=== PATIENT | male | born 1945 | race Caucasian/White ===

== ENCOUNTER → 2017-03-01 | Outpatient (CLI) | payer BC, OTHER ==
[~2017-03-01] MED LIST: ACET-749 PO; AMLO-114 PO; AMPH30TA2 PO; ATOR-26 PO; AZEL0.055 OP; BACL1TAB PO; CELE1CAP30 PO; CYCL10TA6 PO; DIAZ-165 PO; DICL50TA3 PO; DICY10CA55 PO; DULO60CA44 PO; FLAX10007 PO; FLM4 PO; FLNIN/ NAE; FRCT/ PO; GABA-112 PO; IMT100 PO; LINA1CAP2 PO; METO25TA56 PO; POLY150C4 PO; POLY335025 PO; PREG1CAP28 PO; RXC5 PO; SERT50TA PO; VNFI INJ; ZOLP10TA PO
--- NOTE | 2017-03-01 14:44 | DIAGNOSTIC IMAGING REPORT ---
CHEST 2 VIEWS ROUTINE HISTORY: Preop. COMPARISON: Chest 07/01/2016. FINDINGS: The lungs are clear. Cardiac silhouette is normal in size. No pleural effusions. No pneumothorax. IMPRESSION: No acute process. Electronically signed by: Carl Colby M.D. 03/01/2017 2:43 PM Dictated Date/Time: 03/01/2017 2:42 PM
[2017-03-01 15:51] LABS: URINE APPEARANCE CLEAR (CLEAR); URINE BILIRUBIN NEG (NEG); URINE COLOR YELLOW; URINE NITRITE NEG (NEG); URINE PH 7.5 (4.5-7.5); URINE SPECIFIC GRAVITY 1.011 (1.000-1.030); UROBILINOGEN NEG (NEG)
[2017-03-01 15:56] LABS: MANUAL MICROSCOPIC REQUIRED? NO; REVIEW REQ? NO
== END | disposition home or self-care (01) ==
LOC: C.LAB 13:49
PROVIDERS: ATTEND Orthopaedic Surgery Orthopaedic Surgery of the Spine
DX: M48.06 Spinal stenosis, lumbar region (principal); R94.31 Abnormal electrocardiogram [ECG] [EKG]

== ENCOUNTER 2017-03-04 11:17 | Inpatient (IN) | payer BC, OTHER ==
[2017-02-25 14:46] VITALS: BMI 21.0
[~2017-03-04] VITALS: Ht 177.8 cm; Wt 67.3 kg
[2017-03-04] VITALS (7 sets, daily range): BP systolic 114–149; BP diastolic 68–89; PULSE 71–82; TEMP 36.3–36.8; O2SAT 96–100; Ht 177.8 cm; Wt 67.3 kg
[~2017-03-04 11:17] MED LIST changes: +ATROPINE SULFATE 0.1 MG/ML 5ML SYR IV PRN; +CEFAZOLIN 1000MG/55 ML D5W IV SCH; +EpHEDrine SULFATE INJ 50 MG/ML AMP IV PRN; -GABA-112 PO; +HYDROmorphone INJ 1 MG/ML SYR IV PRN; +LACTATED RINGER'S 1000ML 1,000 ML IV SCH; +ONDANSETRON INJ 2 MG/ML 2 ML VIAL IV PRN; -RXC5 PO
--- NOTE | 2017-03-04 11:30 | History & Physical Bridge Note ---
H&P Re-Evaluation Bridge Note: I have examined the patient, reviewed the History & Physical and in the interval since the performance of the History & Physical I have noted the following changes of clinical significance: No changes noted
--- NOTE | 2017-03-04 11:31 | History and Physical ---
History & Physical Date March 04, 2017. Chief Complaint back and leg pain History of Present Illness The patient is a 71 year old male with complaints of Past Medical/Surgical History Medical Problems: (1) Chronic radicular low back pain (2) Depression (3) Dyslipidemia (4) GERD (gastroesophageal reflux disease) (5) Hypertension (6) IBS (irritable bowel syndrome) (7) Migraine (8) Persistent vomiting Surgical Problems: (1) History of partial gastrectomy (2) History of tonsillectomy Additional History Hepatic Disease: No Endocrine Disorder: No Kidney Disease: No Hypertension: No Heart Disease: No Bleeding Tendencies: No Infectious Diseases: No Allergies Coded Allergies: Buspirone (Verified Adverse Reaction, Unknown, "CRAWLING OUT OF MY SKIN" JITTERY, 02/25/17) Lactose (Verified Adverse Reaction, Unknown, INTOLERANT, 02/25/17) Lorazepam (Verified Adverse Reaction, Unknown, JITTERY;"CRAWLING OUT OF MY SKIN", 02/25/17) Home Medications Scheduled Amlodipine (Norvasc), 10 MG PO QAM Amphetamine-Dextroamphetamine 30MG (Adderall 30MG), 30 MG PO BID Atorvastatin (Lipitor), 80 MG PO HS Celecoxib (Celecoxib), 200 MG PO QAM Diclofenac (Voltaren), 50 MG PO TID Dicyclomine Hcl (Bentyl), 1 CAP PO QID Duloxetine Hcl (Cymbalta), 1 CAP PO DAILY Flaxseed (Linseed) (Flax Seed Oil), 1,000 MG PO QAM Iron Sucrose (Venofer), 200 MG INJ MONTHLY Linaclotide (Linzess), 290 MCG PO QAM Metoprolol Tartrate (Lopressor) (Lopressor), 75 MG PO BID Polysaccharide Iron Complex (Ferrex 150), 1 CAP PO QAM Pregabalin (Lyrica), 75 MG PO BID Sertraline (Zoloft), 1 TAB PO DAILY Tamsulosin HCl (Tamsulosin HCl), 0.4 MG PO HS Scheduled PRN Acetamin/Butalbital/Caffeine (Fioricet), 1 TAB PO Q4H PRN for Migraine Acetaminophen/Codeine (Tylenol W/Codeine #3), 1 TAB PO Q4H PRN for Lower Back Pain Azelastine Hcl (Ophth) (Azelastine Hcl), 1 DROPS OP BID PRN for SEASONAL ALLERGIES Baclofen (Lioresal), 1 TAB PO TID PRN for Muscle Spasms Cyclobenzaprine Hcl (Flexeril), 10 MG PO TID PRN for Muscle Spasm Diazepam (Valium), 5 MG PO QAM PRN for ANXIETY Fluticasone Propionate (Fluticasone Propionate), 2 SPRAYS CARMELITA DAILY PRN for Nasal Congestion Polyethylene Glycol 3350 (Miralax), 17 GM PO DAILY PRN for Constipation Sumatriptan Succinate (Imitrex), 100 MG PO UD PRN for Migraine Zolpidem Tartrate (Ambien), 10 MG PO HS PRN for Sleep Physical Examination Skin: warm/dry, no rash Eyes: normal inspection, EOMI, sclerae normal ENT: normal ENT inspection, pharynx normal Head: normocephalic, atraumatic Neck: supple, no adenopathy, trachea midline Respiratory/Chest: lungs clear, normal breath sounds, no respiratory distress Cardiovascular: regular rate, rhythm, no edema, no murmur Abdomen / GI: normal bowel sounds, non tender Back: normal inspection Extremities: normal inspection, normal range of motion Neurologic/Psych: no motor/sensory deficits, alert, normal reflexes, oriented x 3 Diagnosis lumbar stenosis Plan of Treatment decompression fusion L4-S1
[2017-03-04] MEDS ORDERED: BUPIVACAINE/EPINEPHRINE 0.5% MPF 1:200,000 30 ML VIAL ONE (11:54)
[2017-03-04] MEDS ORDERED: SODIUM CHLORIDE 0.9% PF 50 ML VIAL ONE (11:54)
[2017-03-04] MEDS ORDERED: BACITRACIN 50000 UNIT VIAL ONE (11:55)
[2017-03-04] MEDS ORDERED: FENTANYL CITRATE INJ 50 MCG/1 ML 2 ML VIAL ONE ×3 (11:57→12:50)
[2017-03-04] MEDS ORDERED: MIDAZOLAM HCL 1 MG/ML 2ML VIAL ONE (11:57)
[2017-03-04] MEDS ORDERED: HYDROmorphone INJ 2 MG/ML SYR/VIAL ONE ×3 (12:46→14:43)
[2017-03-04] MEDS ORDERED: LIDOCAINE HCL 2% 2 ML VIAL (20MG/ML) ONE (14:19)
[2017-03-04] MEDS ORDERED: PROPOFOL IV EMULSION 10 MG/ML 20 ML VIAL IV ONE (14:19)
[2017-03-04] MEDS ORDERED: ONDANSETRON INJ 2 MG/ML 2 ML VIAL ONE ×3 (14:19→14:48)
[2017-03-04] MEDS ORDERED: DEXAMETHASONE SOD INJ 4 MG/ML VIAL ONE (14:19)
[2017-03-04] MEDS ORDERED: RANITIDINE HCL 25 MG/ML INJ ONE (14:19)
[2017-03-04] MEDS ORDERED: ROCURONIUM BROMIDE 10 MG/ML 5 ML VIAL ONE (14:19)
[2017-03-04] MEDS ORDERED: GLYCOPYRROLATE INJ 0.2 MG/ML VIAL ONE ×2 (14:20→14:44)
[2017-03-04] MEDS ORDERED: EpHEDrine SULFATE 50MG/5ML SYR ONE (14:20)
[2017-03-04] MEDS ORDERED: PHENYLEPHRINE 100MCG/ML 5ML SYR ONE (14:20)
[2017-03-04] MEDS ORDERED: DURASEAL DURAL SEALANT 5ML TOP ONE (14:24)
[2017-03-04] MEDS ORDERED: FLOSEAL HEMOSTATIC MATRIX 10ML TOP ONE (14:27)
[2017-03-04] MEDS ORDERED: LACTATED RINGER'S 1000ML 1,000 ML IV SCH (14:43)
--- NOTE | 2017-03-04 14:43 | [facility] Post Operative Brief Note ---
Immediate Operative Summary Operative Date March 04, 2017. Pre-Operative Diagnosis Lumbar Stenosis Post-Operative Diagnosis Lumbar Stenosis Procedure(s) Performed L4-L5, L5-S1 Lumbar Decompression/Laminectomy, Discectomy, Placement of Interbody Spacer, Pedicle Screw Fixation, Application of Bone Graft Allograft, Application of Bone Morphogenetic Protein, Posteriolateral Gutter Fusion and Repair of Dura tear Surgeon Dr. Ferrer [employer] Surgeon(s) MIL Rosenbaum Estimated Blood Loss 450ml Findings stenosis Specimens none per surgeon
[2017-03-04] MEDS ORDERED: NEOSTIGMINE METHYLSULFATE 1 MG/ML 10ML VIAL ONE (14:44)
[2017-03-04] MEDS ORDERED: BACLOFEN 10 MG TAB PO PRN (14:45)
[2017-03-04] MEDS ORDERED: ACETAMINOPHEN IV 100 ML IV PRN (14:45)
[2017-03-04] MEDS ORDERED: ZOLPIDEM TARTRATE 10 MG TAB PO PRN (14:45)
[2017-03-04] MEDS ORDERED: FLUTICASONE PROPIONATE NA SPR 16 GM BTL NAE PRN (14:45)
[2017-03-04] MEDS ORDERED: SOD PHOSPHATE/SOD BIPHOSPHATE ENEMA 132 ML BTL PR PRN (14:45)
[2017-03-04] MEDS ORDERED: FAMOTIDINE 20 MG TAB PO PRN (14:45)
[2017-03-04] MEDS ORDERED: ALUMINUM/MAGNESIUM SUSP 30 ML UDC PO PRN (14:45)
[2017-03-04] MEDS ORDERED: hydrOXYzine HCL 25 MG TAB PO PRN (14:45)
[2017-03-04] MEDS ORDERED: DO NOT ADMINISTER PNEUMOCOCCAL VACCINE PRN ×2 (14:45)
[2017-03-04] MEDS ORDERED: BISACODYL 10 MG SUPP PR PRN (14:45)
[2017-03-04] MEDS ORDERED: NALOXONE HCL 0.4 MG/1 ML VIAL/CARP IV PRN ×2 (14:45)
[2017-03-04] MEDS ORDERED: ACETAMINOPHEN 500 MG TAB PO PRN (14:45)
[2017-03-04] MEDS ORDERED: SUMATRIPTAN SUCC TAB 100 MG TAB PO PRN (14:45)
[2017-03-04] MEDS ORDERED: PROMETHAZINE HCL INJ 12.5 MG in SODIUM CHLORIDE 0.9% 50ML 50 ML IV PRN (14:45)
[2017-03-04] MEDS ORDERED: DO NOT ADMINISTER FLU VACCINE PRN ×3 (14:45)
[2017-03-04] MEDS ORDERED: MAGNESIUM HYDROXIDE SUSP 30 ML UDC PO PRN (14:45)
[2017-03-04] MEDS ORDERED: PHENYLEPHRINE HCL INJ 10 MG/ML VIAL ONE (14:48)
--- NOTE | 2017-03-04 14:48 | DIAGNOSTIC IMAGING REPORT ---
LUMBAR SPINE, INTRAOPERATIVE FLUOROSCOPY HISTORY: L4-S1 decompression and fusion. FLUOROSCOPY TIME: 19 seconds. FINDINGS: Intraoperative fluoroscopy was provided for the lumbar spine. 2 fluoroscopic spot images were obtained. Posterior decompression fusion from L4 through S1 with pedicle screws and rods. The hardware appears intact. IMPRESSION: Fluoroscopy provided for a L4-S1 posterior decompression and fusion. Electronically signed by: Carl Colby M.D. 03/04/2017 2:47 PM Dictated Date/Time: 03/04/2017 2:47 PM
[2017-03-04] MEDS ORDERED: HYDROmorphone HCL 0.5MG/ML 50 ML CASSETTE ONE (14:59)
[2017-03-04] MEDS: HYDROmorphone HCL 0.5MG/ML 50 ML CASSETTE IV PRN ×3 (15:00→18:53)
[2017-03-04] MEDS: FENTANYL CITRATE INJ 50 MCG/1 ML 2 ML VIAL IV PRN ×4 (15:30→15:45)
--- NOTE | 2017-03-04 15:48 | Anesthesiology Progress Note ---
Anesthesia Post Op Note Date & Time March 04, 2017 at 15:48 Vital Signs Pain Intensity: 6.0 Vital Signs Past 12 Hours Date Time Temp Pulse Resp B/P Pulse Ox O2 Delivery O2 Flow Rate FiO2 03/04/17 15:30 74 16 116/69 100 Nasal Cannula 4 03/04/17 15:20 75 16 113/56 100 Nasal Cannula 4 03/04/17 15:10 76 16 114/62 100 Nasal Cannula 4 03/04/17 15:00 82 16 102/64 100 Mask 10 03/04/17 14:51 36 82 16 96/62 100 Mask 10 03/04/17 11:48 36.8 71 20 149/89 100 Room Air Notes Mental Status: alert / awake / arousable, participated in evaluation Pt Amnestic to Procedure: Yes Nausea / Vomiting: adequately controlled Pain: adequately controlled Airway Patency, RR, SpO2: stable & adequate BP & HR: stable & adequate Hydration State: stable & adequate Anesthetic Complications: no major complications apparent
[2017-03-04] MEDS: SODIUM CHLORIDE 0.9% 1000ML 1,000 ML IV SCH ×2 (17:17→19:28)
[2017-03-04] MEDS: DICYCLOMINE HCL 10 MG CAP PO SCH ×2 (17:38→21:00)
[2017-03-04] MEDS: CEFAZOLIN IV 1,000 MG in DEXTROSE 5% 50ML 50 ML IV SCH (19:28)
[2017-03-04] MEDS: ONDANSETRON INJ 2 MG/ML 2 ML VIAL IV PRN (19:36)
--- NOTE | 2017-03-04 20:48 | OPERATIVE REPORT ---
DATE OF OPERATION: 03/04/2017 PREOPERATIVE DIAGNOSIS: Spinal stenosis. POSTOPERATIVE DIAGNOSIS: Same. PROCEDURE PERFORMED: 1. Lumbar decompression, medial facetectomy, and foraminotomy L3-4, L4-5 and L5-S1. 2. Posterior spinal fusion, L4-5 and L5-S1. 3. Placement of posterior segmental instrumentation using Orthros rods and screws, L4-5 and L5-S1. 4. Interbody fusion, L4-L5 and L5-S1. 5. Placement of PEEK cage 8 x 22 at L4-L5 and 9 x 22 at L5-S1. 6. Placement of locally harvested morcellized autograft. 7. Placement of Infuse collagen sponge combined with Mastergraft in posterior gutters and Lili bone grafting in interbody space. SURGEON: Dr. Ángel Ferrer. DOUGHNUT ICER: Shari Jones PA-C. Due to the complex nature of the procedure, the entire surgery was performed with the nurse's assistant of Shari Jones PA-C. The speech assistant, under direct supervision, was involved in the actual performance of all aspects of the surgical procedure including hemostasis, tissue retraction and incision, instrument management, patient positioning, and wound closure. ANESTHESIA: General. DISPOSITION: The patient awakened and taken to PACU in stable condition. HISTORY OF PATIENT'S PROBLEMS: This is a 71-year-old male who presents with above-mentioned diagnosis. After failing an extensive course of nonoperative care, elected to undergo the above-mentioned procedure. Risks, benefits, pros, cons, and alternatives were outlined in detail preoperatively. DESCRIPTION OF PROCEDURE: The patient was met preoperatively, case discussed and all questions were addressed. At that point, the patient was taken back to operative suite, and after undergoing successful general intubation by department of anesthesia, he was placed in prone position on Milton table atop Lucho frame. All bony prominences were well padded, and the eyes were inspected to ensure there was no external pressure placed upon them. At this point, the lumbar spine was prepped and draped in normal sterile fashion. Sharp dissection with the assistance of Bovie cautery performed down to and exposing the lamina and transverse processes of L4, L5 and sacral ala bilaterally. From a caudal to cephalad fashion, complete laminectomy of L5 and L4, partial laminectomy of L3 was performed addressing severe lateral recess foraminal disease. We did note an incidental 1 to 2 mm durotomy. This was repaired directly with 4-0 Nurolon. After complete decompression, pedicle screws were then placed in L4, L5 and S1 levels bilaterally with assistance of fluoroscopy and appropriately sized jesika provisionally placed Through a transforaminal approach on the right, a complete discectomy of L5-S1 was performed. Endplates curetted to subcortical bleeding bone and an 8 x 22 mm PEEK cage filled with Lili bone grafting tapped into position. I then proceeded to 4-5, and again, through a transforaminal approach on the right, a complete discectomy was performed, endplates curetted to subcortical bleeding bone and an 8 x 22 mm PEEK cage filled with Lili bone grafting tapped into position. Rods were then locked into final position. The transverse processes of L4, L5 and S1 levels burred to subcortical bone. Infuse collagen sponge combined with Mastergraft locally harvested morselized autograft was placed in the posterior gutters. A 7 flat ROBER drain inserted. Incision was closed with 1-0 Vicryl in the fascia, 2-0 Vicryl subcutaneously, 4-0 Monocryl for final skin closure. Steri-Strips and sterile dressing placed. The patient was awakened and taken to PACU in stable condition. I attest to the content of the Intraoperative Record and any orders documented therein. Any exceptio ns are noted below.
[2017-03-04] MEDS: DOCUSATE SODIUM/SENNA 50/8.6MG TAB PO SCH ×2 (21:00→21:21)
[2017-03-04] MEDS: METOPROLOL TARTRATE 25 MG TAB PO SCH (21:21)
[2017-03-04] MEDS: TAMSULOSIN HCL 0.4 MG CAP PO SCH (21:21)
[2017-03-04] MEDS: ATORVASTATIN 40 MG TAB PO SCH (21:21)
[2017-03-04] MEDS: DEXAMETHASONE INJ 6 MG in SYRINGE 0 ML IV SCH (21:22)
[2017-03-04] MEDS: PREGABALIN 75 MG CAP PO SCH (21:22)
[2017-03-04] MEDS: METOCLOPRAMIDE HCL INJ 5 MG/ML 2 ML VIAL IV PRN (22:34)
[2017-03-05 03:15] VITALS: BP 136/80; PULSE 89; TEMP 36.6; O2SAT 99
[2017-03-05] MEDS: CEFAZOLIN IV 1,000 MG in DEXTROSE 5% 50ML 50 ML IV SCH (04:04)
[2017-03-05] MEDS: METOCLOPRAMIDE HCL INJ 5 MG/ML 2 ML VIAL IV PRN (05:03)
[2017-03-05 05:51] LABS: BASO % 0.1 %; BASO ABS # 0.01 K/uL (0-0.2); COMPLETE YES; HEMATOCRIT 29.6 % (42-52); IG% 0.2 %; LYMPH % 7.1 %; LYMPH ABS # 0.61 K/uL (1.2-3.4); MEAN CELL VOLUME 80.2 fL (80-100); MEAN CORPUSCULAR HEMOGLOBIN 29.8 pg (25-34); MEAN CORPUSCULAR HGB CONC 37.2 g/dl (32-36); MEAN PLATELET VOLUME 7.8 fL (7.4-10.4); MONO % 4.6 %; PLATELET COUNT 189 K/uL (130-400); RED BLOOD COUNT 3.69 M/uL (4.7-6.1); WHITE BLOOD COUNT 8.61 K/uL (4.8-10.8)
[2017-03-05] MEDS ORDERED: DC PCA SCH (06:00)
[2017-03-05] MEDS ORDERED: HYDROmorphone INJ 1 MG/ML SYR IV PRN (06:01)
[2017-03-05] MEDS: DEXAMETHASONE INJ 6 MG in SYRINGE 0 ML IV SCH ×2 (06:09→13:35)
[2017-03-05 06:27] LABS: BUN/CREATININE RATIO 18.3 (10-20); CREATININE 0.58 mg/dl (0.60-1.40); POTASSIUM 4.1 mmol/L (3.5-5.1)
[2017-03-05] MEDS ORDERED: RXC5 PO (07:35)
--- NOTE | 2017-03-05 07:36 | Discharge Instructions ---
Discharge Instructions Date of Service March 05, 2017. Admission Reason for Admission: Lumbar Spinal Stenosis Discharge Discharge Diagnosis / Problem: stenosis Discharge Goals Goal(s): Improve function Activity Recommendations Activity Limitations: per Instructions/Follow-up section . Instructions / Follow-Up Instructions / Follow-Up ACTIVITY RECOMMENDATIONS: Limitations: Heel weight bearing only if able to tolerate. SPECIAL CARE INSTRUCTIONS: * Some drainage onto the dressing is normal and is no cause for alarm. * Some swelling is natural especially after walking. * When resting, keep your foot elevated above the level of your heart. * Call [facility] if you notice: -Increased drainage -Fever over 101 degrees F -Severe constant pain BANDAGE: * Leave bandage/cast in place unless otherwise directed. * Keep bandage/cast dry at all times. PIN CARE: * Leave pins alone. * If pins come loose or fall out, notify physician. FOLLOW UP VISIT WITH DR. GARCIA If appointment is not already scheduled: Please call [facility] after you get home today to schedule a follow-up appointment for [address] Garcia at . Current Hospital Diet Patient's current hospital diet: Regular Diet Discharge Diet Recommended Diet: Regular Diet Procedures Procedures Performed: L4-L5, L5-S1 Lumbar Decompression/Laminectomy, Discectomy, Placement of Interbody Spacer, Pedicle Screw Fixation, Application of Bone Graft Allograft, Application of Bone Morphogenetic Protein, Posteriolateral Gutter Fusion and Repair of Dura tear Pending Studies Studies pending at discharge: no Medical Emergencies . Who to Call and When: Medical Emergencies: If at any time you feel your situation is an emergency, please call 911 immediately. . Non-Emergent Contact Non-Emergency issues call your: Primary Care Provider . "Provider Documentation" section prepared by Ángel Ferrer. . VTE Core Measure Inpt VTE Proph given/why not?: Rl Purvis, SCD's
[2017-03-05 07:39] VITALS: BP 138/79; PULSE 91; TEMP 36.5; O2SAT 98
--- NOTE | 2017-03-05 08:08 | Anesthesiology Progress Note ---
Anesthesia Post Op Note Date & Time March 05, 2017 at 08:08 Vital Signs Pain Intensity: 0.0 Vital Signs Past 12 Hours Date Time Temp Pulse Resp B/P Pulse Ox O2 Delivery O2 Flow Rate FiO2 03/05/17 07:39 36.5 91 17 138/79 98 Room Air 03/05/17 03:15 36.6 89 16 136/80 99 Room Air 03/05/17 00:00 Room Air 03/04/17 22:46 36.4 80 16 146/79 99 Room Air 03/04/17 21:20 81 118/71 100 Room Air Notes Mental Status: alert / awake / arousable, participated in evaluation Pt Amnestic to Procedure: Yes Nausea / Vomiting: adequately controlled Pain: adequately controlled Airway Patency, RR, SpO2: stable & adequate BP & HR: stable & adequate Hydration State: stable & adequate Anesthetic Complications: no major complications apparent
[2017-03-05] MEDS: DICYCLOMINE HCL 10 MG CAP PO SCH ×4 (09:00→20:24)
[2017-03-05 11:13] VITALS: BP 148/76; PULSE 95; TEMP 37; O2SAT 99
[2017-03-05] MEDS: ONDANSETRON INJ 2 MG/ML 2 ML VIAL IV PRN (12:01)
[2017-03-05] MEDS: AMLODIPINE BESYLATE 5 MG TAB PO SCH (12:04)
[2017-03-05] MEDS: METOPROLOL TARTRATE 25 MG TAB PO SCH ×2 (12:04→20:26)
[2017-03-05] MEDS: SERTRALINE HCL 50 MG TAB PO SCH (12:04)
[2017-03-05] MEDS: DULOXETINE HCL 60 MG CAP PO SCH (12:04)
[2017-03-05] MEDS: PREGABALIN 75 MG CAP PO SCH ×2 (12:06→20:26)
[2017-03-05] MEDS: BUTALBITAL/ACETAMIN/CAFFEINE TAB PO PRN ×2 (13:35→20:38)
--- NOTE | 2017-03-05 15:06 | PROGRESS NOTE ---
DATE: 03/05/2017 Postop day 1. Back pain controlled. Leg pain improved. Denies any headaches at this time. Vital signs stable. T-max 37.0. ROBER drained 60 mL. Hematocrit this a.m. 29.6. PHYSICAL EXAMINATION: He has good strength to testing. Appears comfortable. ASSESSMENT: Status post lumbar decompression and fusion. PLAN: At this time, we will discontinue the drain today, begin transition to a chair, most likely physical therapy tomorrow.
[2017-03-05 15:10] VITALS: BP 155/79; PULSE 82; TEMP 36.8; O2SAT 99
[2017-03-05] MEDS: TAMSULOSIN HCL 0.4 MG CAP PO SCH (20:24)
[2017-03-05] MEDS: ATORVASTATIN 40 MG TAB PO SCH (20:25)
[2017-03-05] MEDS: DOCUSATE SODIUM/SENNA 50/8.6MG TAB PO SCH (20:26)
[2017-03-05] MEDS: DIAZEPAM 5MG TAB PO PRN (20:38)
[2017-03-05 23:40] VITALS: BP 120/67; PULSE 76; TEMP 36.6; O2SAT 98
[2017-03-06] MEDS: POLYETHYLENE (MIRALAX) 17 GM PACK PO SCH ×4 (05:36→23:58)
[2017-03-06 07:05] VITALS: BP 131/77; PULSE 85; TEMP 36.8; O2SAT 100
[2017-03-06] MEDS: OXYCODONE HCL IR 5 MG TAB (IMMEDIATE RELEASE) PO PRN ×5 (07:21→21:07)
[2017-03-06] MEDS: BUTALBITAL/ACETAMIN/CAFFEINE TAB PO PRN ×3 (07:32→21:06)
[2017-03-06] MEDS: DICYCLOMINE HCL 10 MG CAP PO SCH ×4 (09:00→20:07)
[2017-03-06] MEDS: SERTRALINE HCL 50 MG TAB PO SCH (09:10)
[2017-03-06] MEDS: DULOXETINE HCL 60 MG CAP PO SCH (09:11)
[2017-03-06] MEDS: AMLODIPINE BESYLATE 5 MG TAB PO SCH (09:11)
[2017-03-06] MEDS: METOPROLOL TARTRATE 25 MG TAB PO SCH ×2 (09:12→21:08)
[2017-03-06] MEDS: PREGABALIN 75 MG CAP PO SCH ×2 (09:15→21:13)
--- NOTE | 2017-03-06 10:24 | PROGRESS NOTE ---
DATE: 03/06/2017 DATE: 03/06/2017. SUBJECTIVE: Postop day 2. Back pain controlled. Leg pain improved. Denies headaches, nausea or vomiting. Vital signs stable. T-max 36.8. ROBER drain discontinued. OBJECTIVE: On exam he has good strength to testing, sitting up in bed, appears comfortable. ASSESSMENT: Status post lumbar decompression and fusion. PLAN: At this time, will initiate formal physical therapy today for ambulation and transfers. Hopefully, discharge home in the next 2 days.
[2017-03-06] MEDS: CYCLOBENZAPRINE HCL 10 MG TAB PO PRN ×2 (11:12→17:49)
[2017-03-06 15:20] VITALS: BP 105/64; PULSE 88; TEMP 37.1; O2SAT 98
[2017-03-06 21:05] VITALS: BP 105/66; PULSE 92
[2017-03-06] MEDS: DOCUSATE SODIUM/SENNA 50/8.6MG TAB PO SCH (21:07)
[2017-03-06] MEDS: ATORVASTATIN 40 MG TAB PO SCH (21:08)
[2017-03-06] MEDS: TAMSULOSIN HCL 0.4 MG CAP PO SCH (21:09)
[2017-03-06 23:35] VITALS: BP 130/72; PULSE 79; TEMP 36.7; O2SAT 97
[2017-03-07] MEDS: DIAZEPAM 5MG TAB PO PRN (00:05)
[2017-03-07] MEDS: POLYETHYLENE (MIRALAX) 17 GM PACK PO SCH ×3 (05:41→19:00)
[2017-03-07 06:33] VITALS: BP 146/83; PULSE 87; TEMP 37.3; O2SAT 97
[2017-03-07] MEDS ORDERED: DICYCLOMINE HCL 20 MG TAB PO PRN (08:45)
[2017-03-07] MEDS: DICYCLOMINE HCL 10 MG CAP PO SCH ×4 (09:00→20:58)
--- NOTE | 2017-03-07 09:05 | PROGRESS NOTE ---
DATE: 03/07/2017 SUBJECTIVE: The patient is doing fairly well, ambulating well. Leg pain improved. Vital signs are stable. T-max is 37.3. No bowel movement as of yet. On exam, he demonstrates good strength to testing. He appears comfortable. ASSESSMENT: Status post lumbar decompression and fusion. PLAN: At this time, we will continue with physical therapy today, advance his bowel regimen and anticipate home tomorrow.
[2017-03-07] MEDS ORDERED: KETOROLAC TROMETHAMINE 15 MG/ML VIAL IV. PRN (09:45)
[2017-03-07] MEDS: DULOXETINE HCL 60 MG CAP PO SCH (10:13)
[2017-03-07] MEDS: METOPROLOL TARTRATE 25 MG TAB PO SCH ×2 (10:13→20:58)
[2017-03-07] MEDS: AMLODIPINE BESYLATE 5 MG TAB PO SCH (10:14)
[2017-03-07] MEDS: PREGABALIN 75 MG CAP PO SCH ×2 (10:14→21:02)
[2017-03-07] MEDS: SERTRALINE HCL 50 MG TAB PO SCH (12:39)
[2017-03-07 15:45] VITALS: BP 109/75; PULSE 82; TEMP 36.4; O2SAT 98
[2017-03-07 16:00] VITALS: O2SAT 98
[2017-03-07] MEDS: TAMSULOSIN HCL 0.4 MG CAP PO SCH (20:57)
[2017-03-07] MEDS: DOCUSATE SODIUM/SENNA 50/8.6MG TAB PO SCH (20:57)
[2017-03-07] MEDS: ATORVASTATIN 40 MG TAB PO SCH (21:00)
[2017-03-07] MEDS: BUTALBITAL/ACETAMIN/CAFFEINE TAB PO PRN (21:03)
[2017-03-07] MEDS: CYCLOBENZAPRINE HCL 10 MG TAB PO PRN (21:04)
[2017-03-07 23:30] VITALS: BP 130/80; PULSE 93; TEMP 37.1; O2SAT 95
[2017-03-08] MEDS: OXYCODONE HCL IR 5 MG TAB (IMMEDIATE RELEASE) PO PRN ×2 (00:15→10:56)
[2017-03-08] MEDS: POLYETHYLENE (MIRALAX) 17 GM PACK PO SCH ×2 (05:49)
[2017-03-08 06:31] VITALS: BP 106/69; PULSE 83; TEMP 36.8; O2SAT 96
[2017-03-08 08:33] VITALS: BP 106/69; PULSE 83; TEMP 36.8; O2SAT 96
[2017-03-08] MEDS: DICYCLOMINE HCL 10 MG CAP PO SCH (08:41)
[2017-03-08] MEDS: AMLODIPINE BESYLATE 5 MG TAB PO SCH (08:43)
[2017-03-08] MEDS: SERTRALINE HCL 50 MG TAB PO SCH (08:43)
[2017-03-08] MEDS: DULOXETINE HCL 60 MG CAP PO SCH (08:43)
[2017-03-08] MEDS: METOPROLOL TARTRATE 25 MG TAB PO SCH (08:44)
[2017-03-08] MEDS: PREGABALIN 75 MG CAP PO SCH (08:49)
[2017-03-08] MEDS: BUTALBITAL/ACETAMIN/CAFFEINE TAB PO PRN (11:02)
--- NOTE | 2017-03-11 09:45 | DISCHARGE SUMMARY ---
HISTORY OF PRESENT ILLNESS: The patient entered the hospital on 03/04/2017 with a preoperative diagnosis of spinal stenosis. The patient underwent posterior lumbar decompression L3 through S1 with instrumented fusion L4 through S1. This included interbody fusion L4-5 and L5-S1. Postoperatively, on postoperative day 1 leg pain improved. Back pain controlled. Hematocrit stable at 29.6%. Doing well in therapy. Postoperative day 2, again leg and back pain controlled. Drain was removed. Starting physical therapy. Postoperative day 3, again no complaints, doing well, progressing with physical therapy. Discharged home on postoperative day 4. PAST MEDICAL HISTORY: Significant for depression, dyslipidemia, GERD, hypertension, irritable bowel syndrome, migraines, persistent vomiting. PAST SURGICAL HISTORY: Significant for partial gastrectomy and tonsillectomy. ALLERGIES: INCLUDE BUSPIRONE, LACTOSE AND ATIVAN. MEDICATIONS AT HOME: Include Norvasc, Adderall, Lipitor, Celebrex, Voltaren, Bentyl, Cymbalta, flaxseed oil, iron, sucrose, Linzess, vasopressor, Ferrex, Lyrica, Zoloft, tamsulosin, Fioricet, Tylenol with codeine, azelastine drops, baclofen, Flexeril, Valium, fluticasone propionate, MiraLax, Imitrex and Ambien. SOCIALLY: He is . Alcohol and tobacco use are per chart. DISCHARGE PLAN: At discharge, he will follow up in our office in 2 weeks to assess his progress and wound evaluation. Any further questions can be found in the chart for review.
[2017-05-25] MEDS ORDERED: GABA-112 PO (14:13)
== END 2017-03-08 13:39 | disposition home or self-care (01) | DRG 460 ==
LOC: ENRESERVTM → ENRESERVDT → C.ACU 11:17 → C.3E 11:30
PROVIDERS: ADMIT Orthopaedic Surgery Orthopaedic Surgery of the Spine; ATTEND Orthopaedic Surgery Orthopaedic Surgery of the Spine
PROC: 0ST20ZZ Resection of Lumbar Vertebral Disc, Open Approach (ICD-10-PCS; principal; 2017-03-04 12:45)
PROC: 0SG30AJ Fusion of Lumbosacral Joint with Interbody Fusion Device, Posterior Approach, Anterior Column, Open Approach (ICD-10-PCS; principal; 2017-03-04 12:45)
PROC: 0SG00AJ Fusion of Lumbar Vertebral Joint with Interbody Fusion Device, Posterior Approach, Anterior Column, Open Approach (ICD-10-PCS; principal; 2017-03-04 12:45)
PROC: 0ST40ZZ Resection of Lumbosacral Disc, Open Approach (ICD-10-PCS; principal; 2017-03-04 12:45)
PROC: 0SG0071 Fusion of Lumbar Vertebral Joint with Autologous Tissue Substitute, Posterior Approach, Posterior Column, Open Approach (ICD-10-PCS; principal; 2017-03-04 12:45)
PROC: 0SG3071 Fusion of Lumbosacral Joint with Autologous Tissue Substitute, Posterior Approach, Posterior Column, Open Approach (ICD-10-PCS; principal; 2017-03-04 12:45)
PROC: 01NB0ZZ Release Lumbar Nerve, Open Approach (ICD-10-PCS; principal; 2017-03-04 12:45)
DX: M48.06 Spinal stenosis, lumbar region (principal); F32.9 Major depressive disorder, single episode, unspecified; E78.5 Hyperlipidemia, unspecified; K21.9 Gastro-esophageal reflux disease without esophagitis; I10 Essential (primary) hypertension; K58.9 Irritable bowel syndrome, unspecified; R94.31 Abnormal electrocardiogram [ECG] [EKG]

== ENCOUNTER → 2017-05-25 | Outpatient (CLI) | payer BC ==
[~2017-05-25] MED LIST changes: -ATROPINE SULFATE 0.1 MG/ML 5ML SYR IV PRN; -CEFAZOLIN 1000MG/55 ML D5W IV SCH; -DICL50TA3 PO; -EpHEDrine SULFATE INJ 50 MG/ML AMP IV PRN; +GABA-112 PO; -HYDROmorphone INJ 1 MG/ML SYR IV PRN; -LACTATED RINGER'S 1000ML 1,000 ML IV SCH; -ONDANSETRON INJ 2 MG/ML 2 ML VIAL IV PRN; +RXC5 PO
[2017-05-25 14:44] LABS: THYROID STIMULATING HORMONE 2.3 uIu/ml (0.300-4.500)
== END | disposition home or self-care (01) ==
LOC: C.LAB 13:36
PROVIDERS: ATTEND Psychiatry & Neurology Psychiatry
DX: F90.9 Attention-deficit hyperactivity disorder, unspecified type (principal); Z79.899 Other long term (current) drug therapy

== ENCOUNTER 2017-12-17 16:42 | Emergency (ER) | payer BC ==
[~2017-12-17] VITALS: Ht 177.8 cm; Wt 64.5 kg
[~2017-12-17 16:42] MED LIST changes: -AMLO-114 PO; +BETA0.1C3 TOP; -DULO60CA44 PO; -FLAX10007 PO; +HYDR25TA5 PO; +LISI40TA PO; -POLY150C4 PO; -PREG1CAP28 PO; -RXC5 PO; +VARD0.05 PO; -VNFI INJ
[2017-12-17 16:45] VITALS: TEMP 36.3; Ht 177.8 cm; Wt 64.5 kg
[2017-12-17] MEDS ORDERED: ONDANSETRON INJ 2 MG/ML 2 ML VIAL IV STA (17:00)
[2017-12-17] MEDS ORDERED: MoRPHine SULFATE 4 MG/ML 1 ML CARP\\VIAL IV STA (17:00)
[2017-12-17] MEDS ORDERED: SODIUM CHLORIDE 0.9% 500ML 500 ML IV STA (17:00)
[2017-12-17 17:33] LABS: BASO % 0.3 %; BASO ABS # 0.01 K/uL (0-0.2); EOS % 10.4 %; EOS ABS # 0.38 K/uL (0-0.5); HEMATOCRIT 36.2 % (42-52); HEMOGLOBIN 13.2 g/dL (14.0-18.0); IG# 0.04 K/uL (0.00-0.02); LYMPH % 45.9 %; LYMPH ABS # 1.68 K/uL (1.2-3.4); MEAN CELL VOLUME 83.6 fL (80-100); MEAN CORPUSCULAR HEMOGLOBIN 30.5 pg (25-34); MEAN CORPUSCULAR HGB CONC 36.5 g/dl (32-36); MEAN PLATELET VOLUME 8.2 fL (7.4-10.4); MONO % 8.7 %; MONO ABS # 0.32 K/uL (0.11-0.59); NEUT % 33.6 %; NEUT ABS # 1.23 K/uL (1.4-6.5); PLATELET COUNT 200 K/uL (130-400); RED CELL DISTRIBUTION WIDTH CV 12.1 % (11.5-14.5); RED CELL DISTRIBUTION WIDTH SD 37.1 fL (36.4-46.3); WHITE BLOOD COUNT 3.66 K/uL (4.8-10.8)
--- NOTE | 2017-12-17 17:35 | DIAGNOSTIC IMAGING REPORT ---
L ELBOW MIN 3 VIEWS ROUTINE CLINICAL HISTORY: Left elbow pain COMPARISON: None. DISCUSSION: The fat pads are not displaced. No fractures or dislocations are visualized. Minimal irregularity of the radial neck, is unlikely to be of clinical significance. IMPRESSION: No fractures or dislocations identified. Electronically signed by: Young Gonzalez M.D. 12/17/2017 5:34 PM Dictated Date/Time: 12/17/2017 5:33 PM
[2017-12-17 17:43] LABS: CALCIUM 8.7 mg/dl (8.5-10.1); CREATININE 1.02 mg/dl (0.60-1.40); POTASSIUM 3.5 mmol/L (3.5-5.1)
--- NOTE | 2017-12-17 18:51 | DIAGNOSTIC IMAGING REPORT ---
ULTRASOUND L VENOUS DOPPLER UPR EXT UNILATERAL CLINICAL HISTORY: L elbow pain COMPARISON STUDY: No previous studies for comparison. FINDINGS: No intraluminal thrombus was visualized. The internal jugular, subclavian, axillary, cephalic, brachial, basilic, radial, and ulnar veins were patent. IMPRESSION: No evidence of left upper extremity DVT. Electronically signed by: Young Gonzalez M.D. 12/17/2017 6:49 PM Dictated Date/Time: 12/17/2017 6:49 PM
[2017-12-17] MEDS ORDERED: [UNRECOGNIZED DRUG - OTHER] TOP (19:19)
[2017-12-17 19:49] VITALS: BP 151/81; PULSE 68; O2SAT 98
--- NOTE | 2017-12-17 21:29 | EMERGENCY ROOM VISIT NOTE ---
History Report prepared by Javier: Jacob Viera Under the Supervision of: Dr. Camacho Friend D.O. First contact with patient: 16:49 Chief Complaint: ARM PAIN Stated Complaint: LEFT ARM PAIN- PHYSICIAN REFERRED History of Present Illness The patient is a 72 year old male who presents to the Emergency Room with complaints of constant pain in the left elbow that started this morning. The pain is all in the front of the elbow, there is none in the back. His pain is worsened by extending the elbow completely, or trying to lift a load with the arm. Pain is a 9 out of 10 in severity and described as a sharp stabbing. No improvement with oral medications. The patient states that he was admitted to the hospital Last Wednesday, 6 days ago for Colitis and was discharged home on Wednesday 5 days ago. This stay was for colitis. He denies any other headache, change in vision, fevers, chest pain, shortness of breath, nausea, vomiting, diarrhea, pain with urination, and melena. Source of History: patient Onset: This morning Position: elbow (left) Timing: constant Modifying Factors (Worsening): other (lifting with the arm, extending the elbow completely. ) Associated Symptoms: No SOB Review of Systems See HPI for pertinent positives & negatives. A total of 10 systems reviewed and were otherwise negative. Past Medical & Surgical Medical Problems: (1) Chronic radicular low back pain (2) Colitis (3) Depression (4) Dyslipidemia (5) GERD (gastroesophageal reflux disease) (6) Hypertension (7) IBS (irritable bowel syndrome) (8) Lumbar stenosis with neurogenic claudication (9) Migraine (10) Persistent vomiting Surgical Problems: (1) History of partial gastrectomy (2) History of tonsillectomy Family History No pertinent family history Social History Smoking Status: Never Smoker Alcohol Use: none Drug Use: none Marital Status: Housing Status: lives with significant other Occupation Status: retired Current/Historical Medications Scheduled Amphetamine-Dextroamphetamine 30MG (Adderall 30MG), 30 MG PO BID Atorvastatin (Lipitor), 80 MG PO QAM Betamethasone Valerate (Valisone 0.1% Cream), 1 APPL TOP BID Celecoxib (Celecoxib), 200 MG PO QAM Diazepam (Valium), 5 MG PO QAM Gabapentin (Neurontin), 200 MG PO TID Hydrochlorothiazide (Hydrochlorothiazide), 12.5 MG PO DAILY Linaclotide (Linzess), 290 MCG PO QAM Lisinopril (Zestril), 40 MG PO DAILY Metoprolol Tartrate (Lopressor) (Lopressor), 75 MG PO BID Sertraline (Zoloft), 100 MG PO DAILY Tamsulosin HCl (Tamsulosin HCl), 0.4 MG PO HS [Tens Unit], TOP PRN Scheduled PRN Acetamin/Butalbital/Caffeine (Fioricet), 1 TAB PO Q4H PRN for Migraine Acetaminophen/Codeine (Tylenol W/Codeine #3), 1 TAB PO Q4H PRN for Lower Back Pain Azelastine Hcl (Ophth) (Azelastine Hcl), 1 DROPS OP BID PRN for SEASONAL ALLERGIES Baclofen (Lioresal), 1 TAB PO TID PRN for Muscle Spasms Cyclobenzaprine Hcl (Flexeril), 10 MG PO TID PRN for Muscle Spasm Dicyclomine Hcl (Bentyl), 1 CAP PO QID PRN for abd pain Fluticasone Propionate (Fluticasone Propionate), 2 SPRAYS CARMELITA DAILY PRN for Nasal Congestion Polyethylene Glycol 3350 (Miralax), 17 GM PO DAILY PRN for Constipation Sumatriptan Succinate (Imitrex), 100 MG PO UD PRN for Migraine Vardenafil Hcl (Staxyn), 10 MG PO DAILY PRN for ERECTILE DYSFUNCTION Zolpidem Tartrate (Ambien), 10 MG PO HS PRN for Sleep Allergies Coded Allergies: Buspirone (Verified Adverse Reaction, Unknown, "CRAWLING OUT OF MY SKIN" JITTERY, 05/25/17) Lactose (Verified Adverse Reaction, Unknown, INTOLERANT, 05/25/17) Lorazepam (Verified Adverse Reaction, Unknown, JITTERY;"CRAWLING OUT OF MY SKIN", 05/25/17) Physical Exam Vital Signs Date Time Temp Pulse Resp B/P (MAP) Pulse Ox O2 Delivery O2 Flow Rate FiO2 12/17/17 19:49 68 16 151/81 98 12/17/17 16:45 36.3 75 20 166/91 99 Room Air Physical Exam GENERAL: Sitting up in bed, alert, well appearing, well nourished, no distress, non-toxic EYE EXAM: normal conjunctiva. OROPHARYNX: no exudate, no erythema, lips, buccal mucosa, and tongue normal and mucous membranes are moist NECK: supple, no nuchal rigidity, no adenopathy, non-tender LUNGS: Clear to auscultation. Normal chest wall mechanics HEART: no murmurs, S1 normal and S2 normal ABDOMEN: abdomen soft, non-tender, normo-active bowel sounds, no masses, no rebound or guarding. BACK: Back is symmetrical on inspection and there is no deformity, no midline tenderness, no CVA tenderness. SKIN: no rashes and no bruising UPPER EXTREMITIES: upper extremities are grossly normal, with the exception of tenderness to the palmar aspect of the left elbow. There is a TENS unit in place. There is evidence of multiple IV sticks apparent. Flexion/Extension of the shoulder, elbow, wrist, as well as Abduction/Adduction along with supination are 5/5. Gross sensation is in tact. Gasps are 5/5. Radial pulses are 2/4 bilaterally. LOWER EXTREMITIES: No pitting edema. NEURO EXAM: Normal sensorium, cranial nerves II-XII grossly intact, normal speech, no gross weakness of arms, no gross weakness of legs. Medical Decision & Procedures ER Provider Diagnostic Interpretation: Radiology results as stated below per my review and the radiologist's interpretation: L ELBOW MIN 3 VIEWS ROUTINE CLINICAL HISTORY: Left elbow pain COMPARISON: None. DISCUSSION: The fat pads are not displaced. No fractures or dislocations are visualized. Minimal irregularity of the radial neck, is unlikely to be of clinical significance. IMPRESSION: No fractures or dislocations identified. Electronically signed by: Young Gonzalez M.D. 12/17/2017 5:34 PM Dictated Date/Time: 12/17/2017 5:33 PM ULTRASOUND L VENOUS DOPPLER UPR EXT UNILATERAL CLINICAL HISTORY: L elbow pain COMPARISON STUDY: No previous studies for comparison. FINDINGS: No intraluminal thrombus was visualized. The internal jugular, subclavian, axillary, cephalic, brachial, basilic, radial, and ulnar veins were patent. IMPRESSION: No evidence of left upper extremity DVT. Electronically signed by: Young Gonzalez M.D. 12/17/2017 6:49 PM Dictated Date/Time: 12/17/2017 6:49 PM Laboratory Results 12/17/17 17:09 Red Blood Count 4.33, Mean Corpuscular Volume 83.6, Mean Corpuscular Hemoglobin 30.5, Mean Corpuscular Hemoglobin Concent 36.5, Mean Platelet Volume 8.2, Neutrophils (%) (Auto) 33.6, Lymphocytes (%) (Auto) 45.9, Monocytes (%) (Auto) 8.7, Eosinophils (%) (Auto) 10.4, Basophils (%) (Auto) 0.3, Neutrophils # (Auto ) 1.23, Lymphocytes # (Auto) 1.68, Monocytes # (Auto) 0.32, Eosinophils # (Auto ) 0.38, Basophils # (Auto) 0.01 12/17/17 17:09 Test 12/17/17 17:09 White Blood Count 3.66 K/uL (4.8-10.8) Red Blood Count 4.33 M/uL (4.7-6.1) Hemoglobin 13.2 g/dL (14.0-18.0) Hematocrit 36.2 % (42-52) Mean Corpuscular Volume 83.6 fL (80-100) Mean Corpuscular Hemoglobin 30.5 pg (25-34) Mean Corpuscular Hemoglobin Concent 36.5 g/dl (32-36) Platelet Count 200 K/uL (130-400) Mean Platelet Volume 8.2 fL (7.4-10.4) Neutrophils (%) (Auto) 33.6 % Lymphocytes (%) (Auto) 45.9 % Monocytes (%) (Auto) 8.7 % Eosinophils (%) (Auto) 10.4 % Basophils (%) (Auto) 0.3 % Neutrophils # (Auto) 1.23 K/uL (1.4-6.5) Lymphocytes # (Auto) 1.68 K/uL (1.2-3.4) Monocytes # (Auto) 0.32 K/uL (0.11-0.59) Eosinophils # (Auto) 0.38 K/uL (0-0.5) Basophils # (Auto) 0.01 K/uL (0-0.2) RDW Standard Deviation 37.1 fL (36.4-46.3) RDW Coefficient of Variation 12.1 % (11.5-14.5) Immature Granulocyte % (Auto) 1.1 % Immature Granulocyte # (Auto) 0.04 K/uL (0.00-0.02) Prothrombin Time 10.9 SECONDS (9.0-12.0) Prothromb Time International Ratio 1.0 (0.9-1.1) Anion Gap 6.0 mmol/L (3-11) Est Creatinine Clear Calc Drug Dose 60.6 ml/min Estimated GFR () 85.3 Estimated GFR (Non- 73.6 BUN/Creatinine Ratio 16.7 (10-20) Calcium Level 8.7 mg/dl (8.5-10.1) Laboratory results per my review. Medications Administered Medications (Trade) Dose Ordered Sig/Gina Route Start Time Stop Time Status Last Admin Dose Admin Sodium Chloride 500 ml @ 999 mls/hr Q31M STAT IV 12/17/17 17:00 12/17/17 17:30 DC 12/17/17 17:57 999 MLS/HR Morphine Sulfate (MoRPHine SULFATE INJ) 4 mg NOW STAT IV 12/17/17 17:00 12/17/17 17:02 DC 12/17/17 17:57 4 MG Ondansetron HCl (Zofran Inj) 4 mg NOW STAT IV 12/17/17 17:00 12/17/17 17:02 DC 12/17/17 17:56 4 MG ED Course ED COURSE: Vital signs were reviewed and showed hypertensive vitals. The patients medical record was reviewed The above diagnostic studies were performed and reviewed. ED treatments and interventions as stated above. 1650: The patient was evaluated in room B6. A complete history and physical examination was performed. 1700: Ordered Zofran 4 mg IV, Morphine Sulfate 4 mg IV, Sodium Chloride 500 mL @ 999 mL/hr IV. 8: Upon reevaluation, the patient is resting in bed.I discussed my findings with the patient and he understands and agrees with the treatment plan. Based on the patients age, coexisting illnesses, exam and lab findings the decision to treat as an outpatient was made. The patient remained stable while under my care. The patient appeared well at the time of discharge. Medical Decision Differential diagnosis: Etiologies such as fracture, dislocation, neurovascular compromise, compartment syndrome, soft tissue injury, as well as others were entertained. Patient is a 72-year-old male that presents to ER for left elbow pain which was present after he was discharged from the hospital for colitis. Has been present for the past several days. Significant worse today. Describes a sharp stabbing. Multiple IV punctures present. Labs show a mild leukopenia. BMP with a mild hypernatremia. INR was normal. X-ray was unremarkable. Duplex was negative. Patient was updated at bedside. He was given IV morphine. He did feel slightly better. No signs of infection. He was discharged follow-up with PCP as an outpatient. Discussed with Pt concerning signs and symptoms to watch out for. Pt was instructed to follow up with their PCP and discussed with the patient their option to return to the ED at anytime for persistent or worsening symptoms. The appropriate anticipatory guidance and out-patient management, including indications for return to the emergency department, were explained at length to the patient and understood. Medication Reconcilliation Current Medication List: was personally reviewed by me Blood Pressure Screening Patient's blood pressure: Elevated blood pressure Blood pressure disposition: Elevated BP felt to be situational Impression Primary Impression: Left elbow pain Additional Impression: Leukopenia Scribe Attestation The scribe's documentation has been prepared under my direction and personally reviewed by me in its entirety. I confirm that the note above accurately reflects all work, treatment, procedures, and medical decision making performed by me. Departure Information Dispostion Home / Self-Care Referrals Buddy Begum D.O. (PCP) Forms HOME CARE DOCUMENTATION FORM, IMPORTANT VISIT INFORMATION Patient Instructions [facility] Additional Instructions Please follow up with your primary care doctor with in the next 24 hours. Any worsening of your symptoms, please return to the ED immediately. This includes any fevers greater than 100.4, worsening pain, weakness or numbness in your extremity, chest pain, shortness breath, or any other concerning signs or symptoms from your standpoint. You were given medications during this visit that will inhibit your ability to drive, operate machinery and work. Please do NOT drive, operate machinery, drink alcohol or work for the next 12hrs. Please take Tylenol or Motrin as needed for pain. You may also try heat versus cold over the elbow. Please follow-up with orthopedics within the week if your symptoms continue. Problem Qualifiers Additional Impression: Leukopenia Leukopenia type: unspecified Qualified Codes: D72.819 - Decreased white blood cell count, unspecified
== END 2017-12-17 19:50 | disposition home or self-care (01) ==
LOC: C.EDB 16:44
DX: M25.522 Pain in left elbow (principal); D72.819 Decreased white blood cell count, unspecified; M54.16 Radiculopathy, lumbar region; G89.29 Other chronic pain; E78.5 Hyperlipidemia, unspecified; I10 Essential (primary) hypertension; F32.9 Major depressive disorder, single episode, unspecified; K21.9 Gastro-esophageal reflux disease without esophagitis; K58.9 Irritable bowel syndrome, unspecified; M48.061 Spinal stenosis, lumbar region without neurogenic claudication; Z90.3 Acquired absence of stomach [part of]; Z88.8 Allergy status to other drugs, medicaments and biological substances; Z91.011 Allergy to milk products

== ENCOUNTER 2018-01-17 21:02 | Inpatient (IN) | payer BC, OTHER ==
[~2018-01-17] VITALS: Ht 177.8 cm; Wt 54.8 kg
[~2018-01-17 21:02] MED LIST changes: +[UNRECOGNIZED DRUG - OTHER] TOP
[2018-01-17 22:13] LABS: HEMATOCRIT 38.6 % (42-52); HEMOGLOBIN 14.5 g/dL (14.0-18.0); MEAN CELL VOLUME 84.1 fL (80-100); MEAN CORPUSCULAR HEMOGLOBIN 31.6 pg (25-34); MEAN CORPUSCULAR HGB CONC 37.6 g/dl (32-36); MEAN PLATELET VOLUME 8.7 fL (7.4-10.4); PLATELET COUNT 176 K/uL (130-400); RED CELL DISTRIBUTION WIDTH CV 13.3 % (11.5-14.5); RED CELL DISTRIBUTION WIDTH SD 40.2 fL (36.4-46.3); WHITE BLOOD COUNT 10.69 K/uL (4.8-10.8)
--- NOTE | 2018-01-17 22:16 | EMERGENCY ROOM VISIT NOTE ---
History Report prepared by Javier: Neil Belle Under the Supervision of: Dr. Dell Rossi M.D. First contact with patient: 22:19 Chief Complaint: NEURO SYMPTOMS Stated Complaint: CONFUSION, HEAD PAIN, HEADACHE Nursing Triage Summary: Pt arrived via [facility] from home. Per EMS, yesterday pt developed severe headache with vomiting and nausea. Pt states "I couldn't talk for 3 hours". Pt does not know what times these symptoms occured. Today, pt reports headache persists and is rated 9/10. Pain to top of head. Pt also reports blurred vision off and on, difficulty finding his words, and persisting dizziness and nausea. EMS NIH score 7. RN NIH stroke score 4. EMS report that pt's stated he had these same symptoms prior and were told it may be kidney failure. History of Present Illness The patient is a 72 year old male who presents to the Emergency Room for evaluation of confusion. Patient notes he was weak with 3 hours of difficulty speaking earlier in the day along with right arm/leg paresthesias over last 24- 48 hours. Notes "severe" headache of 9/10 diffuse over last 24 hours as well. Gradually worsening. No neck pain/stiffness. No fevers. Has been vomiting for last 24 hours with is around when this began. Started with decreased oral intake due to flying. Noted decreased urination. History of similar with diagnosis of acute renal failure. No medications prior to arrival. Getting up makes worse, rest makes better. Source of History: patient, spouse/significant other, EMS, nursing staff Onset: 1 day ago Position: head Symptom Intensity: rated as 9/10 in severity Quality: ache Timing: other (persistent) Associated Symptoms: + nausea, + vomiting, + abdominal pain, No chest pain, No SOB Note: Patient reports dizziness, blurry vision, and head pain. Review of Systems See HPI for pertinent positives & negatives. A total of 10 systems reviewed and were otherwise negative. Past Medical & Surgical Medical Problems: (1) ADHD (2) LEONEL (acute kidney injury) (3) Change in mental state (4) Chronic radicular low back pain (5) Colitis (6) Depression (7) Dyslipidemia (8) EKG abnormalities (9) GERD (gastroesophageal reflux disease) (10) Hypertension (11) IBS (irritable bowel syndrome) (12) Kidney infection (13) Lumbar stenosis with neurogenic claudication (14) Migraine (15) Persistent vomiting Surgical Problems: (1) History of partial gastrectomy (2) History of tonsillectomy Family History High blood pressure Social History Smoking Status: Unknown if Ever Smoked Alcohol Use: none Drug Use: none Marital Status: Housing Status: lives with significant other Occupation Status: retired Current/Historical Medications Scheduled Amlodipine (Norvasc), 10 MG PO QAM Amphetamine-Dextroamphetamine 30MG (Adderall 30MG), 30 MG PO BID Atorvastatin (Lipitor), 80 MG PO QAM Celecoxib (Celecoxib), 200 MG PO QAM Diazepam (Valium), 5 MG PO HS Dicyclomine Hcl (Bentyl), 1 CAP PO ACHS Gabapentin (Neurontin), 100 MG PO TID Hydrochlorothiazide (Hydrochlorothiazide), 12.5 MG PO QAM Linaclotide (Linzess), 290 MCG PO QAM Lisinopril (Zestril), 40 MG PO DAILY Metoprolol Tartrate (Lopressor) (Lopressor), 75 MG PO BID Sertraline (Zoloft), 100 MG PO DAILY Tamsulosin HCl (Tamsulosin HCl), 0.4 MG PO HS Scheduled PRN Acetamin/Butalbital/Caffeine (Fioricet), 1 TAB PO Q4H PRN for Migraine Acetaminophen/Codeine (Tylenol W/Codeine #3), 1 TAB PO Q4H PRN for Lower Back Pain Azelastine Hcl (Ophth) (Azelastine Hcl), 1 DROPS OP BID PRN for SEASONAL ALLERGIES Baclofen (Lioresal), 1 TAB PO TID PRN for Muscle Spasms Betamethasone Valerate (Valisone 0.1% Cream), 1 APPL TOP BID PRN for PRN Clobetasol Propionate (Temovate), 1 APPLN TOP BID PRN for Itching Cyclobenzaprine Hcl (Flexeril), 10 MG PO BID PRN for Muscle Spasm Fluticasone Propionate (Fluticasone Propionate), 2 SPRAYS CARMELITA DAILY PRN for Nasal Congestion Polyethylene Glycol 3350 (Miralax), 17 GM PO DAILY PRN for Constipation Vardenafil Hcl (Staxyn), 10 MG PO DAILY PRN for ERECTILE DYSFUNCTION Allergies Coded Allergies: Buspirone (Verified Adverse Reaction, Unknown, "CRAWLING OUT OF MY SKIN" JITTERY, 01/18/18) Lactose (Verified Adverse Reaction, Unknown, INTOLERANT, 01/18/18) Lorazepam (Verified Adverse Reaction, Unknown, JITTERY;"CRAWLING OUT OF MY SKIN", 01/18/18) Physical Exam Vital Signs Date Time Temp Pulse Resp B/P (MAP) Pulse Ox O2 Delivery O2 Flow Rate FiO2 01/18/18 00:40 104 13 95 Room Air 01/18/18 00:30 135/77 01/18/18 00:10 111 15 100 Room Air 01/18/18 00:05 103 23 98 Room Air 01/18/18 00:00 141/68 01/17/18 23:35 107 16 100 Room Air 01/17/18 23:31 135/75 01/17/18 23:05 109 19 01/17/18 23:00 163/97 01/17/18 22:39 95 19 96 Room Air 01/17/18 22:30 144/87 01/17/18 22:29 109 01/17/18 22:04 143/94 01/17/18 22:02 114 16 100 Room Air 01/17/18 21:32 101 13 01/17/18 21:30 151/83 01/17/18 21:07 162/94 01/17/18 21:02 36.6 112 15 162/94 98 Room Air 01/17/18 21:02 98 Room Air Physical Exam GENERAL: Patient is unwell, dehydrated appearing and in mild distress. EYES: No scleral icterus, unremarkable pupils. ENT: Mucous membranes dry, no nasal congestion. NECK: No masses appreciated, no meningismus, trachea is midline. RESPIRATORY: No dyspnea. Clear to auscultation and equal bilaterally. No wheeze , no rhonchi. CARDIOVASCULAR: Tachycardiac and regular rhythm. No murmurs, rubs, gallops appreciated. GASTROINTESTINAL: Abdomen soft, nontender, no peritonitis. Bowel sounds positive. No masses appreciated. BACK: No midline tenderness, no CVA tenderness EXTREMITIES: Normal motion all extremities, no cyanosis, no edema. NEUROLOGIC: Mild forgetfulness and word finding problems. Decreased sensation over right arm and right lower leg. No decreased strength. Alert and oriented, no acute motor or sensory deficits, no focal weakness, cranial nerves grossly intact. SKIN: No rash, no jaundice, no diaphoresis. Medical Decision & Procedures ER Provider Diagnostic Interpretation: Radiology results and stated below per my review and radiologist interpretation : CT SCAN OF THE BRAIN WITHOUT IV CONTRAST CLINICAL HISTORY: Headache. COMPARISON STUDY: MRI of the brain dated 07/25/2015. TECHNIQUE: Unenhanced axial CT scan of the brain is performed from the vertex to the skull base. A dose lowering technique was utilized adhering to the principles of ALARA. CT DOSE: 623.48 mGy.cm FINDINGS: Brain parenchyma: There are age-related involutional changes noting mild subcortical and periventricular microangiopathic change. A chronic lacunar infarct is centered in the anterior limb of the right internal capsule. There is no hemorrhage, mass effect, or evidence of acute territorial ischemia by CT criteria. Leach-white matter is preserved. No extra-axial fluid collection is seen. Ventricles, sulci, cisterns: Prominent secondary to involutional change. Intracranial vasculature: There is atherosclerotic calcification of the cavernous carotid and vertebral arteries. Calvarium: Unremarkable. Sinuses and mastoids: The visualized paranasal sinuses are clear. There are trace mastoid effusions. Orbits: The bony orbits are grossly intact. IMPRESSION: There is no hemorrhage, mass effect, or evidence of acute territorial ischemia by CT criteria. Electronically signed by: Foster Lopez M.D. 01/17/2018 10:23 PM Dictated Date/Time: 01/17/2018 10:21 PM Laboratory Results 01/17/18 22:00 01/17/18 22:00 Test 01/17/18 22:00 Red Blood Count 4.59 M/uL (4.7-6.1) Mean Corpuscular Volume 84.1 fL (80-100) Mean Corpuscular Hemoglobin 31.6 pg (25-34) Mean Corpuscular Hemoglobin Concent 37.6 g/dl (32-36) RDW Standard Deviation 40.2 fL (36.4-46.3) RDW Coefficient of Variation 13.3 % (11.5-14.5) Mean Platelet Volume 8.7 fL (7.4-10.4) Prothrombin Time 11.3 SECONDS (9.0-12.0) Prothromb Time International Ratio 1.1 (0.9-1.1) Activated Partial Thromboplast Time 31.5 SECONDS (21.0-31.0) Partial Thromboplastin Ratio 1.2 Anion Gap 12.0 mmol/L (3-11) Est Creatinine Clear Calc Drug Dose 31.1 ml/min Estimated GFR () 39.0 Estimated GFR (Non- 33.6 BUN/Creatinine Ratio 20.4 (10-20) Calcium Level 9.0 mg/dl (8.5-10.1) Total Bilirubin 0.6 mg/dl (0.2-1) Aspartate Amino Transf (AST/SGOT) 53 U/L (15-37) Alanine Aminotransferase (ALT/SGPT) 35 U/L (12-78) Alkaline Phosphatase 173 U/L (45-117) Total Creatine Kinase 651 U/L (39-308) Total Protein 6.7 gm/dl (6.4-8.2) Albumin 3.6 gm/dl (3.4-5.0) Globulin 3.1 gm/dl (2.5-4.0) Albumin/Globulin Ratio 1.2 (0.9-2) Laboratory results as reviewed by me. Medications Administered Medications (Trade) Dose Ordered Sig/Gina Route Start Time Stop Time Status Last Admin Dose Admin Sodium Chloride 1,000 ml @ 999 mls/hr Q1H1M STAT IV 01/17/18 23:09 01/18/18 00:09 DC 01/17/18 23:12 999 MLS/HR Fentanyl Citrate (Fentanyl Inj) 50 mcg NOW STAT IV 01/17/18 23:24 01/17/18 23:25 DC 01/17/18 23:34 50 MCG ECG Per My Interpretation Indication: other (headache) Rate (beats per minute): 104 Rhythm: sinus tachycardia Findings: ST depression (Lateral), T-wave inversion, ST elevation (v1) Comparison ECG Date: These findings are new compared to EKG on 03/01/2017 ED Course 2219: The patient was evaluated in room A12A. A complete history and physical exam was performed. 2310: I checked on the patient. He is getting fluids. His headache has improved. He denies SOB and chest pain. 2320: I checked on the patient and he is complaining of a headache. He would like something for pain. 2344: Discussed the patient's case with Dr. Coy. The patient will be evaluated for further treatment and disposition. 2350: Upon reevaluation, the patient is resting. Discussed results and treatment plan with the patient. He verbalized understanding and agreement with the treatment plan. The patient will be evaluated for further management. Medical Decision Differential: Sepsis, Infectious (UTI/Pneumonia/Meningitis/etc), Metabolic/ Electrolyte Abnormality, Cardiac, Dehydration, Anemia, Hepatic, Endocrine, Toxicologic, Neurologic, amongst other pathologies entertained. 72 yr old male with headache, right side numbness and fatigue for last 24-48 hours. This began after not drinking fluids for a few days due to going on a trip and then vomiting multiple times yesterday. Associated with weakness/ fatigue and shaking. Notes can't walk due to weakness. Notes headache is similar to migraines as well as his previous episode of renal failure a few years ago. He looks quite dry, is tachycardiac and doesn't look well. No neuro deficits on exam though is having some word finding difficulty (which may be chronic)? Regardless he does not meet TPA nor stroke alert criteria given persistent symptoms >24 hours. Also without evidence of meningitis by exam and I feel LP would be higher risk than benefit. Further neuro imaging may be required but he has multiple other issues ongoing that will need more evaluation as inpatient. He has no evidence sepsis and HR improved with IV fluids. He is in acute renal failure with elevated BUN which as this is cause of symptoms previous seems reasonable assuming this. He has baseline Trop of .1 thus with renal insufficiency no surprised that it is now .3, however there is clearly lateral ST depressions and t wave inversions. On multiple times he denies CP nor shortness of breath and weakness and headache in setting of renal insufficiency I do not feel that he is candidate for emergent cath evaluation. Given this is not clearly cardiac will hold off on heparin. Head Trauma GCS Score: 15 Medication Reconcilliation Current Medication List: was personally reviewed by me Blood Pressure Screening Patient's blood pressure: Elevated blood pressure Blood pressure disposition: Elevated BP felt to be situational Consults Time Called: [id number] Consulting Physician: Dr. Coy Returned Call: [phone] Discussed the patient's case. The patient will be evaluated for further treatment and disposition. Impression Primary Impression: Renal failure Additional Impressions: Dehydration EKG abnormality Scribe Attestation The scribe's documentation has been prepared under my direction and personally reviewed by me in its entirety. I confirm that the note above accurately reflects all work, treatment, procedures, and medical decision making performed by me. Departure Information Dispostion Being Evaluated By Hospitalist Referrals Buddy Begum D.O. (PCP) Patient Instructions My [facility] Problem Qualifiers
[2018-01-17 22:22] LABS: INR 1.1 (0.9-1.1); PTT PATIENT 31.5 SECONDS (21.0-31.0)
--- NOTE | 2018-01-17 22:25 | DIAGNOSTIC IMAGING REPORT ---
CT SCAN OF THE BRAIN WITHOUT IV CONTRAST CLINICAL HISTORY: Headache. COMPARISON STUDY: MRI of the brain dated 07/25/2015. TECHNIQUE: Unenhanced axial CT scan of the brain is performed from the vertex to the skull base. A dose lowering technique was utilized adhering to the principles of ALARA. CT DOSE: 623.48 mGy.cm FINDINGS: Brain parenchyma: There are age-related involutional changes noting mild subcortical and periventricular microangiopathic change. A chronic lacunar infarct is centered in the anterior limb of the right internal capsule. There is no hemorrhage, mass effect, or evidence of acute territorial ischemia by CT criteria. Leach-white matter is preserved. No extra-axial fluid collection is seen. Ventricles, sulci, cisterns: Prominent secondary to involutional change. Intracranial vasculature: There is atherosclerotic calcification of the cavernous carotid and vertebral arteries. Calvarium: Unremarkable. Sinuses and mastoids: The visualized paranasal sinuses are clear. There are trace mastoid effusions. Orbits: The bony orbits are grossly intact. IMPRESSION: There is no hemorrhage, mass effect, or evidence of acute territorial ischemia by CT criteria. Electronically signed by: Foster Lopez M.D. 01/17/2018 10:23 PM Dictated Date/Time: 01/17/2018 10:21 PM
[2018-01-17 22:34] LABS: ALBUMIN 3.6 gm/dl (3.4-5.0); CREATININE 1.95 mg/dl (0.60-1.40); POTASSIUM 4.6 mmol/L (3.5-5.1)
[2018-01-17 22:37] LABS: TOTAL PROTEIN 6.7 gm/dl (6.4-8.2)
[2018-01-17] MEDS ORDERED: SODIUM CHLORIDE 0.9% 1000ML 1,000 ML IV STA (23:09)
[2018-01-17] MEDS ORDERED: FENTANYL CITRATE INJ 50 MCG/1 ML 2 ML VIAL IV STA (23:24)
[2018-01-18] VITALS (11 sets, daily range): BP systolic 107–180; BP diastolic 63–98; PULSE 74–139; TEMP 36.7–37; O2SAT 95–100; Ht 177.8 cm; Wt 54.8 kg
[2018-01-18] MEDS ORDERED: AMLO-114 PO (00:20)
[2018-01-18] MEDS ORDERED: HYDR12.55 PO (00:20)
[2018-01-18] MEDS ORDERED: CLOB-77 TOP (00:20)
[2018-01-18] MEDS ORDERED: ONDANSETRON INJ 2 MG/ML 2 ML VIAL IV PRN (00:45)
[2018-01-18] MEDS ORDERED: CLONIDINE HCL 0.1 MG TAB PO PRN (00:45)
[2018-01-18] MEDS ORDERED: ACETAMINOPHEN/CODEINE 300/30MG TAB PO PRN (00:45)
[2018-01-18] MEDS ORDERED: BETAMETHASONE VAL 0.1% CR 15 GM EXT PRN (00:45)
[2018-01-18] MEDS ORDERED: FLUTICASONE PROPIONATE NA SPR 16 GM BTL NAE PRN (00:45)
[2018-01-18] MEDS ORDERED: ACETAMINOPHEN 325 MG TAB PO PRN (00:45)
--- NOTE | 2018-01-18 01:55 | HISTORY & PHYSICAL EXAMINATION ---
DATE OF ADMISSION: 01/17/2018 PRIMARY CARE PHYSICIAN: Dr. Begum. CHIEF COMPLAINT: Weakness, tiredness with change in mental status and tremor involving the tips of the fingers and toes, which has been going on approximately since last night. HISTORY OF PRESENT COMPLAINT: He is a 72-year-old male with significant past medical history including depression, moderate episode of recurrent major depressive disorder, IBS, migraines, reflux esophagitis, memory loss, attention deficit disorder, hypertension, and cognitive impairment. Apparently, he has been complaining of some nausea and vomiting. No diarrhea for the last day or two. Recently, he was in [place], but he cannot remember when did he come back and what was he doing there. His noticed him to be confused and around 3:00 p.m. today, he also had some shaking involving both upper extremities with numbness involving the fingers and toes as well. He did have confusion with some memory impairment and also some dysarthria. Denies any fever, chills, or rigors. No cough or phlegm. No shortness of breath, no chest pain or palpitation. Does not have any abdominal pain, but some discomfort and he has not had a bowel movement for a while. He wants to have the bowel movement, but it does not come. Denies to have any problem with urine. In the Emergency Room, he was generally weak and lethargic without any focal neurological findings. He was slow to speak. He has memory impairment, hemodynamically stable and CAT scan negative, but only significant findings were the abnormal kidney function, LEONEL, and also slight ST depression involving the lateral leads in the EKG with troponin mildly elevated. From that point, he was admitted to telemetry unit. Apparently, he has had this kind of presentation last time he was in the hospital and that resolved subsequently. PAST MEDICAL HISTORY: Significant for depression with moderate episode of recurrent major depressive disorder, persistent insomnia, irritable bowel syndrome, history of duodenal ulcer, migraine, esophageal reflux, memory impairment with cognitive impairment, ADD, hypertension. PAST SURGICAL HISTORY: Significant for lumbar radiculopathy, tonsillectomy as a child, removal of partial stomach, Billroth I. FAMILY HISTORY: Mother . Father is alive. No significant disease. SOCIAL HISTORY: , lives with his . Does not smoke. Does not drink and he has been reasonably ambulant. ALLERGIES: ALLERGIC TO BUSPIRONE, LACTOSE, AND LORAZEPAM. MEDICATIONS: As an outpatient, he has been taking a lot of medications: Baclofen 10 mg t.i.d. as needed, Flexeril 10 mg b.i.d. as needed, dicyclomine 10 mg a.c. and at bedtime, lisinopril 40 mg daily, hydrochlorothiazide 12.5 mg daily, Staxyn 10 mg daily, Fioricet 1 tablet q. 4 hourly p.r.n., Tylenol with Codeine 1 tablet q. 4 hourly p.r.n. for low back pain, amlodipine 10 mg daily, Adderall 30 mg b.i.d., Lipitor 80 mg daily, ophthalmic solution as directed, celecoxib 200 mg in the morning, Temovate as directed, diazepam 5 mg a day at bedtime, Flonase 2 sprays each nostril daily, Neurontin 100 mg t.i.d., Linzess 290 mcg daily, Lopressor 25 mg 3 tablets twice daily, polyethylene glycol as directed, sertraline 50 mg daily, and tamsulosin 0.4 mg at night. REVIEW OF SYSTEMS: Other systemic review unremarkable except those mentioned in history of present complaint. PHYSICAL EXAMINATION: GENERAL: On examination in the Emergency Room, he was slow, weak, and lethargic. VITAL SIGNS: Temperature 36.6, pulse is 101, blood pressure 163/97, saturation 96% on room air. HEENT: Unremarkable. No facial asymmetry. NECK: Supple, no JVD, no bruit. CHEST: Clear to auscultation bilaterally. HEART: S1, S2 regular, no murmur. ABDOMEN: Soft, benign, mildly tender in the epigastrium. No organomegaly. Bowel sounds present. EXTREMITIES: Negative for any edema. MUSCULOSKELETAL: Did not show an acute arthritis. CENTRAL NERVOUS SYSTEM: He was alert, awake, and oriented. He has a recent impairment of memory. He did have dysarthria, but not now. He sometimes cannot figure out what to tell, but on prompting he can figure out. He does not have any focal neurological deficit. Sensory impairment only involving the tips of fingers and toes and adjoining areas. LABORATORY DATA: Noted today white count was 10.69, H and H are 14.5/38.6, platelet was 176. Sodium 134, potassium 4.6, chloride 98, carbon dioxide 24, BUN 40, creatinine 9.5 that was normal in December. Random glucose 106. LFTs: AST 53, alkaline phosphatase 173, total CK is 615. Troponin was 0.295. APTT high with ratio 1.2. CT of the head unremarkable. EKG did show sinus tachycardia, rate of 104, normal axis and minor ST depression involving the V5 and V6 that was new compared with prior EKG. Apparently, he has had that rate related ST depression in the past. IMPRESSION AND PLAN: 1. Change in mental status. The patient will be admitted to telemetry unit. Doubt any stroke symptoms at this time. His change in mental status, multifactorial, seems to be mostly due to acute renal impairment. At this time, we do not have any other cause to justify. He does not have any neurological deficit. He will have an MRI of the brain tomorrow. Apparently, this kind of history happened before with dehydration and he has been taking lots of medications, sometime polymicrobial, polypharmacy use can cause this kind of symptoms. May need neurological evaluation if the condition does not get any better. 2. Acute renal impairment, seems to be secondary to dehydration. He has not been drinking enough fluid for the last few days as per the . He will be given adequate amount of IV fluid and advised to drink more fluid. We will monitor PRP. If the condition does not get any better, he will need to have a nephrology evaluation. 3. Depression. Continue with his antidepressant medication. 4. ADD. Continue with Adderall. 5. Hypertension. We will hold his lisinopril and hydrochlorothiazide, which can cause impairment in kidney function. We may need to change the medications to prevent any kind of situation in future. 6. Chronic pain. We will hold his muscle relaxant at this time. Continue with diazepam 5 mg if needed and definitely hold his narcotics. 7. GI prophylaxis with PPI. 8. DVT prophylaxis with heparin. 9. Code status. Discussed with the patient. He will be full code. In my clinical assessment, the beneficiary meets criteria as per CMS for 2 midnight stay in the hospital. ZENAIDA
[2018-01-18] MEDS ORDERED: POLYETHYLENE (MIRALAX) 17 GM PACK PO PRN (02:15)
[2018-01-18] MEDS: SODIUM CHLORIDE 0.9% 1000ML 1,000 ML IV SCH ×3 (02:18→18:49)
[2018-01-18] MEDS: BUTALBITAL/ACETAMIN/CAFFEINE TAB PO PRN ×2 (03:05→16:21)
[2018-01-18] MEDS: HEPARIN SOD 5000 UNIT/0.5 ML CARP SQ SCH ×3 (05:58→22:00)
--- NOTE | 2018-01-18 06:35 | DIAGNOSTIC IMAGING REPORT ---
MRI OF THE BRAIN WITHOUT CONTRAST CLINICAL HISTORY: Confusion. Headache. COMPARISON STUDY: MRI of the brain July 25, [address] January 17, 2018. TECHNIQUE: Utilizing a 1.5 Tricia magnet and dedicated coil, multiplanar, multiecho imaging of the brain was performed without IV contrast. FINDINGS: There are no foci of restricted diffusion. No acute intracranial hemorrhage, midline shift or mass effect is present. Ventricular system is stable. Basilar cisterns are patent. There are no extra axial collections. An old right basal ganglia infarct is noted. Choroid plexus cysts are unchanged. Right mastoid fluid is similar to previous MRI of July 25, 2015. No intracranial masses are identified on this unenhanced exam. IMPRESSION: 1. No acute intracranial findings. 2. No change in appearance of the brain since previous exam. Old right basal ganglia infarct. Electronically signed by: Donovan Calderon M.D. 01/18/2018 6:33 AM Dictated Date/Time: 01/18/2018 6:29 AM
[2018-01-18 07:34] LABS: HEMATOCRIT 33.4 % (42-52); MEAN CELL VOLUME 84.3 fL (80-100); MEAN CORPUSCULAR HEMOGLOBIN 30.3 pg (25-34); MEAN CORPUSCULAR HGB CONC 35.9 g/dl (32-36); MEAN PLATELET VOLUME 8.5 fL (7.4-10.4); PLATELET COUNT 150 K/uL (130-400); RED CELL DISTRIBUTION WIDTH CV 13.3 % (11.5-14.5); RED CELL DISTRIBUTION WIDTH SD 40.6 fL (36.4-46.3); WHITE BLOOD COUNT 8.04 K/uL (4.8-10.8)
[2018-01-18] MEDS: ATORVASTATIN 40 MG TAB PO SCH (07:49)
[2018-01-18] MEDS: GABAPENTIN 100 MG CAP PO SCH ×4 (07:49→20:23)
[2018-01-18] MEDS: METOPROLOL TARTRATE 25 MG TAB PO SCH ×2 (07:50→20:05)
[2018-01-18] MEDS: SERTRALINE HCL 100 MG TAB PO SCH (07:50)
[2018-01-18] MEDS: AMLODIPINE BESYLATE 5 MG TAB PO SCH (07:50)
[2018-01-18] MEDS: CeleBREX 200 MG CAP PO SCH (07:51)
[2018-01-18] MEDS: LINZESS~ORDER AWAITING ACTION SCH ×3 (07:54→23:31)
[2018-01-18] MEDS: AZELASTINE~ORDER AWAITING ACTION SCH ×3 (07:54→23:31)
[2018-01-18] MEDS: AMPHETAMINE ASP/SULF/DEXTRAMPH 10 MG TAB PO SCH ×2 (07:54→12:10)
[2018-01-18 08:06] LABS: CALCIUM 8.5 mg/dl (8.5-10.1); CREATININE 1.02 mg/dl (0.60-1.40); PHOSPHORUS 2.6 mg/dl (2.5-4.9)
--- NOTE | 2018-01-18 16:07 | Progress Note ---
Subjective Date of Service: Jan 18, 2018. Subjective Pt evaluation today including: conversation w/ patient, physical exam, lab review, review of studies, review of inpatient medication list Saw/examined the patient in room 238 Slowed responses, patient states he feels off He is oriented x3, but has trouble with long-term recall Difficulty getting out words +headache, +neck spasms - which are chronic Denies chest pain Problem List Medical Problems: (1) Arm pain, left Status: Acute (2) Dehydration Status: Acute (3) Dehydration Status: Acute (4) EKG abnormality Status: Acute (5) Nausea vomiting and diarrhea Status: Acute (6) Rectal bleeding Status: Acute (7) Renal failure Status: Acute Review of Systems Constitutional: No fever, No chills Respiratory: No cough, No sputum, No wheezing, No shortness of breath, No dyspnea on exertion, No dyspnea at rest, No hemoptysis Cardiac: No chest pain, No edema, No palpitations Abdomen: No pain, No nausea, No vomiting, No diarrhea Musculoskeletal: + see HPI, + joint pain Male : No dysuria, No urinary frequency Neurologic: + memory loss, + weakness, + numbness/tingling, + vertigo, + balance problems, No paralysis Medications Current Inpatient Medications Medications (Trade) Dose Ordered Sig/Gina Route Start Time Stop Time Status Last Admin Dose Admin Acetaminophen/ Butalbital/ Caffeine (Fioricet Tab) 1 tab Q4H PRN PO 01/18/18 00:45 02/17/18 00:44 01/18/18 03:05 1 TAB Acetaminophen/ Codeine Phosphate (Tylenol w/ Codeine #3 Tab) 1 tab Q4H PRN PO 01/18/18 00:45 02/17/18 00:44 01/18/18 09:58 1 TAB Amlodipine Besylate (Norvasc Tab) 10 mg QAM PO 01/18/18 09:00 02/17/18 08:59 01/18/18 07:50 10 MG Atorvastatin Calcium (Lipitor Tab) 80 mg QAM PO 01/18/18 09:00 02/17/18 08:59 01/18/18 07:49 80 MG Betamethasone Valerate (Valisone 0.1% Crm) 1 appln BID PRN EXT 01/18/18 00:45 02/17/18 00:44 Celecoxib (CeleBREX CAP) 200 mg QAM PO 01/18/18 09:00 02/17/18 08:59 01/18/18 07:51 200 MG Diazepam (Valium Tab) 5 mg HS PO 01/18/18 21:00 02/17/18 20:59 Fluticasone Propionate (Flonase Nasal [place]) 2 sprays DAILY PRN CARMELITA 01/18/18 00:45 02/17/18 00:44 Gabapentin (Neurontin Cap) 100 mg TID PO 01/18/18 09:00 02/17/18 08:59 01/18/18 14:19 100 MG Metoprolol Tartrate (Lopressor Tab) 75 mg BID PO 01/18/18 09:00 02/17/18 08:59 01/18/18 07:50 75 MG Polyethylene (Miralax Powder Packet) 17 gm DAILY PRN PO 01/18/18 02:15 02/17/18 02:14 Sertraline HCl (Zoloft Tab) 100 mg DAILY PO 01/18/18 09:00 02/17/18 08:59 01/18/18 07:50 100 MG Tamsulosin HCl (Flomax Cap) 0.4 mg HS PO 01/18/18 21:00 02/17/18 20:59 Amphetamine Aspartate/ Amphetam Sulf (Amphetamine Aspartate/Amph Sulf/Dextramphet) 30 mg 0730,1200 PO 01/18/18 07:30 02/01/18 07:29 01/18/18 12:10 30 MG Miscellaneous Information (Order Awaiting Action) 1 ea QS N/A 01/18/18 08:00 02/17/18 07:59 Miscellaneous Information (Order Awaiting Action) 1 ea QS N/A 01/18/18 08:00 02/17/18 07:59 Miscellaneous Information (Order Awaiting Action) 1 ea QS N/A 01/18/18 08:00 02/17/18 07:59 Sodium Chloride 1,000 ml @ 150 mls/hr Q6H40M IV 01/18/18 02:15 01/18/18 22:14 01/18/18 09:03 150 MLS/HR Clonidine HCl (Catapres Tab) 0.1 mg Q6H PRN PO 01/18/18 00:45 02/17/18 00:44 Heparin Sodium (Porcine) (Heparin Sq 5000 Unit/0.5ml) 5,000 unit Q8 SQ 01/18/18 06:00 02/17/18 05:59 01/18/18 14:19 5,000 UNIT Acetaminophen (Tylenol Tab) 650 mg Q4H PRN PO 01/18/18 00:45 02/17/18 00:44 Ondansetron HCl (Zofran Inj) 4 mg Q6H PRN IV 01/18/18 00:45 02/17/18 00:44 Objective Vital Signs Date Time Temp Pulse Resp B/P (MAP) Pulse Ox O2 Delivery O2 Flow Rate FiO2 01/18/18 12:00 97 Room Air 01/18/18 11:58 37.0 80 18 141/69 (93) 99 01/18/18 08:10 36.9 109 18 136/75 (95) 95 01/18/18 08:00 97 Room Air 01/18/18 04:00 Room Air 01/18/18 03:43 36.7 74 17 107/63 (78) 97 Room Air 01/18/18 02:16 36.9 102 20 145/85 100 Room Air 01/18/18 01:06 108 14 98 Room Air 01/18/18 01:01 133/72 01/18/18 00:40 104 13 95 Room Air 01/18/18 00:30 135/77 01/18/18 00:10 111 15 100 Room Air 01/18/18 00:05 103 23 98 Room Air 01/18/18 00:00 141/68 01/17/18 23:35 107 16 100 Room Air 01/17/18 23:31 135/75 01/17/18 23:05 109 19 01/17/18 23:00 163/97 01/17/18 22:39 95 19 96 Room Air 01/17/18 22:30 144/87 01/17/18 22:29 109 01/17/18 22:04 143/94 01/17/18 22:02 114 16 100 Room Air 01/17/18 21:32 101 13 01/17/18 21:30 151/83 01/17/18 21:07 162/94 01/17/18 21:02 36.6 112 15 162/94 98 Room Air 01/17/18 21:02 98 Room Air Physical Exam General Appearance: no apparent distress Respiratory/Chest: lungs clear, normal breath sounds, no respiratory distress, no accessory muscle use Cardiovascular: regular rate, rhythm, no edema, no murmur Extremities: normal range of motion, non-tender, normal inspection, no pedal edema, no calf tenderness Neurologic/Psychiatric: oriented x 3, + motor weakness, + pertinent finding ( psychomotor slowing) Skin: normal color Laboratory Results Last 24 Hours Test 01/17/18 22:00 01/18/18 01:16 01/18/18 06:53 01/18/18 12:34 White Blood Count 10.69 K/uL 8.04 K/uL Red Blood Count 4.59 M/uL 3.96 M/uL Hemoglobin 14.5 g/dL 12.0 g/dL Hematocrit 38.6 % 33.4 % Mean Corpuscular Volume 84.1 fL 84.3 fL Mean Corpuscular Hemoglobin 31.6 pg 30.3 pg Mean Corpuscular Hemoglobin Concent 37.6 g/dl 35.9 g/dl RDW Standard Deviation 40.2 fL 40.6 fL RDW Coefficient of Variation 13.3 % 13.3 % Platelet Count 176 K/uL 150 K/uL Mean Platelet Volume 8.7 fL 8.5 fL Prothrombin Time 11.3 SECONDS Prothromb Time International Ratio 1.1 Activated Partial Thromboplast Time 31.5 SECONDS Partial Thromboplastin Ratio 1.2 Sodium Level 134 mmol/L 135 mmol/L Potassium Level 4.6 mmol/L 4.0 mmol/L Chloride Level 98 mmol/L 104 mmol/L Carbon Dioxide Level 24 mmol/L 22 mmol/L Anion Gap 12.0 mmol/L 9.0 mmol/L Blood Urea Nitrogen 40 mg/dl 33 mg/dl Creatinine 1.95 mg/dl 1.02 mg/dl Est Creatinine Clear Calc Drug Dose 31.1 ml/min 55.1 ml/min Estimated GFR () 39.0 85.3 Estimated GFR (Non- 33.6 73.6 BUN/Creatinine Ratio 20.4 32.0 Random Glucose 106 mg/dl 81 mg/dl Calcium Level 9.0 mg/dl 8.5 mg/dl Total Bilirubin 0.6 mg/dl Aspartate Amino Transf (AST/SGOT) 53 U/L Alanine Aminotransferase (ALT/SGPT) 35 U/L Alkaline Phosphatase 173 U/L Total Creatine Kinase 651 U/L Troponin I 0.295 ng/ml 0.411 ng/ml 0.364 ng/ml 0.272 ng/ml Total Protein 6.7 gm/dl Albumin 3.6 gm/dl Globulin 3.1 gm/dl Albumin/Globulin Ratio 1.2 Phosphorus Level 2.6 mg/dl Magnesium Level 2.1 mg/dl Assessment and Plan This is a 72 year old male with a past medical history of depression/anxiety, ADHD, chronic pain syndrome on long-term opioid use, chronic muscle spasms, migraine headaches, HTN - presents with confusion after a stressful event at an airport last week. Delirium/Altered Mental Status Psychomotor Retardation in the setting of Depression - Brain MRI/Head CT - no acute strokes; previous CVA noted - possible polypharmacy; patient is taking Valium at for sleep, takes Baclofen for muscle spasms, takes opioids for chronic pain - states that he had a stressful time at airports around [place] with multiple flight cancellations - possibly stress induced stressors also causing delirium/altered mental status - patient is taking Zoloft 100mg - states he does not feel depressed - can likely taper this as outpatient - takes Baclofen and Valium; which can cause confusion; should taper these down - patient has a prescription for Flexeril and Ambien as well - which should be stopped altogether - will continue IVFs - check an echo and check an EEG - if symptoms persist, may need Dr. Hernandez, neurology - ordered PT/OT Acute Kidney Injury - creatinine on admission - 1.9 - creatinine down to 1.0 now - continue IVFs Elevated Troponin Level - possibly multifactorial - dehydration/LEONEL, chronic elevation - check echo - trending downwards Chronic Pain Syndrome - should taper off opioid use - should also taper down the muscle relaxant use - stop Flexeril altogether ADHD - continue Adderall - outpatient psychiatry follow-up DVT ppx - subq heparin FULL CODE
--- NOTE | 2018-01-18 16:35 | ECHOCARDIOGRAM REPORT ---
*NOTICE TO RECEIVING CONSTITUTION PARTY AGENCY This information is strictly Confidential and protected under [place] law. [place] law prohibits you from making any further disclosure of this information unless further disclosure is expressly permitted by the written consent of the person to whom it pertains or is authorized by law. A general authorization for the release of medical or other information is not sufficient for this purpose. Hospital accepts no responsibility if the information is made available to any other person, INCLUDING THE PATIENT. Interpretation Summary * Name: OSMAN SAGASTUME JR Study Date: 01/18/2018 09:34 AM BP: 136/75 mmHg * Patient Location: .2T\S\S238\S\1 HR: 87 * : 1945 (M/d/yyyy) Gender: Male Height: 70 in * Age: 72 yrs Ethnicity: [place] Weight: 129 lb * Ordering Physician: Charla Washburn * Referring Physician: UNKNOWN * Performed By: Darleen Nelson RCS * * Reason For Study: ALT OF CONSCIOUSNESS * BSA: 1.7 m2 * -- Conclusions -- * The left ventricle is normal in size. * There is mild concentric left ventricular hypertrophy. * Left ventricular systolic function is normal. * The right ventricular systolic function is normal. * The left atrial size is normal. * Right atrial size is normal. * The patient has a minimally positive microcatheter study consistent with a low risk PFO. * No significant valvular pathology. Procedure Details * A complete two-dimensional transthoracic echocardiogram was performed (2D, M-mode, Doppler and color flow Doppler). Left Ventricle * The left ventricle is normal in size. * There is mild concentric left ventricular hypertrophy. * Left ventricular systolic function is normal. * Ejection Fraction = 50-55%. Right Ventricle * The right ventricle is normal size. * The right ventricular systolic function is normal. Atria * The left atrial size is normal. * Right atrial size is normal. * The patient has a minimally positive microcatheter study consistent with a low risk PFO. Mitral Valve * The mitral valve anatomy is normal. * Significant mitral regurgitation is absent. Tricuspid Valve * The tricuspid valve anatomy is normal. * Significant tricuspid regurgitation is absent. Aortic Valve * The aortic valve is normal in structure and function. * Mild aortic regurgitation. Pulmonic Valve * The pulmonic valve is not well visualized. Great Vessels * The aortic root and proximal ascending aorta are normal sized. MMode 2D Measurements and Calculations IVSd 1.3 cm IVSs 1.6 cm LVIDd 4.2 cm LVIDs 3.4 cm LVPWd 1.4 cm LVPWs 1.6 cm IVS/LVPW 0.93 FS 20.4 % EDV(Teich) 80.5 ml ESV(Teich) 46.7 ml EF(Teich) 42.0 % EDV(cubed) 76.4 ml ESV(cubed) 38.5 ml EF(cubed) 49.6 % % IVS thick 22.3 % % LVPW thick 11.7 % LV mass(C)d 215.4 grams LV mass(C)dI 124.3 grams/m\S\2 LV mass(C)s 200.2 grams LV mass(C)sI 115.6 grams/m\S\2 SV(Teich) 33.9 ml SI(Teich) 19.5 ml/m\S\2 SV(cubed) 37.9 ml SI(cubed) 21.9 ml/m\S\2 Ao root diam 3.2 cm Ao root area 8.1 cm\S\2 ACS 2.2 cm LA dimension 2.5 cm LA/Ao 0.77 LVOT diam 2.2 cm LVOT area 3.7 cm\S\2 LVAd ap4 30.6 cm\S\2 LVLd ap4 7.8 cm EDV(MOD-sp4) 96.6 ml EDV(sp4-el) 101.7 ml LVAs ap4 20.8 cm\S\2 LVLs ap4 7.2 cm ESV(MOD-sp4) 49.4 ml ESV(sp4-el) 50.8 ml EF(MOD-sp4) 48.9 % EF(sp4-el) 50.0 % LVAd ap2 31.2 cm\S\2 LVLd ap2 8.0 cm EDV(MOD-sp2) 102.6 ml EDV(sp2-el) 103.9 ml LVAs ap2 20.8 cm\S\2 LVLs ap2 6.9 cm ESV(MOD-sp2) 55.9 ml ESV(sp2-el) 53.3 ml EF(MOD-sp2) 45.5 % EF(sp2-el) 48.7 % LVLd %diff 1.9 % EDV(MOD-bp) 99.2 ml LVLs %diff -4.21 % ESV(MOD-bp) 53.4 ml EF(MOD-bp) 46.1 % SV(MOD-sp4) 47.2 ml SI(MOD-sp4) 27.3 ml/m\S\2 SV(MOD-sp2) 46.7 ml SI(MOD-sp2) 27.0 ml/m\S\2 SV(MOD-bp) 45.8 ml SI(MOD-bp) 26.4 ml/m\S\2 SV(sp4-el) 50.9 ml SI(sp4-el) 29.4 ml/m\S\2 SV(sp2-el) 50.6 ml SI(sp2-el) 29.2 ml/m\S\2 Doppler Measurements and Calculations Ao V2 max 131.8 cm/sec Ao max PG 7.0 mmHg Ao max PG (full) 4.2 mmHg DES(V,A) 2.3 cm\S\2 DES(V,D) 2.3 cm\S\2 AI max chidi 414.3 cm/sec AI max PG 68.7 mmHg AI dec slope 307.3 cm/sec\S\2 AI P1/2t 394.9 msec LV V1 max PG 2.8 mmHg LV V1 max 83.0 cm/sec PA V2 max 71.6 cm/sec PA max PG 2.1 mmHg TR max chidi 263.7 cm/sec
[2018-01-18] MEDS: TAMSULOSIN HCL 0.4 MG CAP PO SCH (20:04)
[2018-01-18] MEDS: DIAZEPAM 5MG TAB PO SCH ×2 (20:07→20:23)
[2018-01-19] VITALS (10 sets, daily range): BP systolic 157–180; BP diastolic 82–96; PULSE 85–118; TEMP 36.8–37; O2SAT 96–100
[2018-01-19] MEDS: HEPARIN SOD 5000 UNIT/0.5 ML CARP SQ SCH ×3 (06:00→22:17)
[2018-01-19] MEDS: AMPHETAMINE ASP/SULF/DEXTRAMPH 10 MG TAB PO SCH ×2 (07:38→12:22)
[2018-01-19] MEDS: METOPROLOL TARTRATE 25 MG TAB PO SCH (07:38)
[2018-01-19] MEDS: SERTRALINE HCL 100 MG TAB PO SCH (07:38)
[2018-01-19] MEDS: ATORVASTATIN 40 MG TAB PO SCH (07:39)
[2018-01-19] MEDS: CeleBREX 200 MG CAP PO SCH (07:39)
[2018-01-19] MEDS: AMLODIPINE BESYLATE 5 MG TAB PO SCH (07:40)
[2018-01-19] MEDS: GABAPENTIN 100 MG CAP PO SCH ×2 (07:40→20:42)
[2018-01-19] MEDS: LINZESS~ORDER AWAITING ACTION SCH ×2 (07:41→16:00)
[2018-01-19] MEDS: AZELASTINE~ORDER AWAITING ACTION SCH ×2 (07:41→16:00)
[2018-01-19 07:50] LABS: CALCIUM 9.1 mg/dl (8.5-10.1); CREATININE 0.69 mg/dl (0.60-1.40); POTASSIUM 4.1 mmol/L (3.5-5.1)
[2018-01-19] MEDS ORDERED: THIAMINE HCL 100 MG TAB PO ONE (08:15)
[2018-01-19] MEDS ORDERED: METOPROLOL TARTRATE 25 MG TAB PO STA (08:17)
[2018-01-19 08:29] LABS: HEMATOCRIT 32.9 % (42-52); HEMOGLOBIN 12.4 g/dL (14.0-18.0); MEAN CORPUSCULAR HEMOGLOBIN 30.9 pg (25-34); MEAN CORPUSCULAR HGB CONC 37.7 g/dl (32-36); MEAN PLATELET VOLUME 8.3 fL (7.4-10.4); PLATELET COUNT 170 K/uL (130-400); RED CELL DISTRIBUTION WIDTH CV 12.6 % (11.5-14.5); RED CELL DISTRIBUTION WIDTH SD 37.5 fL (36.4-46.3)
[2018-01-19 08:58] LABS: ALBUMIN 3.6 gm/dl (3.4-5.0); CALCIUM 8.9 mg/dl (8.5-10.1); CREATININE 0.62 mg/dl (0.60-1.40); POTASSIUM 4.1 mmol/L (3.5-5.1)
[2018-01-19 09:09] LABS: TOTAL PROTEIN 6.6 gm/dl (6.4-8.2)
[2018-01-19] MEDS ORDERED: HALOPERIDOL LACTATE 5 MG/ML 1 ML VIAL IM PRN (09:45)
[2018-01-19] MEDS ORDERED: BACLOFEN 10 MG TAB PO PRN (10:15)
--- NOTE | 2018-01-19 10:29 | Progress Note ---
Subjective Date of Service: Jan 19, 2018. Subjective Pt evaluation today including: conversation w/ patient, physical exam, lab review, review of studies, review of inpatient medication list Saw/examined the patient in room 238 He is getting dressed in his home clothes and trying to leave the hospital against medical advice He seems in a fog; unsteady on his feet when he stands up; states he cannot recall events last evening Does not know how he will get home Called patient's with no answer. Patient being redirected by nursing staff. Problem List Medical Problems: (1) Arm pain, left Status: Acute (2) Dehydration Status: Acute (3) Dehydration Status: Acute (4) EKG abnormality Status: Acute (5) Nausea vomiting and diarrhea Status: Acute (6) Rectal bleeding Status: Acute (7) Renal failure Status: Acute Medications Current Inpatient Medications Medications (Trade) Dose Ordered Sig/Gina Route Start Time Stop Time Status Last Admin Dose Admin Acetaminophen/ Butalbital/ Caffeine (Fioricet Tab) 1 tab Q4H PRN PO 01/18/18 00:45 02/17/18 00:44 01/18/18 16:21 1 TAB Acetaminophen/ Codeine Phosphate (Tylenol w/ Codeine #3 Tab) 1 tab Q4H PRN PO 01/18/18 00:45 02/17/18 00:44 01/18/18 09:58 1 TAB Amlodipine Besylate (Norvasc Tab) 10 mg QAM PO 01/18/18 09:00 02/17/18 08:59 01/19/18 07:40 10 MG Atorvastatin Calcium (Lipitor Tab) 80 mg QAM PO 01/18/18 09:00 02/17/18 08:59 01/19/18 07:39 80 MG Betamethasone Valerate (Valisone 0.1% Crm) 1 appln BID PRN EXT 01/18/18 00:45 02/17/18 00:44 Celecoxib (CeleBREX CAP) 200 mg QAM PO 01/18/18 09:00 02/17/18 08:59 01/19/18 07:39 200 MG Diazepam (Valium Tab) 5 mg HS PO 01/18/18 21:00 02/17/18 20:59 Fluticasone Propionate (Flonase Nasal [place]) 2 sprays DAILY PRN CARMELITA 01/18/18 00:45 02/17/18 00:44 Polyethylene (Miralax Powder Packet) 17 gm DAILY PRN PO 01/18/18 02:15 02/17/18 02:14 Sertraline HCl (Zoloft Tab) 100 mg DAILY PO 01/18/18 09:00 02/17/18 08:59 01/19/18 07:38 100 MG Tamsulosin HCl (Flomax Cap) 0.4 mg HS PO 01/18/18 21:00 02/17/18 20:59 01/18/18 20:04 0.4 MG Amphetamine Aspartate/ Amphetam Sulf (Amphetamine Aspartate/Amph Sulf/Dextramphet) 30 mg 0730,1200 PO 01/18/18 07:30 02/01/18 07:29 01/19/18 07:38 30 MG Miscellaneous Information (Order Awaiting Action) 1 ea QS N/A 01/18/18 08:00 02/17/18 07:59 Miscellaneous Information (Order Awaiting Action) 1 ea QS N/A 01/18/18 08:00 02/17/18 07:59 Miscellaneous Information (Order Awaiting Action) 1 ea QS N/A 01/18/18 08:00 02/17/18 07:59 Heparin Sodium (Porcine) (Heparin Sq 5000 Unit/0.5ml) 5,000 unit Q8 SQ 01/18/18 06:00 02/17/18 05:59 01/18/18 14:19 5,000 UNIT Acetaminophen (Tylenol Tab) 650 mg Q4H PRN PO 01/18/18 00:45 02/17/18 00:44 Ondansetron HCl (Zofran Inj) 4 mg Q6H PRN IV 01/18/18 00:45 02/17/18 00:44 Metoprolol Tartrate (Lopressor Tab) 100 mg BID PO 01/19/18 21:00 02/18/18 20:59 Haloperidol Lactate (Haldol Inj) 2 mg ONE PRN IM 01/19/18 09:45 02/18/18 09:44 Gabapentin (Neurontin Cap) 100 mg BID PO 01/19/18 21:00 02/17/18 08:59 UNV Baclofen (Lioresal Tab) 5 mg TID PRN PO 01/19/18 10:15 02/18/18 10:14 UNV Lisinopril (Zestril Tab) 20 mg QAM PO 01/20/18 09:00 02/19/18 08:59 UNV Objective Vital Signs Date Time Temp Pulse Resp B/P (MAP) Pulse Ox O2 Delivery O2 Flow Rate FiO2 01/19/18 08:00 97 Room Air 01/19/18 07:46 36.8 99 18 180/82 (114) 99 Room Air 01/19/18 04:00 Room Air 01/19/18 02:50 36.9 109 20 170/92 (118) 98 Room Air 01/18/18 23:59 Room Air 01/18/18 23:30 37.0 113 16 164/95 (118) 98 Room Air 01/18/18 20:00 96 Room Air 01/18/18 19:50 36.8 139 22 180/89 (119) 96 Room Air 01/18/18 16:21 36.9 95 18 169/98 (121) 100 Room Air 01/18/18 16:00 100 Room Air 01/18/18 12:00 97 Room Air 01/18/18 11:58 37.0 80 18 141/69 (93) 99 Physical Exam General Appearance: + pertinent finding (+agitated; unsteady on his feet, not oriented) Neurologic/Psychiatric: + motor weakness, + depressed affect, + disoriented, + pertinent finding (no focal neurological deficits, some psychomotor slowing) Laboratory Results Last 24 Hours Test 01/18/18 12:34 01/19/18 06:31 01/19/18 08:17 01/19/18 08:19 Troponin I 0.272 ng/ml White Blood Count 9.60 K/uL Red Blood Count 4.01 M/uL Hemoglobin 12.4 g/dL Hematocrit 32.9 % Mean Corpuscular Volume 82.0 fL Mean Corpuscular Hemoglobin 30.9 pg Mean Corpuscular Hemoglobin Concent 37.7 g/dl RDW Standard Deviation 37.5 fL RDW Coefficient of Variation 12.6 % Platelet Count 170 K/uL Mean Platelet Volume 8.3 fL Sodium Level 130 mmol/L 129 mmol/L Potassium Level 4.1 mmol/L 4.1 mmol/L Chloride Level 98 mmol/L 97 mmol/L Carbon Dioxide Level 22 mmol/L 21 mmol/L Anion Gap 10.0 mmol/L 12.0 mmol/L Blood Urea Nitrogen 15 mg/dl 13 mg/dl Creatinine 0.69 mg/dl 0.62 mg/dl Est Creatinine Clear Calc Drug Dose 80.6 ml/min 89.7 ml/min Estimated GFR () 110.7 115.7 Estimated GFR (Non- 95.5 99.8 BUN/Creatinine Ratio 21.9 20.9 Random Glucose 94 mg/dl 87 mg/dl Calcium Level 9.1 mg/dl 8.9 mg/dl Total Bilirubin 0.7 mg/dl Aspartate Amino Transf (AST/SGOT) 43 U/L Alanine Aminotransferase (ALT/SGPT) 32 U/L Alkaline Phosphatase 134 U/L Ammonia 18.9 umol/L Total Protein 6.6 gm/dl Albumin 3.6 gm/dl Globulin 3.0 gm/dl Albumin/Globulin Ratio 1.2 Vitamin B12 Level > 2000 pg/mL Thyroid Stimulating Hormone (TSH) 2.330 uIu/ml Random Cortisol 29.24 mcg/dl Assessment and Plan This is a 72 year old male with a past medical history of depression/anxiety, ADHD, chronic pain syndrome on long-term opioid use, chronic muscle spasms, migraine headaches, HTN - presents with confusion after a stressful event at an airport last week. Delirium, Possible Uremic Encephalopathy vs. Complicated Migraine Possible Brief Psychotic Event due to Stress Psychomotor Retardation in the setting of Depression 01/19 - patient is more agitated today, seems more confused than yesterday - does not recall events from last evening - difficult to obtain any meaningful history this morning as patient is intent on signing out against medical advice - appreciate neurology input - will taper Gabapentin to 100mg BID x2-3 days, then 100mg daily x2-3 days, and then stop - will taper off Baclofen as well, down to 5mg TID as needed, and then we will stop in a few days - psychiatry consulted for further input regarding inappropriate behavior, mental capacity, confusion, etc. - only history obtained yesterday was regarding stressful event at an airport around [place] time; missing multiple flights; patient states he was in a fog and cannot recall how he got home at that time; since then has been unsteady 01/18 - Brain MRI/Head CT - no acute strokes; previous CVA noted - possible polypharmacy; patient is taking Valium at for sleep, takes Baclofen for muscle spasms, takes opioids for chronic pain - states that [place] - possibly stress induced stressors also causing delirium/altered mental status - patient is taking Zoloft 100mg - states he does not feel depressed - can likely taper this as outpatient - takes Baclofen and Valium; which can cause confusion; should taper these down - patient has a prescription for Flexeril and Ambien as well - which should be stopped altogether - will continue IVFs - check an echo and check an EEG - if symptoms persist, may need Dr. Hernandez, neurology - ordered PT/OT Acute Kidney Injury - resolved 01/19 - IVFs stopped 01/18 - creatinine on admission - 1.9 - creatinine down to 1.0 now - continue IVFs Elevated Troponin Level - possibly multifactorial - dehydration/LEONEL, chronic elevation - echo - normal LVEF, no acute findings - trending downwards Chronic Pain Syndrome 01/19 - taper Gabapentin as above, taper Baclofen as above; stop Flexeril 01/18 - should taper off opioid use - should also taper down the muscle relaxant use - stop Flexeril altogether ADHD - continue Adderall - outpatient psychiatry follow-up DVT ppx - subq heparin FULL CODE
--- NOTE | 2018-01-19 10:32 | Neurology Consultation ---
Neurology Consultation Date of Consultation: Jan 19, 2018. Attending Physician: Charla Washburn DO Primary Care Physician: Buddy Begum D.OElisabet Reason for Consultation: Patient is a 72-year-old, was asked to see the request of Dr Washburn, for neurologic consultation regarding encephalopathy and headache. History of Present Illness Source: patient, caregiver, clinic records, hospital records I have been following this patient in my outpatient clinic for at least 15 years for episodic, frequent, refractory, migraine headaches. He has tried and failed most medications for headache prophylaxis that I have ever used. Over the last few years his headache frequency has been much less than it was in the past. Currently, he gets headaches about once or twice a month. He will take aspirin 1st and then sumatriptan. He believes the sumatriptan helps. I last saw him in clinic in August of 2017. At that time he was stable. He did have a little bit of residual leg weakness but no pain in his low back or lower extremities. The patient had a lumbar decompression/laminectomy with fusion at L4-5 and L5-S1 by Dr. Ferrer in February of 2017 for severe lumbar spinal stenosis with radiculopathy. He has done very well postoperatively over the last year. Patient has had chronic history of significant depression and anxiety with a longstanding history of work related stressors as well as some family/home stresses. He has been on sertraline for several years. He did try Cymbalta this past year but this was discontinued due to side effects. He has never had a history of dementia, except, more recently he has had some forgetfulness and minor cognitive issues over the last couple of years. Ever since I have known him, he has always had a bit of an eccentric/strange personality quality to him. He has always been otherwise pleasant and cooperative. Patient had a very stressful weekend at the beginning of January. He has been having some increased stress in general and over the last 48 hours prior to admission he was having headache, nausea, vomiting, dizziness, word-finding difficulties, confusion, blurry vision, and tremor. The symptoms would be typical for his severe or complicated migraines. He arrived to the emergency room at 9:02 p.m. zero two hours on January 17 with a blood pressure of 162/94, temp 36.6, pulse 112, respiratory rate 15, and O2 saturation 98%. He was somewhat forgetful with word-finding difficulty, weak and lethargic in the emergency room but otherwise oriented. He complained of some decreased sensation of his right arm and leg. CT scan of the head was unremarkable. CBC, Chem profile, TSH, B12, ammonia, were all unremarkable, except for a mildly low sodium, elevated BUN and creatinine, and increased CK at 651 MRI of the brain showed no acute stroke. 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 The MRI basically showed no change compared to the previous study of 2015. Echocardiogram was largely unremarkable. Currently, the patient is feeling better. He has no complaint of headache, dizziness, neck pain, vision problems, weakness or numbness of the limbs, memory problems, or balance issues. He feels he is back to normal. Nursing reports that the patient has been a little paranoid and is dressed ready to go. He hit his medicines also. Past Medical/Surgical History Medical Problems: (1) Arm pain, left Status: Acute (2) Dehydration Status: Acute (3) Dehydration Status: Acute (4) EKG abnormality Status: Acute (5) Nausea vomiting and diarrhea Status: Acute (6) Rectal bleeding Status: Acute (7) Renal failure Status: Acute Longstanding history of refractory intermittent migraine headaches ADHD Depression and anxiety Dyslipidemia Gastroesophageal reflux disease and irritable bowel syndrome Hypertension Post lumbar laminectomy February 2017 with fusion at L4-5 and L5-S1 for severe spinal stenosis and radiculopathy. Post partial gastrectomy 2005 Tonsillectomy Family History Mother age 88 and the patient does not know of any significant medical problems that she had. She did not have migraine headaches. Father is alive still at age 95 and he has severe osteoarthritis and no migraine headaches. Social History Patient does not use tobacco products. He does not drink alcohol. 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 Smoking Status: Never smoker Smokeless Tobacco Use: No Alcohol Use: none Drug Use: none Marital Status: Housing Status: lives with significant other Occupation Status: retired Allergies Coded Allergies: Buspirone (Verified Adverse Reaction, Unknown, "CRAWLING OUT OF MY SKIN" JITTERY, 01/18/18) Lactose (Verified Adverse Reaction, Unknown, INTOLERANT, 01/18/18) Lorazepam (Verified Adverse Reaction, Unknown, JITTERY;"CRAWLING OUT OF MY SKIN", 01/18/18) Current Inpatient Medications Current Inpatient Medications Medications (Trade) Dose Ordered Sig/Gina Route Start Time Stop Time Status Last Admin Dose Admin Acetaminophen/ Butalbital/ Caffeine (Fioricet Tab) 1 tab Q4H PRN PO 01/18/18 00:45 02/17/18 00:44 01/18/18 16:21 1 TAB Acetaminophen/ Codeine Phosphate (Tylenol w/ Codeine #3 Tab) 1 tab Q4H PRN PO 01/18/18 00:45 02/17/18 00:44 01/18/18 09:58 1 TAB Amlodipine Besylate (Norvasc Tab) 10 mg QAM PO 01/18/18 09:00 02/17/18 08:59 01/19/18 07:40 10 MG Atorvastatin Calcium (Lipitor Tab) 80 mg QAM PO 01/18/18 09:00 02/17/18 08:59 01/19/18 07:39 80 MG Betamethasone Valerate (Valisone 0.1% Crm) 1 appln BID PRN EXT 01/18/18 00:45 02/17/18 00:44 Celecoxib (CeleBREX CAP) 200 mg QAM PO 01/18/18 09:00 02/17/18 08:59 01/19/18 07:39 200 MG Diazepam (Valium Tab) 5 mg HS PO 01/18/18 21:00 02/17/18 20:59 Fluticasone Propionate (Flonase Nasal [place]) 2 sprays DAILY PRN CARMELITA 01/18/18 00:45 02/17/18 00:44 Gabapentin (Neurontin Cap) 100 mg TID PO 01/18/18 09:00 02/17/18 08:59 01/19/18 07:40 100 MG Polyethylene (Miralax Powder Packet) 17 gm DAILY PRN PO 01/18/18 02:15 02/17/18 02:14 Sertraline HCl (Zoloft Tab) 100 mg DAILY PO 01/18/18 09:00 02/17/18 08:59 01/19/18 07:38 100 MG Tamsulosin HCl (Flomax Cap) 0.4 mg HS PO 01/18/18 21:00 02/17/18 20:59 01/18/18 20:04 0.4 MG Amphetamine Aspartate/ Amphetam Sulf (Amphetamine Aspartate/Amph Sulf/Dextramphet) 30 mg 0730,1200 PO 01/18/18 07:30 02/01/18 07:29 01/19/18 07:38 30 MG Miscellaneous Information (Order Awaiting Action) 1 ea QS N/A 01/18/18 08:00 02/17/18 07:59 Miscellaneous Information (Order Awaiting Action) 1 ea QS N/A 01/18/18 08:00 02/17/18 07:59 Miscellaneous Information (Order Awaiting Action) 1 ea QS N/A 01/18/18 08:00 02/17/18 07:59 Heparin Sodium (Porcine) (Heparin Sq 5000 Unit/0.5ml) 5,000 unit Q8 SQ 01/18/18 06:00 02/17/18 05:59 01/18/18 14:19 5,000 UNIT Acetaminophen (Tylenol Tab) 650 mg Q4H PRN PO 01/18/18 00:45 02/17/18 00:44 Ondansetron HCl (Zofran Inj) 4 mg Q6H PRN IV 01/18/18 00:45 02/17/18 00:44 Metoprolol Tartrate (Lopressor Tab) 100 mg BID PO 01/19/18 21:00 02/18/18 20:59 Haloperidol Lactate (Haldol Inj) 2 mg ONE PRN IM 01/19/18 09:45 02/18/18 09:44 UNV Review of Systems Any review of system questions that I ask him he denies Constitutional: No weakness, No fatigue Eyes: No worsening of vision, No diplopia ENT: No hearing loss, No tinnitus Respiratory: No cough, No shortness of breath Cardiovascular: No chest pain, No palpitations Abdomen: No pain, No nausea Musculoskeletal: No joint pain, No muscle pain Genitourinary - Male: No dysuria, No urinary incontinence Neurologic: No memory loss, No weakness, No numbness/tingling, No balance problems Psychiatric: No depression symptoms, No anxiety Endocrine: No fatigue Hematologic / Lymphatic: No abnormal bleeding/bruising Integumentary: No rash Allergic / Immunologic: No hives Physical Exam Vital Signs (Past 24 Hrs): Date Time Temp Pulse Resp B/P (MAP) Pulse Ox O2 Delivery O2 Flow Rate FiO2 01/19/18 08:00 97 Room Air 01/19/18 07:46 36.8 99 18 180/82 (114) 99 Room Air 01/19/18 04:00 Room Air 01/19/18 02:50 36.9 109 20 170/92 (118) 98 Room Air 01/18/18 23:59 Room Air 01/18/18 23:30 37.0 113 16 164/95 (118) 98 Room Air 01/18/18 20:00 96 Room Air 01/18/18 19:50 36.8 139 22 180/89 (119) 96 Room Air 01/18/18 16:21 36.9 95 18 169/98 (121) 100 Room Air 01/18/18 16:00 100 Room Air 01/18/18 12:00 97 Room Air 01/18/18 11:58 37.0 80 18 141/69 (93) 99 Patient is right-handed. The patient is awake and alert. Speech is normal without aphasia or dysarthria, although he is occasionally slow to answer questions. I have seen this in him intermittently in the past however. He is oriented to the year the month and the president. He could not name the date but he knew he was in the hospital. He could give me details of past history but was not as accurate with short- term things over the last couple of days. Although very quiet, he is cooperative. He is stressed/angry about all the noise coming from the other side of the curtain with his roommate and his roommates family/visitors The discs are sharp with positive venous pulsations. There are no exudates, hemorrhages, or blood vessel changes seen. Pupils are 5-6mm bilaterally and reactive to light. Extraocular eye muscles are intact without nystagmus. Visual acuity and visual hdez seem normal grossly to confrontation. There are no deficits to sensation of the face bilaterally. Corneal reflexes are positive bilaterally. Facial strength and symmetry is normal bilaterally. Hearing seems intact grossly to voice and finger rub. Palate moves well without asymmetry. There is normal sternocleidomastoid and trapezius strength bilaterally. Tongue is midline with good strength bilaterally. Neck is with full range of motion without discomfort. There are no cervical bruits. There are no cranial or ocular bruits. Heart is without murmur. Cervical, thoracic, and lumbar spine are nontender to palpation. Gait is narrow based There is good arm swing, turn, stance, and balance. With outstretched arms there is no drift. There are no resting, postural, or action tremors. There is no ataxia with [id number] testing. There is good facility in the hands. There are no abnormal involuntary movements noted. Motor strength is 5/5 diffusely in the arms bilaterally including deltoids, biceps, brachioradialis, wrist flexors and extensors, anthropology and archeology instructor, and intrinsic hand muscles. Motor strength is 5/5 diffusely in the legs bilaterally including hip flexors, quadriceps, hamstring, gastrocnemius, tibialis anterior, tibialis posterior, and peroneii muscles bilaterally. Toe extensors are normal and there is good bulk in the extensor digitorum brevis muscle bilaterally. The limbs have good tone without rigidity or spasticity, and there is no atrophy noted. Muscle bulk is normal, there is no tenderness, no myotonia noted to percussion, and no fasciculations seen. Sensory examination is intact to pin and touch throughout all four limbs. Reflexes are 1/4 in the biceps, triceps, brachioradialis, quadriceps, and Achilles tendons bilaterally. Toes are downgoing with plantar stimulation bilaterally. Peripheral pulses are present and of normal quality distally in all four limbs. There is no peripheral edema noted. Laboratory Results Past 24 Hours: 01/19/18 06:31 01/19/18 08:17 Test 01/18/18 12:34 01/19/18 06:31 01/19/18 08:17 01/19/18 08:19 Troponin I 0.272 ng/ml (0-0.045) Red Blood Count 4.01 M/uL (4.7-6.1) Mean Corpuscular Volume 82.0 fL (80-100) Mean Corpuscular Hemoglobin 30.9 pg (25-34) Mean Corpuscular Hemoglobin Concent 37.7 g/dl (32-36) RDW Standard Deviation 37.5 fL (36.4-46.3) RDW Coefficient of Variation 12.6 % (11.5-14.5) Mean Platelet Volume 8.3 fL (7.4-10.4) Anion Gap 12.0 mmol/L (3-11) Est Creatinine Clear Calc Drug Dose 89.7 ml/min Estimated GFR () 115.7 Estimated GFR (Non- 99.8 BUN/Creatinine Ratio 20.9 (10-20) Calcium Level 8.9 mg/dl (8.5-10.1) Total Bilirubin 0.7 mg/dl (0.2-1) Aspartate Amino Transf (AST/SGOT) 43 U/L (15-37) Alanine Aminotransferase (ALT/SGPT) 32 U/L (12-78) Alkaline Phosphatase 134 U/L (45-117) Ammonia 18.9 umol/L (11-32) Total Protein 6.6 gm/dl (6.4-8.2) Albumin 3.6 gm/dl (3.4-5.0) Globulin 3.0 gm/dl (2.5-4.0) Albumin/Globulin Ratio 1.2 (0.9-2) Vitamin B12 Level > 2000 pg/mL (211-911) Thyroid Stimulating Hormone (TSH) 2.330 uIu/ml (0.300-4.500) Random Cortisol 29.24 mcg/dl Imaging MRI OF THE BRAIN WITHOUT CONTRAST CLINICAL HISTORY: Confusion. Headache. COMPARISON STUDY: MRI of the brain July 25, [address] January 17, 2018. TECHNIQUE: Utilizing a 1.5 Tricia magnet and dedicated coil, multiplanar, multiecho imaging of the brain was performed without IV contrast. FINDINGS: There are no foci of restricted diffusion. No acute intracranial hemorrhage, midline shift or mass effect is present. Ventricular system is stable. Basilar cisterns are patent. There are no extra axial collections. An old right basal ganglia infarct is noted. Choroid plexus cysts are unchanged. Right mastoid fluid is similar to previous MRI of July 25, 2015. No intracranial masses are identified on this unenhanced exam. IMPRESSION: 1. No acute intracranial findings. 2. No change in appearance of the brain since previous exam. Old right basal ganglia infarct. Electronically signed by: Donovan Calderon M.D. 01/18/2018 6:33 AM Impression 1. Episode of headache, confusion, speech problems, blurry vision, and other symptoms. I believe he had a typical complicated migraine, superimposed with dehydration and some renal failure acutely. He has been under some stress recently which tends to trigger his headaches and affect his moods. Currently, he believes he is back to normal although I am suspicious in that he denies any symptoms whatsoever no matter what question is asked him. I believe he is stressed and probably angry about being in the hospital. I am not convinced he has any significant encephalopathy currently although I cannot entirely exclude some residual. He probably has some mild underlying cognitive impairment but he has never been tested specifically for this. 2. Longstanding history of refractory intermittent migraine headaches including complicated migraines 3. Longstanding history of anxiety and depression helped some with sertraline Shanita was get the sense that his current behavior is largely psychiatric and not entirely encephalopathic. Plan 1. Agree with psychiatric consultation 2. Otherwise I have no further neurologic testing recommendations to make at this time and could follow him up as an outpatient. 3. Taper off gabapentin by 1 pill every 3 days until off. 4. Taper off baclofen over the next several days as well. I spoke with her room regarding this case and spent a total of 60 minutes with this case including records review, direct bedside evaluation, and discussion of his case with clinical staff and Dr. Washburn
--- NOTE | 2018-01-19 13:10 | Psychiatric Consultation ---
Consultation Date of Consultation Jan 19, 2018. Identifying Data 72 yo male admitted medically due to several days of N/V, severe HARRIS, difficulty speaking and confusion. We are consulted to evaluate mood and mental status. Information is gathered from the patient, the electronic medical record, and considered to be reliable. Chief Complaint "I don't understand. ". History of Present Illness The patient is a 72-year-old gentleman with medical history including IBS, migraines, reflux esophagitis, memory loss, attention deficit disorder, hypertension and cognitive impairment who presented to the emergency department due to confusion. He reported at the time that he had been experiencing weakness and 3 hours of difficulty speaking. He also had paresthesias of his right arm and leg for the 24-48 hours prior to admission. He reported a severe headache rated 9 out of 10 with associated nausea and vomiting. He regularly follows with Dr. Hernandez from neurology who saw him on consult this morning. Dr. Hernandez felt that his symptoms were congruent with a complicated migraine although could not rule out residual encephalopathy. Nursing staff reports that he has appeared quite paranoid, hiding behind the bedside curtains, and hiding some of his medications in his underwear, not wanting to take them. In addition, his has phoned into the nurses to report that her has called her to request that she bring guns in so that he can protect himself. At the time I see the patient he is seated at the bedside attempting to eat lunch. I introduced myself and the purpose for my consult. He says he does not understand why I am there and I try to reflect back to him some of his observed behaviors that have caused concern. He then apologizes to me for things that he has done to me which makes no sense given the fact that I have just met him for the first time. His responses to questions are extremely delayed, if he answers them at all. He says that he is "meditating" when he is silent. He stares at me intently after each question without talking. I attempt to get to know him a little better. 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 When I ask when he retired he indicates [id number]. We then proceeded with orientation questions and he is oriented to person, place, year, month and event. He refuses to sign a release of information for Dr. Al, his psychiatrist, who he has seen for years. He also refuses to allow me to call his saying that he does not want to worry her and says he has also told her not to come visit. I reflect my concerns that some of his behaviors appear paranoid as if he has concerns for his safety to which she responds "I do not know what you mean". He denies problems with his mood, appetite, sleep, energy. He denies anxiety. Review of the [place] PDMP reveals that he gets controlled substances from several physicians. He gets Tylenol with codeine from his primary care office having received 120 pills since December 01. He receives Adderall [address] Al, last filled on December 28 for 60 pills. He receives Valium [address] Hernandez, last filled on December 10 and has received Ambien [address] Hernandez in the past, last filled November 25. Past Psychiatric History Current OP Treatment: psychiatrist Prior Psych Hospitalizations: none Access to a Gun: Yes (asking to bring them to the hospital) Past Medication Trials unknown Past Medical/Surgical History (1) LEONEL (acute kidney injury) (2) IBS (irritable bowel syndrome) (3) Hypertension (4) Migraine (5) Dyslipidemia (6) Lumbar stenosis with neurogenic claudication Allergies Allergies: Coded Allergies: Buspirone (Verified Adverse Reaction, Unknown, "CRAWLING OUT OF MY SKIN" JITTERY, 01/18/18) Lactose (Verified Adverse Reaction, Unknown, INTOLERANT, 01/18/18) Lorazepam (Verified Adverse Reaction, Unknown, JITTERY;"CRAWLING OUT OF MY SKIN", 01/18/18) Home Medications Scheduled Amlodipine (Norvasc), 10 MG PO QAM Amphetamine-Dextroamphetamine 30MG (Adderall 30MG), 30 MG PO BID Atorvastatin (Lipitor), 80 MG PO QAM Celecoxib (Celecoxib), 200 MG PO QAM Diazepam (Valium), 5 MG PO HS Dicyclomine Hcl (Bentyl), 1 CAP PO ACHS Gabapentin (Neurontin), 100 MG PO TID Hydrochlorothiazide (Hydrochlorothiazide), 12.5 MG PO QAM Linaclotide (Linzess), 290 MCG PO QAM Lisinopril (Zestril), 40 MG PO DAILY Metoprolol Tartrate (Lopressor) (Lopressor), 75 MG PO BID Sertraline (Zoloft), 100 MG PO DAILY Tamsulosin HCl (Tamsulosin HCl), 0.4 MG PO HS Scheduled PRN Acetamin/Butalbital/Caffeine (Fioricet), 1 TAB PO Q4H PRN for Migraine Acetaminophen/Codeine (Tylenol W/Codeine #3), 1 TAB PO Q4H PRN for Lower Back Pain Azelastine Hcl (Ophth) (Azelastine Hcl), 1 DROPS OP BID PRN for SEASONAL ALLERGIES Baclofen (Lioresal), 1 TAB PO TID PRN for Muscle Spasms Betamethasone Valerate (Valisone 0.1% Cream), 1 APPL TOP BID PRN for PRN Clobetasol Propionate (Temovate), 1 APPLN TOP BID PRN for Itching Cyclobenzaprine Hcl (Flexeril), 10 MG PO BID PRN for Muscle Spasm Fluticasone Propionate (Fluticasone Propionate), 2 SPRAYS CARMELITA DAILY PRN for Nasal Congestion Polyethylene Glycol 3350 (Miralax), 17 GM PO DAILY PRN for Constipation Vardenafil Hcl (Staxyn), 10 MG PO DAILY PRN for ERECTILE DYSFUNCTION Family History High blood pressure Smoking Use Smoking Status: Never Smoker Personal History Lives in: [place] with his Education: graduated college Work History: retired from [employer] Relationship History: Review of Systems Constitutional: denies no symptoms reported, denies see HPI, denies chills, denies diaphoresis, denies fever, denies malaise, denies weakness, denies other Eyes: denies: no symptoms, as stated in HPI, eye pain, tearing, itching, redness, discharge, double vision, visual changes, blurred vision, photophobia, other ENT: denies: no symptoms reported, see HPI, ear pain, ear discharge, loss of hearing, tinnitus, nasal pain, nasal congestion, rhinorrhea, epistaxis, sore throat, stidor, throat swelling, mouth pain, mouth swelling, dental pain, gum swelling, other Cardiovascular: denies: no symptoms reported, see HPI, chest pain, chest tightness, chest pressure, diaphoresis, palpitations, syncope, other Respiratory: denies: no symptoms reported, see HPI, cough, orthopnea, short of breath, stridor, wheezing, sputum production, cyanosis, HEATH, PND, other Gastrointestinal: denies no symptoms reported, denies see HPI, denies abdominal pain, denies constipation, denies diarrhea, denies nausea, denies vomiting, denies other Genitourinary - Male: denies: no symptoms, see HPI, rash, amenorrhea, penile itching, penile discharge, testicular pain, testicular swelling, impotence, other Musculoskeletal: denies no symptoms reported, denies see HPI, denies back pain , denies gout, denies joint pain, denies joint swelling, denies muscle pain, denies muscle stiffness, denies neck pain, denies other Integumentary: denies no symptoms reported, denies see HPI, denies change in color, denies change in hair/nails, denies dryness, denies lesions, denies lumps , denies rash, denies other Neurologic: denies: no symptoms, see HPI, headache, numbness, paresthesias, pre -existing deficit, seizure, tingling, tremors, general weakness, tics, focal weakness, vertigo, lethargy, memory loss, dizziness, other Endocrine: denies: no symptoms, as stated in HPI, cold intolerance, heat intolerance, hair changes, goiter, polydipsia, polyuria, skin changes, other Hematologic / Lymphatic: denies: no symptoms, as stated in HPI, abnormal clotting, adenopathy, anemia, easy bleeding, easy bruising, gums bleeding, petechiae, other Examination Vital Signs Vital Signs Past 12 Hours Date Time Temp Pulse Resp B/P (MAP) Pulse Ox O2 Delivery O2 Flow Rate FiO2 01/19/18 12:00 97 Room Air 01/19/18 11:25 37.0 85 18 157/86 (109) 100 Room Air 01/19/18 08:00 97 Room Air 01/19/18 07:46 36.8 99 18 180/82 (114) 99 Room Air 01/19/18 04:00 Room Air 01/19/18 02:50 36.9 109 20 170/92 (118) 98 Room Air Laboratory Results Last 24 Hours Test 01/19/18 06:31 01/19/18 08:17 01/19/18 12:02 01/19/18 12:38 White Blood Count 9.60 K/uL Red Blood Count 4.01 M/uL Hemoglobin 12.4 g/dL Hematocrit 32.9 % Mean Corpuscular Volume 82.0 fL Mean Corpuscular Hemoglobin 30.9 pg Mean Corpuscular Hemoglobin Concent 37.7 g/dl RDW Standard Deviation 37.5 fL RDW Coefficient of Variation 12.6 % Platelet Count 170 K/uL Mean Platelet Volume 8.3 fL Sodium Level 130 mmol/L 129 mmol/L Potassium Level 4.1 mmol/L 4.1 mmol/L Chloride Level 98 mmol/L 97 mmol/L Carbon Dioxide Level 22 mmol/L 21 mmol/L Anion Gap 10.0 mmol/L 12.0 mmol/L Blood Urea Nitrogen 15 mg/dl 13 mg/dl Creatinine 0.69 mg/dl 0.62 mg/dl Est Creatinine Clear Calc Drug Dose 80.6 ml/min 89.7 ml/min Estimated GFR () 110.7 115.7 Estimated GFR (Non- 95.5 99.8 BUN/Creatinine Ratio 21.9 20.9 Random Glucose 94 mg/dl 87 mg/dl Calcium Level 9.1 mg/dl 8.9 mg/dl Total Bilirubin 0.7 mg/dl Aspartate Amino Transf (AST/SGOT) 43 U/L Alanine Aminotransferase (ALT/SGPT) 32 U/L Alkaline Phosphatase 134 U/L Ammonia 18.9 umol/L Total Protein 6.6 gm/dl Albumin 3.6 gm/dl Globulin 3.0 gm/dl Albumin/Globulin Ratio 1.2 Vitamin B12 Level > 2000 pg/mL Thyroid Stimulating Hormone (TSH) 2.330 uIu/ml Random Cortisol 29.24 mcg/dl Urine Opiates Screen POS Urine Methadone, Qualitative NEG Urine Barbiturates POS Urine Phencyclidine (PCP) Level NEG Ur Amphetamine/Methamphetamine POS MDMA (Ecstasy) Screen NEG Urine Benzodiazepines Screen POS Urine Cocaine Metabolite NEG Urine Marijuana (THC) NEG Mental Examination During interview pt is: alert and oriented, uncooperative, guarded Appearance: appropriately dressed Eye contact is: good (staring) Motor behavior is: psychomotor retardation Speech: other (quiet, latent responses) Affect: flat Mood is: other ("fine") Thought process: other (disturbed by "meditation") Thought content: delusions (fears for his safety) Suicidal thought are: denied Homicidal thoughts are: denied Hallucinations: denies auditory, denies visual Cognition: memory grossly intact, language grossly intact Intelligence estimated to be: average Insight: impaired Judgement: impaired Impression / Recommendations Impression 72-year-old gentleman admitted with what appears to be a complicated migraine and altered mental status. Although he reports all of his symptoms have resolved, he remains with a very odd disposition that lends itself to paranoia. His has now said that he has called her and clearly made paranoid statements that he is not safe here wanting her to bring in guns. I agree with Dr. Hernandez is impressions that he is minimizing any symptoms at this point as he does not trust his care here although gladly, he is willing to stay for any ongoing treatment. He is not giving me any first hand information that I could use to commit him if indeed his condition does not improve although the may be able to write a petitioner statement if it becomes apparent his condition is not improving and there are still concerns. The patient is getting multiple controlled substances including benzodiazepines, opiates and stimulants. We certainly cannot rule out that substances are playing a part in his current presentation. For example, we do not know how many Tylenol with codeine he took in the last several days to medicate his migraine. He is not allowing me to contact his outpatient providers or his although I am told his is on the way in. I will encourage nursing staff to get as much supplemental as possible and her estimations of his current condition. It would seem prudent to keep the patient in the hospital for another day or 2 to see if this condition resolves. If not we can reevaluate to determine if he meets criteria for inpatient treatment. Regardless, I would recommend that in a man of 72 years of age, that we begin to scale back his controlled substances , especially in view of this episode. We will follow along. Recommendations (1) Change in mental state 01/18 - Recommend that he remain in the hospital to monitor for resolution of symptoms - Recommend tapering controlled substances - Obtain supplemental from who is on her way to the hospital - Attempt to get JONATHAN for Dr. Al again - should secure all guns - If has information or concerns for her safety, she should be encouraged to complete a 302 petitioner's statement in the event it is needed. - Will hold stimulants Dr. Mirta Stauffer has personally been involved in the review of the case and development of recommendations.
[2018-01-19] MEDS: TAMSULOSIN HCL 0.4 MG CAP PO SCH (20:41)
[2018-01-19] MEDS: METOPROLOL TARTRATE 100 MG TAB PO SCH (20:42)
[2018-01-19] MEDS: BUTALBITAL/ACETAMIN/CAFFEINE TAB PO PRN (20:43)
[2018-01-19] MEDS: DIAZEPAM 5MG TAB PO SCH (20:43)
[2018-01-20] VITALS (10 sets, daily range): BP systolic 134–180; BP diastolic 81–97; PULSE 91–106; TEMP 36.7–37.4; O2SAT 98–100
[2018-01-20] MEDS: HEPARIN SOD 5000 UNIT/0.5 ML CARP SQ SCH ×3 (06:06→20:41)
[2018-01-20] MEDS: LISINOPRIL 20 MG TAB PO SCH (07:52)
[2018-01-20] MEDS: AMLODIPINE BESYLATE 5 MG TAB PO SCH (07:53)
[2018-01-20] MEDS: GABAPENTIN 100 MG CAP PO SCH ×2 (07:53→20:40)
[2018-01-20] MEDS: ATORVASTATIN 40 MG TAB PO SCH (07:54)
[2018-01-20] MEDS: SERTRALINE HCL 100 MG TAB PO SCH (07:54)
[2018-01-20] MEDS: CeleBREX 200 MG CAP PO SCH (07:54)
[2018-01-20] MEDS: METOPROLOL TARTRATE 100 MG TAB PO SCH ×2 (07:54→20:44)
[2018-01-20] MEDS: AZELASTINE~ORDER AWAITING ACTION SCH ×3 (08:00→16:00)
[2018-01-20] MEDS: LINZESS~ORDER AWAITING ACTION SCH ×3 (08:00→16:00)
--- NOTE | 2018-01-20 10:00 | Neurology Progress Notes ---
Neurology Progress Note Date of Service Jan 20, 2018. Subjective The patient denies any headache or dizziness. He has no vision problems or balance issues. He denies any weakness or numbness of the limbs. He has no pain in the spine or her limbs. According to the nursing staff has been acting somewhat paranoid. Last evening , he laid in bed with urine soaked pants because he did not want to change them. Objective Date Time Temp Pulse Resp B/P (MAP) Pulse Ox O2 Delivery O2 Flow Rate FiO2 01/20/18 07:21 37.3 106 16 164/94 (117) 100 Room Air 01/20/18 04:00 Room Air 01/20/18 03:13 36.8 94 18 180/97 (124) 99 Room Air 01/19/18 23:59 Room Air 01/19/18 23:53 37.0 106 16 165/93 (117) 99 Room Air 01/19/18 20:20 37.0 118 16 174/94 (120) 96 Room Air 01/19/18 20:00 96 Room Air 01/19/18 16:13 36.8 110 20 165/96 (119) 100 Room Air 01/19/18 16:00 100 Room Air 01/19/18 12:00 97 Room Air 01/19/18 11:25 37.0 85 18 157/86 (109) 100 Room Air Last 24 Hours Test 01/19/18 12:02 01/19/18 12:38 Urine Opiates Screen POS Urine Methadone, Qualitative NEG Urine Barbiturates POS Urine Phencyclidine (PCP) Level NEG Ur Amphetamine/Methamphetamine POS MDMA (Ecstasy) Screen NEG Urine Benzodiazepines Screen POS Urine Cocaine Metabolite NEG Urine Marijuana (THC) NEG Urine Color YELLOW Urine Appearance CLEAR Urine pH 7.0 Urine Specific [place] 1.015 Urine Protein 1+ Urine Glucose (UA) NEG Urine Ketones 2+ Urine Occult Blood 1+ Urine Nitrite NEG Urine Bilirubin NEG Urine Urobilinogen NEG Urine Leukocyte Esterase NEG Urine WBC (Auto) 10-30 /hpf Urine RBC (Auto) 10-30 /hpf Urine Hyaline Casts (Auto) 1-5 /lpf Urine Epithelial Cells (Auto) 0-5 /lpf Urine Bacteria (Auto) NEG Urine Sperm (Auto) PRESENT Exam: He is awake and alert. His speech is without aphasia or dysarthria. He is a little more engaging today than he was yesterday. He makes a little more eye contact appropriately today than he did yesterday. When I asked him if he wanted to go home today he said yes, but he followed it with "but I know that what they are doing for me is in my best interest" and implying to me that maybe he did not want to be discharged today. Extraocular eye muscles are intact without nystagmus. There is no facial droop. Coordination is normal in the arms with good strength diffusely. Stance and balance are normal. Current Inpatient Medications Medications (Trade) Dose Ordered Sig/Gina Route Start Time Stop Time Status Last Admin Dose Admin Acetaminophen/ Butalbital/ Caffeine (Fioricet Tab) 1 tab Q4H PRN PO 01/18/18 00:45 02/17/18 00:44 01/19/18 20:43 1 TAB Acetaminophen/ Codeine Phosphate (Tylenol w/ Codeine #3 Tab) 1 tab Q4H PRN PO 01/18/18 00:45 02/17/18 00:44 01/18/18 09:58 1 TAB Amlodipine Besylate (Norvasc Tab) 10 mg QAM PO 01/18/18 09:00 02/17/18 08:59 01/20/18 07:53 10 MG Atorvastatin Calcium (Lipitor Tab) 80 mg QAM PO 01/18/18 09:00 02/17/18 08:59 01/20/18 07:54 80 MG Betamethasone Valerate (Valisone 0.1% Crm) 1 appln BID PRN EXT 01/18/18 00:45 02/17/18 00:44 Celecoxib (CeleBREX CAP) 200 mg QAM PO 01/18/18 09:00 02/17/18 08:59 01/20/18 07:54 200 MG Diazepam (Valium Tab) 5 mg HS PO 01/18/18 21:00 02/17/18 20:59 Fluticasone Propionate (Flonase Nasal [place]) 2 sprays DAILY PRN CARMELITA 01/18/18 00:45 02/17/18 00:44 Polyethylene (Miralax Powder Packet) 17 gm DAILY PRN PO 01/18/18 02:15 02/17/18 02:14 Sertraline HCl (Zoloft Tab) 100 mg DAILY PO 01/18/18 09:00 02/17/18 08:59 01/20/18 07:54 100 MG Tamsulosin HCl (Flomax Cap) 0.4 mg HS PO 01/18/18 21:00 02/17/18 20:59 01/19/18 20:41 0.4 MG Miscellaneous Information (Order Awaiting Action) 1 ea QS N/A 01/18/18 08:00 02/17/18 07:59 Miscellaneous Information (Order Awaiting Action) 1 ea QS N/A 01/18/18 08:00 02/17/18 07:59 Miscellaneous Information (Order Awaiting Action) 1 ea QS N/A 01/18/18 08:00 02/17/18 07:59 Heparin Sodium (Porcine) (Heparin Sq 5000 Unit/0.5ml) 5,000 unit Q8 SQ 01/18/18 06:00 02/17/18 05:59 01/20/18 06:06 5,000 UNIT Acetaminophen (Tylenol Tab) 650 mg Q4H PRN PO 01/18/18 00:45 02/17/18 00:44 Ondansetron HCl (Zofran Inj) 4 mg Q6H PRN IV 01/18/18 00:45 02/17/18 00:44 Metoprolol Tartrate (Lopressor Tab) 100 mg BID PO 01/19/18 21:00 02/18/18 20:59 01/20/18 07:54 100 MG Haloperidol Lactate (Haldol Inj) 2 mg ONE PRN IM 01/19/18 09:45 02/18/18 09:44 Gabapentin (Neurontin Cap) 100 mg BID PO 01/19/18 21:00 02/17/18 08:59 01/20/18 07:53 100 MG Baclofen (Lioresal Tab) 5 mg TID PRN PO 01/19/18 10:15 02/18/18 10:14 Lisinopril (Zestril Tab) 20 mg QAM PO 01/20/18 09:00 02/19/18 08:59 01/20/18 07:52 20 MG Impression 1. Episode of headache, confusion, speech problems, blurry vision, and other symptoms. I believe he had a typical complicated migraine, superimposed with dehydration and some renal failure acutely. He has been under some stress recently which tends to trigger his headaches and affect his moods. Physically, he is likely back to baseline. MRI of the brain was unremarkable for new acute issues also. I am not convinced he has any significant encephalopathy currently, although I cannot entirely exclude some residual. Also, He may have some mild underlying, chronic cognitive impairment but he has never been tested specifically for this. 2. Longstanding history of refractory intermittent migraine headaches including complicated migraines 3. Longstanding history of anxiety and depression helped some with sertraline His current behavior/mental status is , in my opinion, mostly psychiatric and not encephalopathic. Plan 1. No further neurologic testing is recommended at this time 2. Continue to Taper off gabapentin by 1 pill every 3 days until off. 3. Continue to Taper off baclofen over the next several days as well. 4. I believe that an inpatient psychiatric stay would be in this patient's best interest I have spoken to LEONEL Nuñez regarding this case. Please contact me if I can be of further assistance on this case otherwise I will see this patient as an outpatient, as usual.
[2018-01-20] MEDS ORDERED: SODIUM CHLORIDE 0.65% NA SOLN 45 ML (OCEAN) ONE (14:07)
--- NOTE | 2018-01-20 14:41 | Psychiatric Progress Notes ---
Progress Note Date of Service Jan 20, 2018. Interval History 72 yo male admitted medically with confusion, word finding difficulties in the setting of a complex migraine. Has appeared to be paranoid and acting bizarrely resulting in psychiatric consultation. Chief Complaint "I'm fine thank you. -". Subjective Patient was seen & assessed interval progress reviewed. The patient is a little more fluent in his responses today, without the long delays in which he said he was meditating. I reintroduce myself and he says that he remembers seeing me yesterday. He is denying any further HARRIS, and reports that his mood is fine. I relay to him that his informed us that he called to ask her to bring in his guns for protection, which he denies that he did. He says that his has bilateral hearing loss and has trouble hearing and communicating by phone. He goes on to say that she was here to see him today, but that she got lost and couldn't find his room and she was very upset, he could not console her. Nurses notes indicate he was observed to be running down the [place] saying he had to catch his , but was not present. I ask him about not taking some of his meds last night and he denies that he refused them, but say "I'm sure that they just fell through the crack.". I express my concern about his ' s reports combined with his behaviors here in the hospital, but he only responds with "I don't understand.". I ask him if he would be willing for inpatient mental health treatment to which he says "I don't see the need". I explain that for safety reasons I will need to speak with his about the gun statement and to secure all firearms, and he says "I understand". He denies aud/vis hallucinations, but repeatedly looks to and stares at my name tag as if suspicious. Review of Systems Constitutional: No fever, No chills, No sweats, No weight loss, No weakness, No fatigue, No problem reported ENT: No hearing loss, No unusual epistaxis, No nasal symptoms, No sore throat, No tinnitus, No dental problems, No trouble swallowing, No problem reported Respiratory: No cough, No sputum, No wheezing, No shortness of breath, No dyspnea on exertion, No dyspnea at rest, No hemoptysis, No problem reported Cardiovascular: No chest pain, No orthopnea, No PND, No edema, No claudication , No palpitations, No problem reported Abdomen: No pain, No nausea, No vomiting, No diarrhea, No constipation, No GI bleeding, No problem reported Musculoskeletal: No joint pain, No muscle pain, No swelling, No calf pain, No problem reported Neurologic: No memory loss, No paralysis, No weakness, No numbness/tingling, No vertigo, No balance problems, No problem reported Psychiatric: No depression symptoms, No anhedonism, No anxiety, No insomnia, No substance abuse, No problem reported Integumentary: No rash, No itch, No new/changing skin lesions, No color change , No bleeding, No problem reported Mental Status Exam During interview pt is: alert and oriented, uncooperative, guarded Appearance: appropriately dressed Eye contact is: good (staring) Motor behavior is: psychomotor retardation Speech: other (quiet, latent responses) Affect: flat Mood is: other ("fine") Thought process: other (for fluent today) Thought content: delusions (fears for his safety) Suicidal thought are: denied Homicidal thoughts are: denied Hallucinations: denies auditory, denies visual Cognition: memory grossly intact, language grossly intact Intelligence estimated to be: average Insight: impaired Judgement: impaired Impression Migraine is resolved and neuro has signed off. there is no overt organic reason for his current mental status, as imaging is negative, labs WNL, and no focal neurological signs. I have spoken with Dr. Al who confirms that he has a strange personality structure at baseline, but has never seen him flagrantly psychotic. The patient has been known to be somewhat secretive about his meds however. At this point, I have nothing to commit him on as he is denying all symptoms. I am, however, concerned about the 's reports that he requested a gun be brought to the hospital, indicating a much more severe paranoia than he is letting on. I suggest that we keep Dalton in the hospital until we are able to talk directly with the to confirm the statements, to determine whether she has any information that would make him committable, and to confirm that she has secured all firearms I have collaborated with Dr. Washburn, who agrees with the plan Plan (1) Change in mental state 01/18 - Recommend that he remain in the hospital to monitor for resolution of symptoms - Recommend tapering controlled substances - Obtain supplemental from who is on her way to the hospital - Attempt to get JONATHAN for Dr. Al again - should secure all guns - If has information or concerns for her safety, she should be encouraged to complete a 302 petitioner's statement in the event it is needed. - Will hold stimulants 01/20 - Continues to deny any symptoms, but remains behaviorally bizarre refusing meds, thinking is here, staring. - Is not committable with current info - Messages left for to 1. Confirm statements that he requested guns 2. determine if she has any information that would make him committable 3. Be sure that she has secured all firearms. Dr. Mirta Stauffer has personally been involved in the review of the case and development of recommendations. Visit Code E&M Code: 14598 Data Vital Signs Last 24 Hrs: Date Time Temp Pulse Resp B/P (MAP) Pulse Ox O2 Delivery O2 Flow Rate FiO2 01/20/18 12:00 100 Room Air 01/20/18 11:23 37.4 91 16 155/95 (115) 100 Room Air 01/20/18 08:00 100 Room Air 01/20/18 07:21 37.3 106 16 164/94 (117) 100 Room Air 01/20/18 04:00 Room Air 01/20/18 03:13 36.8 94 18 180/97 (124) 99 Room Air 01/19/18 23:59 Room Air 01/19/18 23:53 37.0 106 16 165/93 (117) 99 Room Air 01/19/18 20:20 37.0 118 16 174/94 (120) 96 Room Air 01/19/18 20:00 96 Room Air 01/19/18 16:13 36.8 110 20 165/96 (119) 100 Room Air 01/19/18 16:00 100 Room Air Meds Administered Last 24 Hrs: Meds Administered (Past 24Hrs) Medications (Trade) Dose Ordered Sig/Gina Route Start Time Stop Time Status Last Admin Dose Admin Tamsulosin HCl (Flomax Cap) 0.4 mg HS PO 01/18/18 21:00 02/17/18 20:59 01/19/18 20:41 0.4 MG Metoprolol Tartrate (Lopressor Tab) 100 mg BID PO 01/19/18 21:00 02/18/18 20:59 01/20/18 07:54 100 MG Thiamine HCl (Vitamin B-1 Tab) 100 mg NOW ONCE PO 01/19/18 08:15 01/19/18 08:18 DC 01/19/18 08:38 100 MG Metoprolol Tartrate (Lopressor Tab) 25 mg NOW STAT PO 01/19/18 08:17 01/19/18 08:18 DC 01/19/18 08:38 25 MG Gabapentin (Neurontin Cap) 100 mg BID PO 01/19/18 21:00 02/17/18 08:59 01/20/18 07:53 100 MG Lisinopril (Zestril Tab) 20 mg QAM PO 01/20/18 09:00 02/19/18 08:59 01/20/18 07:52 20 MG Lab Results Last 24 Hrs: 01/19/18 06:31 01/19/18 08:17 Test 01/17/18 22:00 01/18/18 06:53 01/18/18 12:34 01/19/18 06:31 Prothrombin Time 11.3 SECONDS (9.0-12.0) Prothromb Time International Ratio 1.1 (0.9-1.1) Activated Partial Thromboplast Time 31.5 SECONDS (21.0-31.0) Partial Thromboplastin Ratio 1.2 Total Creatine Kinase 651 U/L (39-308) Phosphorus Level 2.6 mg/dl (2.5-4.9) Magnesium Level 2.1 mg/dl (1.8-2.4) Troponin I 0.272 ng/ml (0-0.045) Red Blood Count 4.01 M/uL (4.7-6.1) Mean Corpuscular Volume 82.0 fL (80-100) Mean Corpuscular Hemoglobin 30.9 pg (25-34) Mean Corpuscular Hemoglobin Concent 37.7 g/dl (32-36) RDW Standard Deviation 37.5 fL (36.4-46.3) RDW Coefficient of Variation 12.6 % (11.5-14.5) Mean Platelet Volume 8.3 fL (7.4-10.4) Test 01/19/18 08:17 01/19/18 12:02 01/19/18 12:38 Anion Gap 12.0 mmol/L (3-11) Est Creatinine Clear Calc Drug Dose 89.7 ml/min Estimated GFR () 115.7 Estimated GFR (Non- 99.8 BUN/Creatinine Ratio 20.9 (10-20) Calcium Level 8.9 mg/dl (8.5-10.1) Total Bilirubin 0.7 mg/dl (0.2-1) Aspartate Amino Transf (AST/SGOT) 43 U/L (15-37) Alanine Aminotransferase (ALT/SGPT) 32 U/L (12-78) Alkaline Phosphatase 134 U/L (45-117) Ammonia 18.9 umol/L (11-32) Total Protein 6.6 gm/dl (6.4-8.2) Albumin 3.6 gm/dl (3.4-5.0) Globulin 3.0 gm/dl (2.5-4.0) Albumin/Globulin Ratio 1.2 (0.9-2) Vitamin B12 Level > 2000 pg/mL (211-911) Thyroid Stimulating Hormone (TSH) 2.330 uIu/ml (0.300-4.500) Random Cortisol 29.24 mcg/dl Urine Opiates Screen POS (NEG) Urine Methadone, Qualitative NEG (NEG) Urine Barbiturates POS (NEG) Urine Phencyclidine (PCP) Level NEG (NEG) Ur Amphetamine/Methamphetamine POS (NEG) MDMA (Ecstasy) Screen NEG (NEG) Urine Benzodiazepines Screen POS (NEG) Urine Cocaine Metabolite NEG (NEG) Urine Marijuana (THC) NEG (NEG) Urine Color YELLOW Urine Appearance CLEAR (CLEAR) Urine pH 7.0 (4.5-7.5) Urine Specific [place] 1.015 (1.000-1.030) Urine Protein 1+ (NEG) Urine Glucose (UA) NEG (NEG) Urine Ketones 2+ (NEG) Urine Occult Blood 1+ (NEG) Urine Nitrite NEG (NEG) Urine Bilirubin NEG (NEG) Urine Urobilinogen NEG (NEG) Urine Leukocyte Esterase NEG (NEG) Urine WBC (Auto) 10-30 /hpf (0-5) Urine RBC (Auto) 10-30 /hpf (0-4) Urine Hyaline Casts (Auto) 1-5 /lpf (0-5) Urine Epithelial Cells (Auto) 0-5 /lpf (0-5) Urine Bacteria (Auto) NEG (NEG) Urine Sperm (Auto) PRESENT (NOT PRESENT) Date/Time Source Procedure Growth Status 01/19/18 12:38 Urine , Clean Catch Urine Culture - Preliminary NO GROWTH - LESS THAN 1,000 COLONIES/... Resulted
--- NOTE | 2018-01-20 17:29 | Progress Note ---
Subjective Date of Service: Jan 20, 2018. Subjective Pt evaluation today including: conversation w/ patient, physical exam, lab review, review of studies, review of inpatient medication list Saw/examined the patient in room 238 He is reserve, calm - but psychosis/delirious episodes Confused at times, slowed responses as per nursing, he was acting out earlier, but currently better Problem List Medical Problems: (1) Arm pain, left Status: Acute (2) Dehydration Status: Acute (3) Dehydration Status: Acute (4) EKG abnormality Status: Acute (5) Nausea vomiting and diarrhea Status: Acute (6) Rectal bleeding Status: Acute (7) Renal failure Status: Acute Medications Current Inpatient Medications Medications (Trade) Dose Ordered Sig/Gina Route Start Time Stop Time Status Last Admin Dose Admin Acetaminophen/ Butalbital/ Caffeine (Fioricet Tab) 1 tab Q4H PRN PO 01/18/18 00:45 02/17/18 00:44 01/19/18 20:43 1 TAB Acetaminophen/ Codeine Phosphate (Tylenol w/ Codeine #3 Tab) 1 tab Q4H PRN PO 01/18/18 00:45 02/17/18 00:44 01/18/18 09:58 1 TAB Amlodipine Besylate (Norvasc Tab) 10 mg QAM PO 01/18/18 09:00 02/17/18 08:59 01/20/18 07:53 10 MG Atorvastatin Calcium (Lipitor Tab) 80 mg QAM PO 01/18/18 09:00 02/17/18 08:59 01/20/18 07:54 80 MG Betamethasone Valerate (Valisone 0.1% Crm) 1 appln BID PRN EXT 01/18/18 00:45 02/17/18 00:44 Celecoxib (CeleBREX CAP) 200 mg QAM PO 01/18/18 09:00 02/17/18 08:59 01/20/18 07:54 200 MG Diazepam (Valium Tab) 5 mg HS PO 01/18/18 21:00 02/17/18 20:59 Fluticasone Propionate (Flonase Nasal [place]) 2 sprays DAILY PRN CARMELITA 01/18/18 00:45 02/17/18 00:44 Polyethylene (Miralax Powder Packet) 17 gm DAILY PRN PO 01/18/18 02:15 02/17/18 02:14 Sertraline HCl (Zoloft Tab) 100 mg DAILY PO 01/18/18 09:00 02/17/18 08:59 01/20/18 07:54 100 MG Tamsulosin HCl (Flomax Cap) 0.4 mg HS PO 01/18/18 21:00 02/17/18 20:59 01/19/18 20:41 0.4 MG Miscellaneous Information (Order Awaiting Action) 1 ea QS N/A 01/18/18 08:00 02/17/18 07:59 Miscellaneous Information (Order Awaiting Action) 1 ea QS N/A 01/18/18 08:00 02/17/18 07:59 Miscellaneous Information (Order Awaiting Action) 1 ea QS N/A 01/18/18 08:00 02/17/18 07:59 Heparin Sodium (Porcine) (Heparin Sq 5000 Unit/0.5ml) 5,000 unit Q8 SQ 01/18/18 06:00 02/17/18 05:59 01/20/18 06:06 5,000 UNIT Acetaminophen (Tylenol Tab) 650 mg Q4H PRN PO 01/18/18 00:45 02/17/18 00:44 Ondansetron HCl (Zofran Inj) 4 mg Q6H PRN IV 01/18/18 00:45 02/17/18 00:44 Metoprolol Tartrate (Lopressor Tab) 100 mg BID PO 01/19/18 21:00 02/18/18 20:59 01/20/18 07:54 100 MG Haloperidol Lactate (Haldol Inj) 2 mg ONE PRN IM 01/19/18 09:45 02/18/18 09:44 Gabapentin (Neurontin Cap) 100 mg BID PO 01/19/18 21:00 02/17/18 08:59 01/20/18 07:53 100 MG Baclofen (Lioresal Tab) 5 mg TID PRN PO 01/19/18 10:15 02/18/18 10:14 Lisinopril (Zestril Tab) 20 mg QAM PO 01/20/18 09:00 02/19/18 08:59 01/20/18 07:52 20 MG Objective Vital Signs Date Time Temp Pulse Resp B/P (MAP) Pulse Ox O2 Delivery O2 Flow Rate FiO2 01/20/18 15:37 37.1 96 16 155/91 (112) 99 Room Air 01/20/18 12:00 100 Room Air 01/20/18 11:23 37.4 91 16 155/95 (115) 100 Room Air 01/20/18 08:00 100 Room Air 01/20/18 07:21 37.3 106 16 164/94 (117) 100 Room Air 01/20/18 04:00 Room Air 01/20/18 03:13 36.8 94 18 180/97 (124) 99 Room Air 01/19/18 23:59 Room Air 01/19/18 23:53 37.0 106 16 165/93 (117) 99 Room Air 01/19/18 20:20 37.0 118 16 174/94 (120) 96 Room Air 01/19/18 20:00 96 Room Air Physical Exam General Appearance: no apparent distress Respiratory/Chest: no respiratory distress, no accessory muscle use Neurologic/Psychiatric: alert, + motor weakness, + depressed affect, + disoriented Assessment and Plan This is a 72 year old male with a past medical history of depression/anxiety, ADHD, chronic pain syndrome on long-term opioid use, chronic muscle spasms, migraine headaches, HTN - presents with confusion after a stressful event at an airport last week. Delirium, Possible Uremic Encephalopathy vs. Complicated Migraine Possible Brief Psychotic Event due to Stress Psychomotor Retardation in the setting of Depression 01/20 - appreciate neurology and psychiatry input - psychiatry spoke with the patient and patient's - they do not own guns - as per psych, does not meet inpatient criteria at this time - tapering gabapentin and Baclofen - may discharge home if he is stable/steady on his feet - PT/OT - transfer to med/surg 01/19 - patient is more agitated today, seems more confused than yesterday - does not recall events from last evening - difficult to obtain any meaningful history this morning as patient is intent on signing out against medical advice - appreciate neurology input - will taper Gabapentin to 100mg BID x2-3 days, then 100mg daily x2-3 days, and then stop - will taper off Baclofen as well, down to 5mg TID as needed, and then we will stop in a few days - psychiatry consulted for further input regarding inappropriate behavior, mental capacity, confusion, etc. - only history obtained yesterday was regarding stressful event at an airport around [facility]; missing multiple flights; patient states he was in a fog and cannot recall how he got home at that time; since then has been unsteady 01/18 - Brain MRI/Head CT - no acute strokes; previous CVA noted - possible polypharmacy; patient is taking Valium at for sleep, takes Baclofen for muscle spasms, takes opioids for chronic pain - states that he had a stressful time at airports around [facility] with multiple flight cancellations - possibly stress induced stressors also causing delirium/altered mental status - patient is taking Zoloft 100mg - states he does not feel depressed - can likely taper this as outpatient - takes Baclofen and Valium; which can cause confusion; should taper these down - patient has a prescription for Flexeril and Ambien as well - which should be stopped altogether - will continue IVFs - check an echo and check an EEG - if symptoms persist, may need Dr. Hernandez, neurology - ordered PT/OT Acute Kidney Injury - resolved 01/19 - IVFs stopped 01/18 - creatinine on admission - 1.9 - creatinine down to 1.0 now - continue IVFs Elevated Troponin Level - possibly multifactorial - dehydration/LEONEL, chronic elevation - echo - normal LVEF, no acute findings - trending downwards Chronic Pain Syndrome 01/19 - taper Gabapentin as above, taper Baclofen as above; stop Flexeril 01/18 - should taper off opioid use - should also taper down the muscle relaxant use - stop Flexeril altogether ADHD - continue Adderall - outpatient psychiatry follow-up DVT ppx - subq heparin FULL CODE
[2018-01-20] MEDS: DIAZEPAM 5MG TAB PO SCH (20:43)
[2018-01-20] MEDS: TAMSULOSIN HCL 0.4 MG CAP PO SCH (20:43)
[2018-01-20] MEDS: BUTALBITAL/ACETAMIN/CAFFEINE TAB PO PRN (21:16)
[2018-01-21] VITALS: O2SAT 99
[2018-01-21] MEDS: HEPARIN SOD 5000 UNIT/0.5 ML CARP SQ SCH ×2 (06:00→13:23)
[2018-01-21 07:32] VITALS: BP 152/89; PULSE 93; TEMP 36.8; O2SAT 98
[2018-01-21] MEDS: LINZESS~ORDER AWAITING ACTION SCH ×3 (08:00→16:41)
[2018-01-21] MEDS: AZELASTINE~ORDER AWAITING ACTION SCH ×3 (08:00→16:41)
[2018-01-21] MEDS: GABAPENTIN 100 MG CAP PO SCH (08:09)
[2018-01-21] MEDS: LISINOPRIL 20 MG TAB PO SCH (08:09)
[2018-01-21] MEDS: METOPROLOL TARTRATE 100 MG TAB PO SCH (08:09)
[2018-01-21] MEDS: ATORVASTATIN 40 MG TAB PO SCH (08:10)
[2018-01-21] MEDS: CeleBREX 200 MG CAP PO SCH (08:10)
[2018-01-21] MEDS: SERTRALINE HCL 100 MG TAB PO SCH (08:10)
[2018-01-21] MEDS: AMLODIPINE BESYLATE 5 MG TAB PO SCH (08:29)
[2018-01-21 08:57] LABS: CALCIUM 8.9 mg/dl (8.5-10.1); CREATININE 0.8 mg/dl (0.60-1.40); POTASSIUM 3.7 mmol/L (3.5-5.1)
[2018-01-21 09:09] LABS: HEMATOCRIT 35.8 % (42-52); HEMOGLOBIN 13.8 g/dL (14.0-18.0); MEAN CELL VOLUME 79.6 fL (80-100); MEAN CORPUSCULAR HEMOGLOBIN 30.7 pg (25-34); MEAN CORPUSCULAR HGB CONC 38.5 g/dl (32-36); MEAN PLATELET VOLUME 8.1 fL (7.4-10.4); PLATELET COUNT 183 K/uL (130-400); RED CELL DISTRIBUTION WIDTH CV 12.3 % (11.5-14.5); RED CELL DISTRIBUTION WIDTH SD 35.8 fL (36.4-46.3); WHITE BLOOD COUNT 7.82 K/uL (4.8-10.8)
[2018-01-21 09:27] VITALS: O2SAT 100
--- NOTE | 2018-01-21 14:23 | Progress Note ---
Subjective Date of Service: Jan 21, 2018. Subjective Pt evaluation today including: conversation w/ patient, physical exam, lab review, review of studies, conversation w/ nutrition consultant, review of inpatient medication list Saw/examined the patient in room 251 He is more appropriate today States he's concerned about his at home, wants to pay bills, etc. He states he's feeling fine, no depression/anxiety, no hallucinations noted Problem List Medical Problems: (1) Arm pain, left Status: Acute (2) Dehydration Status: Acute (3) Dehydration Status: Acute (4) EKG abnormality Status: Acute (5) Nausea vomiting and diarrhea Status: Acute (6) Rectal bleeding Status: Acute (7) Renal failure Status: Acute Review of Systems Constitutional: No fever, No chills, No weakness Respiratory: No shortness of breath Cardiac: No chest pain Abdomen: No pain, No nausea, No vomiting, No diarrhea Medications Current Inpatient Medications Medications (Trade) Dose Ordered Sig/Gina Route Start Time Stop Time Status Last Admin Dose Admin Acetaminophen/ Butalbital/ Caffeine (Fioricet Tab) 1 tab Q4H PRN PO 01/18/18 00:45 02/17/18 00:44 01/20/18 21:16 1 TAB Acetaminophen/ Codeine Phosphate (Tylenol w/ Codeine #3 Tab) 1 tab Q4H PRN PO 01/18/18 00:45 02/17/18 00:44 01/18/18 09:58 1 TAB Amlodipine Besylate (Norvasc Tab) 10 mg QAM PO 01/18/18 09:00 02/17/18 08:59 01/21/18 08:29 10 MG Atorvastatin Calcium (Lipitor Tab) 80 mg QAM PO 01/18/18 09:00 02/17/18 08:59 01/21/18 08:10 80 MG Betamethasone Valerate (Valisone 0.1% Crm) 1 appln BID PRN EXT 01/18/18 00:45 02/17/18 00:44 Celecoxib (CeleBREX CAP) 200 mg QAM PO 01/18/18 09:00 02/17/18 08:59 01/21/18 08:10 200 MG Diazepam (Valium Tab) 5 mg HS PO 01/18/18 21:00 02/17/18 20:59 01/20/18 20:43 5 MG Fluticasone Propionate (Flonase Nasal [place]) 2 sprays DAILY PRN CARMELITA 01/18/18 00:45 02/17/18 00:44 Polyethylene (Miralax Powder Packet) 17 gm DAILY PRN PO 01/18/18 02:15 02/17/18 02:14 Sertraline HCl (Zoloft Tab) 100 mg DAILY PO 01/18/18 09:00 02/17/18 08:59 01/21/18 08:10 100 MG Tamsulosin HCl (Flomax Cap) 0.4 mg HS PO 01/18/18 21:00 02/17/18 20:59 01/20/18 20:43 0.4 MG Miscellaneous Information (Order Awaiting Action) 1 ea QS N/A 01/18/18 08:00 02/17/18 07:59 Miscellaneous Information (Order Awaiting Action) 1 ea QS N/A 01/18/18 08:00 02/17/18 07:59 Miscellaneous Information (Order Awaiting Action) 1 ea QS N/A 01/18/18 08:00 02/17/18 07:59 Heparin Sodium (Porcine) (Heparin Sq 5000 Unit/0.5ml) 5,000 unit Q8 SQ 01/18/18 06:00 02/17/18 05:59 01/20/18 06:06 5,000 UNIT Acetaminophen (Tylenol Tab) 650 mg Q4H PRN PO 01/18/18 00:45 02/17/18 00:44 Ondansetron HCl (Zofran Inj) 4 mg Q6H PRN IV 01/18/18 00:45 02/17/18 00:44 Metoprolol Tartrate (Lopressor Tab) 100 mg BID PO 01/19/18 21:00 02/18/18 20:59 01/21/18 08:09 100 MG Haloperidol Lactate (Haldol Inj) 2 mg ONE PRN IM 01/19/18 09:45 02/18/18 09:44 Gabapentin (Neurontin Cap) 100 mg BID PO 01/19/18 21:00 02/17/18 08:59 01/21/18 08:09 100 MG Baclofen (Lioresal Tab) 5 mg TID PRN PO 01/19/18 10:15 02/18/18 10:14 Lisinopril (Zestril Tab) 20 mg QAM PO 01/20/18 09:00 02/19/18 08:59 01/21/18 08:09 20 MG Objective Vital Signs Date Time Temp Pulse Resp B/P (MAP) Pulse Ox O2 Delivery O2 Flow Rate FiO2 01/21/18 09:27 100 Room Air 01/21/18 07:32 36.8 93 20 152/89 (110) 98 01/21/18 00:00 99 Room Air 01/20/18 23:48 37.0 98 18 150/81 (104) 98 Room Air 01/20/18 19:34 36.7 105 20 134/90 (105) 100 Room Air 01/20/18 18:20 37.1 96 20 99 01/20/18 16:00 99 Room Air 01/20/18 15:37 37.1 96 16 155/91 (112) 99 Room Air Physical Exam General Appearance: no apparent distress Respiratory/Chest: no respiratory distress, no accessory muscle use Cardiovascular: regular rate, rhythm Neurologic/Psychiatric: tool maker bench II-XII nml as tested, alert, oriented x 3, + pertinent finding (still has some motor slowing, but appears improved) Laboratory Results Last 24 Hours Test 01/21/18 07:48 White Blood Count 7.82 K/uL Red Blood Count 4.50 M/uL Hemoglobin 13.8 g/dL Hematocrit 35.8 % Mean Corpuscular Volume 79.6 fL Mean Corpuscular Hemoglobin 30.7 pg Mean Corpuscular Hemoglobin Concent 38.5 g/dl RDW Standard Deviation 35.8 fL RDW Coefficient of Variation 12.3 % Platelet Count 183 K/uL Mean Platelet Volume 8.1 fL Sodium Level 124 mmol/L Potassium Level 3.7 mmol/L Chloride Level 91 mmol/L Carbon Dioxide Level 23 mmol/L Anion Gap 10.0 mmol/L Blood Urea Nitrogen 23 mg/dl Creatinine 0.80 mg/dl Est Creatinine Clear Calc Drug Dose 65.6 ml/min Estimated GFR () 104.2 Estimated GFR (Non- 89.9 BUN/Creatinine Ratio 28.1 Random Glucose 83 mg/dl Calcium Level 8.9 mg/dl Assessment and Plan This is a 72 year old male with a past medical history of depression/anxiety, ADHD, chronic pain syndrome on long-term opioid use, chronic muscle spasms, migraine headaches, HTN - presents with confusion after a stressful event at an airport last week. Delirium, Possible Uremic Encephalopathy vs. Complicated Migraine Possible Brief Psychotic Event due to Stress Psychomotor Retardation in the setting of Depression 01/21 - patient is improving today - last evening; decompensated and 302 petition was filed - this morning, he was talking appropriately, no issues at this time - mental health faculty spoke with and son and they appear comfortable taking him home - voiced concern about possible re-admission with recurrent psychotic episodes - at this time, he is clinically better - will continue to taper baclofen and gabapentin - outpatient psychiatry and neurology follow-up 01/20 - appreciate neurology and psychiatry input - psychiatry spoke with the patient and patient's - they do not own guns - as per psych, does not meet inpatient criteria at this time - tapering gabapentin and Baclofen - may discharge home if he is stable/steady on his feet - PT/OT - transfer to med/surg 01/19 - patient is more agitated today, seems more confused than yesterday - does not recall events from last evening - difficult to obtain any meaningful history this morning as patient is intent on signing out against medical advice - appreciate neurology input - will taper Gabapentin to 100mg BID x2-3 days, then 100mg daily x2-3 days, and then stop - will taper off Baclofen as well, down to 5mg TID as needed, and then we will stop in a few days - psychiatry consulted for further input regarding inappropriate behavior, mental capacity, confusion, etc. - only history obtained yesterday was regarding stressful event at an airport around ; missing multiple flights; patient states he was in a fog and cannot recall how he got home at that time; since then has been unsteady 01/18 - Brain MRI/Head CT - no acute strokes; previous CVA noted - possible polypharmacy; patient is taking Valium at for sleep, takes Baclofen for muscle spasms, takes opioids for chronic pain - states that [place] - possibly stress induced stressors also causing delirium/altered mental status - patient is taking Zoloft 100mg - states he does not feel depressed - can likely taper this as outpatient - takes Baclofen and Valium; which can cause confusion; should taper these down - patient has a prescription for Flexeril and Ambien as well - which should be stopped altogether - will continue IVFs - check an echo and check an EEG - if symptoms persist, may need Dr. Hernandez, neurology - ordered PT/OT Acute Kidney Injury - resolved 01/19 - IVFs stopped 01/18 - creatinine on admission - 1.9 - creatinine down to 1.0 now - continue IVFs Elevated Troponin Level - possibly multifactorial - dehydration/LEONEL, chronic elevation - echo - normal LVEF, no acute findings - trending downwards Chronic Pain Syndrome 01/19 - taper Gabapentin as above, taper Baclofen as above; stop Flexeril 01/18 - should taper off opioid use - should also taper down the muscle relaxant use - stop Flexeril altogether ADHD - continue Adderall - outpatient psychiatry follow-up DVT ppx - subq heparin FULL CODE
[2018-01-21] MEDS ORDERED: GABA-112 PO (14:26)
--- NOTE | 2018-01-21 14:35 | Discharge Instructions ---
Discharge Instructions Date of Service Jan 21, 2018. Admission Reason for Admission: [place], Change In Mental State, Ekg Abnormalities Discharge Discharge Diagnosis / Problem: Confusion, dehydration Discharge Goals Goal(s): Decrease discomfort, Improve function, Diagnostic testing, Therapeutic intervention Activity Recommendations Activity Limitations: resume your previous activity Driving or Machine Use: resume 3 days after discharge (after follow-up with psychiatry) . Instructions / Follow-Up Instructions / Follow-Up Please follow-up with Dr. Montana (covering for Dr. Buddy Begum) on January 24 at 11:05AM * Stop taking baclofen at this time, please do not use Flexeril either * Your dose of gabapentin is reduced to 100mg daily, take this for the next 2 days and then stop taking gabapentin altogether * Follow-up with your psychiatrist as soon as possible * Follow-up with Dr. Hernandez, neurology Current Hospital Diet Patient's current hospital diet: Regular Diet Discharge Diet Recommended Diet: Regular Diet Pending Studies Studies pending at discharge: no Medical Emergencies . Who to Call and When: Medical Emergencies: If at any time you feel your situation is an emergency, please call 911 immediately. . Non-Emergent Contact Non-Emergency issues call your: Primary Care Provider, Neurologist, Specialist (psychiatry) . . "Provider Documentation" section prepared by Charla Washburn. .
[2018-01-21 14:39] VITALS: BP 152/89; PULSE 93; TEMP 36.8; O2SAT 100
--- NOTE | 2018-01-21 14:39 | Discharge Summary ---
Discharge Summary Date of Service Jan 21, 2018. Discharge Summary Admission Date: Jan 18, 2018 at 00:44 Discharge Date: Jan 21, 2018 Discharge Disposition: Home Principal Diagnosis: Delirium, Possible Uremic Encephalopathy vs. Complicated Migraine vs. Polypharmacy Possible Brief Psychotic Event due to Stress Psychomotor Slowing in the setting of Depression Acute Kidney Injury - resolved Elevated Troponin Level - improving Chronic Pain Syndrome ADHD Medication Reconciliation Changed Medications: Gabapentin (Neurontin) 100 Mg Cap 100 MG PO DAILY for 2 Days, #2 CAP (Changed from: TID) Continued Medications: Acetamin/Butalbital/Caffeine (Fioricet) 1 Ea Tab 1 TAB PO Q4H PRN for Migraine, TAB Acetaminophen/Codeine (Tylenol W/Codeine #3) 300 Mg/30 Mg Tab 1 TAB PO Q4H PRN for Lower Back Pain, TAB Amlodipine (Norvasc) 10 Mg Tab 10 MG PO QAM, TAB Amphetamine-Dextroamphetamine 30MG (Adderall 30MG) 1 Tab Tab 30 MG PO BID, TAB WITH BREAKFAST & LUNCH Atorvastatin (Lipitor) 80 Mg Tab 80 MG PO QAM, TAB Azelastine Hcl (Ophth) (Azelastine Hcl) 0.05 % Jay 1 DROPS OP BID PRN for SEASONAL ALLERGIES, #6 ML 2 Refills Betamethasone Valerate (Valisone 0.1% Cream) 0.1 % Cre 1 APPL TOP BID PRN for PRN Celecoxib (Celecoxib) 200 Mg Cap 200 MG PO QAM Clobetasol Propionate (Temovate) 0.05 % Cre 1 APPLN TOP BID PRN for Itching for 90 Days, #60 GM 3 Refills Diazepam (Valium) 5 Mg Tab 5 MG PO HS, TAB Dicyclomine Hcl (Bentyl) 10 Mg Cap 1 CAP PO ACHS for 30 Days, CAP 1 Refill Fluticasone Propionate (Fluticasone Propionate) 120 Sprays/6000 Mcg Inha 2 SPRAYS CARMELITA DAILY PRN for Nasal Congestion Hydrochlorothiazide (Hydrochlorothiazide) 12.5 Mg Tab 12.5 MG PO QAM for 90 Days, #90 TAB 3 Refills Linaclotide (Linzess) 290 Mcg Cap 290 MCG PO QAM Lisinopril (Zestril) 40 Mg Tab 40 MG PO DAILY, TAB Metoprolol Tartrate (Lopressor) (Lopressor) 25 Mg Tab 75 MG PO BID Polyethylene Glycol 3350 (Miralax) 1 Pow Pow 17 GM PO DAILY PRN for Constipation Sertraline (Zoloft) 50 Mg Tab 100 MG PO DAILY for 30 Days, #60 TAB 2 Refills Tamsulosin HCl (Tamsulosin HCl) 0.4 Mg Cap 0.4 MG PO HS Vardenafil Hcl (Staxyn) 10 Mg Tab 10 MG PO DAILY PRN for ERECTILE DYSFUNCTION Discontinued Medications: Baclofen (Lioresal) 10 Mg Tab 1 TAB PO TID PRN for Muscle Spasms for 30 Days, #90 TAB 2 Refills Cyclobenzaprine Hcl (Flexeril) 10 Mg Tab 10 MG PO BID PRN for Muscle Spasm, TAB Admission Information HPI (per Admitting provider): DATE OF ADMISSION: 01/17/2018 PRIMARY CARE PHYSICIAN: Dr. Begum. CHIEF COMPLAINT: Weakness, tiredness with change in mental status and tremor involving the tips of the fingers and toes, which has been going on approximately since last night. HISTORY OF PRESENT COMPLAINT: He is a 72-year-old male with significant past medical history including depression, moderate episode of recurrent major depressive disorder, IBS, migraines, reflux esophagitis, memory loss, attention deficit disorder, hypertension, and cognitive impairment. Apparently, he has been complaining of some nausea and vomiting. No diarrhea for the last day or two. Recently, he was in [place], but he cannot remember when did he come back and what was he doing there. His noticed him to be confused and around 3:00 p.m. today, he also had some shaking involving both upper extremities with numbness involving the fingers and toes as well. He did have confusion with some memory impairment and also some dysarthria. Denies any fever, chills, or rigors. No cough or phlegm. No shortness of breath, no chest pain or palpitation. Does not have any abdominal pain, but some discomfort and he has not had a bowel movement for a while. He wants to have the bowel movement, but it does not come. Denies to have any problem with urine. In the Emergency Room, he was generally weak and lethargic without any focal neurological findings. He was slow to speak. He has memory impairment, hemodynamically stable and CAT scan negative, but only significant findings were the abnormal kidney function, LEONEL, and also slight ST depression involving the lateral leads in the EKG with troponin mildly elevated. From that point, he was admitted to telemetry unit. Apparently, he has had this kind of presentation last time he was in the hospital and that resolved subsequently. PAST MEDICAL HISTORY: Significant for depression with moderate episode of recurrent major depressive disorder, persistent insomnia, irritable bowel syndrome, history of duodenal ulcer, migraine, esophageal reflux, memory impairment with cognitive impairment, ADD, hypertension. PAST SURGICAL HISTORY: Significant for lumbar radiculopathy, tonsillectomy as a child, removal of partial stomach, Billroth I. FAMILY HISTORY: Mother . Father is alive. No significant disease. SOCIAL HISTORY: , lives with his . Does not smoke. Does not drink and he has been reasonably ambulant. ALLERGIES: ALLERGIC TO BUSPIRONE, LACTOSE, AND LORAZEPAM. MEDICATIONS: As an outpatient, he has been taking a lot of medications: Baclofen 10 mg t.i.d. as needed, Flexeril 10 mg b.i.d. as needed, dicyclomine 10 mg a.c. and at bedtime, lisinopril 40 mg daily, hydrochlorothiazide 12.5 mg daily, Staxyn 10 mg daily, Fioricet 1 tablet q. 4 hourly p.r.n., Tylenol with Codeine 1 tablet q. 4 hourly p.r.n. for low back pain, amlodipine 10 mg daily, Adderall 30 mg b.i.d., Lipitor 80 mg daily, ophthalmic solution as directed, celecoxib 200 mg in the morning, Temovate as directed, diazepam 5 mg a day at bedtime, Flonase 2 sprays each nostril daily, Neurontin 100 mg t.i.d., Linzess 290 mcg daily, Lopressor 25 mg 3 tablets twice daily, polyethylene glycol as directed, sertraline 50 mg daily, and tamsulosin 0.4 mg at night. REVIEW OF SYSTEMS: Other systemic review unremarkable except those mentioned in history of present complaint. PHYSICAL EXAMINATION: GENERAL: On examination in the Emergency Room, he was slow, weak, and lethargic. VITAL SIGNS: Temperature 36.6, pulse is 101, blood pressure 163/97, saturation 96% on room air. HEENT: Unremarkable. No facial asymmetry. NECK: Supple, no JVD, no bruit. CHEST: Clear to auscultation bilaterally. HEART: S1, S2 regular, no murmur. ABDOMEN: Soft, benign, mildly tender in the epigastrium. No organomegaly. Bowel sounds present. EXTREMITIES: Negative for any edema. MUSCULOSKELETAL: Did not show an acute arthritis. CENTRAL NERVOUS SYSTEM: He was alert, awake, and oriented. He has a recent impairment of memory. He did have dysarthria, but not now. He sometimes cannot figure out what to tell, but on prompting he can figure out. He does not have any focal neurological deficit. Sensory impairment only involving the tips of fingers and toes and adjoining areas. LABORATORY DATA: Noted today white count was 10.69, H and H are 14.5/38.6, platelet was 176. Sodium 134, potassium 4.6, chloride 98, carbon dioxide 24, BUN 40, creatinine 9.5 that was normal in December. Random glucose 106. LFTs: AST 53, alkaline phosphatase 173, total CK is 615. Troponin was 0.295. APTT high with ratio 1.2. CT of the head unremarkable. EKG did show sinus tachycardia, rate of 104, normal axis and minor ST depression involving the V5 and V6 that was new compared with prior EKG. Apparently, he has had that rate related ST depression in the past. IMPRESSION AND PLAN: 1. Change in mental status. The patient will be admitted to telemetry unit. Doubt any stroke symptoms at this time. His change in mental status, multifactorial, seems to be mostly due to acute renal impairment. At this time, we do not have any other cause to justify. He does not have any neurological deficit. He will have an MRI of the brain tomorrow. Apparently, this kind of history happened before with dehydration and he has been taking lots of medications, sometime polymicrobial, polypharmacy use can cause this kind of symptoms. May need neurological evaluation if the condition does not get any better. 2. Acute renal impairment, seems to be secondary to dehydration. He has not been drinking enough fluid for the last few days as per the . He will be given adequate amount of IV fluid and advised to drink more fluid. We will monitor PRP. If the condition does not get any better, he will need to have a nephrology evaluation. 3. Depression. Continue with his antidepressant medication. 4. ADD. Continue with Adderall. 5. Hypertension. We will hold his lisinopril and hydrochlorothiazide, which can cause impairment in kidney function. We may need to change the medications to prevent any kind of situation in future. 6. Chronic pain. We will hold his muscle relaxant at this time. Continue with diazepam 5 mg if needed and definitely hold his narcotics. 7. GI prophylaxis with PPI. 8. DVT prophylaxis with heparin. 9. Code status. Discussed with the patient. He will be full code. In my clinical assessment, the beneficiary meets criteria as per CMS for 2 midnight stay in the hospital. Hospital Course This is a 72 year old male with a past medical history of depression/anxiety, ADHD, chronic pain syndrome on long-term opioid use, chronic muscle spasms, migraine headaches, HTN - presents with confusion after a stressful event at an airport last week. Delirium, Possible Uremic Encephalopathy vs. Complicated Migraine Possible Brief Psychotic Event due to Stress Psychomotor Retardation in the setting of Depression 01/21 - patient is improving today - last evening; decompensated and 302 petition was filed - this morning, he was talking appropriately, no issues at this time - mental health faculty spoke with and son and they appear comfortable taking him home - voiced concern about possible re-admission with recurrent psychotic episodes - at this time, he is clinically better - will continue to taper baclofen and gabapentin - outpatient psychiatry and neurology follow-up 01/20 - appreciate neurology and psychiatry input - psychiatry spoke with the patient and patient's - they do not own guns - as per psych, does not meet inpatient criteria at this time - tapering gabapentin and Baclofen - may discharge home if he is stable/steady on his feet - PT/OT - transfer to med/surg 01/19 - patient is more agitated today, seems more confused than yesterday - does not recall events from last evening - difficult to obtain any meaningful history this morning as patient is intent on signing out against medical advice - appreciate neurology input - will taper Gabapentin to 100mg BID x2-3 days, then 100mg daily x2-3 days, and then stop - will taper off Baclofen as well, down to 5mg TID as needed, and then we will stop in a few days - psychiatry consulted for further input regarding inappropriate behavior, mental capacity, confusion, etc. - only history obtained yesterday was regarding stressful event at an airport around Easter time; missing multiple flights; patient states he was in a fog and cannot recall how he got home at that time; since then has been unsteady 01/18 - Brain MRI/Head CT - no acute strokes; previous CVA noted - possible polypharmacy; patient is taking Valium at for sleep, takes Baclofen for muscle spasms, takes opioids for chronic pain - states that he had a stressful time at airports around [facility] with multiple flight cancellations - possibly stress induced stressors also causing delirium/altered mental status - patient is taking Zoloft 100mg - states he does not feel depressed - can likely taper this as outpatient - takes Baclofen and Valium; which can cause confusion; should taper these down - patient has a prescription for Flexeril and Ambien as well - which should be stopped altogether - will continue IVFs - check an echo and check an EEG - if symptoms persist, may need Dr. Hernandez, neurology - ordered PT/OT Acute Kidney Injury - resolved 01/19 - IVFs stopped 01/18 - creatinine on admission - 1.9 - creatinine down to 1.0 now - continue IVFs Elevated Troponin Level - possibly multifactorial - dehydration/LEONEL, chronic elevation - echo - normal LVEF, no acute findings - trending downwards Chronic Pain Syndrome 01/19 - taper Gabapentin as above, taper Baclofen as above; stop Flexeril 01/18 - should taper off opioid use - should also taper down the muscle relaxant use - stop Flexeril altogether ADHD - continue Adderall - outpatient psychiatry follow-up DVT ppx - subq heparin FULL CODE Total time spent on discharge = 45 minutes This includes examination of the patient, discharge planning, medication reconciliation, and communication with other providers. Discharge Instructions Please follow-up with Dr. Montana (covering for Dr. Buddy Begum) on January 24 at 11:05AM * Stop taking baclofen at this time, please do not use Flexeril either * Your dose of gabapentin is reduced to 100mg daily, take this for the next 2 days and then stop taking gabapentin altogether * Follow-up with your psychiatrist as soon as possible * Follow-up with Dr. Hernandez, neurology
[2018-01-21 15:08] VITALS: BP 160/90; PULSE 86; TEMP 36.9; O2SAT 96
== END 2018-01-21 17:08 | disposition home or self-care (01) | DRG 682 ==
LOC: EDBD 21:02 → C.EDA 21:05 → C.2T 01-18 00:44 → ENRESERV 01-18 00:58 → C.MS2W 01-20 18:50
PROVIDERS: ADMIT Internal Medicine; ATTEND Family Medicine
DX: N17.9 Acute kidney failure, unspecified (principal); G93.49 Other encephalopathy; F05 Delirium due to known physiological condition; F23 Brief psychotic disorder; F33.1 Major depressive disorder, recurrent, moderate; G43.109 Migraine with aura, not intractable, without status migrainosus; R41.0 Disorientation, unspecified; T50.905A Adverse effect of unspecified drugs, medicaments and biological substances, initial encounter; E86.0 Dehydration; R94.31 Abnormal electrocardiogram [ECG] [EKG]; R47.89 Other speech disturbances; H53.8 Other visual disturbances; G89.4 Chronic pain syndrome; R79.89 Other specified abnormal findings of blood chemistry; R29.704 NIHSS score 4; I10 Essential (primary) hypertension; E78.5 Hyperlipidemia, unspecified; K58.9 Irritable bowel syndrome, unspecified; F90.9 Attention-deficit hyperactivity disorder, unspecified type; F41.9 Anxiety disorder, unspecified; E73.9 Lactose intolerance, unspecified; Z51.81 Encounter for therapeutic drug level monitoring; Z79.899 Other long term (current) drug therapy; Z79.891 Long term (current) use of opiate analgesic; Z86.73 Personal history of transient ischemic attack (TIA), and cerebral infarction without residual deficits; Z88.8 Allergy status to other drugs, medicaments and biological substances

== ENCOUNTER → 2018-02-24 | Outpatient (CLI) | payer BC ==
[~2018-02-24] MED LIST changes: -ACET-749 PO; +ACET300T3 PO; +AMLO-114 PO; -BACL1TAB PO; +CLOB-77 TOP; -CYCL10TA6 PO; +HYDR12.55 PO; -HYDR25TA5 PO; -IMT100 PO; -ZOLP10TA PO; -[UNRECOGNIZED DRUG - OTHER] TOP
[2018-02-24 13:49] LABS: ALBUMIN 3.7 gm/dl (3.4-5.0); BLOOD UREA NITROGEN 10 mg/dl (7-18); CALCIUM 8.9 mg/dl (8.5-10.1); CARBON DIOXIDE 31 mmol/L (21-32); CREATININE 0.75 mg/dl (0.60-1.40); GLUCOSE 77 mg/dl (70-99); PHOSPHORUS 3.2 mg/dl (2.5-4.9); POTASSIUM 4.1 mmol/L (3.5-5.1); SODIUM 138 mmol/L (136-145)
[2018-02-24 17:59] LABS: OSMOLALITY,URINE 200 mOms/kg (500-800)
== END | disposition home or self-care (01) ==
LOC: C.LAB1850 12:28
PROVIDERS: ATTEND Internal Medicine Nephrology
DX: E87.1 Hypo-osmolality and hyponatremia (principal)

== ENCOUNTER 2021-12-04 08:38 | Inpatient (IN) ==
--- NOTE | 2021-11-11 16:13 | PAT Medication Instructions ---
Medication Instructions Date of Service November 11, 2021 Home Medications Medication Instructions Recorded methocarbamol 750 mg tablet 750 mg PO .COMPLEX 30 Days #60 tab 06/04/21 sumatriptan succinate 100 mg tablet 100 mg PO DIRECTED PRN 30 Days 07/09/21 #9 tab cyclobenzaprine 10 mg tablet 10 mg PO BID PRN #60 tab 10/14/21 acetaminophen 300 mg-codeine 30 mg tablet 1 tab PO BID PRN amlodipine 10 mg tablet (Norvasc) 10 mg PO QPM atorvastatin 80 mg tablet 80 mg PO QAM azelastine 137 mcg (0.1 %) nasal spray aerosol 1 spray INTRANASAL QAM baclofen 10 mg tablet 10 mg PO UD PRN [id number] 50 mg-325 mg-40 mg tablet 1 tab PO DAILY PRN celecoxib 200 mg capsule (Celebrex) 200 mg PO QAM dicyclomine 20 mg tablet 10 mg PO QID PRN flurandrenolide 0.05 % lotion 1 applic TOPICAL BID PRN hydroxyzine HCl 50 mg tablet 50 mg PO BID PRN linaclotide 290 mcg capsule (Linzess) 290 mcg PO HS lisinopril 40 mg tablet 40 mg PO QAM ondansetron 4 mg disintegrating tablet 4 mg TRANSLINGUAL Q12 PRN rabeprazole 20 mg tablet,delayed release 20 mg PO DAILY PRN sertraline 100 mg tablet (Zoloft) 150 mg PO QAM tadalafil 20 mg tablet (Cialis) 20 mg PO UD PRN methocarbamol 750 mg tablet 750 mg PO .COMPLEX sumatriptan succinate 100 mg tablet 100 mg PO DIRECTED PRN dextroamphetamine-amphetamine 30 mg tablet (Adderall) 30 mg PO BID ibuprofen 200 mg tablet 600 mg PO Q8H PRN tamsulosin 0.4 mg capsule (Flomax) 0.4 mg PO HS cyclobenzaprine 10 mg tablet 10 mg PO BID PRN aspirin 325 mg tablet 975 mg PO Q8H PRN carvedilol 25 mg tablet 25 mg PO BID diazepam 5 mg tablet 5 mg PO DAILY PRN Continue as directed ondansetron 4 mg disintegrating tablet 4 mg TRANSLINGUAL Q12 PRN(if needed) ASK your surgeon for instructions [id number] 50 mg-325 mg-40 mg tablet 1 tab PO DAILY PRN celecoxib 200 mg capsule (Celebrex) 200 mg PO QAM ibuprofen 200 mg tablet 600 mg PO Q8H PRN ASK your prescriber and surgeon aspirin 325 mg tablet 975 mg PO Q8H PRN STOP taking 24 hours before surgery flurandrenolide 0.05 % lotion 1 applic TOPICAL BID PRN tadalafil 20 mg tablet (Cialis) 20 mg PO UD PRN methocarbamol 750 mg tablet 750 mg PO .COMPLEX DO NOT take the morning of surgery baclofen 10 mg tablet 10 mg PO UD PRN dicyclomine 20 mg tablet 10 mg PO QID PRN lisinopril 40 mg tablet 40 mg PO QAM dextroamphetamine-amphetamine 30 mg tablet (Adderall) 30 mg PO BID cyclobenzaprine 10 mg tablet 10 mg PO BID PRN Take morning of surgery With a small sip of water, OTHERWISE NOTHING TO EAT OR DRINK AFTER MIDNIGHT: acetaminophen 300 mg-codeine 30 mg tablet 1 tab PO BID PRN(okay to take up to 4 hours prior to surgery if needed) atorvastatin 80 mg tablet 80 mg PO QAM azelastine 137 mcg (0.1 %) nasal spray aerosol 1 spray INTRANASAL QAM hydroxyzine HCl 50 mg tablet 50 mg PO BID PRN(if needed) rabeprazole 20 mg tablet,delayed release 20 mg PO DAILY PRN(if needed) sertraline 100 mg tablet (Zoloft) 150 mg PO QAM sumatriptan succinate 100 mg tablet 100 mg PO DIRECTED PRN(if needed) carvedilol 25 mg tablet 25 mg PO BID diazepam 5 mg tablet 5 mg PO DAILY PRN(if needed) Take evening before surgery acetaminophen 300 mg-codeine 30 mg tablet 1 tab PO BID PRN(if needed) amlodipine 10 mg tablet (Norvasc) 10 mg PO QPM dicyclomine 20 mg tablet 10 mg PO QID PRN(if needed) hydroxyzine HCl 50 mg tablet 50 mg PO BID PRN(if needed) linaclotide 290 mcg capsule (Linzess) 290 mcg PO HS sumatriptan succinate 100 mg tablet 100 mg PO DIRECTED PRN(if needed) dextroamphetamine-amphetamine 30 mg tablet (Adderall) 30 mg PO BID tamsulosin 0.4 mg capsule (Flomax) 0.4 mg PO HS cyclobenzaprine 10 mg tablet 10 mg PO BID PRN(if needed) carvedilol 25 mg tablet 25 mg PO BID Other Notes If you have any questions please call us at [phone] or [phone] or [phone] or [phone]
--- NOTE | 2021-11-17 14:57 | Anesthesiology Consultation ---
Date of Service November 17, 2021 Assessment & Plan (1) Encounter for pre-operative examination: - PCP clearance 11/20/21 [facility] - cardiology 07/23/2021 [facility]: "...stroke workup for possible polypharmacy...MRI the brain that suggested an old CVA but nothing acute...echocardiogram with a micro cavitation study that suggest a low risk PFO of nonclinical significance...I have asked [sic] to see him in regard to preoperative risk assessment for his back surgery...Non clinically significant low risk PFO...In regard to the PFO, it is small and non clinically significant. Also, as this is something he was born with, he has had multiple previous surgeries in the past without sequela. No additional cardiac studies or treatment are indicated. The patient should proceed with his spinal surgery..." - COVID screening: Per assessment on 11/17/2021: Travel screen negative, no known COVID-19 positive contacts or current COVID-19 related symptoms in past 2 weeks. Surgeon arranging preop COVID testing, /2021. Awaiting results. Chart Review Chart Review: Pending: Refer to Additional Notes / Consult section and Patient seen in Pre Admission Testing Teaching & Discussion Pre-Anesthesia Teaching/Discussion Notes: Instructed NPO after midnight before surgery, except medications with 15 cc of water. Medication instructions provided according to the PAT guidelines. History Surgery Operation Date: 12/04/21 10:20 Proposed Procedures p L3-L4 Decompression and Fusion, possible L2-L3, L4-S1 Hardware Removal Spinal Cord Monitoring - Ángel Ferrer, DO Height/Weight Height: 5 ft 10 in Weight: 59.1 kg Allergies Allergy/AdvReac Type Severity Reaction Status Date / Time buspirone AdvReac Mild Jittery, Verified 11/17/21 13:32 "crawling out of my skin" lactose AdvReac Mild Intolerant-SEVERE Verified 11/17/21 13:32 ABDOMINAL CRAMPS lorazepam AdvReac Mild Jittery, Verified 11/17/21 13:32 "crawling out of my skin" Medications Home Medications Medication Instructions Recorded Confirmed Last Taken acetaminophen 300 mg-codeine 30 mg 1 tab PO BID PRN 12/07/20 11/17/21 Unknown tablet amlodipine 10 mg tablet (Norvasc) 10 mg PO QPM 12/07/20 11/17/21 Unknown atorvastatin 80 mg tablet 80 mg PO QAM 12/07/20 11/17/21 Unknown azelastine 137 mcg (0.1 %) nasal 1 spray INTRANASAL QAM 12/07/20 11/17/21 Unknown spray aerosol baclofen 10 mg tablet 10 mg PO UD PRN 12/07/20 11/17/21 Unknown odfssmiipi-bzgnmqsupehwg-tinfyror 1 tab PO DAILY PRN 12/07/20 11/17/21 Unknown 50 mg-325 mg-40 mg tablet celecoxib 200 mg capsule (Celebrex) 200 mg PO QAM 12/07/20 11/17/21 Unknown dicyclomine 20 mg tablet 10 mg PO QID PRN 12/07/20 11/17/21 Unknown flurandrenolide 0.05 % lotion 1 applic TOPICAL BID PRN 12/07/20 11/17/21 Unknown hydroxyzine HCl 50 mg tablet 50 mg PO BID PRN 12/07/20 11/17/21 Unknown linaclotide 290 mcg capsule 290 mcg PO HS 12/07/20 11/17/21 Unknown (Linzess) lisinopril 40 mg tablet 40 mg PO QAM 12/07/20 11/17/21 Unknown ondansetron 4 mg disintegrating 4 mg TRANSLINGUAL Q12 PRN 12/07/20 11/17/21 Unknown tablet rabeprazole 20 mg tablet,delayed 20 mg PO DAILY PRN 12/07/20 11/17/21 Unknown release sertraline 100 mg tablet (Zoloft) 150 mg PO QAM 12/07/20 11/17/21 Unknown tadalafil 20 mg tablet (Cialis) 20 mg PO UD PRN 12/07/20 11/17/21 Unknown methocarbamol 750 mg tablet 750 mg PO .COMPLEX 30 Days #60 tab 06/04/21 11/17/21 Unknown sumatriptan succinate 100 mg tablet 100 mg PO DIRECTED PRN 30 Days 07/09/21 11/17/21 Unknown #9 tab dextroamphetamine-amphetamine 30 30 mg PO BID 07/14/21 11/17/21 Unknown mg tablet (Adderall) ibuprofen 200 mg tablet 600 mg PO Q8H PRN 07/14/21 11/17/21 Unknown tamsulosin 0.4 mg capsule (Flomax) 0.4 mg PO HS 10/04/21 02/07/22 Unknown cyclobenzaprine 10 mg tablet 10 mg PO BID PRN #60 tab 10/14/21 11/17/21 Unknown carvedilol 25 mg tablet 25 mg PO BID 11/11/21 11/17/21 Unknown diazepam 5 mg tablet 5 mg PO DAILY PRN 11/11/21 11/17/21 Unknown aspirin 325 mg tablet 975 mg PO Q6H PRN tab 11/17/21 11/17/21 Unknown prednisone 20 mg tablet 20 mg PO .COMPLEX 3 Days #6 tab 11/17/21 11/17/21 Unknown Past Medical History Medical History (Updated 11/17/21 @ 17:07 by Michelle Monreal PA-C) Anemia iron deficiency, h/o multiple infusions with last occurring > 1 month ago Anxiety Arthralgia of multiple sites Arthritis 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 hyperactivity Bilateral edema of lower extremity resolved on carvedilol per pt Chronic radicular low back pain CVA (cerebral vascular accident) Incidental "old" infarct noted on 2018 imaging during workup for polypharmacy reaction Degenerative disc disease Depression with h/o depressive psychosis Duodenal ulcer resolved per pt and s/p release from subsequent adhesion development Dyslipidemia GERD (gastroesophageal reflux disease) pyloric stenosis s/p partial gastrectomy Glaucoma History of long-term treatment with high-risk medication Hypertension controlled, stable per pt Hyponatremia stable per pt IBS (irritable bowel syndrome) C Migraine without status migrainosus, not intractable Mild cognitive impairment Mild concentric left ventricular hypertrophy (LVH) Pain in foot left PFO (patent foramen ovale) S cardio 07/2021: "small and non clinically significant...no additional cardiac studies or treatment are indicated..." Rebound headache to be starting prednisone course by neurology per note Spinal stenosis Urinary frequency Patient denies h/o seizures, heart attack, heart failure, DM, blood clots or blood transfusions. Exercise / Class Metabolic Activity III < 4 Walking/Shop/Light housework (denies CP or SOB with 1 FOS) Past Family History Family History Other No family history of adverse response to anesthesia No known health problems Past Surgical History Surgical History Fusion of spine Lumbar History of colonoscopy History of esophagogastroduodenoscopy (EGD) History of myringotomy History of partial gastrectomy r/t pyloric sphincter scarring 2004 (x2) History of surgery Right side (ribs removed) History of tonsillectomy History of tooth extraction Past Anesthesia History No Hx of Anesthesia Complications and No Family Hx of Anesthesia Complications History of PONV No Hx of PONV and Hx of Motion Sickness Social History Smoking Status: Never smoker Do You Dip or Chew Tobacco: No Hx Alcohol Use: No Hx Substance Use: No Review of Systems Patient denies chest pain, shortness of breath, dyspnea on exertion, snoring, witnessed apneas, fever, chills, cough, wheezing, or palpitations. Physical Exam Vital Signs Vitals BP 124/78 P 72 TEMP 97.9 SP02 100% on RA RESP 17 Physical Full cervical extension range of motion without pain Full TMJ range of motion TMD 3.5 finger breaths Mallampati Score 2 Dentition: intact, several missing upper and lower back and side bilat; denies chipped or loose teeth, implants or bridges Lungs: normal respiratory effort. Clear throughout to auscultation, no adventitious breath sounds Cardiac: regular rate and rhythm, no murmurs noted Carotid arteries: negative bruit bilat Extremities: no distal extremity edema Lab Results Anesthesia Preop Results Results Anesthesia Widget: WBC 3.87 K/uL (4.8-10.8) L 11/17/21 Hgb 11.6 g/dL (14.0-18.0) L 11/17/21 Hct 32.8 % (42-52) L 11/17/21 Plt 168 K/uL (130-400) 11/17/21 Na 135 mmol/L (136-145) L 11/17/21 K 3.9 mmol/L (3.5-5.1) 11/17/21 Cl 102 mmol/L (98-107) 11/17/21 CO2 28 mmol/L (21-32) 11/17/21 BUN 13 mg/dl (6-23) 11/17/21 Creat 0.75 mg/dl (0.6-1.4) 11/17/21 Glucose Level 91 mg/dl (70-99(Fasting)) 11/17/21 PT 10.8 Seconds (9.0-12.0) 11/17/21 PTT 25.9 Seconds (21.0-31.0) 11/17/21 INR 1.1 (0.9-1.1) 11/17/21 Blood Type B Positive 11/17/21 Antibody Screen NEGATIVE 11/17/21 Testing Electrocardiogram Date: 11/17/21 NSR, rate 65 bpm Moderate voltage criteria for LVH, may be normal variant Chest X-Ray Date: 11/17/21 FINDINGS: Lung volumes are normal. Lungs are clear. There is no pneumothorax or pleural effusion. Cardiac size is normal. Mediastinal contours are normal. There is no evidence for pulmonary edema. Chronic deformity of the anterior right sixth rib is incidentally noted. This is unchanged. IMPRESSION: No acute cardiopulmonary findings. Echocardiogram Date: 01/18/18 Left ventricle is normal in size and systolic function Mild cLVH Minimally positive microcatheter study consistent with a low risk PFO No significant valvular pathology EF 50-55% Mild aortic regurgitation Other Testing Abdomen/pelvis CT 12/07/2020 There are coronary artery calcifications. There are small fat-containing Bochdalek hernias. Foci of scarring/atelectasis are present at both lung bases. Liver: The contrast-enhanced liver is normal in size, contour, and attenuation. There is no intrahepatic biliary ductal dilatation. The hepatic veins and portal veins are patent. Gallbladder: Unremarkable. Kidneys: The contrast enhanced kidneys demonstrate cortical atrophy and are without hydronephrosis. The kidneys enhance symmetrically. A 2.5 cm cyst arises from the left upper pole. Abdominal vasculature: The abdominal aorta is normal in course and caliber noting mild to moderate atherosclerotic calcification. Bowel: There is marked wall thickening and edema seen throughout the left colon. This extends from the transverse colon to the sigmoid. There is mild surrounding pericolonic inflammation, and the appearance is consistent with a nonspecific colitis. No bowel obstruction is seen. Enteric contrast reaches the right colon. The appendix is not visualized. IMPRESSION: 1. Findings are consistent with a nonspecific colitis of the left colon, likely on an infectious or inflammatory basis. Clinical correlation will be required. 2. There is no bowel obstruction. 3. Prostatomegaly with evidence of chronic bladder outlet obstruction. 4. Additional findings as above.
[~2021-12-04 08:38] MED LIST changes: -ACET300T3 PO; +ACETAMINOPHEN 500 MG TAB PO SCH; -AMLO-114 PO; -AMPH30TA2 PO; -ATOR-26 PO; -AZEL0.055 OP; -BETA0.1C3 TOP; -CELE1CAP30 PO; -CLOB-77 TOP; +CeleBREX 200 MG CAP PO SCH; -DIAZ-165 PO; -DICY10CA55 PO; -FLM4 PO; -FLNIN/ NAE; -FRCT/ PO; -GABA-112 PO; +GABAPENTIN 300 MG CAP PO SCH; -HYDR12.55 PO; -LINA1CAP2 PO; -LISI40TA PO; +LR 15ML/HR IV SCH; -METO25TA56 PO; -POLY335025 PO; -SERT50TA PO; -VARD0.05 PO; +ceFAZolin 1000MG 1,000 MG/7.5 ML SYR IV SCH
[2021-12-04] MEDS ORDERED: HYDROmorphone INJ 1 MG/ML SYRINGE IV PRN ×2 (10:40→16:33)
[2021-12-04] MEDS ORDERED: PHENYLEPHRINE 100MCG/ML 5ML SYR IV PRN (10:40)
[2021-12-04] MEDS ORDERED: ONDANSETRON INJ 2 MG/ML 2 ML VIAL IV PRN ×2 (10:40→16:33)
[2021-12-04] MEDS ORDERED: ePHEDrine sulfate 50 MG/ML AMP IV PRN (10:40)
[2021-12-04] MEDS ORDERED: MEPERIDINE HCL 25 MG/ML CARP/VIAL IV PRN (10:40)
[2021-12-04] MEDS ORDERED: ATROPINE SULFATE 0.1 MG/ML 10ML SYR IV PRN (10:40)
[2021-12-04] MEDS ORDERED: LABETALOL HCL IV 5 MG/ML 20ML IV PRN (10:40)
--- NOTE | 2021-12-04 11:57 | History & Physical Bridge Note ---
Date of Service December 04, 2021 History & Physical Bridge Note I have examined the patient, reviewed the History & Physical and in the interval since the performance of the History & Physical I have noted the following changes of clinical significance: no changes noted
--- NOTE | 2021-12-04 12:00 | History & Physical Report ---
Date of Service December 04, 2021 Assessment & Plan (1) Lumbar stenosis with neurogenic claudication: Plan: L3-L4 decompression fusion, possible L2-L3, L4-S1 hardware removal History of Present Illness Chief Complaint: Back and leg pain Primary Care Provider: Buddy Begum DO This is a 76-year-old male well-known to me the presents with worsening back and leg pain after failing course of nonoperative care is here for surgical invention. Allergies Allergy/AdvReac Type Severity Reaction Status Date / Time lactose AdvReac Severe Intolerant-SEVERE Verified 12/04/21 09:11 ABDOMINAL CRAMPS buspirone AdvReac Mild Jittery, Verified 11/17/21 13:32 "crawling out of my skin" lorazepam AdvReac Mild Jittery, Verified 11/17/21 13:32 "crawling out of my skin" Home Medications Medication Instructions Recorded Confirmed Type acetaminophen 300 mg-codeine 30 mg 1 tab PO BID PRN 12/07/20 12/04/21 History tablet amlodipine 10 mg tablet (Norvasc) 10 mg PO QPM 12/07/20 12/04/21 History atorvastatin 80 mg tablet 80 mg PO QAM 12/07/20 12/04/21 History azelastine 137 mcg (0.1 %) nasal 1 spray INTRANASAL QAM 12/07/20 12/04/21 History spray aerosol baclofen 10 mg tablet 10 mg PO UD PRN 12/07/20 12/04/21 History qzpjksqcmt-uqfhftuaatnxy-hvsipepm 1 tab PO DAILY PRN 12/07/20 12/04/21 History 50 mg-325 mg-40 mg tablet celecoxib 200 mg capsule (Celebrex) 200 mg PO QAM 12/07/20 12/04/21 History dicyclomine 20 mg tablet 10 mg PO QID PRN 12/07/20 12/04/21 History flurandrenolide 0.05 % lotion 1 applic TOPICAL BID PRN 12/07/20 12/04/21 History hydroxyzine HCl 50 mg tablet 50 mg PO BID PRN 12/07/20 12/04/21 History linaclotide 290 mcg capsule 290 mcg PO HS 12/07/20 12/04/21 History (Linzess) lisinopril 40 mg tablet 40 mg PO QAM 12/07/20 12/04/21 History ondansetron 4 mg disintegrating 4 mg TRANSLINGUAL Q12 PRN 12/07/20 12/04/21 History tablet rabeprazole 20 mg tablet,delayed 20 mg PO DAILY PRN 12/07/20 12/04/21 History release sertraline 100 mg tablet (Zoloft) 150 mg PO QAM 12/07/20 12/04/21 History tadalafil 20 mg tablet (Cialis) 20 mg PO UD PRN 12/07/20 12/04/21 History methocarbamol 750 mg tablet 750 mg PO .COMPLEX 30 Days #60 tab 06/04/21 12/04/21 Rx sumatriptan succinate 100 mg tablet 100 mg PO DIRECTED PRN 30 Days 07/09/21 12/04/21 Rx #9 tab dextroamphetamine-amphetamine 30 30 mg PO BID 07/14/21 12/04/21 History mg tablet (Adderall) ibuprofen 200 mg tablet 600 mg PO Q8H PRN 07/14/21 12/04/21 History tamsulosin 0.4 mg capsule (Flomax) 0.4 mg PO HS 07/14/21 12/04/21 History cyclobenzaprine 10 mg tablet 10 mg PO BID PRN #60 tab 10/14/21 12/04/21 Rx carvedilol 25 mg tablet 25 mg PO BID 11/11/21 12/04/21 History diazepam 5 mg tablet 5 mg PO DAILY PRN 11/11/21 12/04/21 History aspirin 325 mg tablet 975 mg PO Q6H PRN tab 11/17/21 12/04/21 History prednisone 20 mg tablet 20 mg PO .COMPLEX 3 Days #6 tab 11/17/21 12/04/21 Rx Past Med/Surg History Medical History Anemia iron deficiency, h/o multiple infusions with last occurring > 1 month ago Anxiety Arthralgia of multiple sites Arthritis 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 hyperactivity Bilateral edema of lower extremity resolved on carvedilol per pt Chronic radicular low back pain CVA (cerebral vascular accident) Incidental "old" infarct noted on 2018 imaging during workup for polypharmacy reaction Degenerative disc disease Depression with h/o depressive psychosis Duodenal ulcer resolved per pt and s/p release from subsequent adhesion development Dyslipidemia GERD (gastroesophageal reflux disease) pyloric stenosis s/p partial gastrectomy Glaucoma History of long-term treatment with high-risk medication Hypertension controlled, stable per pt Hyponatremia stable per pt IBS (irritable bowel syndrome) C Migraine without status migrainosus, not intractable Mild cognitive impairment Mild concentric left ventricular hypertrophy (LVH) Pain in foot left PFO (patent foramen ovale) S cardio 07/2021: "small and non clinically significant...no additional cardiac studies or treatment are indicated..." Rebound headache to be starting prednisone course by neurology per note Spinal stenosis Urinary frequency Surgical History Fusion of spine Lumbar History of colonoscopy History of esophagogastroduodenoscopy (EGD) History of myringotomy History of partial gastrectomy r/t pyloric sphincter scarring 2004 (x2) History of surgery Right side (ribs removed) History of tonsillectomy History of tooth extraction Family History Other No family history of adverse response to anesthesia No known health problems Social History Smoking Status: Never smoker Second Hand Exposure: No; Do You Dip or Chew Tobacco: No; Hx Alcohol Use: No Hx Substance Use: No Preferred Language: Grenadian Communication Ability: Effective Credit Risk Officer Required: No Beliefs That Will Affect Care: None marital status: Current Living Situation: Spouse current occupational status: retired Other Information That Helps Us Care for You: No Feels Safe at Home: Yes Safety Concerns: Feels Safe At This Time Assistive Devices: Cane and Glasses Physical Exam Physical Exam: Patient is alert and oriented Heart regular in rhythm Lungs clear Results & Data ([facility]) Vital Signs (Past 12 Hours) Vital Signs Temp Pulse Resp BP Pulse Ox 12/04/21 09:21 36.9 C 78 18 166/78 H 100
[2021-12-04] MEDS ORDERED: fentaNYL citrate 100 MCG/2 ML VIAL ONE (12:13)
[2021-12-04] MEDS ORDERED: ceFAZolin 330 MG/ML 1 GM VIAL ONE (12:14)
[2021-12-04] MEDS ORDERED: EPINEPHrine INJ 1 MG/ML AMP ONE (12:14)
[2021-12-04] MEDS ORDERED: BUPIVACAINE 0.5 % 5 MG/1 ML MPF 30ML VIAL ONE (12:14)
[2021-12-04] MEDS ORDERED: HYDROmorphone INJ 2 MG/ML SYR/VIAL ONE (12:54)
[2021-12-04] MEDS ORDERED: FLOSEAL HEMOSTATIC MATRIX 10ML TOP ONE (13:50)
[2021-12-04] MEDS ORDERED: DEXAMETHASONE SOD INJ 4 MG/ML VIAL ONE (13:51)
[2021-12-04] MEDS ORDERED: LIDOCAINE 2% 2 ML VIAL/AMP(20MG/ML) INFIL ONE (13:51)
[2021-12-04] MEDS ORDERED: GLYCOPYRROLATE 0.2 MG/ML VIAL ONE (13:51)
[2021-12-04] MEDS ORDERED: PROPOFOL IV EMULSION 10 MG/ML 20 ML VIAL IV ONE (13:51)
[2021-12-04] MEDS ORDERED: ONDANSETRON INJ 2 MG/ML 2 ML VIAL ONE (13:51)
[2021-12-04] MEDS ORDERED: NEOSTIGMINE METHYLSULFATE 1 MG/ML 10ML VIAL ONE (13:51)
[2021-12-04] MEDS ORDERED: ROCURONIUM BROMIDE 10 MG/ML 5 ML VIAL IV ONE ×2 (13:52)
--- NOTE | 2021-12-04 14:38 | Operative Report ---
Post Operative Report Pre & Post Diagnosis Operation Date: 12/04/21 09:05 Pre-Op Diagnosis: Spinal Stenosis of Lumbar Region with Radiculopath Post-Op Diagnosis: Spinal Stenosis of Lumbar Region with Radiculopath I identified the patient and participated in the time-out.: Yes Procedure Operation Date: 12/04/21 09:05 Actual Procedures #1 removal of posterior instrumentation L4-5 L5-S1. #2 exploration of fusion L4-L5 L5-S1. #3 lumbar decompression with bilateral medial facetectomies and foraminotomies L2-L3 L3-L4. #4 posterior spinal fusion L3-L4 L4-5. #5 placement posterior instrumentation L2-S1. #6 placement locally harvested morselized autograft in the posterior gutters. #7 placement use collagen sponge, and master graft in the posterior gutters L2-L4. Surgeon Ángel Ferrer DO Cab Worker Shari Roberson Estimated Blood Loss 200 Findings Consistent with Post-Op Diagnosis Specimens None Indications This is a 76-year-old male who presents with above-mentioned diagnosis after failing course of nonoperative care is here for surgical invention. Description of Procedure Patient was met with identified and consent obtained. Patient was then taken to the operative suite underwent ablation placed in a prone position injecting with elevation frame. All bony prominences well-padded eyes inspected to ensure no external pressure placed upon them. This point the lumbar spine was prepped and draped in a sterile fashion. Sharp dissection with the assistance of Bovie cartilage from down to and exposing the lamina and transverse processes of L2-L3 and instrumentation L4-L5 and S1 levels bilaterally. Then proceeded move the hardware bilaterally explore the fusion mass noting it to be mature and intact. Informed complete laminectomy of L4 3 and L2 from a caudal cephalad to the bilateral medial facetectomies and foraminotomies. Pedicle screws then placed L2-L3-L4 and S1 levels bilaterally with assistance of fluoroscopy and appropriately sized jesika locked into position. A cross-link was locked in position. Transverse processes of L2-L3-L4 burred to subcortically bone. Infuse collagen sponge master graft local autograft was placed in the posterior gutters. 15 round ROBER drain inserted. The incision was then closed with 1 Vicryl fascia 2-0 Vicryl subcutaneously and 4 Monocryl for final skin closure. Steri-Strips and sterile dressings placed. Patient was then taken PACU stable condition. Please note spinal cord monitoring was less at the procedure no changes noted. Lastly Shari Roberson was present at the entire surgery Patient positioning complex portions of the surgery and final skin closure. I attest to the content of the Intraoperative Record and any orders documented therein. Any exceptions are noted below.
--- NOTE | 2021-12-04 14:58 | Fluoroscopy Report ---
FL lumbar spine 2-3V HISTORY: 76 years-old Male 3-L4 D/F L2-L3 L4-S1 HW REMOVAL COMPARISON: CT abdomen pelvis 12/07/2020, lumbar spine radiographs 01/15/2019 TECHNIQUE: 2 spot fluoroscopic images of the lumbar spine were obtained utilizing 15.5 seconds fluoro scopy time FINDINGS: Exact numbering is limited secondary to magnification of the images which were submitted after comple tion of the surgery. Posterior interbody jesika and screw fusion hardware is noted along with discectomy changes. The hardware appears to be intact. No unexpected opaque foreign body identified. IMPRESSION: Fluoroscopic assistance as above. ACT 112: Negative or not required by law. The above report was generated using voice recognition software. It may contain grammatical, syntax o r spelling errors. Electronically signed by: Moreno Dimas M.D. 12/04/2021 2:57 PM
[2021-12-04] MEDS: fentaNYL citrate 100 MCG/2 ML VIAL IV PRN ×2 (15:23→15:28)
--- NOTE | 2021-12-04 15:46 | Anesthesiology Progress Note ---
Date of Service December 04, 2021 Anesthesia Post Procedure Vital Signs Vital Signs: Temp Pulse Pulse Resp BP Pulse Ox 12/04/21 15:20 62 16 128/74 98 12/04/21 15:10 61 12 132/72 100 12/04/21 15:00 66 13 141/78 H 100 12/04/21 14:50 80 13 118/84 100 12/04/21 14:44 36.3 C L 78 12 111/62 100 12/04/21 09:21 36.9 C 78 18 166/78 H 100 Transfer of Care Handoff Completed per policy Notes Mental Status: alert / awake / arousable Patient Amnestic to Procedure: Yes Nausea / Vomiting: adequately controlled Pain: adequately controlled Airway Patency, RR, SpO2: stable & adequate BP & HR: stable & adequate Hydration State: stable & adequate Anesthetic Complications: no major complications apparent and Pt Satisfied with anesthetic care Notes: The patient is awake and comfortable.
[2021-12-04] MEDS ORDERED: METOCLOPRAMIDE HCL INJ 5 MG/ML 2 ML VIAL IV PRN (16:33)
[2021-12-04] MEDS ORDERED: ACETAMINOPHEN 500 MG TAB PO PRN (16:33)
[2021-12-04] MEDS ORDERED: ALUMINUM/MAGNESIUM SUSP 30 ML UDC PO PRN (16:33)
[2021-12-04] MEDS ORDERED: DICYCLOMINE HCL 20 MG TAB PO PRN (16:33)
[2021-12-04] MEDS ORDERED: traMADol HCL 50 MG TABLET PO PRN (16:33)
[2021-12-04] MEDS ORDERED: ONDANSETRON 4 MG OD TAB PO PRN (16:33)
[2021-12-04] MEDS ORDERED: FAMOTIDINE 20 MG TAB PO PRN (16:33)
[2021-12-04] MEDS ORDERED: bisacodyL 10 MG SUPP PR PRN (16:33)
[2021-12-04] MEDS ORDERED: BUTALBITAL/ACETAMIN/CAFFEINE TAB PO PRN (16:33)
[2021-12-04] MEDS ORDERED: SOD PHOSPHATE/SOD BIPHOSPHATE ENEMA 132 ML BTL PR PRN (16:33)
[2021-12-04] MEDS ORDERED: SUMAtriptan succinate 100 MG TAB PO PRN (16:33)
[2021-12-04] MEDS ORDERED: NALOXONE HCL 0.4 MG/1 ML VIAL/CARP IV PRN (16:33)
[2021-12-04] MEDS ORDERED: DO NOT ADMINISTER PNEUMOCOCCAL VACCINE PRN (16:33)
[2021-12-04] MEDS ORDERED: ACETAMINOPHEN 1,000 MG/100 ML VIAL IV PRN (16:33)
[2021-12-04] MEDS ORDERED: hydrOXYzine HCl 25 MG TAB PO PRN ×2 (16:33)
[2021-12-04] MEDS ORDERED: diphenhydrAMINE Capsule 25 MG CAP PO PRN (16:33)
[2021-12-04] MEDS ORDERED: MAGNESIUM HYDROXIDE SUSP 30 ML UDC PO PRN (16:33)
[2021-12-04] MEDS ORDERED: DO NOT ADMINISTER FLU VACCINE PRN (16:33)
[2021-12-04] MEDS ORDERED: PROMETHAZINE HCL 12.5 MG in SODIUM CHLORIDE 0.9% 50 ML IV PRN (16:33)
[2021-12-04] MEDS: SODIUM CHLORIDE 0.9% 1000ML 1,000 ML IV SCH (16:35)
--- NOTE | 2021-12-04 17:03 | Hospitalist Consultation ---
Date of Consultation December 04, 2021 Assessment & Plan (1) Lumbar stenosis with neurogenic claudication: (2) Status post lumbar spine surgery for decompression of spinal cord: - Pain management, bowel regimen and DVT ppx per the primary team - PT/OT consults-patient anticipates discharge to [facility] for further rehab - Follow am CBC to monitor for acute blood loss - last hgb was 11.6 from 11/17/21 - has required Venofer infusion in the past for iron deficiency anemia. - Postop day 0 : ROBER drain in place, dressing is C/D/I - Glez catheter is in place draining clear yellow urine (3) Iron deficiency anemia: - Hx of such after pyloric stenosis surgical procedure in 2004 poor absorption as well as poor tolerance of oral iron due to constipation. Bowel movement was 2 days ago. - Has previously gotten outpatient Venofer infusions - Follow with a.m. labs, hemoglobin was 11 earlier this month with preoperative labs done as outpatient, trend (4) Chronic radicular low back pain: - Pain control per the primary team - likely to improve s/p surgical intervention (5) Hypertension: - Continue amlodipine 10 mg QPM, carvedilol 25 mg BID, lisinopril 40 mg daily (6) Dyslipidemia: - Cont atorvastatin 80 mg daily (7) ADD (attention deficit disorder): - Pt is on adderall as an outpatient as well as valium prn - would recommend titrating off these medications if possible. - can continue sertraline for anxiety and depression (8) GERD (gastroesophageal reflux disease): - Cont pepcid daily DVT ppx: - teds, scds CODE: Full code Dispo: From home, likely to remain in the hospital x 1-2 days Thank you for involving us in the care of Mr. Leslie. If you have any questions or concerns please do not hesitate to call. At this time medicine will follow along. Supervising Physician Co-Signing Physician Notes Attending addendum: The patient was seen and examined in medical floor He is a status post L2-L4 decompression and fusion He has localized pain at the surgery site but denies any radiation Denies any other symptoms On examination Lying in bed without any acute distress Hemodynamically stable Chestclear to auscultate bilaterally HeartS1, S2, regular Abdomenbenign Extremitiesno edema CNSalert, awake and oriented x3. No sensory impairment His labs, EKG and imaging studies reviewed Status post L2-L4 decompression and fusion Remains medically stable We will check labs tomorrow Agree with assessment and plan as outlined above by TANNER Maria DR History of Present Illness Reason for Consultation: Medical management Requesting Physician: Dr. Ferrer Attending Physician: Ángel Ferrer, DO History of Present Illness This is a 76 yo M with PMHx of HTN, HLD, CVA, and 2018, PFO, followed by [facility] cardiology has been deemed not clinically significant, spinal stenosis, migraine, GERD, iron deficiency anemia s/p pyloric stenosis surgery, anxiety and depression who presented for elective L2-L4 decompression fusion, L4-S1 hardware removal and new hardware placement from L2-S1 by Dr. Ferrer on 12/04/2021. Patient previously underwent epidural steroid injection at pain management clinic with Dr. Carcamo recently. Medicine has been asked to consult for medical management at request of the primary team. Pt has been to the floor recently. He reports that he is still somewhat groggy from anesthesia but is able to participate fully in conversation and answer questions appropriately. He denies any acute pain, rates it as a 1/10, has trialed sips of water without any difficulty. He moved his bowels last yesterday and he has a Glez catheter in place. Patient denies any concerns or complaints currently. Is able to tell me that his pyloric stenosis surgery was done around 2004 and since then he has been anemic. He underwent 1 Venofer infusion in September without issues. Patient lives at home with his , and reports that he anticipates going to [facility] for rehab after hospital stay. Allergies Allergy/AdvReac Type Severity Reaction Status Date / Time lactose AdvReac Severe Intolerant-SEVERE Verified 12/04/21 09:11 ABDOMINAL CRAMPS buspirone AdvReac Mild Jittery, Verified 11/17/21 13:32 "crawling out of my skin" lorazepam AdvReac Mild Jittery, Verified 11/17/21 13:32 "crawling out of my skin" Home Medications Medication Instructions Recorded Confirmed Type acetaminophen 300 mg-codeine 30 mg 1 tab PO BID PRN 12/07/20 12/04/21 History tablet amlodipine 10 mg tablet (Norvasc) 10 mg PO QPM 12/07/20 12/04/21 History atorvastatin 80 mg tablet 80 mg PO QAM 12/07/20 12/04/21 History azelastine 137 mcg (0.1 %) nasal 1 spray INTRANASAL QAM 12/07/20 12/04/21 History spray aerosol baclofen 10 mg tablet 10 mg PO UD PRN 12/07/20 12/04/21 History qnjfazzjye-cmvkavmypomga-wdattkkm 1 tab PO DAILY PRN 12/07/20 12/04/21 History 50 mg-325 mg-40 mg tablet celecoxib 200 mg capsule (Celebrex) 200 mg PO QAM 12/07/20 12/04/21 History dicyclomine 20 mg tablet 10 mg PO QID PRN 12/07/20 12/04/21 History flurandrenolide 0.05 % lotion 1 applic TOPICAL BID PRN 12/07/20 12/04/21 History hydroxyzine HCl 50 mg tablet 50 mg PO BID PRN 12/07/20 12/04/21 History linaclotide 290 mcg capsule 290 mcg PO HS 12/07/20 12/04/21 History (Linzess) lisinopril 40 mg tablet 40 mg PO QAM 12/07/20 12/04/21 History ondansetron 4 mg disintegrating 4 mg TRANSLINGUAL Q12 PRN 12/07/20 12/04/21 History tablet rabeprazole 20 mg tablet,delayed 20 mg PO DAILY PRN 12/07/20 12/04/21 History release sertraline 100 mg tablet (Zoloft) 150 mg PO QAM 12/07/20 12/04/21 History tadalafil 20 mg tablet (Cialis) 20 mg PO UD PRN 12/07/20 12/04/21 History methocarbamol 750 mg tablet 750 mg PO .COMPLEX 30 Days #60 tab 06/04/21 12/04/21 Rx sumatriptan succinate 100 mg tablet 100 mg PO DIRECTED PRN 30 Days 07/09/21 12/04/21 Rx #9 tab dextroamphetamine-amphetamine 30 30 mg PO BID 07/14/21 12/04/21 History mg tablet (Adderall) ibuprofen 200 mg tablet 600 mg PO Q8H PRN 07/14/21 12/04/21 History tamsulosin 0.4 mg capsule (Flomax) 0.4 mg PO HS 07/14/21 12/04/21 History cyclobenzaprine 10 mg tablet 10 mg PO BID PRN #60 tab 10/14/21 12/04/21 Rx carvedilol 25 mg tablet 25 mg PO BID 11/11/21 12/04/21 History diazepam 5 mg tablet 5 mg PO DAILY PRN 11/11/21 12/04/21 History aspirin 325 mg tablet 975 mg PO Q6H PRN tab 11/17/21 12/04/21 History prednisone 20 mg tablet 20 mg PO .COMPLEX 3 Days #6 tab 11/17/21 12/04/21 Rx Patient History Medical History (Updated 12/04/21 @ 17:07 by Annmarie Arizmendi PA-C) Anemia iron deficiency, h/o multiple infusions with last occurring > 1 month ago Anxiety Arthralgia of multiple sites Arthritis 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 hyperactivity Bilateral edema of lower extremity resolved on carvedilol per pt Chronic radicular low back pain CVA (cerebral vascular accident) Incidental "old" infarct noted on 2018 imaging during workup for polypharmacy reaction Degenerative disc disease Depression with h/o depressive psychosis Duodenal ulcer resolved per pt and s/p release from subsequent adhesion development Dyslipidemia GERD (gastroesophageal reflux disease) pyloric stenosis s/p partial gastrectomy Glaucoma History of long-term treatment with high-risk medication Hypertension controlled, stable per pt Hyponatremia stable per pt IBS (irritable bowel syndrome) C Migraine without status migrainosus, not intractable Mild cognitive impairment Mild concentric left ventricular hypertrophy (LVH) Pain in foot left PFO (patent foramen ovale) S cardio 07/2021: "small and non clinically significant...no additional cardiac studies or treatment are indicated..." Rebound headache to be starting prednisone course by neurology per note Spinal stenosis Urinary frequency Surgical History (Updated 12/04/21 @ 16:56 by Annmarie Arizmendi PA-C) Fusion of spine Lumbar History of colonoscopy History of esophagogastroduodenoscopy (EGD) History of myringotomy History of partial gastrectomy r/t pyloric sphincter scarring 2004 (x2) History of surgery Right side (ribs removed) History of tonsillectomy History of tooth extraction Family History Other No family history of adverse response to anesthesia No known health problems Social History Smoking Status: Never smoker Second Hand Exposure: No; Do You Dip or Chew Tobacco: No; Hx Alcohol Use: No Hx Substance Use: No Preferred Language: [place] Communication Ability: Effective Pole Tester Required: No Beliefs That Will Affect Care: None marital status: Current Living Situation: Spouse current occupational status: retired Other Information That Helps Us Care for You: No Feels Safe at Home: Yes Safety Concerns: Feels Safe At This Time Assistive Devices: Glasses and Walker Review of Systems Review of Systems: Constitutional: No fever, sweats or chills Eyes: No diplopia, no worsening or blurred vision ENT: normal hearing, no trouble swallowing Respiratory: No cough, sputum, dyspnea at rest or on exertion Cardiovascular: No chest pain, tightness or palpitations Back: Pain is rated 1/10 as described per HPI, he is able to move his legs and feet without difficulty, no numbness or tingling Abdomen: No pain, nausea, vomiting, diarrhea or constipation Musculoskeletal: No joint pain, calf pain, swelling Neurologic: No weakness, numbness/tingling, or balance problems Psychiatric: No anxiety or depression Skin: No rash or itch Physical Exam Physical Exam: General: awake, alert, no apparent distress, + thin, BMI of 18 Head: Normocephalic, atraumatic ENT: PERRL, EOMI, no pharyngeal exudate, mucous membranes moist Chest: Clear to auscultation, on room air, no adventitious breath sounds Back: Dressing is C/D/I, ROBER drain in place draining bloody serosanguineous fluid Cardiac: Regular rate and rhythm, no murmur, no JVD, normal peripheral pulses, good capillary refill Abdominal: NABS x 4 quadrants, soft, nondistended, nontender to palpation, no rebound or guarding : Glez catheter in place draining clear yellow urine Extremities: Normal inspection, no peripheral edema or erythema, calfs nontender to palpation Psych: Normal mood and affect Neuro: AAO x 3, strength intact bilaterally and rated 5/5, no motor deficits, speech is clear, no peripheral sensory deficits Results & Data Results & Data ([facility]) Vital Signs (Past 12 Hours) Vital Signs Temp Pulse Pulse Resp BP Pulse Ox 12/04/21 16:35 36.6 C 80 16 152/87 H 99 12/04/21 16:15 36.7 C 59 L 16 146/74 H 100 12/04/21 16:00 36.7 C 66 13 131/70 100 12/04/21 15:45 36.7 C 71 16 146/89 H 100 12/04/21 15:30 36.7 C 64 10 L 141/72 H 100 12/04/21 15:20 62 16 128/74 98 12/04/21 15:10 61 12 132/72 100 12/04/21 15:00 66 13 141/78 H 100 12/04/21 14:50 80 13 118/84 100 12/04/21 14:44 36.3 C L 78 12 111/62 100 12/04/21 09:21 36.9 C 78 18 166/78 H 100 Laboratory Results 12/04/21 12/04/21 Unknown 09:38 SARS-CoV-2, RNA, NAAT NEGATIVE Blood Type B Positive Antibody Screen NEGATIVE Diagnostic Findings Lumbar Spine X-Ray 12/04/21 10:25 FL lumbar spine 2-3V HISTORY: 76 years-old Male 3-L4 D/F L2-L3 L4-S1 HW REMOVAL COMPARISON: CT abdomen pelvis 12/07/2020, lumbar spine radiographs 01/15/2019 TECHNIQUE: 2 spot fluoroscopic images of the lumbar spine were obtained utilizing 15.5 seconds fluoroscopy time FINDINGS: Exact numbering is limited secondary to magnification of the images which were submitted after completion of the surgery. Posterior interbody jesika and screw fusion hardware is noted along with discectomy changes. The hardware appears to be intact. No unexpected opaque foreign body identified. IMPRESSION: Fluoroscopic assistance as above. ACT 112: Negative or not required by law. The above report was generated using voice recognition software. It may contain grammatical, syntax or spelling errors. Electronically signed by: Moreno Dimas M.D. 12/04/2021 2:57 PM
[2021-12-04] MEDS: ceFAZolin 1000MG 1,000 MG/7.5 ML SYR IV SCH (20:47)
[2021-12-04] MEDS: oxyCODONE HCL IR 5 MG TAB (IMMEDIATE RELEASE) PO PRN (20:49)
[2021-12-04] MEDS: LINACLOTIDE 145 MCG CAPSULE PO SCH (20:50)
[2021-12-04] MEDS: carvediloL 25 MG TAB PO SCH (20:50)
[2021-12-04] MEDS: TAMSULOSIN HCL 0.4 MG CAP PO SCH (20:50)
[2021-12-04] MEDS: DOCUSATE SODIUM/SENNA 50/8.6MG TAB PO SCH (20:50)
[2021-12-04] MEDS: amLODIPine BESYLATE 5 MG TAB PO SCH (20:50)
[2021-12-04] MEDS ORDERED: AMPHETAMINE ASP/SULF/DEXTRAMPH 10 MG TAB PO SCH (21:00)
[2021-12-04] MEDS ORDERED: METHOCARBAMOL 750 MG TABLET PO PRN (21:00)
[2021-12-04] MEDS: diazePAM 5 MG TABLET PO PRN (23:38)
[2021-12-05] MEDS ORDERED: Nursing to Pharmacy Communication SCH (00:15)
[2021-12-05] MEDS: SODIUM CHLORIDE 0.9% 1000ML 1,000 ML IV SCH (03:59)
[2021-12-05] MEDS: ceFAZolin 1000MG 1,000 MG/7.5 ML SYR IV SCH (03:59)
[2021-12-05] MEDS: POLYETHYLENE (MIRALAX) 17 GM PACK PO SCH ×4 (05:49→23:04)
[2021-12-05] MEDS: HYDROmorphone INJ 0.5 MG/0.5 ML SYR IV PRN (05:51)
[2021-12-05 06:59] LABS: Basophils # (auto) 0.01 K/uL (0-0.2); Basophils % (auto) 0.1 %; Eosinophils # (auto) 0.05 K/uL (0-0.5); Eosinophils % (auto) 0.6 %; Hemoglobin 9.6 g/dL (14.0-18.0); Immature Granulocytes # (auto) 0.02 K/uL (0.00-0.02); Immature Granulocytes % (auto) 0.3 %; Lymphocytes % (auto) 17.9 %; Mean Corpuscular Hemoglobin 30.7 pg (25-34); Mean Corpuscular Hgb Conc 35.6 g/dL (32-36); Mean Corpuscular Volume 86.3 fL (80-100); Monocytes # (auto) 0.62 K/uL (0.11-0.59); Monocytes % (auto) 7.9 %; Neutrophils # (auto) 5.72 K/uL (1.4-6.5); Neutrophils % (auto) 73.2 %; Platelet Count 146 K/uL (130-400); RDW Standard Deviation 40.8 fL (36.4-46.3); Red Blood Count 3.13 M/uL (4.7-6.1); White Blood Count 7.82 K/uL (4.8-10.8)
[2021-12-05 07:19] LABS: BUN Creatinine Ratio 22.4 (10-20); Calcium 7.9 mg/dl (8.5-10.1); Creatinine Clr Calc Pharmacy 89.2 ml/min; Est GFR (African American) 115.6 ml/min; Est GFR (Non-African American) 99.7 ml/min
[2021-12-05] MEDS: SERTRALINE HCL 50 MG TABLET PO SCH (08:04)
[2021-12-05] MEDS: lisinopril 40 MG TAB PO SCH (08:04)
[2021-12-05] MEDS: AMPHETAMINE ASP/SULF/DEXTRAMPH 10 MG TAB PO SCH ×2 (08:04→12:06)
[2021-12-05] MEDS: ATORVASTATIN 40 MG TAB PO SCH (08:04)
[2021-12-05] MEDS: carvediloL 25 MG TAB PO SCH ×2 (08:04→21:21)
--- NOTE | 2021-12-05 09:03 | Orthopedic Progress Note ---
Date of Service December 05, 2021 Assessment & Plan (1) Lumbar stenosis with neurogenic claudication: Plan: Patient is stable postop day 1. We will continue GI DVT prophylaxis and continue with mobilization efforts. He should ask for 1 oxycodone and not to and can also ask for his antinausea medication. If he continues to have intolerance he may change him to Tylenol with codeine which she is used in the past with efficacy. Admission and Anticipated Discharge Date Admission Date: December 04, 2021 Subjective Patient was seen bedside in room 378. He is not tolerating the pain medication well. He took 2 oxycodone last night and made him nauseous and flushed. He states the tramadol does not work for him. Is having a mild amount of pain at this point. He is not having radicular complaints all of the pain is in the incisional area. He denies any other numbness, tingling, or paresthesias. Physical Exam Physical Exam: On exam he is alert and oriented. He is able to move his legs to gravity. He has full strength in plantarflexion and dorsiflexion. His calves are supple nontender his abdomen soft and nontender. Results & Data ([facility]) Vital Signs (Past 12 Hours) Vital Signs Temp Pulse Pulse Resp BP Pulse Ox 12/05/21 07:50 37.1 C 83 20 130/74 99 12/05/21 04:26 37 C 71 16 137/69 100 12/04/21 23:28 36.6 C 86 17 152/80 H 100
[2021-12-05] MEDS ORDERED: DICYCLOMINE HCL 10 MG CAP PO PRN (10:09)
[2021-12-05] MEDS: oxyCODONE HCL IR 5 MG TAB (IMMEDIATE RELEASE) PO PRN (12:27)
--- NOTE | 2021-12-05 14:36 | Hospitalist Progress Note ---
Date of Service December 05, 2021 Assessment & Plan (1) Lumbar stenosis with neurogenic claudication: (2) Status post lumbar spine surgery for decompression of spinal cord: Plan: POD #1 s/p removal of posterior instrumentation L4-5 L5-S1, exploration of fusion L4-L5 L5-S1, lumbar decompression with bilateral medial facetectomies and foraminotomies L2-L3 L3-L4, posterior spinal fusion L3-L4 L4-5 and placement posterior instrumentation L2-S1 -Pain management, bowel regimen and DVT ppx per the primary team -PT/OT consults-patient anticipates discharge to [facility] for further rehab -Monitor H&H (hgb 9.6 from pre-op 11.6), continue incentive spirometry, PT/OT when appropriate (3) Iron deficiency anemia: Plan: - Hx of such after pyloric stenosis surgical procedure in 2004 poor absorption as well as poor tolerance of oral iron due to constipation. Bowel movement was 2 days ago. - Has previously gotten outpatient Venofer infusions - Daily CBC (4) Hypertension: Plan: - Continue amlodipine 10 mg QPM, carvedilol 25 mg BID, lisinopril 40 mg daily (5) Dyslipidemia: Plan: - Cont atorvastatin 80 mg daily (6) ADD (attention deficit disorder): Plan: - Pt is on adderall as an outpatient as well as valium prn - continue sertraline for anxiety and depression (7) GERD (gastroesophageal reflux disease): Plan: - Cont pepcid daily DVT ppx: - robby scds CODE: Full code Dispo: Per primary service Thank you for this consultation. We will follow the patient with you during their hospital stay. You can reach a member of the [facility] Hospitalist Team 03/05 via pager @ [phone]. Admission and Anticipated Discharge Date Admission Date: December 04, 2021 Supervising Physician Co-Signing Physician Notes I have seen and examined the patient and have discussed the case with the provider above. I agree with the assessment and plan as stated. 76 M s/p back surgery today. Reports an intolerance to oxycodone and requests T#3 instead. He would also like to have fioricet more available and was ok with changing the adderall to a lower dose for the time being. Pain is currently controlled. Physical exam reveals normal heart and lung exam. N o peripheral edema and extremities are warm and well perfused. He denies any sensation deficit or numbness. Cognitively he is almost slurring words, but is coherent and oriented. Possibly has too much medicine on board? Recent imitrex for headache and oxycodone taken. Caution with polypharmacy. DO Shon Subjective Patient seen and examined in 378-2. Feeling well today. Minimal surgical site discomfort after ambulating with PT. Tolerating diet without issue. No F/C, CP, SOB, N/V, abdominal pain. No flatus. Glez catheter in place but to be removed in next hour. Review of Systems Review of Systems: At least ten systems reviewed and negative except as noted in the HPI. Physical Exam Physical Exam: Gen: WD/WN, NAD, sitting in bedside chair, A&Ox3 HEENT: Normocephalic, atraumatic, conjunctivae moist, sclerae anicteric, mucous membranes moist Lung: Clear to Auscultation bilaterally, no wheezes/rales/rhonchi Heart: Regular rate, regular rhythm, no murmurs, rubs, or gallops Abdomen: Soft, NT, ND +BS x 4 Extremities: Spinal dressing c/d/i. ROBER drain visualized. No edema Skin: Warm, no rash Results & Data Results & Data ([facility]) Vital Signs (Past 12 Hours) Vital Signs Temp Pulse Pulse Resp BP Pulse Ox 12/05/21 10:56 36.6 C 85 20 98/66 L 100 12/05/21 07:50 37.1 C 83 20 130/74 99 12/05/21 04:26 37 C 71 16 137/69 100 Laboratory Results Short CBC 12/05/21 Range/Units 06:40 WBC 7.82 (4.8-10.8) K/uL Hgb 9.6 L (14.0-18.0) g/dL Hct 27.0 L (42-52) % Plt Count 146 (130-400) K/uL BMP 12/05/21 06:40 Sodium 135 L Potassium 4.0 Chloride 105 Carbon Dioxide 27 BUN 13 Creatinine 0.58 L Glucose 93 Calcium 7.9 L Diagnostic Findings Lumbar Spine X-Ray 12/04/21 10:25 FL lumbar spine 2-3V HISTORY: 76 years-old Male 3-L4 D/F L2-L3 L4-S1 HW REMOVAL COMPARISON: CT abdomen pelvis 12/07/2020, lumbar spine radiographs 01/15/2019 TECHNIQUE: 2 spot fluoroscopic images of the lumbar spine were obtained utilizing 15.5 seconds fluoroscopy time FINDINGS: Exact numbering is limited secondary to magnification of the images which were submitted after completion of the surgery. Posterior interbody jesika and screw fusion hardware is noted along with discectomy changes. The hardware appears to be intact. No unexpected opaque foreign body identified. IMPRESSION: Fluoroscopic assistance as above. ACT 112: Negative or not required by law. The above report was generated using voice recognition software. It may contain grammatical, syntax or spelling errors. Electronically signed by: Moreno Dimas M.D. 12/04/2021 2:57 PM
[2021-12-05] MEDS ORDERED: BUTALBITAL/ACETAMIN/CAFFEINE TAB PO PRN (15:46)
[2021-12-05] MEDS: ACETAMINOPHEN W/CODEINE #3 1 TAB PO PRN (19:38)
[2021-12-05] MEDS: DOCUSATE SODIUM/SENNA 50/8.6MG TAB PO SCH (21:20)
[2021-12-05] MEDS: amLODIPine BESYLATE 5 MG TAB PO SCH (21:21)
[2021-12-05] MEDS: TAMSULOSIN HCL 0.4 MG CAP PO SCH (21:21)
[2021-12-05] MEDS: LINACLOTIDE 145 MCG CAPSULE PO SCH (21:21)
[2021-12-06] MEDS: POLYETHYLENE (MIRALAX) 17 GM PACK PO SCH ×4 (05:14→23:19)
[2021-12-06] MEDS ORDERED: AMPHETAMINE ASP/SULF/DEXTRAMPH ER 20 MG CAP PO SCH (08:00)
[2021-12-06] MEDS: AMPHETAMINE ASP/SULF/DEXTRAMPH 10 MG TAB PO SCH (08:33)
[2021-12-06] MEDS: ACETAMINOPHEN W/CODEINE #3 1 TAB PO PRN (08:33)
[2021-12-06] MEDS: ATORVASTATIN 40 MG TAB PO SCH (08:34)
[2021-12-06] MEDS: lisinopril 40 MG TAB PO SCH (08:35)
[2021-12-06] MEDS: SERTRALINE HCL 50 MG TABLET PO SCH (08:35)
[2021-12-06] MEDS: carvediloL 25 MG TAB PO SCH ×2 (08:35→20:49)
[2021-12-06] MEDS: HYDROmorphone INJ 0.5 MG/0.5 ML SYR IV PRN (10:29)
--- NOTE | 2021-12-06 10:45 | Orthopedic Progress Note ---
Date of Service December 06, 2021 Assessment & Plan (1) Lumbar stenosis with neurogenic claudication: Plan: This time continue physical therapy monitor his ROBER output. The patient has changed his mind. He no longer wants to go to rehab but would like to go home. We will try to arrange home health and perhaps discharge home Wednesday. Admission and Anticipated Discharge Date Admission Date: December 04, 2021 Subjective Patient complaining mostly back pain. Leg pain is controlled. Physical Exam Physical Exam: Patient is in the chair at the bedside. Is good strength testing. Results & Data ([facility]) Vital Signs (Past 12 Hours) Vital Signs Temp Pulse Pulse Resp BP Pulse Ox 12/06/21 07:39 37.2 C 96 H 18 147/69 H 96 12/05/21 23:23 37.5 C 12/05/21 22:46 37.7 C H 92 H 17 133/76 98
[2021-12-06 11:19] LABS: Hematocrit (blood only) 27.4 % (42-52); Hemoglobin 9.9 g/dL (14.0-18.0); Mean Corpuscular Hgb Conc 36.1 g/dL (32-36); Mean Corpuscular Volume 85.9 fL (80-100); Mean Platelet Volume 8.1 fL (7.4-10.4); Platelet Count 196 K/uL (130-400); RDW Coefficient of Variation 13.2 % (11.5-14.5); RDW Standard Deviation 41.6 fL (36.4-46.3); Red Blood Count 3.19 M/uL (4.7-6.1); White Blood Count 11.83 K/uL (4.8-10.8)
[2021-12-06 11:32] LABS: BUN Creatinine Ratio 24.3 (10-20); Calcium 8.5 mg/dl (8.5-10.1); Creatinine Clr Calc Pharmacy 69.9 ml/min; Est GFR (African American) 104.6 ml/min; Est GFR (Non-African American) 90.2 ml/min; Potassium 4.1 mmol/L (3.5-5.1)
[2021-12-06] MEDS: dexAMETHasone 6 MG in SYRINGE 0 ML IV SCH (11:35)
[2021-12-06] MEDS ORDERED: AMPHETAMINE ASP/SULF/DEXTRAMPH 10 MG TAB PO SCH (14:00)
--- NOTE | 2021-12-06 14:28 | Hospitalist Progress Note ---
Date of Service December 06, 2021 Assessment & Plan (1) Lumbar stenosis with neurogenic claudication: (2) Status post lumbar spine surgery for decompression of spinal cord: Plan: POD #2 s/p removal of posterior instrumentation L4-5 L5-S1, exploration of fusion L4-L5 L5-S1, lumbar decompression with bilateral medial facetectomies and foraminotomies L2-L3 L3-L4, posterior spinal fusion L3-L4 L4-5 and placement posterior instrumentation L2-S1 -Uncontrolled pain on T#3, changing to norco. Cont other PRNs as ordered by Ortho, bowel regimen and DVT ppx per the primary team -PT/OT consults-[facility] -Monitor H&H, continue incentive spirometry, PT/OT when appropriate -continues on daily decadron per ortho (3) Iron deficiency anemia: Plan: - Hx of such after pyloric stenosis surgical procedure in 2004 poor absorption as well as poor tolerance of oral iron due to constipation. - Has previously gotten outpatient Venofer infusions - Daily CBC (4) Hypertension: Plan: chronic, stable. Continue amlodipine 10 mg QPM, carvedilol 25 mg BID, lisinopril 40 mg daily per home reigmen. (5) Dyslipidemia: Plan: chronoic, stable, Cont atorvastatin 80 mg daily per home regimen. (6) ADD (attention deficit disorder): Plan: - Pt is on adderall as an outpatient as well as valium prn --decreased adderall with his permission to avoid polypharmacy and competing effects of drugs. - continue sertraline for anxiety and depression (7) GERD (gastroesophageal reflux disease): Plan: - Cont pepcid daily DVT ppx: - gilma bustamante CODE: Full code Dispo: Per primary service Thank you for this consultation. We will follow the patient with you during their hospital stay. You can reach a member of the [facility] Hospitalist Team 03/05 via [place] Text to "[facility] Hospitalist" role. Hanane Menendez DO [facility] Hospitalist Admission and Anticipated Discharge Date Admission Date: December 04, 2021 Subjective 76-year-old man status post L2-L4 decompression and fusion by Dr. Ferrer on 12/04 Pain is uncontrolled on Tylenol with codeine and he is requesting a different pain medication We discussed hydrocodone as an option as oxycodone caused nausea He is otherwise eating and tolerating ambulation Drain still in place. Review of Systems Review of Systems: All systems reviewed and negative except as indicated above. Physical Exam Physical Exam: CONSTITUTIONAL: WNWD, vitals as above, generally well- appearing EYES: normal conjunctivae, no scleral icterus ENT: external ear and nose normal, MMM NECK: trachea midline, RESPIRATORY: clear to auscultation bilaterally, no crackles, rales or wheezes, normal respiratory effort CARDIOVASCULAR: regular rate and rhythm, S1 and 2 heard without murmurs, gallops or rubs, no JVD, no peripheral edema, CHEST: inspection of chest was normal GASTROINTESTINAL: soft, nontender, ND, no guarding MUSCULOSKELETAL: strength 5/5 throughout, head is normocephalic and atraumatic, SKIN: warm and dry, incision on lower back covered with dressing that is c/d/i. +ROBER drain in place. NEUROLOGIC: CN 2-12 grossly intact, normal cognition, normal speech, no tremor PSYCHIATRIC: alert cooperative and oriented to person, place and time. Results & Data Results & Data ([facility]) Vital Signs (Past 12 Hours) Vital Signs Temp Pulse Resp BP Pulse Ox 12/06/21 07:39 37.2 C 96 H 18 147/69 H 96 Laboratory Results Short CBC 12/06/21 Range/Units 10:41 WBC 11.83 H (4.8-10.8) K/uL Hgb 9.9 L (14.0-18.0) g/dL Hct 27.4 L (42-52) % Plt Count 196 (130-400) K/uL BMP 12/06/21 10:41 Sodium 131 L Potassium 4.1 Chloride 97 L Carbon Dioxide 28 BUN 18 Creatinine 0.74 Glucose 119 H Calcium 8.5 Medications Administered Current Inpatient Medications Acetaminophen (Acetaminophen 500 Mg Tab) 1,000 mg PO Q8H PRN PRN Reason: MILD Pain Scale 1,2,3 & Pre PT Stop: 01/03/22 16:32 Acetaminophen/Butalbital/Caffeine (Butalbital/Acetamin/Caffeine Tab) 1 tab PO Q6H PRN PRN Reason: Migraine Headache Stop: 01/03/22 16:32 Acetaminophen/Codeine Phosphate (Acetaminophen W/Codeine #3 1 Tab) 1 tab PO Q4H PRN PRN Reason: moderate to severe pain Stop: 01/04/22 15:44 Last Admin: 12/06/21 08:33 Dose: 1 tab Documented by: Al Hydrox/Mg Hydrox/Simethicone (Aluminum/Magnesium Susp 30 Ml Udc) 30 ml PO Q6H PRN PRN Reason: Dyspepsia Stop: 01/03/22 16:32 Amlodipine Besylate (Amlodipine Besylate 5 Mg Tab) 10 mg PO QPM [facility] Stop: 01/03/22 20:59 Last Admin: 12/05/21 21:21 Dose: 10 mg Documented by: Amphetamine/Dextroamphetamine (Amphetamine Asp/Sulf/Dextramph 10 Mg Tab) 10 mg PO DAILY@1400 [facility] Stop: 12/20/21 13:59 Amphetamine/Dextroamphetamine (Amphetamine Asp/Sulf/Dextramph 10 Mg Tab) 20 mg PO Q24H [facility] Stop: 12/20/21 07:59 Last Admin: 12/06/21 08:33 Dose: 20 mg Documented by: Atorvastatin Calcium (Atorvastatin 40 Mg Tab) 80 mg PO QAM [facility] Stop: 01/04/22 08:59 Last Admin: 12/06/21 08:34 Dose: 80 mg Documented by: Bisacodyl (Bisacodyl 10 Mg Supp) 10 mg ND DAILY PRN PRN Reason: Constipation Stop: 01/03/22 16:32 Carvedilol (Carvedilol 25 Mg Tab) 25 mg PO BID [facility] Stop: 01/03/22 20:59 Last Admin: 12/06/21 08:35 Dose: 25 mg Documented by: Diazepam (Diazepam 5 Mg Tablet) 5 mg PO DAILY PRN PRN Reason: Anxiety Stop: 01/03/22 16:32 Last Admin: 12/04/21 23:38 Dose: 5 mg Documented by: Dicyclomine HCl (Dicyclomine Hcl 10 Mg Cap) 10 mg PO QID PRN PRN Reason: abd pain Stop: 01/04/22 10:08 Last Admin: 12/05/21 19:39 Dose: 10 mg Documented by: Diphenhydramine HCl (Diphenhydramine Capsule 25 Mg Cap) 25 mg PO Q6H PRN PRN Reason: Allergic Rhinitis/Insomnia Stop: 01/03/22 16:32 Famotidine (Famotidine 20 Mg Tab) 20 mg PO Q12H PRN PRN Reason: Dyspepsia Stop: 01/03/22 16:32 Hydromorphone HCl (Hydromorphone Inj 0.5 Mg/0.5 Ml Syr) 0.5 mg IV Q3H PRN PRN Reason: MODERATE Pain (Scale 4,5,6) & Pre PT Stop: 12/18/21 16:32 Last Admin: 12/06/21 10:29 Dose: 0.5 mg Documented by: Hydromorphone HCl (Hydromorphone Inj 1 Mg/Ml Syringe) 1 mg IV Q3H PRN PRN Reason: SEVERE Pain (Scale 7,8,9,10) Stop: 12/18/21 16:32 Hydroxyzine HCl (Hydroxyzine Hcl 25 Mg Tab) 25 mg PO Q8H PRN PRN Reason: Anxiety Stop: 01/03/22 16:32 Promethazine HCl 12.5 mg/ (Sodium Chloride) 50.5 mls @ 202 mls/hr IV Q6H PRN PRN Reason: Nausea &/or Vomiting Stop: 01/03/22 16:32 Acetaminophen (Ofirmev) 1,000 mg in 100 mls @ 400 mls/hr IV Q8H PRN PRN Reason: Pain Rating 1-3 & Pre PT Stop: 12/07/21 16:32 Dexamethasone 6 mg/ Syringe 1.5 mls @ 1 mls/min IV DAILY [facility] Stop: 01/05/22 10:59 Last Admin: 12/06/21 11:35 Dose: 1 mls/min Documented by: Influenza Virus Vaccine Quadrival (Do Not Administer Flu Vaccine) 1 ea N/A PRN PRN PRN Reason: Notification Stop: 01/03/22 16:32 Linaclotide (Linaclotide 145 Mcg Capsule) 290 mcg PO HS [facility] Stop: 01/03/22 20:59 Last Admin: 12/05/21 21:21 Dose: 290 mcg Documented by: Lisinopril (Lisinopril 40 Mg Tab) 40 mg PO QAM [facility] Stop: 01/04/22 08:59 Last Admin: 12/06/21 08:35 Dose: 40 mg Documented by: Magnesium Hydroxide (Magnesium Hydroxide Susp 30 Ml Udc) 30 ml PO Q24H PRN PRN Reason: Constipation Stop: 01/03/22 16:32 Methocarbamol (Methocarbamol 750 Mg Tablet) 750 mg PO BID PRN PRN Reason: MUSCLE SPASM Stop: 01/03/22 20:59 Metoclopramide HCl (Metoclopramide Hcl Inj 5 Mg/Ml 2 Ml Vial) 10 mg IV Q6H PRN PRN Reason: Nausea &/or Vomiting Stop: 01/03/22 16:32 Miscellaneous (Flurandrenolide: Order Awaiting Action) 1 ea N/A QS [facility] Stop: 01/04/22 07:59 Last Admin: 12/06/21 08:34 Dose: Not Given Documented by: Naloxone HCl (Naloxone Hcl 0.4 Mg/1 Ml Vial/Carp) 0.1 mg IV Q5M PRN PRN Reason: Oversedation/Resp depression Stop: 01/03/22 16:32 Ondansetron HCl (Ondansetron Inj 2 Mg/Ml 2 Ml Vial) 4 mg IV Q6H PRN PRN Reason: Nausea &/or Vomiting Stop: 01/03/22 16:32 Last Admin: 12/04/21 21:20 Dose: 4 mg Documented by: Ondansetron HCl (Ondansetron 4 Mg Od Tab) 4 mg PO Q6H PRN PRN Reason: Nausea Stop: 01/03/22 16:32 Last Admin: 12/05/21 13:19 Dose: 4 mg Documented by: Pneumococcal Polyvalent Vaccine (Do Not Administer Pneumococcal Vaccine) 1 ea N/A PRN PRN PRN Reason: Notification Stop: 01/03/22 16:32 Polyethylene Glycol (Polyethylene (Miralax) 17 Gm Pack) 17 gm PO Q6 [facility] Stop: 01/04/22 05:59 Last Admin: 12/06/21 11:36 Dose: Not Given Documented by: Senna/Docusate Sodium (Docusate Sodium/Senna 50/8.6mg Tab) 2 tab PO HS [facility] Stop: 01/03/22 20:59 Last Admin: 12/05/21 21:20 Dose: 2 tab Documented by: Sertraline HCl (Sertraline Hcl 50 Mg Tablet) 150 mg PO QAM [facility] Stop: 01/04/22 08:59 Last Admin: 12/06/21 08:35 Dose: 150 mg Documented by: Sodium Biphosphate/Sodium Phosphate (Sod Phosphate/Sod Biphosphate Enema 132 Ml Btl) 132 ml ND ONE PRN PRN Reason: Constipation Stop: 01/03/22 16:32 Sumatriptan Succinate (Sumatriptan Succinate 100 Mg Tab) 100 mg PO UD PRN PRN Reason: Migraine Headache Stop: 01/03/22 16:32 Last Admin: 12/05/21 14:20 Dose: 100 mg Documented by: Tamsulosin HCl (Tamsulosin Hcl 0.4 Mg Cap) 0.4 mg PO HS [facility] Stop: 01/03/22 20:59 Last Admin: 12/05/21 21:21 Dose: 0.4 mg Documented by: Tramadol HCl (Tramadol Hcl 50 Mg Tablet) 50 - 100 mg PO Q4H PRN PRN Reason: Moderate-Severe pain & Pre PT Stop: 01/03/22 16:32
[2021-12-06] MEDS ORDERED: HYDROCODONE/ACETAMOPHEN 5/325MG TAB PO ONE (15:10)
[2021-12-06] MEDS: amLODIPine BESYLATE 5 MG TAB PO SCH (20:49)
[2021-12-06] MEDS: TAMSULOSIN HCL 0.4 MG CAP PO SCH (20:50)
[2021-12-06] MEDS: DOCUSATE SODIUM/SENNA 50/8.6MG TAB PO SCH (20:50)
[2021-12-06] MEDS: LINACLOTIDE 145 MCG CAPSULE PO SCH (20:50)
[2021-12-06] MEDS ORDERED: HYDROCODONE/ACETAMOPHEN 5/325MG TAB PO PRN (21:00)
[2021-12-07] MEDS: diazePAM 5 MG TABLET PO PRN (00:09)
[2021-12-07] MEDS: POLYETHYLENE (MIRALAX) 17 GM PACK PO SCH ×2 (05:44→11:25)
[2021-12-07] MEDS ORDERED: oxyCODONE HCL IR 5 MG TAB (IMMEDIATE RELEASE) PO PRN (07:58)
--- NOTE | 2021-12-07 08:00 | Hospitalist Progress Note ---
Date of Service December 07, 2021 Assessment & Plan (1) Lumbar stenosis with neurogenic claudication: (2) Status post lumbar spine surgery for decompression of spinal cord: Plan: POD #3 s/p removal of posterior instrumentation L4-5 L5-S1, exploration of fusion L4-L5 L5-S1, lumbar decompression with bilateral medial facetectomies and foraminotomies L2-L3 L3-L4, posterior spinal fusion L3-L4 L4-5 and placement posterior instrumentation L2-S1 -Uncontrolled pain on T#3, changing to norco. This is now not working, so will change to oxycodone again. He states although this made him nauseous in the post-op period, he would like to try it again as the nausea may have been situational. Cont other PRNs as ordered by Ortho, bowel regimen and DVT ppx per the primary team -PT/OT consults-patient anticipates discharge to [facility] for further rehab -Monitor H&H, continue incentive spirometry, PT/OT -continues on daily decadron per ortho (3) Iron deficiency anemia: Plan: - Hx of such after pyloric stenosis surgical procedure in 2004 poor absorption as well as poor tolerance of oral iron due to constipation. - Has previously gotten outpatient Venofer infusions - Daily CBC -H/H decreased post-operatively as expected. (4) Hypertension: Plan: chronic, stable. Continue amlodipine 10 mg QPM, carvedilol 25 mg BID, l isinopril 40 mg daily per home reigmen. (5) Dyslipidemia: Plan: chronoic, stable, Cont atorvastatin 80 mg daily per home regimen. (6) ADD (attention deficit disorder): Plan: - Pt is on adderall as an outpatient as well as valium prn --decreased adderall with his permission to avoid polypharmacy and competing effects of drugs. - continue sertraline for anxiety and depression (7) GERD (gastroesophageal reflux disease): Plan: - Cont pepcid daily DVT ppx: - danny bustamantes CODE: Full code Dispo: Per primary service Thank you for this consultation. We will follow the patient with you during their hospital stay. You can reach a member of the [facility] Hospitalist Team 03/05 via [place] Text to "[facility] Hospitalist" role. [facility]ated Discharge Date Admission Date: December 04, 2021 Subjective 76-year-old man status post L2-L4 decompression and fusion by Dr. Ferrer on 12/04 Pain now uncontrolled with hydrocodone, but he reports dilaudid worked for him overnight appears to still have significant pain with movement tolerating PO Review of Systems Review of Systems: All systems reviewed and negative except as indicated above. Physical Exam Physical Exam: CONSTITUTIONAL: WNWD, vitals as above, generally well- appearing EYES: normal conjunctivae, no scleral icterus ENT: external ear and nose normal, MMM NECK: trachea midline, RESPIRATORY: clear to auscultation bilaterally, no crackles, rales or wheezes, normal respiratory effort CARDIOVASCULAR: regular rate and rhythm, S1 and 2 heard without murmurs, gallops or rubs, no JVD, no peripheral edema, CHEST: inspection of chest was normal GASTROINTESTINAL: soft, nontender, ND, no guarding MUSCULOSKELETAL: strength 5/5 throughout, head is normocephalic and atraumatic, SKIN: warm and dry, incision on lower back covered with dressing that is c/d/i. +ROBER drain in place. NEUROLOGIC: CN 2-12 grossly intact, normal cognition, normal speech, no tremor PSYCHIATRIC: alert cooperative and oriented to person, place and time. Results & Data Results & Data ([facility]) Vital Signs (Past 12 Hours) Vital Signs Temp Pulse Resp BP Pulse Ox 12/07/21 07:32 36.8 C 83 18 131/80 100 12/06/21 23:08 37.0 C 93 H 18 119/65 97 12/06/21 20:47 98 H 109/64 98 Laboratory Results Short CBC 12/06/21 Range/Units 10:41 WBC 11.83 H (4.8-10.8) K/uL Hgb 9.9 L (14.0-18.0) g/dL Hct 27.4 L (42-52) % Plt Count 196 (130-400) K/uL BMP 12/06/21 10:41 Sodium 131 L Potassium 4.1 Chloride 97 L Carbon Dioxide 28 BUN 18 Creatinine 0.74 Glucose 119 H Calcium 8.5 Medications Administered Current Inpatient Medications Acetaminophen (Acetaminophen 500 Mg Tab) 1,000 mg PO Q8H PRN PRN Reason: MILD Pain Scale 1,2,3 & Pre PT Stop: 01/03/22 16:32 Acetaminophen/Butalbital/Caffeine (Butalbital/Acetamin/Caffeine Tab) 1 tab PO Q6H PRN PRN Reason: Migraine Headache Stop: 01/03/22 16:32 Al Hydrox/Mg Hydrox/Simethicone (Aluminum/Magnesium Susp 30 Ml Udc) 30 ml PO Q6H PRN PRN Reason: Dyspepsia Stop: 01/03/22 16:32 Amlodipine Besylate (Amlodipine Besylate 5 Mg Tab) 10 mg PO QPM [facility] Stop: 01/03/22 20:59 Last Admin: 12/06/21 20:49 Dose: 10 mg Documented by: Amphetamine/Dextroamphetamine (Amphetamine Asp/Sulf/Dextramph 10 Mg Tab) 10 mg PO DAILY@1400 [facility] Stop: 12/20/21 13:59 Last Admin: 12/06/21 15:04 Dose: 10 mg Documented by: Amphetamine/Dextroamphetamine (Amphetamine Asp/Sulf/Dextramph 10 Mg Tab) 20 mg PO Q24H [facility] Stop: 12/20/21 07:59 Last Admin: 12/07/21 08:25 Dose: 20 mg Documented by: Atorvastatin Calcium (Atorvastatin 40 Mg Tab) 80 mg PO QAM [facility] Stop: 01/04/22 08:59 Last Admin: 12/07/21 08:25 Dose: 80 mg Documented by: Bisacodyl (Bisacodyl 10 Mg Supp) 10 mg MA DAILY PRN PRN Reason: Constipation Stop: 01/03/22 16:32 Carvedilol (Carvedilol 25 Mg Tab) 25 mg PO BID [facility] Stop: 01/03/22 20:59 Last Admin: 12/07/21 08:25 Dose: 25 mg Documented by: Diazepam (Diazepam 5 Mg Tablet) 5 mg PO DAILY PRN PRN Reason: Anxiety Stop: 01/03/22 16:32 Last Admin: 12/07/21 00:09 Dose: 5 mg Documented by: Dicyclomine HCl (Dicyclomine Hcl 10 Mg Cap) 10 mg PO QID PRN PRN Reason: abd pain Stop: 01/04/22 10:08 Last Admin: 12/05/21 19:39 Dose: 10 mg Documented by: Diphenhydramine HCl (Diphenhydramine Capsule 25 Mg Cap) 25 mg PO Q6H PRN PRN Reason: Allergic Rhinitis/Insomnia Stop: 01/03/22 16:32 Famotidine (Famotidine 20 Mg Tab) 20 mg PO Q12H PRN PRN Reason: Dyspepsia Stop: 01/03/22 16:32 Hydromorphone HCl (Hydromorphone Inj 0.5 Mg/0.5 Ml Syr) 0.5 mg IV Q3H PRN PRN Reason: MODERATE Pain (Scale 4,5,6) & Pre PT Stop: 12/18/21 16:32 Last Admin: 12/06/21 10:29 Dose: 0.5 mg Documented by: Hydromorphone HCl (Hydromorphone Inj 1 Mg/Ml Syringe) 1 mg IV Q3H PRN PRN Reason: SEVERE Pain (Scale 7,8,9,10) Stop: 12/18/21 16:32 Hydroxyzine HCl (Hydroxyzine Hcl 25 Mg Tab) 25 mg PO Q8H PRN PRN Reason: Anxiety Stop: 01/03/22 16:32 Promethazine HCl 12.5 mg/ (Sodium Chloride) 50.5 mls @ 202 mls/hr IV Q6H PRN PRN Reason: Nausea &/or Vomiting Stop: 01/03/22 16:32 Acetaminophen (Ofirmev) 1,000 mg in 100 mls @ 400 mls/hr IV Q8H PRN PRN Reason: Pain Rating 1-3 & Pre PT Stop: 12/07/21 16:32 Dexamethasone 6 mg/ Syringe 1.5 mls @ 1 mls/min IV DAILY [facility] Stop: 01/05/22 10:59 Last Admin: 12/07/21 08:24 Dose: 1 mls/min Documented by: Influenza Virus Vaccine Quadrival (Do Not Administer Flu Vaccine) 1 ea N/A PRN PRN PRN Reason: Notification Stop: 01/03/22 16:32 Linaclotide (Linaclotide 145 Mcg Capsule) 290 mcg PO HS [facility] Stop: 01/03/22 20:59 Last Admin: 12/06/21 20:50 Dose: 290 mcg Documented by: Lisinopril (Lisinopril 40 Mg Tab) 40 mg PO QAM [facility] Stop: 01/04/22 08:59 Last Admin: 12/07/21 08:25 Dose: 40 mg Documented by: Magnesium Hydroxide (Magnesium Hydroxide Susp 30 Ml Udc) 30 ml PO Q24H PRN PRN Reason: Constipation Stop: 01/03/22 16:32 Methocarbamol (Methocarbamol 750 Mg Tablet) 750 mg PO BID PRN PRN Reason: MUSCLE SPASM Stop: 01/03/22 20:59 Metoclopramide HCl (Metoclopramide Hcl Inj 5 Mg/Ml 2 Ml Vial) 10 mg IV Q6H PRN PRN Reason: Nausea &/or Vomiting Stop: 01/03/22 16:32 Miscellaneous (Flurandrenolide: Order Awaiting Action) 1 ea N/A QS [facility] Stop: 01/04/22 07:59 Last Admin: 12/07/21 08:10 Dose: Not Given Documented by: Naloxone HCl (Naloxone Hcl 0.4 Mg/1 Ml Vial/Carp) 0.1 mg IV Q5M PRN PRN Reason: Oversedation/Resp depression Stop: 01/03/22 16:32 Ondansetron HCl (Ondansetron Inj 2 Mg/Ml 2 Ml Vial) 4 mg IV Q6H PRN PRN Reason: Nausea &/or Vomiting Stop: 01/03/22 16:32 Last Admin: 12/04/21 21:20 Dose: 4 mg Documented by: Ondansetron HCl (Ondansetron 4 Mg Od Tab) 4 mg PO Q6H PRN PRN Reason: Nausea Stop: 01/03/22 16:32 Last Admin: 12/05/21 13:19 Dose: 4 mg Documented by: Oxycodone HCl (Oxycodone Hcl Ir 5 Mg Tab (Immediate Release)) 5 mg PO Q6H PRN PRN Reason: severe pain Stop: 12/21/21 07:57 Pneumococcal Polyvalent Vaccine (Do Not Administer Pneumococcal Vaccine) 1 ea N/A PRN PRN PRN Reason: Notification Stop: 01/03/22 16:32 Polyethylene Glycol (Polyethylene (Miralax) 17 Gm Pack) 17 gm PO Q6 [facility] Stop: 01/04/22 05:59 Last Admin: 12/07/21 05:44 Dose: Not Given Documented by: Senna/Docusate Sodium (Docusate Sodium/Senna 50/8.6mg Tab) 2 tab PO HS [facility] Stop: 01/03/22 20:59 Last Admin: 12/06/21 20:50 Dose: 2 tab Documented by: Sertraline HCl (Sertraline Hcl 50 Mg Tablet) 150 mg PO QAM [facility] Stop: 01/04/22 08:59 Last Admin: 12/07/21 08:25 Dose: 150 mg Documented by: Sodium Biphosphate/Sodium Phosphate (Sod Phosphate/Sod Biphosphate Enema 132 Ml Btl) 132 ml MA ONE PRN PRN Reason: Constipation Stop: 01/03/22 16:32 Sumatriptan Succinate (Sumatriptan Succinate 100 Mg Tab) 100 mg PO UD PRN PRN Reason: Migraine Headache Stop: 01/03/22 16:32 Last Admin: 12/05/21 14:20 Dose: 100 mg Documented by: Tamsulosin HCl (Tamsulosin Hcl 0.4 Mg Cap) 0.4 mg PO HS [facility] Stop: 01/03/22 20:59 Last Admin: 12/06/21 20:50 Dose: 0.4 mg Documented by: Tramadol HCl (Tramadol Hcl 50 Mg Tablet) 50 - 100 mg PO Q4H PRN PRN Reason: Moderate-Severe pain & Pre PT Stop: 01/03/22 16:32
[2021-12-07] MEDS: dexAMETHasone 6 MG in SYRINGE 0 ML IV SCH (08:24)
[2021-12-07] MEDS: lisinopril 40 MG TAB PO SCH (08:25)
[2021-12-07] MEDS: AMPHETAMINE ASP/SULF/DEXTRAMPH 10 MG TAB PO SCH (08:25)
[2021-12-07] MEDS: SERTRALINE HCL 50 MG TABLET PO SCH (08:25)
[2021-12-07] MEDS: ATORVASTATIN 40 MG TAB PO SCH (08:25)
[2021-12-07] MEDS: carvediloL 25 MG TAB PO SCH (08:25)
--- NOTE | 2021-12-07 11:10 | Discharge Summary ---
Date of Service December 07, 2021 Admission HPI Per Admitting Provider This is a 76-year-old male well-known to me the presents with worsening back and leg pain after failing course of nonoperative care is here for surgical invention. Principal Diagnosis Lumbar spinal stenosis with neurogenic medication Discharge Data Allergies Allergy/AdvReac Type Severity Reaction Status Date / Time lactose AdvReac Severe Intolerant-SEVERE Verified 12/04/21 09:11 ABDOMINAL CRAMPS buspirone AdvReac Mild Jittery, Verified 11/17/21 13:32 "crawling out of my skin" lorazepam AdvReac Mild Jittery, Verified 11/17/21 13:32 "crawling out of my skin" oxycodone AdvReac nausea Verified 12/05/21 15:45 Consultations 12/04/21 16:33 Consult Hospitalist Routine Procedures Performed Operation Date: 12/04/21 09:05 Actual Procedures p L2-L4 Decompression and Fusion, Spinal Cord Monitoring(Not Applicable) - Ángel Ferrer DO s L4-S1 Hardware Removal(Not Applicable) - Ángel Ferrer DO Ordered Studies 12/04/21 10:25 FL lumbar spine 2-3V Routine Hospital Course (1) Lumbar stenosis with neurogenic claudication: Patient 1 multilevel lumbar decompression fusion Targis was taken to orthopedic for possibly. Postop day 1 he was up and ambulating progressive postop day #2 postop #3 good strength testing ROBER drain decreasing appropriately. [place] he was stable to go home and socially discharged. Discharge orders instru ctions from the chart for further review. Total Time Total Time Spent Total Time Spent (In Minutes): 20 minutes Discharge Plan Discharge Items Patient Disposition: Home - Self-Care Reason For Visit: SURGERY Discharge Diagnosis: Lumbar spinal stenosis with neurogenic claudication Activity: As commented below Non-emergency contact: Primary Care Provider Call non-emergency contact if: you have any medication questions Follow-up/Referrals: Buddy Begum DO [Primary Care Provider] - Diet: Regular Addtl Attending Provider Instructions: ACTIVITY RECOMMENDATIONS: SELF CARE INSTRUCTIONS AFTER THORACIC/LUMBAR FUSIONS 1. You may walk to your tolerance. It is good exercise for your legs and back. Expect some back and intermittent leg aches and pains. 2. You may perform "counter-top" level activities (make a sandwich, miguel with a project, etc.). 3. No bending or lifting of more than 10 pounds or back twisting of any nature (roll like a log when turning in bed). 4. You may ride in a car for 20-30 minutes at a time. No driving until after your first visit with your doctor. 5. Frequent changes of position and restricting sitting to 30 minutes at a time will help limit the amount of back spasms and stiffness you may experience. 6. You may discontinue the use of ambulatory aids (cane, crutches, etc.) once your strength and confidence allow. 7. You may internet cafe manager the shower and let water strike your incision when you arrive home at least once daily. Do not take a tub bath, sit in a hot tub or go into a swimming pool until after your first recheck in the office. SPECIAL CARE INSTRUCTIONS: VERY IMPORTANT TO READ AND REVIEW A. Your surgical incision has been closed with a cosmetic suture under the skin that will dissolve in about 6 weeks. In 14 days, you can use a pair of clean scissors and cut the suture that is left outside of the skin at the ends of your incision. 1. The small skin tapes can be removed 7 days after surgery if they have not fallen off by that point. 2. You may keep the wound open to air as much as possible to promote healing after post-op day number 5 unless told otherwise by your doctor. 3. If you think the wound looks like it is becoming infected (redness or worsening drainage) and/or you are experiencing fever, chill or worsening back pain and muscle spasms, contact the office so that we may evaluate you as soon as possible. B. Complications are uncommon, but please contact us if you have any signs or symptoms of: 1. wound infection (fever higher than 102.5 degrees F, redness, separation of wound, drainage, or increasing pain from the incision) 2. blood clots in legs (pain, swelling, redness and warmth in legs) 3. urinary tract infection (fever higher than 102.5 degrees F, burning upon urination or increased frequency of urination) 4. nerve problems (inability to walk on your toes or heels, numbness, loss of bowel or bladder control) 5. any other symptoms that concern you C. Please call the office at if you have any concerns or questions about your operation or recovery. D. No smoking! Smoking drastically decreases the chance of a solid fusion. E. Do not take any anti-inflammatory medications (Indocin, Advil, Motrin, Aspirin, Naprosyn, etc.) as these may inhibit the chance of a solid fusion. Tylenol is okay to take for pain. MANAGING PAIN AFTER SPINAL SURGERY 1. Narcotic medication is intended for short-term use and will be provided for surgical pain. Surgical pain usually lasts for a period of 4-6 weeks. Narcotic medication includes Percocet, Vicodin, Darvocet, Tylenol #3 or Lortab. 2. Longer-term pain is more appropriately treated with non-narcotic medication such as Tylenol ES. 3. Muscle spasm is not appropriately treated with narcotics. Muscle relaxers such as Soma, Flexeril or Skelaxin can be used along with Tylenol ES. 4. Remember that we all live with some "aches and pains". This is not unusual or uncommon after an injury or as we get older. a. Back pain is expected and may include muscle spasms for 4 to 6 weeks after surgery. The pain should gradually improve. If the pain worsens for no apparent reason, please contact the office. b. Intermittent leg pain may also be experienced and should not be concerned about unless it worsens for no apparent reason. If so, please contact the office. 5. We will provide appropriate medication within the normal guidelines of their prescribed use. We will also be very cautious and aware of potential abuse and extended duration of patients' medication needs. a. Pain medications are for your comfort and to assist with sleep and rest so that the tissue can heal. They are not provided in order to return to normal activity and should not be used through the day. To do so or worsening pain at night can result from ongoing tissue damage and development of tolerance to the prescribed medicine. 6. Please allow 2-3 days to process refills. Prescriptions will not be mailed but must be picked up at the office. FOLLOW UP VISIT: Keep your scheduled follow-up appointment. Any questions, please call the office at . Pending Studies at Discharge: No Stand-Alone Forms: My [employer], Smoking Cessation Medications and DC Order Prescriptions: New hydrocodone-acetaminophen 5-325 mg tablet See Rx Instructions .ROUTE .COMPLEX PRN (Reason: pain) Qty: 30 RF: 0 tramadol 50 mg tablet 50 mg PO Q6H PRN (Reason: pain, moderate) Qty: 30 RF: 0 Continued methocarbamol 750 mg tablet 750 mg PO .COMPLEX 30 Days Qty: 60 RF: 0 sumatriptan succinate 100 mg tablet 100 mg PO DIRECTED PRN (Reason: Migraine Headache) 30 Days Qty: 9 RF: 5 cyclobenzaprine 10 mg tablet 10 mg PO BID PRN (Reason: muscle spasms) Qty: 60 RF: 1 prednisone 20 mg tablet 20 mg PO .COMPLEX 3 Days Qty: 6 RF: 0 celecoxib [Celebrex] 200 mg capsule 200 mg PO QAM RF: 0 atorvastatin 80 mg tablet 80 mg PO QAM RF: 0 rabeprazole 20 mg Tablet,Delayed Release (Dr/Ec) 20 mg PO DAILY PRN (Reason: Acid Reflux) RF: 0 sertraline [Zoloft] 100 mg tablet 150 mg PO QAM RF: 0 hydroxyzine HCl 50 mg tablet 50 mg PO BID PRN (Reason: Itching) RF: 0 acetaminophen-codeine 300-30 mg tablet 1 tab PO BID PRN (Reason: Moderate Pain (Scale Score 5-6)) RF: 0 gcdlrfacgt-dbxoiqbnbfcrh-nnbi 50-325-40 mg Tablet 1 tab PO DAILY PRN (Reason: Migraine Headache) RF: 0 dicyclomine 20 mg tablet 10 mg PO QID PRN (Reason: abd pain) RF: 0 baclofen 10 mg Tablet 10 mg PO UD PRN (Reason: muscle spasms) RF: 0 amlodipine [Norvasc] 10 mg tablet 10 mg PO QPM RF: 0 flurandrenolide 0.05 % lotion 1 applic TOPICAL BID PRN (Reason: Itching) RF: 0 azelastine 137 mcg (0.1 %) aerosol,spray 1 spray INTRANASAL QAM RF: 0 lisinopril 40 mg tablet 40 mg PO QAM RF: 0 ondansetron 4 mg tablet,disintegrating 4 mg translingual Q12 PRN (Reason: Nausea) RF: 0 tadalafil [Cialis] 20 mg tablet 20 mg PO UD PRN (Reason: erectile disfunction) RF: 0 Linzess 290 mcg capsule 290 mcg PO HS RF: 0 ibuprofen 200 mg Tablet 600 mg PO Q8H PRN (Reason: Pain) RF: 0 tamsulosin [Flomax] 0.4 mg Capsule 0.4 mg PO HS RF: 0 dextroamphetamine-amphetamine [Adderall] 30 mg Tablet 30 mg PO BID RF: 0 carvedilol 25 mg Tablet 25 mg PO BID RF: 0 diazepam 5 mg tablet 5 mg PO DAILY PRN (Reason: Anxiety) RF: 0 aspirin 325 mg tablet 975 mg PO Q6H PRN (Reason: Pain) RF: 0 Discharge Orders: Discharge Order (Routine); Ordered 12/07/21 Ordered By: Ángel Ferrer Admission Data Admit Date/Time: 12/04/21 12:13 Attending Provider: Ángel Ferrer Admit Provider: Ángel Ferrer Primary Care Provider: Buddy Begum Other Providers: [facility]
== END 2021-12-07 15:47 | disposition home or self-care (01) | DRG 460 ==
LOC: ASU 08:38 → 3N 12:13

== ENCOUNTER 2021-12-12 12:31 | Inpatient (IN) ==
[2021-12-12] MEDS ORDERED: SODIUM CHLORIDE 0.9% 1000ML 500 ML IV ONE (12:57)
[2021-12-12] MEDS ORDERED: SODIUM CHLORIDE 0.9% 1000ML 1,000 ML IV ONE (12:57)
[2021-12-12 13:35] LABS: Basophils # (auto) 0.01 K/uL (0-0.2); Basophils % (auto) 0.1 %; Eosinophils # (auto) 0.01 K/uL (0-0.5); Eosinophils % (auto) 0.1 %; Hemoglobin 9.6 g/dL (14.0-18.0); Immature Granulocytes # (auto) 0.07 K/uL (0.00-0.02); Immature Granulocytes % (auto) 0.6 %; Lymphocytes # (auto) 1.44 K/uL (1.2-3.4); Lymphocytes % (auto) 12.9 %; Mean Corpuscular Hemoglobin 30.6 pg (25-34); Mean Corpuscular Hgb Conc 35.6 g/dL (32-36); Mean Platelet Volume 8.4 fL (7.4-10.4); Monocytes # (auto) 1.17 K/uL (0.11-0.59); Monocytes % (auto) 10.5 %; Neutrophils # (auto) 8.45 K/uL (1.4-6.5); Neutrophils % (auto) 75.8 %; Platelet Count 285 K/uL (130-400); RDW Coefficient of Variation 13.5 % (11.5-14.5); RDW Standard Deviation 41.8 fL (36.4-46.3); Red Blood Count 3.14 M/uL (4.7-6.1); White Blood Count 11.15 K/uL (4.8-10.8)
[2021-12-12 13:47] LABS: Influenza A virus by PCR Negative (Negative); Influenza B virus by PCR Negative (Negative)
--- NOTE | 2021-12-12 13:55 | XRay Report ---
XR chest 1V portable CLINICAL HISTORY: Sepsis. COMPARISON STUDY: Chest radiograph November 17, 2021. FINDINGS: Patient is rotated. Skin fold projects over the left chest. Lung volumes are normal. Lungs are clear. There is no pneumothorax or pleural effusion. Cardiac size is normal. Mediastinal contours are normal. There is no evidence for pulmonary edema. IMPRESSION: No acute cardiopulmonary findings. ACT 112: Negative or not required by law. Electronically signed by: Donovan Calderon M.D. 12/12/2021 1:53 PM
[2021-12-12 14:23] LABS: Base Excess ABG -5.3 mEq/L (-9-1.8); HCO3 ABG 19 mmol/L (19-24); Oxygen Saturation ABG 97.7 % (90-95); PCO2 ABG 29 mmHg (35-46); PO2 ABG 97 mmHg (80-95); pH ABG 7.42 (7.35-7.45)
[2021-12-12 14:35] LABS: INR 1.1 (0.9-1.1); Partial Thromboplastin Ratio 1.1; Partial Thromboplastin Time 29.9 Seconds (21.0-31.0); Prothrombin Time 11.7 Seconds (9.0-12.0)
[2021-12-12 14:39] LABS: Allen Test Pos (Pos)
[2021-12-12 15:11] LABS: Troponin I 0.15 ng/ml (0-0.04)
[2021-12-12 15:12] LABS: Albumin Globulin Ratio 1.3 (0.9-2); Albumin Level 2.8 gm/dl (3.4-5.0); BUN Creatinine Ratio 15.5 (10-20); Bilirubin,Total 0.4 mg/dl (0.2-1.0); Calcium 8.3 mg/dl (8.5-10.1); Creatinine Clr Calc Pharmacy 17.3 ml/min; Est GFR (African American) 24.1 ml/min; Est GFR (Non-African American) 20.8 ml/min; Globulin 2.1 gm/dl (2.5-4.0); Magnesium 1.9 mg/dl (1.7-2.4); Potassium 4.9 mmol/L (3.5-5.1); Total Protein 4.9 gm/dl (6.0-8.3)
[2021-12-12 15:46] LABS: Appearance Urine Cloudy (Clear); Bacteria Urine Automated Negative (Negative); Blood Urine Negative (Negative); Color Urine Dark Yellow; Epithelial Cell Urine Auto 20-30 /lpf (0-5); Glucose Urine UA Negative (Negative); Ketones Urine Trace (Negative); Leukocyte Esterase Urine Trace (Negative); Nitrite Urine Positive (Negative); Protein Urine 1+ (Negative); Specific Gravity Urine 1.023 (1.000-1.030); Urobilinogen Urine Negative (Negative)
[2021-12-12] MEDS: SODIUM CHLORIDE 0.9% IV SCH (15:50)
[2021-12-12] MEDS: ASCORBIC ACID IV SCH (15:50)
[2021-12-12 15:51] LABS: Bilirubin Urine 2+ (Negative)
[2021-12-12 16:01] LABS: Mucus Urine Present (None Prsent)
--- NOTE | 2021-12-12 16:51 | CT Scan Report ---
CT abd pelvis wo con CLINICAL HISTORY: aileen ro kidneystone TECHNIQUE: Helical axial images of the abdomen and pelvis were obtained. Automated dose lowering tech niques and/or adjustment according to patient size were utilized for this exam. This exam was perfor med without intravenous contrast. COMPARISON: Comparison is made to CT abdomen pelvis 12/07/2020 FINDINGS: Lower chest: No acute abnormality Liver: Unremarkable. No focal lesions are seen. Gallbladder and biliary tree: No calcified gallstones. Normal caliber wall. No intra- or extrahepatic biliary ductal dilation. Pancreas: Unremarkable, no focal lesions. Spleen: Unremarkable. Adrenals: Unremarkable. Kidneys and ureters: There is a left renal cyst. No evidence of hydronephrosis or obstructive nephrol ithiasis. Bladder: Diffuse homogeneous wall thickening is seen. Reproductive organs: Prostatomegaly is seen. Bowel: Postsurgical changes are seen in the stomach. Colonic wall thickening is again seen, slightly less prominent than in the prior exam. Lymph nodes Retroperitoneal: Unremarkable. Mesenteric: Unremarkable. Pelvic: Unremarkable. Peritoneum: Normal. Vessels: Atherosclerotic calcifications are seen. Abdominal wall: There is expected soft tissue edema without evidence of abscess. Bones: Posterior fixation hardware is seen. Degenerative changes are noted. IMPRESSION: 1. Postsurgical changes of L3-L4 fusion. Soft tissue swelling without evidence of abscess. 2. Bladder wall thickening likely due to chronic outlet obstruction. 3. Colonic wall thickening, minimally decreased from prior exam, may represent infectious/inflammato ry colitis. ACT 112: Negative or not required by law. Electronically signed by: Jose Luis Saldivar M.D. 12/12/2021 4:50 PM
--- NOTE | 2021-12-12 17:13 | Emergency Department Note ---
History of Present Illness General Chief complaint: Dehydration Stated complaint: WEAKNESS, DIARRHEA, VOMITING, HYPOTENSION Time Seen by Provider: 12/12/21 12:56 History of Present Illness Provider complaint: Weakness diarrhea vomiting lips turning blue Onset (ago): day(s) 4 Maximum Pain Intensity: 7 Associated symptoms: + nausea/vomiting and + weakness; no chest pain, no cough, no fever/chills, no headaches, no malaise, no seizure or no shortness of breath 76-year-old male presents emergency department for weakness, diarrhea, nausea, vomiting, and lips turning blue. Patient was in the hospital and last had an L3-L4 fusion done by Dr. Ferrer. He was discharged from the hospital on Wednesday. He states since he is got home he has been having consistent diarrhea. No melena or hematochezia. He states he is also been having nausea vomiting. No hematemesis coffee-ground emesis or bilious vomiting. He states he is becoming increasingly weak his muscles are starting to cramp up and his lips keep turning blue. He is not reporting any chest pain or difficulty breathing. No headaches. No falls.No urinary incontinence or retention. Home Medications Medication Instructions Recorded Confirmed Type amlodipine 10 mg tablet (Norvasc) 10 mg PO QPM 12/07/20 12/12/21 History atorvastatin 80 mg tablet 80 mg PO QAM 12/07/20 12/12/21 History azelastine 137 mcg (0.1 %) nasal 1 spray INTRANASAL QAM PRN 12/07/20 12/12/21 History spray aerosol baclofen 10 mg tablet 10 mg PO UD PRN 12/07/20 12/12/21 History punokgqkaz-doeaawexjklwj-bqgxyumj 1 tab PO DAILY PRN 12/07/20 12/12/21 History 50 mg-325 mg-40 mg tablet celecoxib 200 mg capsule (Celebrex) 200 mg PO QAM 12/07/20 12/12/21 History dicyclomine 20 mg tablet 10 mg PO QID PRN 12/07/20 12/12/21 History flurandrenolide 0.05 % lotion 1 applic TOPICAL BID PRN 12/07/20 12/12/21 History hydroxyzine HCl 50 mg tablet 50 mg PO BID PRN 12/07/20 12/12/21 History linaclotide 290 mcg capsule 290 mcg PO HS 12/07/20 12/12/21 History (Linzess) lisinopril 40 mg tablet 40 mg PO QAM 12/07/20 12/12/21 History ondansetron 4 mg disintegrating 4 mg TRANSLINGUAL Q12 PRN 12/07/20 12/12/21 History tablet rabeprazole 20 mg tablet,delayed 20 mg PO DAILY PRN 12/07/20 12/12/21 History release sertraline 100 mg tablet (Zoloft) 150 mg PO QAM 12/07/20 12/12/21 History tadalafil 20 mg tablet (Cialis) 20 mg PO UD PRN 12/07/20 12/12/21 History methocarbamol 750 mg tablet 750 mg PO .COMPLEX 30 Days #60 tab 06/04/21 12/12/21 Rx sumatriptan succinate 100 mg tablet 100 mg PO DIRECTED PRN 30 Days 07/09/21 12/12/21 Rx #9 tab dextroamphetamine-amphetamine 30 30 mg PO BID 07/14/21 12/12/21 History mg tablet (Adderall) ibuprofen 200 mg tablet 600 mg PO Q8H PRN 07/14/21 12/12/21 History tamsulosin 0.4 mg capsule (Flomax) 0.4 mg PO HS 07/14/21 12/12/21 History cyclobenzaprine 10 mg tablet 10 mg PO BID PRN #60 tab 10/14/21 12/12/21 Rx carvedilol 25 mg tablet 25 mg PO BID 11/11/21 12/12/21 History diazepam 5 mg tablet 5 mg PO DAILY PRN 11/11/21 12/12/21 History aspirin 325 mg tablet 975 mg PO Q6H PRN tab 11/17/21 12/12/21 History tramadol 50 mg tablet 50 mg PO Q6H PRN #30 tab 12/05/21 12/12/21 Rx oxycodone 5 mg tablet 5 mg PO Q6H PRN #14 tab 12/07/21 12/12/21 Rx Allergies Allergy/AdvReac Type Severity Reaction Status Date / Time lactose AdvReac Severe Intolerant-SEVERE Verified 12/12/21 17:04 ABDOMINAL CRAMPS buspirone AdvReac Intermediate Jittery, Verified 12/12/21 17:04 "crawling out of my skin" lorazepam AdvReac Intermediate Jittery, Verified 12/12/21 17:04 "crawling out of my skin" oxycodone AdvReac Mild nausea Verified 12/12/21 17:04 Past Med/Surg History Medical History Anemia iron deficiency, h/o multiple infusions with last occurring > 1 month ago Anxiety Arthralgia of multiple sites Arthritis 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 hyperactivity Bilateral edema of lower extremity resolved on carvedilol per pt Chronic radicular low back pain CVA (cerebral vascular accident) Incidental "old" infarct noted on 2018 imaging during workup for polypharmacy reaction Degenerative disc disease Depression with h/o depressive psychosis Duodenal ulcer resolved per pt and s/p release from subsequent adhesion development Dyslipidemia GERD (gastroesophageal reflux disease) pyloric stenosis s/p partial gastrectomy Glaucoma History of long-term treatment with high-risk medication Hypertension controlled, stable per pt Hyponatremia stable per pt IBS (irritable bowel syndrome) C Migraine without status migrainosus, not intractable Mild cognitive impairment Mild concentric left ventricular hypertrophy (LVH) Pain in foot left PFO (patent foramen ovale) [facility] cardio 07/2021: "small and non clinically significant...no additional cardiac studies or treatment are indicated..." Rebound headache to be starting prednisone course by neurology per note Spinal stenosis Urinary frequency Surgical History Fusion of spine Lumbar History of colonoscopy History of esophagogastroduodenoscopy (EGD) History of myringotomy History of partial gastrectomy r/t pyloric sphincter scarring 2004 (x2) History of surgery Right side (ribs removed) History of tonsillectomy History of tooth extraction Family History Other No family history of adverse response to anesthesia No known health problems Social History Smoking Status: Never smoker Second Hand Exposure: No; Hx Alcohol Use: No Hx Substance Use: No Preferred Language: Estonian Communication Ability: Effective Alarm Security Or Surveillance Monitor Required: No Beliefs That Will Affect Care: None marital status: Current Living Situation: Spouse current occupational status: retired How many Children do You have: 2 Feels Safe at Home: Yes Assistive Devices: Glasses and Walker Review of Systems A total of 10 systems reviewed and were otherwise negative Physical Exam Vital Signs Vital Signs - 24 hr 12/12/21 12:43 12/12/21 13:42 12/12/21 14:00 Temperature 36.3 C L Temperature Source Oral Pulse Rate 79 Pulse Rate [Apical] 75 70 Respiratory Rate 15 18 16 Blood Pressure 76/53 L Blood Pressure [Left Arm] 87/64 L 90/49 L Blood Pressure Mean 60 Blood Pressure Mean [Left Arm] 71 62 Pulse Oximetry 100 100 100 Oxygen Delivery Method Room Air Room Air Room Air Sepsis Recent Fever Within 48 Hours No Sepsis New/Unexplained Change in Mental Status No Sepsis Action Taken by Nursing No Action Required 12/12/21 14:30 12/12/21 15:00 12/12/21 15:30 Temperature Temperature Source Pulse Rate Pulse Rate [Apical] 74 66 89 Respiratory Rate 13 17 20 Blood Pressure Blood Pressure [Left Arm] 106/51 L 103/56 L 104/54 L Blood Pressure Mean Blood Pressure Mean [Left Arm] 69 71 70 Pulse Oximetry 100 100 100 Oxygen Delivery Method Room Air Sepsis Recent Fever Within 48 Hours Sepsis New/Unexplained Change in Mental Status Sepsis Action Taken by Nursing 12/12/21 16:00 12/12/21 16:30 12/12/21 17:00 Temperature Temperature Source Pulse Rate Pulse Rate [Apical] 72 73 74 Respiratory Rate 14 16 18 Blood Pressure Blood Pressure [Left Arm] 117/47 L 114/58 L 120/58 L Blood Pressure Mean Blood Pressure Mean [Left Arm] 70 76 78 Pulse Oximetry 100 100 100 Oxygen Delivery Method Room Air Room Air Room Air Sepsis Recent Fever Within 48 Hours Sepsis New/Unexplained Change in Mental Status Sepsis Action Taken by Nursing Physical Exam HENT: Exam performed. - Head: Normocephalic and atraumatic. - Right Ear: External ear normal. No mastoid tenderness. - Left Ear: External ear normal. No mastoid tenderness. - Mouth/Throat: Dry mucous membranes. Cyanotic lips. EYES: Conjunctivae and EOM are normal. Pupils are equal, round, and reactive to light. Right eye exhibits no discharge. Left eye exhibits no discharge. No scleral icterus. NECK: Normal range of motion. Neck supple. No JVD present. No spinous process tenderness present. No carotid bruit present. No rigidity. No tracheal deviation and normal range of motion present. No Brudzinski's sign and no Kernig's sign noted. CV: Normal rate, regular rhythm, normal heart sounds and intact distal pulses. There is no peripheral edema. Palpable radial pulses bue. PULM/CHEST: Effort normal and breath sounds normal. No respiratory distress. No stridor. He has no wheezes. He has no rales. - Chest Wall: He exhibits no tenderness. ABD: The abdomen is soft. NEURO: He is alert and oriented to person, place, and time. He has normal strength. No cranial nerve deficit or sensory deficit. GCS eye subscore is 4. GCS verbal subscore is 5. GCS motor subscore is 6. Cerebellar tests wnl. SKIN: Surgical incision over the lumbar spine is clean and dry with no surrounding erythema or discharge. No fluctuant areas. Nikolsky sign negative. Course Course 1256: The patient was evaluated in room C1. A complete history and physical exam was performed Cardiac monitoring: An order was placed for continuous cardiac monitoring. The monitor shows a rate of 70 with sinus rhythm Patient is hypotensive on arrival, code sepsis initiated. Given the patient's recent surgery and has cyanosis of the lips with normal Oxyg en saturation on pulse ox, met hemoglobin level be checked. 1330: Blood pressure improving with IV fluids. 1545: Blood pressure improved with 30 cc/kg bolus.Labs show mild hemoglobin level of 3.1. This most likely explains the patient's cyanotic lips. Patient is not hypoxic and blood pressure improved with IV fluids, no need for methylene blue at this time. Ascorbic acid ordered for the patient to treat methemoglobinemia to see if this will help normalize the methemoglobin level. Labs show creatinine of 2.84, up from 0.74 last week. Troponin is elevated. This most likely due to patient's acute kidney injury. Patient not reporting chest pain difficulty breathing at this time. Patient states he feels better after IV fluids but states he still cannot give much of a urine sample. Will order CT the abdomen. 1715: Vital signs stable. CT of the abdomen shows no obstructing stone. Urinalysis appears contaminated sample. Antibiotics will be held at this time. [facility] be [facility]. Administered Medications Ascorbic Acid 5,000 mg/ Sodium (Chloride) 260 mls @ 86.667 mls/hr IV Q6H NENA Stop: 12/14/21 11:44 Last Admin: 12/12/21 15:50 Dose: 86.7 mls/hr Documented by: [id number] Discontinued Medications Sodium Chloride (Nss 1000ml) 500 mls @ 999 mls/hr IV .Q31M ONE Stop: 12/12/21 13:27 Last Infusion: 12/12/21 13:57 Dose: 0 mls/hr Documented by: [id number] Admin: 12/12/21 13:27 Dose: 999 mls/hr Documented by: [id number] Sodium Chloride (Nss 1000ml) 1,000 mls @ 999 mls/hr IV .Q1H1M ONE Stop: 12/12/21 13:57 Last Infusion: 12/12/21 15:55 Dose: 0 mls/hr Documented by: [id number] Admin: 12/12/21 13:52 Dose: 999 mls/hr Documented by: [id number] Medical Decision Making Laboratory Data Result diagrams: 12/12/21 13:21 12/12/21 13:53 Lab Results 12/12/21 12/12/21 12/12/21 Range/Units 13:21 13:21 13:21 WBC 11.15 H (4.8-10.8) K/uL RBC 3.14 L (4.7-6.1) M/uL Hgb 9.6 L (14.0-18.0) g/dL Hct 27.0 L (42-52) % MCV 86.0 (80-100) fL MCH 30.6 (25-34) pg MCHC 35.6 (32-36) g/dL RDW Std Deviation 41.8 (36.4-46.3) fL RDW Coeff of Boogie 13.5 (11.5-14.5) % Plt Count 285 (130-400) K/uL MPV 8.4 (7.4-10.4) fL Immature Gran % (Auto) 0.6 % Neut % (Auto) 75.8 % Lymph % (Auto) 12.9 % Grimes % (Auto) 10.5 % Eos % (Auto) 0.1 % Baso % (Auto) 0.1 % Neut # (Auto) 8.45 H (1.4-6.5) K/uL Lymph # (Auto) 1.44 (1.2-3.4) K/uL Grimes # (Auto) 1.17 H (0.11-0.59) K/uL Eos # (Auto) 0.01 (0-0.5) K/uL Baso # (Auto) 0.01 (0-0.2) K/uL Immature Gran # (Auto) 0.07 H (0.00-0.02) K/uL PT Cancelled INR Cancelled APTT Cancelled PTT Ratio Cancelled ABG pH (7.35-7.45) ABG pCO2 (35-46) mmHg ABG pO2 (80-95) mmHg ABG HCO3 (19-24) mmol/L ABG O2 Saturation (90-95) % ABG Base Excess (-9-1.8) mEq/L Yosi Test (Pos) Methemoglobin (0.0-1.5) % Barometric Pressure mm/Hg Oxygen Given Sodium Cancelled Potassium Cancelled Chloride Cancelled Carbon Dioxide Cancelled Anion Gap Cancelled BUN Cancelled Creatinine Cancelled Est Cr Clr Drug Dosing Cancelled Est GFR ( Amer) Cancelled Est GFR (Non-Af Amer) Cancelled BUN/Creatinine Ratio Cancelled Glucose Cancelled Lactate Calcium Cancelled Magnesium Cancelled Total Bilirubin Cancelled AST Cancelled ALT Cancelled Alkaline Phosphatase Cancelled Troponin I Cancelled Total Protein Cancelled Albumin Cancelled Globulin Cancelled Albumin/Globulin Ratio Cancelled Procalcitonin Urine Color Urine Appearance (Clear) Urine pH (4.5-7.5) Ur Specific Palmer (1.000-1.030) Urine Protein (Negative) Urine Glucose (UA) (Negative) Urine Ketones (Negative) Urine Blood (Negative) Urine Nitrite (Negative) Urine Bilirubin (Negative) Urine Urobilinogen (Negative) Ur Leukocyte Esterase (Negative) Urine WBC (Auto) (0-5) /hpf Urine RBC (Auto) (0-4) /hpf U Hyaline Cast (Auto) (0-5) /lpf U Epithel Cells (Auto) (0-5) /lpf Urine Bacteria (Auto) (Negative) Urine Mucus (None Prsent) Influ A Molecular Assay (Negative) Influ B Molecular Assay (Negative) SARS-CoV-2, RNA, NAAT (NEGATIVE) 12/12/21 12/12/21 12/12/21 Range/Units 13:21 13:21 13:22 WBC (4.8-10.8) K/uL RBC (4.7-6.1) M/uL Hgb (14.0-18.0) g/dL Hct (42-52) % MCV (80-100) fL MCH (25-34) pg MCHC (32-36) g/dL RDW Std Deviation (36.4-46.3) fL RDW Coeff of Boogie (11.5-14.5) % Plt Count (130-400) K/uL MPV (7.4-10.4) fL Immature Gran % (Auto) % Neut % (Auto) % Lymph % (Auto) % Grimes % (Auto) % Eos % (Auto) % Baso % (Auto) % Neut # (Auto) (1.4-6.5) K/uL Lymph # (Auto) (1.2-3.4) K/uL Grimes # (Auto) (0.11-0.59) K/uL Eos # (Auto) (0-0.5) K/uL Baso # (Auto) (0-0.2) K/uL Immature Gran # (Auto) (0.00-0.02) K/uL PT INR APTT PTT Ratio ABG pH (7.35-7.45) ABG pCO2 (35-46) mmHg ABG pO2 (80-95) mmHg ABG HCO3 (19-24) mmol/L ABG O2 Saturation (90-95) % ABG Base Excess (-9-1.8) mEq/L Yosi Test (Pos) Methemoglobin (0.0-1.5) % Barometric Pressure mm/Hg Oxygen Given Sodium Potassium Chloride Carbon Dioxide Anion Gap BUN Creatinine Est Cr Clr Drug Dosing Est GFR ( Amer) Est GFR (Non-Af Amer) BUN/Creatinine Ratio Glucose Lactate Cancelled Calcium Magnesium Total Bilirubin AST ALT Alkaline Phosphatase Troponin I Total Protein Albumin Globulin Albumin/Globulin Ratio Procalcitonin Cancelled Urine Color Urine Appearance (Clear) Urine pH (4.5-7.5) Ur Specific Palmer (1.000-1.030) Urine Protein (Negative) Urine Glucose (UA) (Negative) Urine Ketones (Negative) Urine Blood (Negative) Urine Nitrite (Negative) Urine Bilirubin (Negative) Urine Urobilinogen (Negative) Ur Leukocyte Esterase (Negative) Urine WBC (Auto) (0-5) /hpf Urine RBC (Auto) (0-4) /hpf U Hyaline Cast (Auto) (0-5) /lpf U Epithel Cells (Auto) (0-5) /lpf Urine Bacteria (Auto) (Negative) Urine Mucus (None Prsent) Influ A Molecular Assay (Negative) Influ B Molecular Assay (Negative) SARS-CoV-2, RNA, NAAT NEGATIVE (NEGATIVE) 12/12/21 12/12/21 12/12/21 Range/Units 13:22 13:53 13:53 WBC (4.8-10.8) K/uL RBC (4.7-6.1) M/uL Hgb (14.0-18.0) g/dL Hct (42-52) % MCV (80-100) fL MCH (25-34) pg MCHC (32-36) g/dL RDW Std Deviation (36.4-46.3) fL RDW Coeff of Boogie (11.5-14.5) % Plt Count (130-400) K/uL MPV (7.4-10.4) fL Immature Gran % (Auto) % Neut % (Auto) % Lymph % (Auto) % Grimes % (Auto) % Eos % (Auto) % Baso % (Auto) % Neut # (Auto) (1.4-6.5) K/uL Lymph # (Auto) (1.2-3.4) K/uL Grimes # (Auto) (0.11-0.59) K/uL Eos # (Auto) (0-0.5) K/uL Baso # (Auto) (0-0.2) K/uL Immature Gran # (Auto) (0.00-0.02) K/uL PT 11.7 INR 1.1 APTT 29.9 PTT Ratio 1.1 ABG pH (7.35-7.45) ABG pCO2 (35-46) mmHg ABG pO2 (80-95) mmHg ABG HCO3 (19-24) mmol/L ABG O2 Saturation (90-95) % ABG Base Excess (-9-1.8) mEq/L Yosi Test (Pos) Methemoglobin (0.0-1.5) % Barometric Pressure mm/Hg Oxygen Given Sodium 135 L Potassium 4.9 Chloride 102 Carbon Dioxide 21 Anion Gap 12 H BUN 44 H Creatinine 2.84 H Est Cr Clr Drug Dosing 17.3 Est GFR ( Amer) 24.1 Est GFR (Non-Af Amer) 20.8 BUN/Creatinine Ratio 15.5 Glucose 118 H Lactate Calcium 8.3 L Magnesium 1.9 Total Bilirubin 0.4 AST 19 ALT 21 Alkaline Phosphatase 138 H Troponin I 0.15 H* Total Protein 4.9 L Albumin 2.8 L Globulin 2.1 L Albumin/Globulin Ratio 1.3 Procalcitonin Urine Color Urine Appearance (Clear) Urine pH (4.5-7.5) Ur Specific Palmer (1.000-1.030) Urine Protein (Negative) Urine Glucose (UA) (Negative) Urine Ketones (Negative) Urine Blood (Negative) Urine Nitrite (Negative) Urine Bilirubin (Negative) Urine Urobilinogen (Negative) Ur Leukocyte Esterase (Negative) Urine WBC (Auto) (0-5) /hpf Urine RBC (Auto) (0-4) /hpf U Hyaline Cast (Auto) (0-5) /lpf U Epithel Cells (Auto) (0-5) /lpf Urine Bacteria (Auto) (Negative) Urine Mucus (None Prsent) Influ A Molecular Assay Negative (Negative) Influ B Molecular Assay Negative (Negative) SARS-CoV-2, RNA, NAAT (NEGATIVE) 12/12/21 12/12/21 12/12/21 Range/Units 13:53 13:53 14:01 WBC (4.8-10.8) K/uL RBC (4.7-6.1) M/uL Hgb (14.0-18.0) g/dL Hct (42-52) % MCV (80-100) fL MCH (25-34) pg MCHC (32-36) g/dL RDW Std Deviation (36.4-46.3) fL RDW Coeff of Boogie (11.5-14.5) % Plt Count (130-400) K/uL MPV (7.4-10.4) fL Immature Gran % (Auto) % Neut % (Auto) % Lymph % (Auto) % Grimes % (Auto) % Eos % (Auto) % Baso % (Auto) % Neut # (Auto) (1.4-6.5) K/uL Lymph # (Auto) (1.2-3.4) K/uL Grimes # (Auto) (0.11-0.59) K/uL Eos # (Auto) (0-0.5) K/uL Baso # (Auto) (0-0.2) K/uL Immature Gran # (Auto) (0.00-0.02) K/uL PT INR APTT PTT Ratio ABG pH (7.35-7.45) ABG pCO2 (35-46) mmHg ABG pO2 (80-95) mmHg ABG HCO3 (19-24) mmol/L ABG O2 Saturation (90-95) % ABG Base Excess (-9-1.8) mEq/L Yosi Test (Pos) Methemoglobin 3.1 H (0.0-1.5) % Barometric Pressure mm/Hg Oxygen Given Sodium Potassium Chloride Carbon Dioxide Anion Gap BUN Creatinine Est Cr Clr Drug Dosing Est GFR ( Amer) Est GFR (Non-Af Amer) BUN/Creatinine Ratio Glucose Lactate 2.2 H* Calcium Magnesium Total Bilirubin AST ALT Alkaline Phosphatase Troponin I Total Protein Albumin Globulin Albumin/Globulin Ratio Procalcitonin 87.32 H Urine Color Urine Appearance (Clear) Urine pH (4.5-7.5) Ur Specific Palmer (1.000-1.030) Urine Protein (Negative) Urine Glucose (UA) (Negative) Urine Ketones (Negative) Urine Blood (Negative) Urine Nitrite (Negative) Urine Bilirubin (Negative) Urine Urobilinogen (Negative) Ur Leukocyte Esterase (Negative) Urine WBC (Auto) (0-5) /hpf Urine RBC (Auto) (0-4) /hpf U Hyaline Cast (Auto) (0-5) /lpf U Epithel Cells (Auto) (0-5) /lpf Urine Bacteria (Auto) (Negative) Urine Mucus (None Prsent) Influ A Molecular Assay (Negative) Influ B Molecular Assay (Negative) SARS-CoV-2, RNA, NAAT (NEGATIVE) 12/12/21 12/12/21 Range/Units 14:01 15:29 WBC (4.8-10.8) K/uL RBC (4.7-6.1) M/uL Hgb (14.0-18.0) g/dL Hct (42-52) % MCV (80-100) fL MCH (25-34) pg MCHC (32-36) g/dL RDW Std Deviation (36.4-46.3) fL RDW Coeff of Boogie (11.5-14.5) % Plt Count (130-400) K/uL MPV (7.4-10.4) fL Immature Gran % (Auto) % Neut % (Auto) % Lymph % (Auto) % Grimes % (Auto) % Eos % (Auto) % Baso % (Auto) % Neut # (Auto) (1.4-6.5) K/uL Lymph # (Auto) (1.2-3.4) K/uL Grimes # (Auto) (0.11-0.59) K/uL Eos # (Auto) (0-0.5) K/uL Baso # (Auto) (0-0.2) K/uL Immature Gran # (Auto) (0.00-0.02) K/uL PT INR APTT PTT Ratio ABG pH 7.42 (7.35-7.45) ABG pCO2 29 L (35-46) mmHg ABG pO2 97 H (80-95) mmHg ABG HCO3 19 (19-24) mmol/L ABG O2 Saturation 97.7 H (90-95) % ABG Base Excess -5.3 (-9-1.8) mEq/L Yosi Test Pos (Pos) Methemoglobin (0.0-1.5) % Barometric Pressure 741.5 mm/Hg Oxygen Given Room Air Sodium Potassium Chloride Carbon Dioxide Anion Gap BUN Creatinine Est Cr Clr Drug Dosing Est GFR ( Amer) Est GFR (Non-Af Amer) BUN/Creatinine Ratio Glucose Lactate Calcium Magnesium Total Bilirubin AST ALT Alkaline Phosphatase Troponin I Total Protein Albumin Globulin Albumin/Globulin Ratio Procalcitonin Urine Color Dark Yellow Urine Appearance Cloudy A (Clear) Urine pH 5.0 (4.5-7.5) Ur Specific Palmer 1.023 (1.000-1.030) Urine Protein 1+ H (Negative) Urine Glucose (UA) Negative (Negative) Urine Ketones Trace H (Negative) Urine Blood Negative (Negative) Urine Nitrite Positive A (Negative) Urine Bilirubin 2+ H (Negative) Urine Urobilinogen Negative (Negative) Ur Leukocyte Esterase Trace H (Negative) Urine WBC (Auto) 1-5 (0-5) /hpf Urine RBC (Auto) 5-10 H (0-4) /hpf U Hyaline Cast (Auto) 10-30 H (0-5) /lpf U Epithel Cells (Auto) 20-30 H (0-5) /lpf Urine Bacteria (Auto) Negative (Negative) Urine Mucus Present A (None Prsent) Influ A Molecular Assay (Negative) Influ B Molecular Assay (Negative) SARS-CoV-2, RNA, NAAT (NEGATIVE) Imaging Data Radiologist's Impression: Chest X-Ray 12/12/21 12:57 XR chest 1V portable CLINICAL HISTORY: Sepsis. COMPARISON STUDY: Chest radiograph November 17, 2021. FINDINGS: Patient is rotated. Skin fold projects over the left chest. Lung vo lumes are normal. Lungs are clear. There is no pneumothorax or pleural effusion. Cardiac size is normal. Mediastinal contours are normal. There is no evidence for pulmonary edema. IMPRESSION: No acute cardiopulmonary findings. ACT 112: Negative or not required by law. Electronically signed by: Donovan Calderon M.D. 12/12/2021 1:53 PM Abdomen/Pelvis CT 12/12/21 15:46 CT abd pelvis wo con CLINICAL HISTORY: leonel ro kidneystone TECHNIQUE: Helical axial images of the abdomen and pelvis were obtained. Automated dose lowering techniques and/or adjustment according to patient size were utilized for this exam. This exam was performed without intravenous contrast. COMPARISON: Comparison is made to CT abdomen pelvis 12/07/2020 FINDINGS: Lower chest: No acute abnormality Liver: Unremarkable. No focal lesions are seen. Gallbladder and biliary tree: No calcified gallstones. Normal caliber wall. No intra- or extrahepatic biliary ductal dilation. Pancreas: Unremarkable, no focal lesions. Spleen: Unremarkable. Adrenals: Unremarkable. Kidneys and ureters: There is a left renal cyst. No evidence of hydronephrosis or obstructive nephrolithiasis. Bladder: Diffuse homogeneous wall thickening is seen. Reproductive organs: Prostatomegaly is seen. Bowel: Postsurgical changes are seen in the stomach. Colonic wall thickening is again seen, slightly less prominent than in the prior exam. Lymph nodes Retroperitoneal: Unremarkable. Mesenteric: Unremarkable. Pelvic: Unremarkable. Peritoneum: Normal. Vessels: Atherosclerotic calcifications are seen. Abdominal wall: There is expected soft tissue edema without evidence of abscess. Bones: Posterior fixation hardware is seen. Degenerative changes are noted. IMPRESSION: 1. Postsurgical changes of L3-L4 fusion. Soft tissue swelling without evidence of abscess. 2. Bladder wall thickening likely due to chronic outlet obstruction. 3. Colonic wall thickening, minimally decreased from prior exam, may represent infectious/inflammatory colitis. ACT 112: Negative or not required by law. Electronically signed by: Jose Luis Saldivar M.D. 12/12/2021 4:50 PM ECG Data Indication: + other (sepsis) Rate (beats per minute): 84 Rhythm: + normal sinus ECG Intervals/blocks: + Normal QRS, + Normal UT and + Normal QT-c ECG ST segments: + Normal ST segments [facility] Narrative 1238: The patient was evaluated in room B9. A complete history and physical exam was performed Cardiac monitoring: An order was placed for continuous cardiac monitoring. The monitor shows a rate of 70 with sinus rhythm 1535: Vital signs stable. Labs show leukopenia of 1.24 with absolute neutrophil count of 0.27. Discussed this with the patient being on chemotherapy. Patient is not having any fevers. Potassium 3.3. Imaging shows no acute traumatic injury. Imaging does show, pneumonia. Given the patient's recurrent syncopal episodes and weakness. Patient will be admitted to the hospital service Dr. Riggs notified. Impression & Plan LEONEL (acute kidney injury), Elevated troponin, Methemoglobinemia Discharge Plan Visit Data Chief Complaint: Dehydration Stated Complaint: WEAKNESS, DIARRHEA, VOMITING, HYPOTENSION ED Provider: Tyrone Kemp Discharge Problem: LEONEL (acute kidney injury), Elevated troponin, Methemoglobinemia Patient Disposition: Admitted As Inpatient Forms Stand Alone Forms: [facility] Prescriptions Prescriptions: No Action methocarbamol 750 mg tablet 750 mg PO .COMPLEX 30 Days Qty: 60 RF: 0 sumatriptan succinate 100 mg tablet 100 mg PO DIRECTED PRN (Reason: Migraine Headache) 30 Days Qty: 9 RF: 5 cyclobenzaprine 10 mg tablet 10 mg PO BID PRN (Reason: muscle spasms) Qty: 60 RF: 1 celecoxib [Celebrex] 200 mg capsule 200 mg PO QAM RF: 0 atorvastatin 80 mg tablet 80 mg PO QAM RF: 0 rabeprazole 20 mg Tablet,Delayed Release (Dr/Ec) 20 mg PO DAILY PRN (Reason: Acid Reflux) RF: 0 sertraline [Zoloft] 100 mg tablet 150 mg PO QAM RF: 0 hydroxyzine HCl 50 mg tablet 50 mg PO BID PRN (Reason: Itching) RF: 0 ailsagmivv-aatranzxeuydy-xhnx 50-325-40 mg Tablet 1 tab PO DAILY PRN (Reason: Migraine Headache) RF: 0 dicyclomine 20 mg tablet 10 mg PO QID PRN (Reason: abd pain) RF: 0 baclofen 10 mg Tablet 10 mg PO UD PRN (Reason: muscle spasms) RF: 0 amlodipine [Norvasc] 10 mg tablet 10 mg PO QPM RF: 0 flurandrenolide 0.05 % lotion 1 applic TOPICAL BID PRN (Reason: Itching) RF: 0 azelastine 137 mcg (0.1 %) aerosol,spray 1 spray INTRANASAL QAM PRN (Reason: Congestion) RF: 0 lisinopril 40 mg tablet 40 mg PO QAM RF: 0 ondansetron 4 mg tablet,disintegrating 4 mg translingual Q12 PRN (Reason: Nausea) RF: 0 tadalafil [Cialis] 20 mg tablet 20 mg PO UD PRN (Reason: erectile disfunction) RF: 0 Linzess 290 mcg capsule 290 mcg PO HS RF: 0 ibuprofen 200 mg Tablet 600 mg PO Q8H PRN (Reason: Pain) RF: 0 tamsulosin [Flomax] 0.4 mg Capsule 0.4 mg PO HS RF: 0 dextroamphetamine-amphetamine [Adderall] 30 mg Tablet 30 mg PO BID RF: 0 carvedilol 25 mg Tablet 25 mg PO BID RF: 0 diazepam 5 mg tablet 5 mg PO DAILY PRN (Reason: Anxiety) RF: 0 aspirin 325 mg tablet 975 mg PO Q6H PRN (Reason: Pain) RF: 0 tramadol 50 mg tablet 50 mg PO Q6H PRN (Reason: pain, moderate) Qty: 30 RF: 0 oxycodone 5 mg tablet 5 mg PO Q6H PRN (Reason: severe pain (scale score 7-10)) Qty: 14 RF: 0 Referrals Referrals: Buddy Begum DO [Primary Care Provider] -
[2021-12-12] MEDS: SODIUM CHLORIDE 0.9% 1000ML 1,000 ML IV SCH (18:00)
[2021-12-12] MEDS ORDERED: PIPERACILL/TAZOBAC CONSULT ACTIVE PRN (18:25)
--- NOTE | 2021-12-12 19:12 | Electrocardiogram Report ---
Test Reason : Blood Pressure : / mmHG Vent. Rate : 084 BPM Atrial Rate : 084 BPM P-R Int : 170 ms QRS Dur : 098 ms QT Int : 392 ms P-R-T Axes : 074 075 071 degrees QTc Int : 463 ms Normal sinus rhythm Normal ECG When compared with ECG of 17-NOV-2021 15:42, QT has lengthened Confirmed by Chandler Herzog ([id number]) on 12/12/2021 7:12:30 PM Referred By: REFERRED SELF Confirmed By:Dennis Herzog
--- NOTE | 2021-12-12 19:23 | History & Physical Report ---
Date of Service December 12, 2021 Assessment & Plan (1) Sepsis: (2) Colitis: (3) UTI (urinary tract infection): Plan: Admit to telemetry Patient presenting from home with reports of intractable diarrhea, generalized weakness, nailbed cyanosis In the ED, patient hypotensive 76/53 which improved after IVF. WBC 11 K, HR WNL, patient afebrile. Initial lactate 2.2 --> 0.[address] ABD/pelvis suggesting possible colitis. Check stool for C. difficile and stool PCR panel UA suggestive of possible UTI Start IV Zosyn for possible infectious colitis and/or UTI Follow urine and blood cultures Continue IVF (4) LEONEL (acute kidney injury): Plan: Nonoliguric Creatinine 2.4 (baseline 0.7) Likely multifactorial due to prerenal losses due to diarrhea, nephrotoxic medications, possible urinary retention (findings of chronic bladder outlet obstruction noted on CT) IVF, hold SVEN inhibitor and NSAIDs Bladder scan for postvoid residual Monitor renal functions Low threshold for nephrology consult (5) Elevated troponin: Plan: Troponin 0.15 History of chronic troponin elevation No reports of chest pain, EKG without acute ST changes Likely demand ischemia in the setting of sepsis Trend troponin (6) Methemoglobinemia: Plan: Methemoglobin noted to be 3.1% on ABG ? Clinical significance, may be due to profound hypotension on presentation Cyanosis resolved with BP improvement Received IV vitamin C in ED Repeat methemoglobin, if no improvement, consider further work-up (7) Depression: (8) ADD (attention deficit disorder): Plan: Continue home meds (9) Iron deficiency anemia: Plan: History of after partial gastrectomy several years ago Hgb stable 9.6 (at recent postop baseline) Received iron transfusion as an outpatient (10) Status post lumbar spine surgery for decompression of spinal cord: Plan: 12/04/2021:s/p removal of posterior instrumentation L4-5 L5-S1, exploration of fusion L4-L5 L5-S1, lumbar decompression with bilateral medial facetectomies and foraminotomies L2-L3 L3-L4, posterior spinal fusion L3-L4 L4-5 and placement posterior instrumentation L2-S1 No acute issues, no signs of postoperative abscess on CT (11) Hypertension: Plan: Due to presenting hypotension, hold antihypertensives (12) DVT prophylaxis: Plan: SCDs for now History of Present Illness Chief Complaint: Generalized weakness, diarrhea Primary Care Provider: Buddy Begum DO 76-year-old male with PMH dyslipidemia, HTN, IBS-C, history of peptic ulcer disease with remote history of Billroth I procedure, chronic MIR, depression, ADD, and other problems listed below who presents to the ED for evaluation of generalized weakness and intractable diarrhea. Patient recently admitted to [facility] 12/04 through 12/07 after patient underwent back surgery with Dr. Ferrer on 12/04. Patient reports feeling well at the time of discharge. About 4 days ago, patient reports he developed intractable diarrhea. He has had worsening generalized weakness. He has had a very poor appetite. Patient reports a history of chronic constipation and feels as though he received too much bowel regimen while admitted to the hospital. Patient denies chest pain or shortness of breath. No nausea or vomiting. Denies lightheadedness, dizziness, diaphoresis, syncopal events. No urinary symptoms. Today, patient noted his fingernails to be blue. He then called EMS and was brought to the ED for further evaluation. In the ED, patient was hypotensive 76/53, this improved with IVF. Labs show WBC 11.5, Hgb 9.6, creatinine 2.8, lactate 2.2, troponin 0 0.15, procalcitonin 87. ABG shows mildly elevated methemoglobin 3.1%. UA suggestive of possible UTI. CT ABD/pelvis showing possible colitis. In addition to IVF, patient also received IV vitamin C for concerns of methemoglobinemia. Allergies Allergy/AdvReac Type Severity Reaction Status Date / Time lactose AdvReac Severe Intolerant-SEVERE Verified 12/12/21 17:04 ABDOMINAL CRAMPS buspirone AdvReac Intermediate Jittery, Verified 12/12/21 17:04 "crawling out of my skin" lorazepam AdvReac Intermediate Jittery, Verified 12/12/21 17:04 "crawling out of my skin" oxycodone AdvReac Mild nausea Verified 12/12/21 17:04 Home Medications Medication Instructions Recorded Confirmed Type amlodipine 10 mg tablet (Norvasc) 10 mg PO QPM 12/07/20 12/12/21 History atorvastatin 80 mg tablet 80 mg PO QAM 12/07/20 12/12/21 History azelastine 137 mcg (0.1 %) nasal 1 spray INTRANASAL QAM PRN 12/07/20 12/12/21 History spray aerosol baclofen 10 mg tablet 10 mg PO UD PRN 12/07/20 12/12/21 History cbhpvumfoe-qkarsbpusibqt-hxyzpljl 1 tab PO DAILY PRN 12/07/20 12/12/21 History 50 mg-325 mg-40 mg tablet celecoxib 200 mg capsule (Celebrex) 200 mg PO QAM 12/07/20 12/12/21 History dicyclomine 20 mg tablet 10 mg PO QID PRN 12/07/20 12/12/21 History flurandrenolide 0.05 % lotion 1 applic TOPICAL BID PRN 12/07/20 12/12/21 History hydroxyzine HCl 50 mg tablet 50 mg PO BID PRN 12/07/20 12/12/21 History linaclotide 290 mcg capsule 290 mcg PO HS 12/07/20 12/12/21 History (Linzess) lisinopril 40 mg tablet 40 mg PO QAM 12/07/20 12/12/21 History ondansetron 4 mg disintegrating 4 mg TRANSLINGUAL Q12 PRN 12/07/20 12/12/21 History tablet rabeprazole 20 mg tablet,delayed 20 mg PO DAILY PRN 12/07/20 12/12/21 History release sertraline 100 mg tablet (Zoloft) 150 mg PO QAM 12/07/20 12/12/21 History tadalafil 20 mg tablet (Cialis) 20 mg PO UD PRN 12/07/20 12/12/21 History methocarbamol 750 mg tablet 750 mg PO .COMPLEX 30 Days #60 tab 06/04/21 12/12/21 Rx sumatriptan succinate 100 mg tablet 100 mg PO DIRECTED PRN 30 Days 07/09/21 12/12/21 Rx #9 tab dextroamphetamine-amphetamine 30 30 mg PO BID 07/14/21 12/12/21 History mg tablet (Adderall) ibuprofen 200 mg tablet 600 mg PO Q8H PRN 07/14/21 12/12/21 History tamsulosin 0.4 mg capsule (Flomax) 0.4 mg PO HS 07/14/21 12/12/21 History cyclobenzaprine 10 mg tablet 10 mg PO BID PRN #60 tab 10/14/21 12/12/21 Rx carvedilol 25 mg tablet 25 mg PO BID 11/11/21 12/12/21 History diazepam 5 mg tablet 5 mg PO DAILY PRN 11/11/21 12/12/21 History aspirin 325 mg tablet 975 mg PO Q6H PRN tab 11/17/21 12/12/21 History tramadol 50 mg tablet 50 mg PO Q6H PRN #30 tab 12/05/21 12/12/21 Rx oxycodone 5 mg tablet 5 mg PO Q6H PRN #14 tab 12/07/21 12/12/21 Rx Past Med/Surg History Medical History Anemia iron deficiency, h/o multiple infusions with last occurring > 1 month ago Anxiety Arthralgia of multiple sites Arthritis 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 hyperactivity Bilateral edema of lower extremity resolved on carvedilol per pt Chronic radicular low back pain CVA (cerebral vascular accident) Incidental "old" infarct noted on 2018 imaging during workup for polypharmacy reaction Degenerative disc disease Depression with h/o depressive psychosis Duodenal ulcer resolved per pt and s/p release from subsequent adhesion development Dyslipidemia GERD (gastroesophageal reflux disease) pyloric stenosis s/p partial gastrectomy Glaucoma History of long-term treatment with high-risk medication Hypertension controlled, stable per pt Hyponatremia stable per pt IBS (irritable bowel syndrome) C Migraine without status migrainosus, not intractable Mild cognitive impairment Mild concentric left ventricular hypertrophy (LVH) Pain in foot left PFO (patent foramen ovale) S cardio 07/2021: "small and non clinically significant...no additional cardiac studies or treatment are indicated..." Rebound headache to be starting prednisone course by neurology per note Spinal stenosis Urinary frequency Surgical History Fusion of spine Lumbar History of colonoscopy History of esophagogastroduodenoscopy (EGD) History of myringotomy History of partial gastrectomy r/t pyloric sphincter scarring 2004 (x2) History of surgery Right side (ribs removed) History of tonsillectomy History of tooth extraction Family History Other No family history of adverse response to anesthesia No known health problems Social History Smoking Status: Never smoker Second Hand Exposure: No; Do You Dip or Chew Tobacco: No; Hx Alcohol Use: No Hx Substance Use: No Preferred Language: Jordanian Communication Ability: Effective Geriatric Care Manager Required: No Beliefs That Will Affect Care: None marital status: Current Living Situation: Spouse current occupational status: retired How many Children do You have: 2 Other Information That Helps Us Care for You: No Feels Safe at Home: Yes Safety Concerns: Feels Safe At This Time Assistive Devices: Cane Review of Systems Review of Systems: ROS per HPI, all other systems reviewed and negative Physical Exam Physical Exam: please refer to Dr. Gonzalez's addendum for physical exam Results & Data Results & Data ([facility]) Vital Signs (Past 12 Hours) Vital Signs Temp Pulse Pulse Resp BP BP Pulse Ox 12/12/21 18:30 84 16 108/53 L 100 12/12/21 17:00 74 18 120/58 L 100 12/12/21 16:30 73 16 114/58 L 100 12/12/21 16:00 72 14 117/47 L 100 12/12/21 15:30 89 20 104/54 L 100 12/12/21 15:00 66 17 103/56 L 100 12/12/21 14:30 74 13 106/51 L 100 12/12/21 14:00 70 16 90/49 L 100 12/12/21 13:42 75 18 87/64 L 100 12/12/21 12:43 36.3 C L 79 15 76/53 L 100 Laboratory Results Short CBC 12/12/21 12/12/21 12/12/21 Range/Units 13:21 13:21 13:21 WBC 11.15 H (4.8-10.8) K/uL Hgb 9.6 L (14.0-18.0) g/dL Hct 27.0 L (42-52) % Plt Count 285 (130-400) K/uL Lactate Cancelled Troponin I Cancelled 12/12/21 12/12/21 Range/Units 13:53 13:53 WBC (4.8-10.8) K/uL Hgb (14.0-18.0) g/dL Hct (42-52) % Plt Count (130-400) K/uL Lactate 2.2 H* Troponin I 0.15 H* BMP 12/12/21 12/12/21 13:21 13:53 Sodium Cancelled 135 L Potassium Cancelled 4.9 Chloride Cancelled 102 Carbon Dioxide Cancelled 21 BUN Cancelled 44 H Creatinine Cancelled 2.84 H Glucose Cancelled 118 H Calcium Cancelled 8.3 L Cardiac Enzymes 12/12/21 12/12/21 Range/Units 13:21 13:53 Troponin I Cancelled 0.15 H* Liver Function 12/12/21 12/12/21 Range/Units 13:21 13:53 Total Bilirubin Cancelled 0.4 AST Cancelled 19 ALT Cancelled 21 Alkaline Phosphatase Cancelled 138 H Albumin Cancelled 2.8 L Urine 12/12/21 Range/Units 15:29 Urine Color Dark Yellow Urine Appearance Cloudy A (Clear) Urine pH 5.0 (4.5-7.5) Ur Specific Streeter 1.023 (1.000-1.030) Urine Protein 1+ H (Negative) Urine Glucose (UA) Negative (Negative) Diagnostic Findings Chest X-Ray 12/12/21 12:57 XR chest 1V portable CLINICAL HISTORY: Sepsis. COMPARISON STUDY: Chest radiograph November 17, 2021. FINDINGS: Patient is rotated. Skin fold projects over the left chest. Lung volumes are normal. Lungs are clear. There is no pneumothorax or pleural effusion. Cardiac size is normal. Mediastinal contours are normal. There is no evidence for pulmonary edema. IMPRESSION: No acute cardiopulmonary findings. ACT 112: Negative or not required by law. Electronically signed by: Donovan Calderon M.D. 12/12/2021 1:53 PM Abdomen/Pelvis CT 12/12/21 15:46 CT abd pelvis wo con CLINICAL HISTORY: leonel ro kidneystone TECHNIQUE: Helical axial images of the abdomen and pelvis were obtained. Automated dose lowering techniques and/or adjustment according to patient size were utilized for this exam. This exam was performed without intravenous contrast. COMPARISON: Comparison is made to CT abdomen pelvis 12/07/2020 FINDINGS: Lower chest: No acute abnormality Liver: Unremarkable. No focal lesions are seen. Gallbladder and biliary tree: No calcified gallstones. Normal caliber wall. No intra- or extrahepatic biliary ductal dilation. Pancreas: Unremarkable, no focal lesions. Spleen: Unremarkable. Adrenals: Unremarkable. Kidneys and ureters: There is a left renal cyst. No evidence of hydronephrosis or obstructive nephrolithiasis. Bladder: Diffuse homogeneous wall thickening is seen. Reproductive organs: Prostatomegaly is seen. Bowel: Postsurgical changes are seen in the stomach. Colonic wall thickening is again seen, slightly less prominent than in the prior exam. Lymph nodes Retroperitoneal: Unremarkable. Mesenteric: Unremarkable. Pelvic: Unremarkable. Peritoneum: Normal. Vessels: Atherosclerotic calcifications are seen. Abdominal wall: There is expected soft tissue edema without evidence of abscess. Bones: Posterior fixation hardware is seen. Degenerative changes are noted. IMPRESSION: 1. Postsurgical changes of L3-L4 fusion. Soft tissue swelling without evidence of abscess. 2. Bladder wall thickening likely due to chronic outlet obstruction. 3. Colonic wall thickening, minimally decreased from prior exam, may represent infectious/inflammatory colitis. ACT 112: Negative or not required by law. Electronically signed by: Jose Luis Saldivar M.D. 12/12/2021 4:50 PM Code Status & VTE Plan Code Status Patient is a full code as per my discussion with him. Patient states that if he were to be unable to make decisions for himself, his , Chitra, will be his decision maker. VTE Prophylaxis Plan VTE Prophylaxis will be ordered: Yes Supervising Physician Co-Signing Physician Notes Patient is a 76-year-old male with history of irritable bowel syndrome, hypertension, dyslipidemia, S/P Billroth I procedure and other medical problems presents with history of generalized weakness, intractable diarrhea. Patient was recently admitted at [facility] and underwent back surgery by Dr. Ferrer. Patient was placed on bowel regimen to prevent constipation. Patient states that he had intractable diarrhea while on bowel regimen and got dehydrated. He states having poor appetite and unable to keep himself hydrated with oral fluid intake. Please review HPI for complete details of presentation. He was found to be hypotensive with peripheral cyanosis while in ED. Blood pressure improved with IV fluids. Blood work suggestive of postoperative anemia with hemoglobin 9.6, white blood cell count 11.1 5K, LEONEL with creatinine elevated at 2.84, sodium 135, lactate 2.2, procalcitonin 87.32, troponin elevated 0.15. CT abdomen showed colonic wall thickening, suggestive of likely colitis. Also noted abnormal UA, cannot rule out UTI. Physical Exam: Vitals signs as noted above General Appearance: Thin, frail, chronically ill appearing, no apparent distress Head: normocephalic, Atraumatic Eyes: normal inspection, EOMI Neck: supple, Trachea midline Respiratory/Chest: Normal breath sounds, CTA, No accessory muscle use Cardiovascular: S1, S2, No murmur Abdomen/GI:Soft, Non tender, Bowel sounds present Back:Surgical site in dressing Extremities/Musculoskeletal:normal inspection, no edema Neurologic/Psych:AAOX3, grossly no focal neurological deficits Skin: normal color, warm Sepsis Colitis Possible UTI LEONEL Dehydration Agree with empiric antibiotics with Zosyn. Started on IV fluids. Follow-up blood cultures, urine culture. Trend lactate levels. Monitor renal function Avoid nephrotoxic agents as able Hold antihypertensives Consider nephrology evaluation if needed. Methemoglobinemia likely secondary to significant hypotension. Repeat ABG showed showed normal Methemoglobin. Consider further work-up if recurrence of symptoms. I personally reviewed the record. Patient is interviewed and examined at bedside. Patient's care is coordinated with Danitza Kerr TRIM CREW SUPERVISOR. Please refer to the documentation above for details of patient's presentation and for discussion of other issues.
[2021-12-12 19:31] LABS: Base Excess ABG -3.1 mEq/L (-9-1.8); HCO3 ABG 20 mmol/L (19-24); Oxygen Saturation ABG 97.4 % (90-95); PCO2 ABG 29 mmHg (35-46); PO2 ABG 89 mmHg (80-95); pH ABG 7.46 (7.35-7.45)
[2021-12-12 19:32] LABS: Allen Test Pos (Pos)
[2021-12-12] MEDS ORDERED: BUTALBITAL/ACETAMIN/CAFFEINE TAB PO STA (20:54)
[2021-12-12] MEDS ORDERED: PIPERACILLIN/TAZOBACTAM 3.375 GM in DEXTROSE 5% 100 ML IV ONE (22:00)
[2021-12-12] MEDS: TAMSULOSIN HCL 0.4 MG CAP PO SCH (22:10)
[2021-12-12] MEDS: LINACLOTIDE 145 MCG CAPSULE PO SCH (22:10)
[2021-12-12] MEDS: AMPHETAMINE ASP/SULF/DEXTRAMPH 10 MG TAB PO SCH (22:10)
[2021-12-12] MEDS: ATORVASTATIN 40 MG TAB PO SCH (22:10)
[2021-12-12] MEDS ORDERED: ZOLPIDEM TARTRATE 5 MG TAB PO STA (23:27)
[2021-12-13] MEDS: SODIUM CHLORIDE 0.9% IV SCH (00:29)
[2021-12-13] MEDS: ASCORBIC ACID IV SCH (00:29)
[2021-12-13] MEDS: SODIUM CHLORIDE 0.9% 1000ML 1,000 ML IV SCH ×3 (02:15→16:53)
[2021-12-13] MEDS ORDERED: PIPERACILLIN/TAZOBACTAM 3.375 GM in DEXTROSE 5% 100 ML IV SCH (06:00)
[2021-12-13] MEDS ORDERED: SODIUM CHLORIDE 0.65% NA SOLN 45 ML (OCEAN) PRN (06:05)
[2021-12-13] MEDS ORDERED: SODIUM CHLORIDE 0.65% NA SOLN 45 ML (OCEAN) ONE (06:09)
[2021-12-13 06:18] LABS: Hematocrit (blood only) 22.9 % (42-52); Hemoglobin 8.1 g/dL (14.0-18.0); Mean Corpuscular Hemoglobin 30.3 pg (25-34); Mean Corpuscular Hgb Conc 35.4 g/dL (32-36); Mean Corpuscular Volume 85.8 fL (80-100); Mean Platelet Volume 7.9 fL (7.4-10.4); Platelet Count 261 K/uL (130-400); RDW Coefficient of Variation 13.7 % (11.5-14.5); RDW Standard Deviation 42.3 fL (36.4-46.3); Red Blood Count 2.67 M/uL (4.7-6.1); White Blood Count 8.43 K/uL (4.8-10.8)
[2021-12-13 06:42] LABS: BUN Creatinine Ratio 27.6 (10-20); Calcium 7.6 mg/dl (8.5-10.1); Creatinine Clr Calc Pharmacy 34.3 ml/min; Est GFR (African American) 54.2 ml/min; Est GFR (Non-African American) 46.8 ml/min; Potassium 3.8 mmol/L (3.5-5.1)
[2021-12-13] MEDS: SERTRALINE HCL 50 MG TABLET PO SCH (09:16)
[2021-12-13] MEDS: AMPHETAMINE ASP/SULF/DEXTRAMPH 10 MG TAB PO SCH ×2 (10:15→20:45)
--- NOTE | 2021-12-13 10:38 | CT Scan Report ---
CT lumbar spine wo con CLINICAL HISTORY: r/o abscess TECHNIQUE: Multidetector row helical CT of the lumbar spine was performed without administration of i ntravenous contrast. Coronal and sagittal reformations were obtained. Automated dose lowering techniq ues and/or adjustment according to patient size were utilized for this exam. Comparison: None available at the time of this dictation. FINDINGS: For counting purposes, the last complete intervertebral disc space is considered L5-S1. Posterior spinal fixation hardware is seen. Vertebral body heights and disk spaces are well maintaine d. Vertebral body alignment is within normal limits. Atherosclerotic calcifications are seen. There i s a left superior pole cyst. Soft tissue stranding is seen in the posterior subcutaneous tissues, how ever no drainable fluid collection is seen. IMPRESSION: Postsurgical changes of posterior spinal fixation. No drainable fluid collection is seen. ACT 112: Negative or not required by law. Electronically signed by: Jose Luis Saldivar M.D. 12/13/2021 10:37 AM
[2021-12-13] MEDS: HYDROCODONE/ACETAMOPHEN 5/325MG TAB PO PRN (11:18)
--- NOTE | 2021-12-13 13:05 | Hospitalist Progress Note ---
Date of Service December 13, 2021 Assessment & Plan (1) Sepsis: Plan: Likely secondary to pancolitis and/or UTI doubt any abscess and/or fluid collection in the lumbar area status post surgery Stool C. difficile toxin is pending Blood and urine cultures are pending In the ED, patient hypotensive 76/53 which improved after IVF. WBC 11 K, HR WNL, patient afebrile. Initial lactate 2.2 --> 0.2 Procalcitonin 87 Has been getting intravenous Zosyn and condition seems to be improving with decreasing white count and clinical improvement (2) Colitis: Plan: CT scan of the abdomen and pelvis did show pancolitis-could be infective/inflammatory Diarrhea seems to be controlled Awaiting C. difficile toxin (3) UTI (urinary tract infection): Plan: As above (4) LEONEL (acute kidney injury): Plan: Nonoliguric Creatinine 2.4 (baseline 0.7) Likely multifactorial due to prerenal losses due to diarrhea, nephrotoxic medications, possible urinary retention (findings of chronic bladder outlet obstruction noted on CT) IVF, hold SVNE inhibitor and NSAIDs Creatinine has been improving and will monitor (5) Elevated troponin: Plan: Troponin 0.15 History of chronic troponin elevation No reports of chest pain, EKG without acute ST changes Likely demand ischemia in the setting of sepsis Trend troponin-second set of elevated to 0.23 but the third set came down to 0.14 Troponin elevation is secondary to LEONEL and doubt any ACS (6) Methemoglobinemia: Plan: Methemoglobin noted to be 3.1% on ABG ? Clinical significance, may be due to profound hypotension on presentation Cyanosis resolved with BP improvement Received IV vitamin C in ED Repeat ABG did show normalization of methemoglobin (7) Depression: (8) ADD (attention deficit disorder): Plan: Continue home meds (9) Iron deficiency anemia: Plan: History of after partial gastrectomy several years ago Hgb stable 9.6 (at recent postop baseline) Received iron transfusion as an outpatient (10) Status post lumbar spine surgery for decompression of spinal cord: Plan: 12/04/2021:s/p removal of posterior instrumentation L4-5 L5-S1, exploration of fusion L4-L5 L5-S1, lumbar decompression with bilateral medial facetectomies and foraminotomies L2-L3 L3-L4, posterior spinal fusion L3-L4 L4-5 and placement posterior instrumentation L2-S1 No acute issues, no signs of postoperative abscess on CT CT scan of the lumbar spine did not show any abscess Still complains significant pain at the lower back and wound care has been consulted Spine Ortho has been consulted to (11) Hypertension: Plan: Due to presenting hypotension, hold antihypertensives (12) DVT prophylaxis: Plan: SCDs for now Admission and Anticipated Discharge Date Admission Date: December 12, 2021 Subjective 12/13/2021 Patient was seen and examined in telemetry unit He complains of some back pain with radiation and without any problem with urine and bowel habit He has been having diarrhea for the last 2 days and also discomfort during voiding He has been feeling much better since admission Review of Systems Review of Systems: All systems reviewed and are unremarkable except as noted below Gastrointestinal: Has been having diarrhea Musculoskeletal: Ongoing back pain without radiation Physical Exam 2 Physical Exam: Lying in bed comfortably Constitutional: well developed, well nourished, + ill appearing and average body habitus Eyes: PERRL, conjunctivae normal, anicteric sclerae ENMT: external ear and nose normal, oropharynx normal Neck: trachea midline, no thyromegaly Respiratory: no respiratory distress Auscultation: lungs clear to auscultation bilaterally; no crackles Cardiovascular: Rate/Rhythm: regular rate and regular rhythm; not tachycardic Heart Sounds: normal S1, normal S2 and + murmur (2/6 over precordium) Gastrointestinal (Abdomen): Inspection/Auscultation: normal bowel sounds; abdomen not distended Percussion/Palpation: + abdomen tender (Mildly tender hypogastrium and lower quadrants) and abdomen soft Musculoskeletal: Has lower back tenderness without any evidence of lump and or fluctuation Neurologic: Alert, awake and oriented x3. No focal sensory and motor deficit appreciated Results & Data Results & Data ([facility]) Vital Signs (Past 12 Hours) Vital Signs Temp Pulse Pulse Resp BP Pulse Ox 12/13/21 11:57 37.1 C 86 20 131/70 98 12/13/21 08:17 37.2 C 96 H 18 130/73 98 12/13/21 08:00 78 12/13/21 04:40 37.1 C 101 H 18 118/64 98 Laboratory Results Short CBC 12/12/21 12/13/21 Range/Units 13:21 05:52 WBC 11.15 H 8.43 (4.8-10.8) K/uL Hgb 9.6 L 8.1 L (14.0-18.0) g/dL Hct 27.0 L 22.9 L (42-52) % Plt Count 285 261 (130-400) K/uL BMP 12/12/21 12/12/21 12/13/21 13:21 13:53 05:52 Sodium Cancelled 135 L 133 L Potassium Cancelled 4.9 3.8 D Chloride Cancelled 102 106 Carbon Dioxide Cancelled 21 20 L BUN Cancelled 44 H 40 H Creatinine Cancelled 2.84 H 1.45 H D Glucose Cancelled 118 H 96 Calcium Cancelled 8.3 L 7.6 L Cardiac Enzymes 12/12/21 12/12/21 12/12/21 Range/Units 13:21 13:53 20:18 Troponin I Cancelled 0.15 H* 0.17 H* 12/13/21 12/13/21 Range/Units 01:34 11:00 Troponin I 0.23 H* 0.14 H* Liver Function 12/12/21 12/12/21 Range/Units 13:21 13:53 Total Bilirubin Cancelled 0.4 AST Cancelled 19 ALT Cancelled 21 Alkaline Phosphatase Cancelled 138 H Albumin Cancelled 2.8 L Urine 12/12/21 Range/Units 15:29 Urine Color Dark Yellow Urine Appearance Cloudy A (Clear) Urine pH 5.0 (4.5-7.5) Ur Specific [place] 1.023 (1.000-1.030) Urine Protein 1+ H (Negative) Urine Glucose (UA) Negative (Negative) Medications Administered Current Inpatient Medications Acetaminophen (Acetaminophen 325 Mg Tab) 650 mg PO Q4H PRN PRN Reason: Pain or Fever Stop: 01/11/22 21:15 Hydrocodone Bitart/Acetaminophen (Hydrocodone/Acetamophen 5/325mg Tab) 1 tab PO Q6H PRN PRN Reason: Pain Stop: 12/27/21 10:46 Last Admin: 12/13/21 11:18 Dose: 1 tab Documented by: Amphetamine/Dextroamphetamine (Amphetamine Asp/Sulf/Dextramph 10 Mg Tab) 30 mg PO BID [facility]NA Stop: 12/26/21 21:15 Last Admin: 12/13/21 10:15 Dose: 30 mg Documented by: Atorvastatin Calcium (Atorvastatin 40 Mg Tab) 80 mg PO QAM [facility] Stop: 01/12/22 08:59 Last Admin: 12/12/21 22:10 Dose: 80 mg Documented by: Sodium Chloride (Nss 1000ml) 1,000 mls @ 125 mls/hr IV .Q8H [facility] Stop: 01/11/22 15:59 Last Admin: 12/13/21 10:15 Dose: 125 mls/hr Documented by: Piperacillin Sod/Tazobactam (Sod 3.375 gm/ Dextrose) 115 mls @ 28.75 mls/hr IV Q8H [facility]; Protocol Stop: 12/23/21 13:59 Linaclotide (Linaclotide 145 Mcg Capsule) 290 mcg PO [facility] Stop: 01/11/22 21:15 Last Admin: 12/12/21 22:10 Dose: 290 mcg Documented by: Miscellaneous Information (Piperacill/Tazobac Consult Active) 1 ea N/A UD PRN PRN Reason: Consult Stop: 01/11/22 18:24 Sertraline HCl (Sertraline Hcl 50 Mg Tablet) 150 mg PO [facility] Stop: 01/12/22 08:59 Last Admin: 12/13/21 09:16 Dose: 150 mg Documented by: Sodium Chloride (Sodium Chloride 0.65% Na Soln 45 Ml ([place])) 1 sprays NA PRN PRN PRN Reason: Nasal Congestion Stop: 01/12/22 06:04 Tamsulosin HCl (Tamsulosin Hcl 0.4 Mg Cap) 0.4 mg PO [facility] Stop: 01/11/22 21:15 Last Admin: 12/12/21 22:10 Dose: 0.4 mg Documented by:
[2021-12-13] MEDS: PIPERACILLIN/TAZOBACTAM 3.375 GM in DEXTROSE 5% 100 ML IV SCH ×2 (14:58→20:45)
[2021-12-13] MEDS ORDERED: SUMAtriptan succinate 50 MG TAB PO ONE (14:59)
[2021-12-13] MEDS ORDERED: BUTALBITAL/ACETAMIN/CAFFEINE TAB PO STA (19:56)
[2021-12-13] MEDS ORDERED: ZOLPIDEM TARTRATE 5 MG TAB PO STA (19:56)
[2021-12-13] MEDS: LINACLOTIDE 145 MCG CAPSULE PO SCH (20:45)
[2021-12-13] MEDS: TAMSULOSIN HCL 0.4 MG CAP PO SCH (20:45)
[2021-12-14 00:22] LABS: Adenovirus F 40/41 PCR Not Detected (NotDetected); Astrovirus PCR Not Detected (NotDetected); Campylobacter PCR Not Detected (NotDetected); Clostridium diff Toxin A/B PCR Not Detected (NotDetected); Cryptosporidium PCR Not Detected (NotDetected); Cyclospora cayetanensis PCR Not Detected (NotDetected); Entamoeba histolytica PCR Not Detected (NotDetected); Enteroaggregative E.coli(EAEC) Not Detected (NotDetected); Enteropathogenic E.coli (EPEC) Not Detected (NotDetected); Enterotoxigenic E.coli (ETEC) Not Detected (NotDetected); Giardia lamblia PCR Not Detected (NotDetected); Norovirus GI/GII PCR Not Detected (NotDetected); Plesiomonas shigelloides PCR Not Detected (NotDetected); Rotavirus A PCR Not Detected (NotDetected); Salmonella PCR Not Detected (NotDetected); Sapovirus PCR Not Detected (NotDetected); Shiga-like Toxin E.coli (STEC) Not Detected (NotDetected); Shigella/Enteroinvasive E.coli Not Detected (NotDetected); Vibrio cholerae PCR Not Detected (NotDetected); Vibrio species PCR Not Detected (NotDetected); Yersinia enterocolitica PCR Not Detected (NotDetected)
[2021-12-14] MEDS: SODIUM CHLORIDE 0.9% 1000ML 1,000 ML IV SCH ×2 (00:25→06:29)
[2021-12-14] MEDS: PIPERACILLIN/TAZOBACTAM 3.375 GM in DEXTROSE 5% 100 ML IV SCH ×3 (05:08→23:12)
[2021-12-14] MEDS ORDERED: DICYCLOMINE HCL 10 MG CAP PO ONE (05:34)
[2021-12-14 08:41] LABS: BUN Creatinine Ratio 22.2 (10-20); Calcium 7.4 mg/dl (8.5-10.1); Creatinine Clr Calc Pharmacy 69.6 ml/min; Est GFR (African American) 105.8 ml/min; Est GFR (Non-African American) 91.3 ml/min; Potassium 3.2 mmol/L (3.5-5.1)
[2021-12-14 08:51] LABS: Hemoglobin 7.2 g/dL (14.0-18.0); Mean Corpuscular Hemoglobin 30.5 pg (25-34); Mean Corpuscular Volume 84.7 fL (80-100); Mean Platelet Volume 7.8 fL (7.4-10.4); Platelet Count 224 K/uL (130-400); RDW Coefficient of Variation 13.3 % (11.5-14.5); RDW Standard Deviation 40.7 fL (36.4-46.3); Red Blood Count 2.36 M/uL (4.7-6.1); White Blood Count 6.19 K/uL (4.8-10.8)
[2021-12-14 08:56] LABS: Basophils # (auto) 0.01 K/uL (0-0.2); Basophils % (auto) 0.2 %; Eosinophils # (auto) 0.15 K/uL (0-0.5); Eosinophils % (auto) 2.4 %; Immature Granulocytes # (auto) 0.02 K/uL (0.00-0.02); Immature Granulocytes % (auto) 0.3 %; Lymphocytes # (auto) 0.89 K/uL (1.2-3.4); Lymphocytes % (auto) 14.4 %; Monocytes % (auto) 6.5 %; Neutrophils # (auto) 4.72 K/uL (1.4-6.5); Neutrophils % (auto) 76.2 %; Polychromasia 1+
[2021-12-14] MEDS: AMPHETAMINE ASP/SULF/DEXTRAMPH 10 MG TAB PO SCH ×2 (09:12→16:09)
[2021-12-14] MEDS ORDERED: POTASSIUM CHLORIDE CRTAB 20 MEQ TABCR PO STA (09:24)
[2021-12-14] MEDS ORDERED: SODIUM CHLORIDE 0.9% 250 ML IV PRN (09:25)
[2021-12-14] MEDS: SERTRALINE HCL 50 MG TABLET PO SCH (10:02)
[2021-12-14] MEDS: ATORVASTATIN 40 MG TAB PO SCH (10:02)
[2021-12-14] MEDS: PANTOprazole 40 MG in SYRINGE 0 ML IV SCH ×2 (10:03→20:10)
[2021-12-14] MEDS: BUTALBITAL/ACETAMIN/CAFFEINE TAB PO PRN ×2 (10:12→20:09)
--- NOTE | 2021-12-14 11:39 | Hospitalist Progress Note ---
Date of Service December 14, 2021 Assessment & Plan (1) Sepsis: Plan: Likely secondary to pancolitis and/or UTI doubt any abscess and/or fluid collection in the lumbar area status post surgery Stool C. difficile toxin is pending Blood and urine cultures are negative In the ED, patient hypotensive 76/53 which improved after IVF. WBC 11 K, HR WNL, patient afebrile. Initial lactate 2.2 --> 0.2 Procalcitonin 87 Has been getting intravenous Zosyn and condition seems to be improving with decreasing white count and clinical improvement Clinically much better-we will continue intravenous Zosyn for now (2) Colitis: Plan: CT scan of the abdomen and pelvis did show pancolitis-could be infective/inflammatory Diarrhea seems to be controlled Awaiting C. difficile toxin (3) UTI (urinary tract infection): Plan: As above Urine culture has been negative (4) LEONEL (acute kidney injury): Plan: Nonoliguric Creatinine 2.4 (baseline 0.7) Likely multifactorial due to prerenal losses due to diarrhea, nephrotoxic medications, possible urinary retention (findings of chronic bladder outlet obstruction noted on CT) IVF, hold SVEN inhibitor and NSAIDs Creatinine has been improving and will monitor Kidney function is normal (5) Elevated troponin: Plan: Troponin 0.15 History of chronic troponin elevation No reports of chest pain, EKG without acute ST changes Likely demand ischemia in the setting of sepsis Trend troponin-second set of elevated to 0.23 but the third set came down to 0.14 Troponin elevation is secondary to LEONEL and doubt any ACS (6) Methemoglobinemia: Plan: Methemoglobin noted to be 3.1% on ABG ? Clinical significance, may be due to profound hypotension on presentation Cyanosis resolved with BP improvement Received IV vitamin C in ED Repeat ABG did show normalization of methemoglobin (7) Depression: (8) ADD (attention deficit disorder): Plan: Continue home meds (9) Iron deficiency anemia: Plan: History of after partial gastrectomy several years ago Hgb stable 9.6 (at recent postop baseline) Received iron transfusion as an outpatient Hemoglobin dropped to 7.2 We will get iron studies and B12, folate level Repeat H&H at 12 and if it drops below 7 will get blood transfusion (10) Status post lumbar spine surgery for decompression of spinal cord: Plan: 12/04/2021:s/p removal of posterior instrumentation L4-5 L5-S1, exploration of fusion L4-L5 L5-S1, lumbar decompression with bilateral medial facetectomies and foraminotomies L2-L3 L3-L4, posterior spinal fusion L3-L4 L4-5 and placement posterior instrumentation L2-S1 No acute issues, no signs of postoperative abscess on CT CT scan of the lumbar spine did not show any abscess Still complains significant pain at the lower back and wound care has been consulted Spine Ortho has been consulted (11) Hypertension: Plan: Due to presenting hypotension, hold antihypertensives (12) DVT prophylaxis: Plan: SCDs for now Admission and Anticipated Discharge Date Admission Date: December 12, 2021 Subjective 12/13/2021 Patient was seen and examined in telemetry unit He complains of some back pain with radiation and without any problem with urine and bowel habit He has been having diarrhea for the last 2 days and also discomfort during voiding He has been feeling much better since admission 12/14/2021 Patient was seen and examined in telemetry unit He has been feeling much better and complains to have some headache His hemoglobin dropped to 7.2 Denies any chest pain, palpitation, any nausea or vomiting Review of Systems Review of Systems: All systems reviewed and are unremarkable except as noted below Gastrointestinal: Has been having diarrhea Musculoskeletal: Ongoing back pain without radiation Physical Exam Physical Exam: Lying in bed comfortably Constitutional: well developed, well nourished, + ill appearing and average body habitus Eyes: PERRL, conjunctivae normal, anicteric sclerae ENMT: external ear and nose normal, oropharynx normal Neck: trachea midline, no thyromegaly Respiratory: no respiratory distress Auscultation: lungs clear to auscultation bilaterally; no crackles Cardiovascular: Rate/Rhythm: regular rate and regular rhythm; not tachycardic Heart Sounds: normal S1, normal S2 and + murmur (2/6 over precordium) Gastrointestinal (Abdomen): Inspection/Auscultation: normal bowel sounds; abdomen not distended Percussion/Palpation: + abdomen tender (Mildly tender hypogastrium and lower quadrants) and abdomen soft Musculoskeletal: No acute arthritis in any joint Neurologic: normal touch/pain/proprioception Psychiatric: A+Ox3, euthymic affect Results & Data Results & Data ([facility]) Vital Signs (Past 12 Hours) Vital Signs Temp Pulse Pulse Resp BP Pulse Ox 12/14/21 11:00 36.8 C 77 16 138/80 98 12/14/21 09:00 76 12/14/21 07:52 37 C 73 16 132/69 98 12/14/21 03:30 37.1 C 86 18 147/70 H 97 Laboratory Results Short CBC 12/14/21 Range/Units 07:52 WBC 6.19 (4.8-10.8) K/uL Hgb 7.2 L (14.0-18.0) g/dL Hct 20.0 L* (42-52) % Plt Count 224 (130-400) K/uL BMP 12/14/21 07:52 Sodium 131 L Potassium 3.2 L Chloride 105 Carbon Dioxide 22 BUN 16 D Creatinine 0.72 D Glucose 101 H Calcium 7.4 L Cardiac Enzymes 12/13/21 Range/Units 11:00 Troponin I 0.14 H* (0-0.04) ng/ml Medications Administered Current Inpatient Medications Acetaminophen (Acetaminophen 325 Mg Tab) 650 mg PO Q4H PRN PRN Reason: Pain or Fever Stop: 01/11/22 21:15 Acetaminophen/Butalbital/Caffeine (Butalbital/Acetamin/Caffeine Tab) 1 tab PO Q8H PRN PRN Reason: Headache Stop: 01/13/22 09:25 Last Admin: 12/14/21 10:12 Dose: 1 tab Documented by: Hydrocodone Bitart/Acetaminophen (Hydrocodone/Acetamophen 5/325mg Tab) 1 tab PO Q6H PRN PRN Reason: Pain Stop: 12/27/21 10:46 Last Admin: 12/13/21 11:18 Dose: 1 tab Documented by: Amphetamine/Dextroamphetamine (Amphetamine Asp/Sulf/Dextramph 10 Mg Tab) 30 mg PO BID [facility] Stop: 12/26/21 21:15 Last Admin: 12/14/21 09:12 Dose: Not Given Documented by: Atorvastatin Calcium (Atorvastatin 40 Mg Tab) 80 mg PO QAM [facility] Stop: 01/12/22 08:59 Last Admin: 12/14/21 10:02 Dose: 80 mg Documented by: Piperacillin Sod/Tazobactam (Sod 3.375 gm/ Dextrose) 115 mls @ 28.75 mls/hr IV Q8H [facility]; Protocol Stop: 12/23/21 13:59 Last Infusion: 12/14/21 09:13 Dose: Infused Documented by: Sodium Chloride (Nss) 250 mls @ 15 mls/hr IV .[id number] PRN PRN Reason: For Transfusion Stop: 12/14/21 19:25 Pantoprazole Sodium 40 mg/ (Syringe) 10 mls @ 5 mls/min IV BID [facility] Stop: 01/13/22 09:29 Last Admin: 12/14/21 10:03 Dose: 5 mls/min Documented by: Linaclotide (Linaclotide 145 Mcg Capsule) 290 mcg PO [facility] Stop: 01/11/22 21:15 Last Admin: 12/13/21 20:45 Dose: 290 mcg Documented by: Miscellaneous Information (Piperacill/Tazobac Consult Active) 1 ea N/A UD PRN PRN Reason: Consult Stop: 01/11/22 18:24 Sertraline HCl (Sertraline Hcl 50 Mg Tablet) 150 mg PO [facility] Stop: 01/12/22 08:59 Last Admin: 12/14/21 10:02 Dose: 150 mg Documented by: Sodium Chloride (Sodium Chloride 0.65% Na Soln 45 Ml ([place])) 1 sprays NA PRN PRN PRN Reason: Nasal Congestion Stop: 01/12/22 06:04 Tamsulosin HCl (Tamsulosin Hcl 0.4 Mg Cap) 0.4 mg PO [facility] Stop: 01/11/22 21:15 Last Admin: 12/13/21 20:45 Dose: 0.4 mg Documented by:
--- NOTE | 2021-12-14 11:43 | Orthopedic Consultation ---
Date of Consultation December 14, 2021 Assessment & Plan (1) Status post lumbar spine surgery for decompression of spinal cord: At this time encourage bed to chair and eventually physical therapy once he is medically stable. History of Present Illness Reason for Consultation: Status post lumbar decompression fusion Attending Physician: Jacob Coy MD History of Present Illness This is a 76-year-old male well-known to me status post lumbar decompression fusion L2-L4 with replacement of hardware. Unfortunately remark decline in status when he went home and presents with significant dehydration and hypotension. This morning states he feels somewhat better. He denies any significant back or leg pain. Allergies Allergy/AdvReac Type Severity Reaction Status Date / Time lactose AdvReac Severe Intolerant-SEVERE Verified 12/12/21 17:04 ABDOMINAL CRAMPS buspirone AdvReac Intermediate Jittery, Verified 12/12/21 17:04 "crawling out of my skin" lorazepam AdvReac Intermediate Jittery, Verified 12/12/21 17:04 "crawling out of my skin" oxycodone AdvReac Mild nausea Verified 12/12/21 17:04 Home Medications Medication Instructions Recorded Confirmed Type amlodipine 10 mg tablet (Norvasc) 10 mg PO QPM 12/07/20 12/12/21 History atorvastatin 80 mg tablet 80 mg PO QAM 12/07/20 12/12/21 History azelastine 137 mcg (0.1 %) nasal 1 spray INTRANASAL QAM PRN 12/07/20 12/12/21 History spray aerosol baclofen 10 mg tablet 10 mg PO UD PRN 12/07/20 12/12/21 History [id number] 1 tab PO DAILY PRN 12/07/20 12/12/21 History 50 mg-325 mg-40 mg tablet celecoxib 200 mg capsule (Celebrex) 200 mg PO QAM 12/07/20 12/12/21 History dicyclomine 20 mg tablet 10 mg PO QID PRN 12/07/20 12/12/21 History flurandrenolide 0.05 % lotion 1 applic TOPICAL BID PRN 12/07/20 12/12/21 History hydroxyzine HCl 50 mg tablet 50 mg PO BID PRN 12/07/20 12/12/21 History linaclotide 290 mcg capsule 290 mcg PO HS 12/07/20 12/12/21 History (Linzess) lisinopril 40 mg tablet 40 mg PO QAM 12/07/20 12/12/21 History ondansetron 4 mg disintegrating 4 mg TRANSLINGUAL Q12 PRN 12/07/20 12/12/21 History tablet rabeprazole 20 mg tablet,delayed 20 mg PO DAILY PRN 12/07/20 12/12/21 History release sertraline 100 mg tablet (Zoloft) 150 mg PO QAM 12/07/20 12/12/21 History tadalafil 20 mg tablet (Cialis) 20 mg PO UD PRN 12/07/20 12/12/21 History methocarbamol 750 mg tablet 750 mg PO .COMPLEX 30 Days #60 tab 06/04/21 12/12/21 Rx sumatriptan succinate 100 mg tablet 100 mg PO DIRECTED PRN 30 Days 07/09/21 12/12/21 Rx #9 tab dextroamphetamine-amphetamine 30 30 mg PO BID 07/14/21 12/12/21 History mg tablet (Adderall) ibuprofen 200 mg tablet 600 mg PO Q8H PRN 07/14/21 12/12/21 History tamsulosin 0.4 mg capsule (Flomax) 0.4 mg PO HS 07/14/21 12/12/21 History cyclobenzaprine 10 mg tablet 10 mg PO BID PRN #60 tab 10/14/21 12/12/21 Rx carvedilol 25 mg tablet 25 mg PO BID 11/11/21 12/12/21 History diazepam 5 mg tablet 5 mg PO DAILY PRN 11/11/21 12/12/21 History aspirin 325 mg tablet 975 mg PO Q6H PRN tab 11/17/21 12/12/21 History tramadol 50 mg tablet 50 mg PO Q6H PRN #30 tab 12/05/21 12/12/21 Rx oxycodone 5 mg tablet 5 mg PO Q6H PRN #14 tab 12/07/21 12/12/21 Rx Patient History Medical History Anemia iron deficiency, h/o multiple infusions with last occurring > 1 month ago Anxiety Arthralgia of multiple sites Arthritis 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 hyperactivity Bilateral edema of lower extremity resolved on carvedilol per pt Chronic radicular low back pain CVA (cerebral vascular accident) Incidental "old" infarct noted on 2018 imaging during workup for polypharmacy reaction Degenerative disc disease Depression with h/o depressive psychosis Duodenal ulcer resolved per pt and s/p release from subsequent adhesion development Dyslipidemia GERD (gastroesophageal reflux disease) pyloric stenosis s/p partial gastrectomy Glaucoma History of long-term treatment with high-risk medication Hypertension controlled, stable per pt Hyponatremia stable per pt IBS (irritable bowel syndrome) C Migraine without status migrainosus, not intractable Mild cognitive impairment Mild concentric left ventricular hypertrophy (LVH) Pain in foot left PFO (patent foramen ovale) [facility] cardio 07/2021: "small and non clinically significant...no additional cardiac studies or treatment are indicated..." Rebound headache to be starting prednisone course by neurology per note Spinal stenosis Urinary frequency Surgical History Fusion of spine Lumbar History of colonoscopy History of esophagogastroduodenoscopy (EGD) History of myringotomy History of partial gastrectomy r/t pyloric sphincter scarring 2004 (x2) History of surgery Right side (ribs removed) History of tonsillectomy History of tooth extraction Family History Other No family history of adverse response to anesthesia No known health problems Social History Smoking Status: Never smoker Second Hand Exposure: No; Do You Dip or Chew Tobacco: No; Hx Alcohol Use: No Hx Substance Use: No Preferred Language: Citizen Of [place] Communication Ability: Effective Rail Bender Required: No Beliefs That Will Affect Care: None marital status: Current Living Situation: Spouse current occupational status: retired How many Children do You have: 2 Other Information That Helps Us Care for You: No Feels Safe at Home: Yes Safety Concerns: Feels Safe At This Time Assistive Devices: Cane, Glasses and Walker Physical Exam Physical Exam: On exam he is alert he appears comfortable. He has good strength testing lower extremities. Results & Data ([facility]) Vital Signs (Past 12 Hours) Vital Signs Temp Pulse Pulse Resp BP Pulse Ox 12/14/21 11:00 36.8 C 77 16 138/80 98 12/14/21 09:00 76 12/14/21 07:52 37 C 73 16 132/69 98 12/14/21 03:30 37.1 C 86 18 147/70 H 97
[2021-12-14 12:44] LABS: Hematocrit (blood only) 20.1 % (42-52); Hemoglobin 7.3 g/dL (14.0-18.0); Reticulocyte % 3.6 % (0.5-2.0); Reticulocytes # 0.09 10^6/uL (0.02-0.10)
[2021-12-14 13:21] LABS: Iron 25 mcg/dl (35-175); Total Iron Binding Cap Calc 171 mcg/dl (250-450); Transferrin (FE) Percent Satur 15 % (20-50); Unsaturated Iron Binding Cap 146 mcg/dl (155-355)
[2021-12-14 13:27] LABS: Folate (Folic Acid) 21.64 ng/ml (>5.38)
[2021-12-14 13:28] LABS: Vitamin B12 > 1500 pg/ml (180-914)
[2021-12-14] MEDS: ACETAMINOPHEN 325 MG TAB PO PRN (15:58)
[2021-12-14] MEDS: TAMSULOSIN HCL 0.4 MG CAP PO SCH (20:10)
[2021-12-14] MEDS: LINACLOTIDE 145 MCG CAPSULE PO SCH (20:11)
[2021-12-14] MEDS ORDERED: LOPERAMIDE HCL 2 MG CAP PO STA (20:15)
[2021-12-15] MEDS: PIPERACILLIN/TAZOBACTAM 3.375 GM in DEXTROSE 5% 100 ML IV SCH (05:34)
[2021-12-15 07:03] LABS: Basophils # (auto) 0.01 K/uL (0-0.2); Basophils % (auto) 0.2 %; Eosinophils # (auto) 0.13 K/uL (0-0.5); Eosinophils % (auto) 2.7 %; Hematocrit (blood only) 21.9 % (42-52); Immature Granulocytes # (auto) 0.03 K/uL (0.00-0.02); Immature Granulocytes % (auto) 0.6 %; Lymphocytes # (auto) 1.02 K/uL (1.2-3.4); Lymphocytes % (auto) 20.9 %; Mean Corpuscular Hemoglobin 30.7 pg (25-34); Mean Corpuscular Hgb Conc 36.5 g/dL (32-36); Mean Corpuscular Volume 83.9 fL (80-100); Mean Platelet Volume 7.6 fL (7.4-10.4); Monocytes # (auto) 0.29 K/uL (0.11-0.59); Monocytes % (auto) 5.9 %; Neutrophils % (auto) 69.7 %; Platelet Count 241 K/uL (130-400); RDW Coefficient of Variation 13.3 % (11.5-14.5); RDW Standard Deviation 40.2 fL (36.4-46.3); Red Blood Count 2.61 M/uL (4.7-6.1); White Blood Count 4.88 K/uL (4.8-10.8)
[2021-12-15 07:43] LABS: BUN Creatinine Ratio 11.3 (10-20); Calcium 7.8 mg/dl (8.5-10.1); Creatinine Clr Calc Pharmacy 69.4 ml/min; Est GFR (African American) 106.4 ml/min; Est GFR (Non-African American) 91.8 ml/min; Potassium 3.5 mmol/L (3.5-5.1)
[2021-12-15] MEDS: HYDROCODONE/ACETAMOPHEN 5/325MG TAB PO PRN (07:58)
[2021-12-15] MEDS: PANTOprazole 40 MG in SYRINGE 0 ML IV SCH (08:00)
[2021-12-15] MEDS: ATORVASTATIN 40 MG TAB PO SCH (08:00)
[2021-12-15] MEDS: SERTRALINE HCL 50 MG TABLET PO SCH (08:01)
[2021-12-15] MEDS: LINACLOTIDE 145 MCG CAPSULE PO SCH (08:01)
[2021-12-15] MEDS: AMPHETAMINE ASP/SULF/DEXTRAMPH 10 MG TAB PO SCH ×2 (08:02→20:12)
[2021-12-15] MEDS ORDERED: LOPERAMIDE HCL 2 MG CAP PO PRN (10:51)
[2021-12-15] MEDS: FERROUS SULFATE 325 MG TAB PO SCH ×2 (11:27→16:39)
--- NOTE | 2021-12-15 13:34 | Hospitalist Progress Note ---
Date of Service December 15, 2021 Assessment & Plan (1) Sepsis: Plan: Likely secondary to pancolitis and/or UTI doubt any abscess and/or fluid collection in the lumbar area status post surgery Stool C. difficile toxin is pending Blood and urine cultures are negative In the ED, patient hypotensive 76/53 which improved after IVF. WBC 11 K, HR WNL, patient afebrile. Initial lactate 2.2 --> 0.2 Procalcitonin 87 Has been getting intravenous Zosyn and condition seems to be improving with decreasing white count and clinical improvement Clinically much better-we will continue intravenous Zosyn for now Antibiotic is changed to oral Augmentin Clinically much better and will get PT and OT evaluation Acute blood loss anemia Secondary to colitis with history of chronic anemia Complicated by recent sepsis and LEONEL Hemoglobin has been improving even without transfusion Iron level has been low Iron has been started We will get outpatient GI appointment on discharge (2) Colitis: Plan: CT scan of the abdomen and pelvis did show pancolitis-could be infective/inflammatory Diarrhea seems to be controlled Awaiting C. difficile toxin-has been negative and other stool studies have been negative to Will give Imodium to control diarrhea Antibiotic changed to oral Augmentin (3) UTI (urinary tract infection): Plan: As above Urine culture has been negative (4) LEONEL (acute kidney injury): Plan: Nonoliguric Creatinine 2.4 (baseline 0.7) Likely multifactorial due to prerenal losses due to diarrhea, nephrotoxic medications, possible urinary retention (findings of chronic bladder outlet obstruction noted on CT) IVF, hold SVEN inhibitor and NSAIDs Creatinine has been improving and will monitor Kidney function is normal (5) Elevated troponin: Plan: Troponin 0.15 History of chronic troponin elevation No reports of chest pain, EKG without acute ST changes Likely demand ischemia in the setting of sepsis Trend troponin-second set of elevated to 0.23 but the third set came down to 0.14 Troponin elevation is secondary to LEONEL and doubt any ACS (6) Methemoglobinemia: Plan: Methemoglobin noted to be 3.1% on ABG ? Clinical significance, may be due to profound hypotension on presentation Cyanosis resolved with BP improvement Received IV vitamin C in ED Repeat ABG did show normalization of methemoglobin (7) Depression: (8) ADD (attention deficit disorder): Plan: Continue home meds (9) Iron deficiency anemia: Plan: History of after partial gastrectomy several years ago Hgb stable 9.6 (at recent postop baseline) Received iron transfusion as an outpatient Hemoglobin dropped to 7.2 We will get iron studies and B12, folate level Repeat H&H at 12 and if it drops below 7 will get blood transfusion Iron has been started (10) Status post lumbar spine surgery for decompression of spinal cord: Plan: 12/04/2021:s/p removal of posterior instrumentation L4-5 L5-S1, exploration of fusion L4-L5 L5-S1, lumbar decompression with bilateral medial facetectomies and foraminotomies L2-L3 L3-L4, posterior spinal fusion L3-L4 L4-5 and placement posterior instrumentation L2-S1 No acute issues, no signs of postoperative abscess on CT CT scan of the lumbar spine did not show any abscess Still complains significant pain at the lower back and wound care has been consulted Spine Ortho has been consulted -appreciate input and recommendation (11) Hypertension: Plan: Due to presenting hypotension, hold antihypertensives (12) DVT prophylaxis: Plan: SCDs for now Admission and Anticipated Discharge Date Admission Date: December 12, 2021 Subjective 12/13/2021 Patient was seen and examined in telemetry unit He complains of some back pain with radiation and without any problem with urine and bowel habit He has been having diarrhea for the last 2 days and also discomfort during voiding He has been feeling much better since admission 12/14/2021 Patient was seen and examined in telemetry unit He has been feeling much better and complains to have some headache His hemoglobin dropped to 7.2 Denies any chest pain, palpitation, any nausea or vomiting 12/15/2021 The patient was seen and examined in telemetry unit He has been feeling much better and complains to have some diarrhea His hemoglobin has been more than 8 and does not have any more bleeding per rectum His back pain is controlled Review of Systems Review of Systems: All systems reviewed and are unremarkable except as noted below Gastrointestinal: Has been having diarrhea Musculoskeletal: Ongoing back pain without radiation Physical Exam Physical Exam: Lying in bed comfortably Constitutional: well developed, well nourished, + ill appearing and average body habitus Eyes: PERRL, conjunctivae normal, anicteric sclerae ENMT: external ear and nose normal, oropharynx normal Neck: trachea midline, no thyromegaly Respiratory: no respiratory distress Auscultation: lungs clear to auscultation bilaterally; no crackles Cardiovascular: Rate/Rhythm: regular rate and regular rhythm; not tachycardic Heart Sounds: normal S1, normal S2 and + murmur (2/6 over precordium) Gastrointestinal (Abdomen): Inspection/Auscultation: normal bowel sounds; abdomen not distended Percussion/Palpation: + abdomen tender (Mildly tender hypogastrium and lower quadrants) and abdomen soft Musculoskeletal: No acute arthritis in any joint Neurologic: normal touch/pain/proprioception Psychiatric: A+Ox3, euthymic affect Results & Data Results & Data ([facility]) Vital Signs (Past 12 Hours) Vital Signs Temp Pulse Pulse Resp BP Pulse Ox Pulse Ox 12/15/21 11:41 36.9 C 76 16 122/80 99 12/15/21 08:00 37.0 C 72 86 14 135/68 98 98 12/15/21 03:15 37 C 80 14 139/70 96 Laboratory Results Short CBC 12/15/21 Range/Units 06:44 WBC 4.88 (4.8-10.8) K/uL Hgb 8.0 L (14.0-18.0) g/dL Hct 21.9 L (42-52) % Plt Count 241 (130-400) K/uL BMP 12/15/21 06:44 Sodium 135 L Potassium 3.5 Chloride 105 Carbon Dioxide 23 BUN 8 Creatinine 0.71 Glucose 94 Calcium 7.8 L Medications Administered Current Inpatient Medications Acetaminophen (Acetaminophen 325 Mg Tab) 650 mg PO Q4H PRN PRN Reason: Pain or Fever Stop: 01/11/22 21:15 Last Admin: 12/14/21 15:58 Dose: 650 mg Documented by: Acetaminophen/Butalbital/Caffeine (Butalbital/Acetamin/Caffeine Tab) 1 tab PO Q8H PRN PRN Reason: Headache Stop: 01/13/22 09:25 Last Admin: 12/14/21 20:09 Dose: 1 tab Documented by: Hydrocodone Bitart/Acetaminophen (Hydrocodone/Acetamophen 5/325mg Tab) 1 tab PO Q6H PRN PRN Reason: Pain Stop: 12/27/21 10:46 Last Admin: 12/15/21 07:58 Dose: 1 tab Documented by: Amoxicillin/Clavulanate Potassium (Amoxicillin/Clavulanate 875 Mg Tab) 1 tab PO BIDM [facility] Stop: 12/25/21 16:59 Amphetamine/Dextroamphetamine (Amphetamine Asp/Sulf/Dextramph 10 Mg Tab) 30 mg PO BID [facility] Stop: 12/26/21 21:15 Last Admin: 12/15/21 08:02 Dose: 30 mg Documented by: Atorvastatin Calcium (Atorvastatin 40 Mg Tab) 80 mg PO QAM [facility] Stop: 01/12/22 08:59 Last Admin: 12/15/21 08:00 Dose: 80 mg Documented by: Ferrous Sulfate (Ferrous Sulfate 325 Mg Tab) 325 mg PO TIDM [facility] Stop: 01/14/22 11:59 Last Admin: 12/15/21 11:27 Dose: 325 mg Documented by: Loperamide HCl (Loperamide Hcl 2 Mg Cap) 2 mg PO Q4H PRN PRN Reason: Diarrhea Stop: 01/14/22 10:50 Pantoprazole Sodium (Pantoprazole 40 Mg Tab) 40 mg PO BID [facility] Stop: 01/14/22 20:59 Sertraline HCl (Sertraline Hcl 50 Mg Tablet) 150 mg PO QAM [facility] Stop: 01/12/22 08:59 Last Admin: 12/15/21 08:01 Dose: 150 mg Documented by: Sodium Chloride (Sodium Chloride 0.65% Na Soln 45 Ml ([place])) 1 sprays NA PRN PRN PRN Reason: Nasal Congestion Stop: 01/12/22 06:04 Tamsulosin HCl (Tamsulosin Hcl 0.4 Mg Cap) 0.4 mg PO HS [facility] Stop: 01/11/22 21:15 Last Admin: 12/14/21 20:10 Dose: 0.4 mg Documented by:
[2021-12-15] MEDS: AMOXICILLIN/CLAVULANATE 875 MG TAB PO SCH (16:39)
[2021-12-15] MEDS: PANTOprazole 40 MG TAB PO SCH (20:10)
[2021-12-15] MEDS: TAMSULOSIN HCL 0.4 MG CAP PO SCH (20:11)
[2021-12-15] MEDS: ACETAMINOPHEN 325 MG TAB PO PRN (22:27)
[2021-12-16] MEDS: ACETAMINOPHEN 325 MG TAB PO PRN ×3 (03:39→20:09)
[2021-12-16 06:44] LABS: Basophils # (auto) 0.03 K/uL (0-0.2); Basophils % (auto) 0.5 %; Eosinophils # (auto) 0.17 K/uL (0-0.5); Eosinophils % (auto) 2.9 %; Hematocrit (blood only) 23.4 % (42-52); Hemoglobin 8.4 g/dL (14.0-18.0); Immature Granulocytes # (auto) 0.16 K/uL (0.00-0.02); Immature Granulocytes % (auto) 2.7 %; Lymphocytes # (auto) 1.27 K/uL (1.2-3.4); Lymphocytes % (auto) 21.4 %; Mean Corpuscular Hemoglobin 29.8 pg (25-34); Mean Corpuscular Hgb Conc 35.9 g/dL (32-36); Mean Platelet Volume 7.6 fL (7.4-10.4); Monocytes # (auto) 0.51 K/uL (0.11-0.59); Monocytes % (auto) 8.6 %; Neutrophils % (auto) 63.9 %; Platelet Count 244 K/uL (130-400); RDW Coefficient of Variation 13.1 % (11.5-14.5); RDW Standard Deviation 39.3 fL (36.4-46.3); Red Blood Count 2.82 M/uL (4.7-6.1); White Blood Count 5.94 K/uL (4.8-10.8)
[2021-12-16 07:03] LABS: BUN Creatinine Ratio 10.7 (10-20); Calcium 8.9 mg/dl (8.5-10.1); Creatinine Clr Calc Pharmacy 68.1 ml/min; Est GFR (Non-African American) 89.7 ml/min; Potassium 3.3 mmol/L (3.5-5.1)
[2021-12-16] MEDS: SERTRALINE HCL 50 MG TABLET PO SCH (07:39)
[2021-12-16] MEDS: AMPHETAMINE ASP/SULF/DEXTRAMPH 10 MG TAB PO SCH ×2 (07:39→20:08)
[2021-12-16] MEDS: BUTALBITAL/ACETAMIN/CAFFEINE TAB PO PRN ×2 (07:39→23:03)
[2021-12-16] MEDS: ATORVASTATIN 40 MG TAB PO SCH (07:39)
[2021-12-16] MEDS: FERROUS SULFATE 325 MG TAB PO SCH ×3 (07:40→16:42)
[2021-12-16] MEDS: AMOXICILLIN/CLAVULANATE 875 MG TAB PO SCH ×2 (07:40→16:42)
[2021-12-16] MEDS: PANTOprazole 40 MG TAB PO SCH ×2 (07:40→20:10)
[2021-12-16] MEDS ORDERED: POTASSIUM CHLORIDE CRTAB 20 MEQ TABCR PO STA (08:00)
--- NOTE | 2021-12-16 09:59 | Hospitalist Progress Note ---
Date of Service December 16, 2021 Assessment & Plan (1) Sepsis: Plan: Likely secondary to pancolitis and/or UTI doubt any abscess and/or fluid collection in the lumbar area status post surgery Stool C. difficile toxin is pending Blood and urine cultures are negative In the ED, patient hypotensive 76/53 which improved after IVF. WBC 11 K, HR WNL, patient afebrile. Initial lactate 2.2 --> 0.2 Procalcitonin 87 Has been getting intravenous Zosyn and condition seems to be improving with decreasing white count and clinical improvement Clinically much better-we will continue intravenous Zosyn for now Antibiotic is changed to oral Augmentin Clinically much better and will get PT and OT evaluation Remains medically stable to be discharged Acute blood loss anemia Secondary to colitis with history of chronic anemia Complicated by recent sepsis and LEONEL Hemoglobin has been improving even without transfusion Iron level has been low Iron has been started We will get outpatient GI appointment on discharge Hemoglobin has been improving and it is more than 8 as of 12/16/2021 (2) Colitis: Plan: CT scan of the abdomen and pelvis did show pancolitis-could be infective/inflammatory Diarrhea seems to be controlled Awaiting C. difficile toxin-has been negative and other stool studies have been negative to Will give Imodium to control diarrhea Antibiotic changed to oral Augmentin-abdominal pain is controlled (3) UTI (urinary tract infection): Plan: As above Urine culture has been negative (4) LEONEL (acute kidney injury): Plan: Nonoliguric:ATN in setting of hypotension and sepsis treated and resolved Creatinine 2.4 (baseline 0.7) Likely multifactorial due to prerenal losses due to diarrhea, nephrotoxic medications, possible urinary retention (findings of chronic bladder outlet obstruction noted on CT) IVF, hold SVEN inhibitor and NSAIDs Creatinine has been improving and will monitor Kidney function is normal (5) Elevated troponin: Plan: Troponin 0.15 History of chronic troponin elevation No reports of chest pain, EKG without acute ST changes Likely demand ischemia in the setting of sepsis Trend troponin-second set of elevated to 0.23 but the third set came down to 0.14 Troponin elevation is secondary to LEONEL and doubt any ACS (6) Methemoglobinemia: Plan: Methemoglobin noted to be 3.1% on ABG ? Clinical significance, may be due to profound hypotension on presentation Cyanosis resolved with BP improvement Received IV vitamin C in ED Repeat ABG did show normalization of methemoglobin (7) Depression: (8) ADD (attention deficit disorder): Plan: Continue home meds (9) Iron deficiency anemia: Plan: History of after partial gastrectomy several years ago Hgb stable 9.6 (at recent postop baseline) Received iron transfusion as an outpatient Hemoglobin dropped to 7.2 We will get iron studies and B12, folate level Repeat H&H at 12 and if it drops below 7 will get blood transfusion Iron has been started (10) Status post lumbar spine surgery for decompression of spinal cord: Plan: 12/04/2021:s/p removal of posterior instrumentation L4-5 L5-S1, exploration of fusion L4-L5 L5-S1, lumbar decompression with bilateral medial facetectomies and foraminotomies L2-L3 L3-L4, posterior spinal fusion L3-L4 L4-5 and placement posterior instrumentation L2-S1 No acute issues, no signs of postoperative abscess on CT CT scan of the lumbar spine did not show any abscess Still complains significant pain at the lower back and wound care has been consulted Spine Ortho has been consulted -appreciate input and recommendation Surgical wound at the back is completely healed without any evidence of infection (11) Hypertension: Plan: Due to presenting hypotension, hold antihypertensives (12) DVT prophylaxis: Plan: SCDs for now Admission and Anticipated Discharge Date Admission Date: December 12, 2021 Subjective 12/13/2021 Patient was seen and examined in telemetry unit He complains of some back pain with radiation and without any problem with urine and bowel habit He has been having diarrhea for the last 2 days and also discomfort during voiding He has been feeling much better since admission 12/14/2021 Patient was seen and examined in telemetry unit He has been feeling much better and complains to have some headache His hemoglobin dropped to 7.2 Denies any chest pain, palpitation, any nausea or vomiting 12/15/2021 The patient was seen and examined in telemetry unit He has been feeling much better and complains to have some diarrhea His hemoglobin has been more than 8 and does not have any more bleeding per rectum His back pain is controlled 12/16/2021 The patient was seen and examined in telemetry unit He has been feeling much better and complains to have some pain at the back His back examined and seems to have a nicely healed wound He will get PT and OT evaluation prior to discharge Review of Systems Review of Systems: All systems reviewed and are unremarkable except as noted below Musculoskeletal: Localized back pain without any radiation Physical Exam Physical Exam: Lying in bed comfortably Constitutional: well developed, well nourished, + ill appearing and average body habitus Eyes: PERRL, conjunctivae normal, anicteric sclerae ENMT: external ear and nose normal, oropharynx normal Neck: trachea midline, no thyromegaly Respiratory: no respiratory distress Auscultation: lungs clear to auscultation bilaterally; no crackles Cardiovascular: Rate/Rhythm: regular rate and regular rhythm; not tachycardic Heart Sounds: normal S1, normal S2 and + murmur (2/6 over precordium) Gastrointestinal (Abdomen): Inspection/Auscultation: normal bowel sounds; abdomen not distended Percussion/Palpation: + abdomen tender (Mildly tender hypogastrium and lower quadrants) and abdomen soft Musculoskeletal: Examination of the lumbar spine surgery site-nicely healed wound without any collection and/or inflammation or infection Neurologic: normal touch/pain/proprioception Psychiatric: A+Ox3, euthymic affect Results & Data Results & Data ([facility]) Vital Signs (Past 12 Hours) Vital Signs Temp Pulse Pulse Resp BP Pulse Ox 12/16/21 07:44 36.9 C 106 H 18 166/81 H 99 12/16/21 03:27 36.8 C 79 17 137/68 99 12/16/21 00:00 82 12/15/21 23:00 36.8 C 80 20 138/71 100 Laboratory Results Short CBC 12/16/21 Range/Units 06:24 WBC 5.94 (4.8-10.8) K/uL Hgb 8.4 L (14.0-18.0) g/dL Hct 23.4 L (42-52) % Plt Count 244 (130-400) K/uL BMP 12/16/21 06:24 Sodium 135 L Potassium 3.3 L Chloride 103 Carbon Dioxide 27 BUN 8 Creatinine 0.75 Glucose 97 Calcium 8.9 Medications Administered Current Inpatient Medications Acetaminophen (Acetaminophen 325 Mg Tab) 650 mg PO Q4H PRN PRN Reason: Pain or Fever Stop: 01/11/22 21:15 Last Admin: 12/16/21 03:39 Dose: 650 mg Documented by: Acetaminophen/Butalbital/Caffeine (Butalbital/Acetamin/Caffeine Tab) 1 tab PO Q8H PRN PRN Reason: Headache Stop: 01/13/22 09:25 Last Admin: 12/16/21 07:39 Dose: 1 tab Documented by: Hydrocodone Bitart/Acetaminophen (Hydrocodone/Acetamophen 5/325mg Tab) 1 tab PO Q6H PRN PRN Reason: Pain Stop: 12/27/21 10:46 Last Admin: 12/15/21 07:58 Dose: 1 tab Documented by: Amoxicillin/Clavulanate Potassium (Amoxicillin/Clavulanate 875 Mg Tab) 1 tab PO BIDM [facility] Stop: 12/25/21 16:59 Last Admin: 12/16/21 07:40 Dose: 1 tab Documented by: Amphetamine/Dextroamphetamine (Amphetamine Asp/Sulf/Dextramph 10 Mg Tab) 30 mg PO BID [facility] Stop: 12/26/21 21:15 Last Admin: 12/16/21 07:39 Dose: 30 mg Documented by: Atorvastatin Calcium (Atorvastatin 40 Mg Tab) 80 mg PO QAM [facility] Stop: 01/12/22 08:59 Last Admin: 12/16/21 07:39 Dose: 80 mg Documented by: Ferrous Sulfate (Ferrous Sulfate 325 Mg Tab) 325 mg PO TIDM [facility] Stop: 01/14/22 11:59 Last Admin: 12/16/21 07:40 Dose: 325 mg Documented by: Loperamide HCl (Loperamide Hcl 2 Mg Cap) 2 mg PO Q4H PRN PRN Reason: Diarrhea Stop: 01/14/22 10:50 Last Admin: 12/16/21 09:02 Dose: 2 mg Documented by: Pantoprazole Sodium (Pantoprazole 40 Mg Tab) 40 mg PO BID [facility] Stop: 01/14/22 20:59 Last Admin: 12/16/21 07:40 Dose: 40 mg Documented by: Sertraline HCl (Sertraline Hcl 50 Mg Tablet) 150 mg PO QAM [facility] Stop: 01/12/22 08:59 Last Admin: 12/16/21 07:39 Dose: 150 mg Documented by: Sodium Chloride (Sodium Chloride 0.65% Na Soln 45 Ml ([place])) 1 sprays NA PRN PRN PRN Reason: Nasal Congestion Stop: 01/12/22 06:04 Tamsulosin HCl (Tamsulosin Hcl 0.4 Mg Cap) 0.4 mg PO HS [facility] Stop: 01/11/22 21:15 Last Admin: 12/15/21 20:11 Dose: 0.4 mg Documented by:
[2021-12-16] MEDS: LACTASE 3000 UNIT TAB PO SCH ×2 (16:42→17:53)
[2021-12-16] MEDS: TAMSULOSIN HCL 0.4 MG CAP PO SCH (20:10)
[2021-12-16] MEDS ORDERED: ZOLPIDEM TARTRATE 5 MG TAB PO STA (21:05)
[2021-12-17] MEDS ORDERED: POTASSIUM CHLORIDE CRTAB 20 MEQ TABCR PO STA (07:22)
[2021-12-17] MEDS: FERROUS SULFATE 325 MG TAB PO SCH ×2 (08:21→12:31)
[2021-12-17] MEDS: ATORVASTATIN 40 MG TAB PO SCH (08:21)
[2021-12-17] MEDS: SERTRALINE HCL 50 MG TABLET PO SCH (08:21)
[2021-12-17] MEDS: AMPHETAMINE ASP/SULF/DEXTRAMPH 10 MG TAB PO SCH (08:22)
[2021-12-17] MEDS: AMOXICILLIN/CLAVULANATE 875 MG TAB PO SCH (08:22)
[2021-12-17] MEDS: PANTOprazole 40 MG TAB PO SCH (08:22)
[2021-12-17] MEDS: LACTASE 3000 UNIT TAB PO SCH ×2 (08:22→12:31)
[2021-12-17 08:58] LABS: Hematocrit (blood only) 23.8 % (42-52); Hemoglobin 8.5 g/dL (14.0-18.0); Mean Corpuscular Hgb Conc 35.7 g/dL (32-36); Mean Corpuscular Volume 84.1 fL (80-100); Mean Platelet Volume 7.7 fL (7.4-10.4); Platelet Count 258 K/uL (130-400); RDW Coefficient of Variation 13.4 % (11.5-14.5); RDW Standard Deviation 40.4 fL (36.4-46.3); Red Blood Count 2.83 M/uL (4.7-6.1); White Blood Count 6.11 K/uL (4.8-10.8)
[2021-12-17 09:27] LABS: BUN Creatinine Ratio 11.9 (10-20); Creatinine Clr Calc Pharmacy 87.2 ml/min; Est GFR (African American) 108.9 ml/min; Potassium 3.6 mmol/L (3.5-5.1)
[2021-12-17] MEDS ORDERED: carvediloL 25 MG TAB PO SCH (10:30)
--- NOTE | 2021-12-17 12:24 | Discharge Summary ---
Date of Service December 17, 2021 Admission HPI Per Admitting Provider 76-year-old male with PMH dyslipidemia, HTN, IBS-C, history of peptic ulcer disease with remote history of Billroth I procedure, chronic MIR, depression, ADD, and other problems listed below who presents to the ED for evaluation of generalized weakness and intractable diarrhea. Patient recently admitted to [facility] 12/04 through 12/07 after patient underwent back surgery with Dr. Ferrer on 12/04. Patient reports feeling well at the time of discharge. About 4 days ago, patient reports he developed intractable diarrhea. He has had worsening generalized weakness. He has had a very poor appetite. Patient reports a his tory of chronic constipation and feels as though he received too much bowel regimen while admitted to the hospital. Patient denies chest pain or shortness of breath. No nausea or vomiting. Denies lightheadedness, dizziness, diaphoresis, syncopal events. No urinary symptoms. Today, patient noted his fingernails to be blue. He then called EMS and was brought to the ED for further evaluation. In the ED, patient was hypotensive 76/53, this improved with IVF. Labs show WBC 11.5, Hgb 9.6, creatinine 2.8, lactate 2.2, troponin 0 0.15, procalcitonin 87. ABG shows mildly elevated methemoglobin 3.1%. UA suggestive of possible UTI. CT ABD/pelvis showing possible colitis. In addition to IVF, patient also received IV vitamin C for concerns of methemoglobinemia. Admission Exam Per Admitting Provider Vitals signs as noted above General Appearance: Thin, frail, chronically ill appearing, no apparent distress Head: normocephalic, Atraumatic Eyes: normal inspection, EOMI Neck: supple, Trachea midline Respiratory/Chest: Normal breath sounds, CTA, No accessory muscle use Cardiovascular: S1, S2, No murmur Abdomen/GI:Soft, Non tender, Bowel sounds present Back:Surgical site in dressing Extremities/Musculoskeletal:normal inspection, no edema Neurologic/Psych:AAOX3, grossly no focal neurological deficits Skin: normal color, warm Principal Diagnosis Colitis UTI Acute blood loss anemia secondary to colitis on the background of chronic anemia. Discharge Exam GENERAL: Alert and oriented x3. NAD, on RA. HEENT: No pallor, no icterus. Pupils equal, round and reactive to light. Oral mucosa moist. NECK: No JVD, no neck masses. HEART: S1 and S2 heard. Regular rate and rhythm. No murmur, no gallop. RESPIRATORY SYSTEM: Normal AP diameter. No accessory muscle use. No wheezing, no crackles. ABDOMEN: Soft, bowel sounds present, nontender, no distention. CENTRAL NERVOUS SYSTEM: No facial droop. Speech is clear. Obeys simple commands. Moves extremities. EXTREMITIES: No edema, no erythema seen. Back: clean dressing without soakage Discharge Data Allergies Allergy/AdvReac Type Severity Reaction Status Date / Time lactose AdvReac Severe Intolerant-SEVERE Verified 12/12/21 17:04 ABDOMINAL CRAMPS buspirone AdvReac Intermediate Jittery, Verified 12/12/21 17:04 "crawling out of my skin" lorazepam AdvReac Intermediate Jittery, Verified 12/12/21 17:04 "crawling out of my skin" oxycodone AdvReac Mild nausea Verified 12/12/21 17:04 Consultations 12/12/21 17:07 ED Decision to Admit Stat 12/13/21 09:45 Consult Orthopedic Surgery Routine Ordered Studies 12/12/21 15:46 CT abd pelvis wo con Stat 12/13/21 09:45 CT lumbar spine wo con Urgent Hospital Course (1) Colitis: He was managed for the following: #. Pancolitis #. UTI #. Sepsis: Likely secondary to above, resolved. Admitting blood and urine cultures negative, C. difficile negative. Initially patient was hypotensive, blood pressure medications were held, gradually resume blood pressure medication. 1 medication a day, measure blood pressure at home, hold further medication for low blood pressure, patient made aware. Patient is started on IV Zosyn, transition to Augmentin, 10 more days upon discharge. Add probiotics. Patient doing better, denies belly pain, denies diarrhea, tolerating diet well. FOBT was positive. Patient to follow-up with PCP in a week time. Follow-up with GI in a month time. #. Acute blood loss anemia #. Iron deficiency anemia Secondary to colitis with history of chronic anemia Complicated by recent sepsis and LEONEL Hemoglobin has been improving even without transfusion Iron level has been low, iron supplementation started. FOBT positive. Avoid NSAIDs. GI follow-up as an outpatient in a month time. CBC in a week upon discharge. #. LEONEL: Resolved (5) Elevated troponin: History of chronic troponin elevation, EKG without acute ST changes. Likely demand ischemia in the setting of sepsis. (6) Methemoglobinemia: Plan: Methemoglobin noted to be 3.1% on ABG ? Clinical significance, may be due to profound hypotension on presentation Cyanosis resolved with BP improvement Received IV vitamin C in ED Repeat ABG did show normalization of methemoglobin #. Status post lumbar spine surgery for decompression of spinal cord: Plan: 12/04/2021:s/p removal of posterior instrumentation L4-5 L5-S1, exploration of fusion L4-L5 L5-S1, lumbar decompression with bilateral medial facetectomies and foraminotomies L2-L3 L3-L4, posterior spinal fusion L3-L4 L4-5 and placement posterior instrumentation L2-S1 No acute issues, no signs of postoperative abscess on CT CT scan of the lumbar spine did not show any abscess Still complains significant pain at the lower back and wound care has been consulted Spine Ortho has been consulted -appreciate input and recommendation Surgical wound at the back is completely healed without any evidence of infection Following instructions communicated at the point of discharge: Follow-up with your primary care physician within 1 week time. Follow-up with GI doctor as an outpatient in 3 to 4 weeks time. Continue with pantoprazole, get in touch with your PCP or GI doctor in a month time prior to completion of her pantoprazole. Continue with iron supplementation. Get your blood work CBC done in a week time. Complete the course of antibiotic, probiotic prescribed for the same duration of antibiotic. Avoid NSAIDs, can use OTC Tylenol if pain is still not controlled. Take medications as prescribed. Total Time Total Time Spent Total Time Spent (In Minutes): 37 Discharge Plan Discharge Items Patient Disposition: Home - Home Health Services Reason For Visit: LEONEL, POSSIBLE SEPSIS Discharge Diagnosis: Colitis UTI Acute blood loss anemia secondary to colitis on the background of chronic anemia. Activity: Resume your previous activity Non-emergency contact: Primary Care Provider Call non-emergency contact if: you have any medication questions, your symptoms worsen, your pain is not controlled and your temperature is above 101 Follow-up/Referrals: Buddy Bgeum DO [Primary Care Provider] - (Date & Time 12/25/2021 11:00 AM Provider Arnold Mcmahon III, MD Department [facility] ) Diet: Heart Healthy Addtl Attending Provider Instructions: Follow-up with your primary care physician within 1 week time. Follow-up with GI doctor as an outpatient in 3 to 4 weeks time. Continue with pantoprazole, get in touch with your PCP or GI doctor in a month time prior to completion of her pantoprazole. Continue with iron supplementation. Get your blood work CBC done in a week time. Complete the course of antibiotic, probiotic prescribed for the same duration of antibiotic. Avoid NSAIDs, can use OTC Tylenol if pain is still not controlled. Take medications as prescribed. Pending Studies at Discharge: Yes (Admitting blood culture final results.) Stand-Alone Forms: My [facility] [employer], Smoking Cessation Medications and DC Order Prescriptions: New ferrous sulfate 325 mg (65 mg iron) Tablet,Delayed Release (Dr/Ec) 325 mg PO TIDM Qty: 30 RF: 0 loperamide 2 mg Capsule 2 mg PO Q8H PRN (Reason: loose stool) Qty: 30 RF: 0 pantoprazole 40 mg Tablet,Delayed Release (Dr/Ec) 40 mg PO BID Qty: 60 RF: 0 amoxicillin-pot clavulanate 875-125 mg tablet 1 tab PO BID 10 Days Qty: 20 RF: 0 Probiotic 3 billion cell capsule 3,000 mmu cells PO DAILY Qty: 10 RF: 0 Continued methocarbamol 750 mg tablet 750 mg PO .COMPLEX 30 Days Qty: 60 RF: 0 sumatriptan succinate 100 mg tablet 100 mg PO DIRECTED PRN (Reason: Migraine Headache) 30 Days Qty: 9 RF: 5 cyclobenzaprine 10 mg tablet 10 mg PO BID PRN (Reason: muscle spasms) Qty: 60 RF: 1 atorvastatin 80 mg tablet 80 mg PO QAM RF: 0 rabeprazole 20 mg Tablet,Delayed Release (Dr/Ec) 20 mg PO DAILY PRN (Reason: Acid Reflux) RF: 0 sertraline [Zoloft] 100 mg tablet 150 mg PO QAM RF: 0 hydroxyzine HCl 50 mg tablet 50 mg PO BID PRN (Reason: Itching) RF: 0 exxikzakzy-hytproknxmdio-ecsb 50-325-40 mg Tablet 1 tab PO DAILY PRN (Reason: Migraine Headache) RF: 0 dicyclomine 20 mg tablet 10 mg PO QID PRN (Reason: abd pain) RF: 0 baclofen 10 mg Tablet 10 mg PO UD PRN (Reason: muscle spasms) RF: 0 amlodipine [Norvasc] 10 mg tablet 10 mg PO QPM RF: 0 flurandrenolide 0.05 % lotion 1 applic TOPICAL BID PRN (Reason: Itching) RF: 0 azelastine 137 mcg (0.1 %) aerosol,spray 1 spray INTRANASAL QAM PRN (Reason: Congestion) RF: 0 lisinopril 40 mg tablet 40 mg PO QAM RF: 0 ondansetron 4 mg tablet,disintegrating 4 mg translingual Q12 PRN (Reason: Nausea) RF: 0 tadalafil [Cialis] 20 mg tablet 20 mg PO UD PRN (Reason: erectile disfunction) RF: 0 Linzess 290 mcg capsule 290 mcg PO HS RF: 0 tamsulosin [Flomax] 0.4 mg Capsule 0.4 mg PO HS RF: 0 dextroamphetamine-amphetamine [Adderall] 30 mg Tablet 30 mg PO BID RF: 0 carvedilol 25 mg Tablet 25 mg PO BID RF: 0 diazepam 5 mg tablet 5 mg PO DAILY PRN (Reason: Anxiety) RF: 0 tramadol 50 mg tablet 50 mg PO Q6H PRN (Reason: pain, moderate) Qty: 30 RF: 0 oxycodone 5 mg tablet 5 mg PO Q6H PRN (Reason: severe pain (scale score 7-10)) Qty: 14 RF: 0 Discontinued celecoxib [Celebrex] 200 mg capsule 200 mg PO QAM RF: 0 ibuprofen 200 mg Tablet 600 mg PO Q8H PRN (Reason: Pain) RF: 0 aspirin 325 mg tablet 975 mg PO Q6H PRN (Reason: Pain) RF: 0 Discharge Orders: Discharge Order (Routine); Ordered 12/17/21 Ordered By: Ada Peters Admission Data Admit Date/Time: 12/12/21 18:01 Attending Provider: Ada Peters Admit Provider: Juan Carlos Gonzalez Primary Care Provider: Buddy Begum Other Providers: Juan Carlos Gonzalez ; Ángel Ferrer ; [facility] ; [place]
== END 2021-12-17 16:07 | disposition home health service (06) | DRG 871 ==
LOC: ED 12:31 → SUATTDRO 18:01 → 2E 18:01

== ENCOUNTER 2023-01-04 01:10 | Inpatient (IN) ==
[2023-01-04] MEDS ORDERED: ONDANSETRON INJ 2 MG/ML 2 ML VIAL IV STA (01:15)
[2023-01-04] MEDS ORDERED: PANTOprazole 80 MG in DEXTROSE 5% 100 ML IV STA (01:22)
--- NOTE | 2023-01-04 01:29 | Emergency Department Note ---
History of Present Illness General Chief complaint: Vomiting Time Seen by Provider: 01/04/23 01:13 History of Present Illness Maximum Pain Intensity: 5 77-year-old male presents emergency department with a 2-day history of vomiting grounds and having dark stools. Patient has a history of ulcers. Patient has a history of IBS. Patient is followed by GI. Patient continued to have nausea vomiting. [facility] and EMS came to his house and noticed that he was vomiting blood. Patient states general malaise. There are no other complaints at this time from the patient. He denies being on blood thinners Home Medications Medication Instructions Recorded Confirmed Type amlodipine 10 mg tablet (Norvasc) 10 mg PO QPM 12/07/20 01/04/23 History atorvastatin 80 mg tablet 80 mg PO QAM 12/07/20 01/04/23 History baclofen 10 mg tablet 10 mg PO UD PRN muscle spasms 12/07/20 01/04/23 History watkavljyq-zptaqysjovtfx-pqspuzfn 1 tab PO DAILY PRN Migraine 12/07/20 01/04/23 History 50 mg-325 mg-40 mg tablet Headache dicyclomine 20 mg tablet 10 mg PO QID PRN abd pain 12/07/20 01/04/23 History flurandrenolide 0.05 % lotion 1 applic topical BID PRN Itching 12/07/20 01/04/23 History hydroxyzine HCl 50 mg tablet 50 mg PO BID PRN Itching 12/07/20 01/04/23 History linaclotide 290 mcg capsule 290 mcg PO HS 12/07/20 01/04/23 History (Linzess) lisinopril 40 mg tablet 40 mg PO QAM 12/07/20 01/04/23 History ondansetron 4 mg disintegrating 4 mg translingual Q12 PRN Nausea 12/07/20 01/04/23 History tablet rabeprazole 20 mg tablet,delayed 20 mg PO DAILY PRN Acid Reflux 12/07/2012/10 History release sertraline 100 mg tablet (Zoloft) 150 mg PO QAM 12/07/20 01/04/23 History dextroamphetamine-amphetamine 30 30 mg PO BID 07/14/21 01/04/23 History mg tablet (Adderall) tamsulosin 0.4 mg capsule (Flomax) 0.4 mg PO HS 07/14/21 01/04/23 History ferrous sulfate 325 mg (65 mg 325 mg PO TIDM #30 tabs 12/17/21 01/04/23 Rx iron) tablet,delayed release lactobacillus combination no.4 3 3,000 mmu cells PO DAILY #10 caps 12/17/21 01/04/23 Rx billion cell capsule (Probiotic) pantoprazole 40 mg tablet,delayed 40 mg PO BID #60 tabs 12/17/21 01/04/23 Rx release sumatriptan succinate 100 mg tablet 100 mg PO DIRECTED PRN Migraine 11/17/22 01/04/23 Rx Headache 30 days #9 tabs diazepam 5 mg tablet 5 mg PO HS PRN Anxiety 30 days #15 12/28/22 01/04/23 Rx tabs acetaminophen 300 mg-codeine 30 mg 1 tab PO BID PRN Pain 01/04/23 01/04/23 H istory tablet betamethasone valerate 0.1 % 1 applic topical BID PRN Skin 01/04/23 01/04/23 Hi story topical cream Irritation cyclobenzaprine 10 mg tablet 10 mg PO DAILY PRN muscle spasms 01/04/23 01/04/23 History methocarbamol 750 mg tablet 750 mg PO BID PRN NEEDED PER [facility] 01/04/23 01/04/23 History metoprolol tartrate 100 mg tablet 100 mg PO BID 01/04/23 01/04/23 History polyethylene glycol 3350 17 17 g PO DAILY PRN Constipation 01/04/23 01/04/23 History gram/dose oral powder (Miralax) Allergies Allergy/AdvReac Type Severity Reaction Status Date / Time lactose AdvReac Severe Intolerant-SEVERE Verified 01/04/23 01:45 ABDOMINAL CRAMPS buspirone AdvReac Intermediate Jittery, Verified 01/04/23 01:45 "crawling out of my skin" lorazepam AdvReac Intermediate Jittery, Verified 01/04/23 01:45 "crawling out of my skin" oxycodone AdvReac Mild nausea Verified 01/04/23 01:45 Past Med/Surg History Medical History Anemia iron deficiency, h/o multiple infusions with last occurring > 1 month ago Anxiety Arthralgia of multiple sites Arthritis 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 hyperactivity Bilateral edema of lower extremity resolved on carvedilol per pt Chronic radicular low back pain CVA (cerebral vascular accident) Incidental "old" infarct noted on 2018 imaging during workup for polypharmacy reaction Degenerative disc disease Depression with h/o depressive psychosis Duodenal ulcer resolved per pt and s/p release from subsequent adhesion development Dyslipidemia GERD (gastroesophageal reflux disease) pyloric stenosis s/p partial gastrectomy Glaucoma History of long-term treatment with high-risk medication Hypertension controlled, stable per pt Hyponatremia stable per pt IBS (irritable bowel syndrome) C Migraine without status migrainosus, not intractable Mild cognitive impairment Mild concentric left ventricular hypertrophy (LVH) Pain in foot left PFO (patent foramen ovale) [facility] cardio 07/2021: "small and non clinically significant...no additional cardiac studies or treatment are indicated..." Rebound headache to be starting prednisone course by neurology per note Spinal stenosis Urinary frequency Surgical History Fusion of spine Lumbar History of colonoscopy History of esophagogastroduodenoscopy (EGD) History of myringotomy History of partial gastrectomy r/t pyloric sphincter scarring 2004 (x2) History of surgery Right side (ribs removed) History of tonsillectomy History of tooth extraction Family History Other No family history of adverse response to anesthesia No known health problems Social History Smoking Status: Never smoker Second Hand Exposure: No; Hx Alcohol Use: No Hx Substance Use: No Preferred Language: Vietnamese Communication Ability: Effective 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 Beliefs That Will Affect Care: None marital status: Current Living Situation: Spouse current occupational status: retired How many Children do You have: 2 Feels Safe at Home: Yes Assistive Devices: None Review of Systems A total of 10 systems reviewed and were otherwise negative Constitutional: no fever Gastrointestinal: + vomiting, + coffee ground emesis and + hematemesis; no abdominal pain Physical Exam Vital Signs Vital Signs - 24 hr 01/04/23 01:15 01/04/23 01:24 01/04/23 01:17 Temperature 36.9 C 36.9 C Temperature Source Oral Oral Pulse Rate 135 H 126 H Pulse Rate [Finger] Pulse Rhythm [Finger] Pulse Strength [Finger] Respiratory Rate 18 18 Respiratory Effort / Characteristics Non-Labored Respiratory Depth Normal Respiratory Pattern Blood Pressure 199/111 H Blood Pressure Mean 140 Pulse Oximetry 95 98 Oxygen Delivery Method Room Air Sepsis Recent Fever Within 48 Hours No Sepsis New/Unexplained Change in Mental Status No Sepsis Action Taken by Nursing No Action Required 01/04/23 01:32 01/04/23 02:11 Temperature Temperature Source Pulse Rate 66 Pulse Rate [Finger] 74 Pulse Rhythm [Finger] Regular Pulse Strength [Finger] Normal Respiratory Rate 18 Respiratory Effort / Characteristics Non-Labored Respiratory Depth Normal Respiratory Pattern Regular Blood Pressure Blood Pressure Mean Pulse Oximetry 100 97 Oxygen Delivery Method Room Air Room Air Sepsis Recent Fever Within 48 Hours Sepsis New/Unexplained Change in Mental Status Sepsis Action Taken by Nursing GENERAL: Patient is awake alert appears ill EYES: The conjunctivae are clear. The pupils are round and reactive. EARS, NOSE, MOUTH AND THROAT: The nose is without any evidence of any deformity. Mucous membranes are moist. Tongue is midline. NECK: The neck is nontender and supple. RESPIRATORY: Normal respiratory effort is noted there is no evidence of wheezing rhonchi or rales CARDIOVASCULAR: Tachycardic noted there no murmurs rubs or gallops normal S1 normal S2. GASTROINTESTINAL: The abdomen is soft. Abdomen is nontender. No rebound rigidity guarding RECTAL exam, with hop strainer present, heme negative BACK: No midline tenderness or or step-off noted range of motion in flexion extension as well as rotation no signs of muscle spasm noted MUSCULOSKELETAL/EXTREMITIES: There is no evidence of gross deformity full range of motion is noted in the hips and shoulders. SKIN: There is no obvious evidence of any rash. There are no petechiae, pallor or cyanosis noted. NEUROLOGIC: Patient is awake alert and oriented x3 strength is symmetric Course Administered Medications Discontinued Medications Pantoprazole Sodium 80 mg/ (Dextrose) 100 mls @ 400 mls/hr IV ONE STA Stop: 01/04/23 01:36 Last Infusion: 01/04/23 01:58 Dose: 0 mls/hr Documented By: Admin: 01/04/23 01:42 Dose: 400 mls/hr Documented By: UBALDO Ondansetron HCl (Ondansetron Inj 2 Mg/Ml 2 Ml Vial) 4 mg IV NOW STA Stop: 01/04/23 01:16 Last Admin: 01/04/23 01:29 Dose: 4 mg Documented By: UBALDO Medical Decision Making Medical Records Attestation: I reviewed the patient's medical records. Home Medications Current Medication List: was personally reviewed by me Laboratory Data Attestation: I reviewed the patient's lab results. 01/04/23 01:01/04/23 01: Lab Results 01/04/23 01/04/23 01/04/23 Range/Units 01: 01: 01:27 WBC 10.44 (4.8-10.8) K/ul RBC 5.47 (4.70-6.10) M/uL Hgb 17.2 (14.0-18.0) g/dl Hct 46.1 (42.0-52.0) % MCV 84.3 (80.0-100.0) fL MCH 31.4 (25.0-34.0) pg MCHC 37.3 H (32.0-36.0) g/dL RDW Std Deviation 35.5 L (36.4-46.3) fL RDW Coeff of Boogie 11.7 (11.5-14.5) % Plt Count 278 (130-400) K/uL MPV 8.2 L (9.4-12.4) fL Immature Gran % (Auto) 0.4 % Neut % (Auto) 83.3 % Lymph % (Auto) 12.3 % [place] % (Auto) 3.4 % Eos % (Auto) 0.4 % Baso % (Auto) 0.2 % Neut # (Auto) 8.70 H (1.40-6.50) K/uL Lymph # (Auto) 1.28 (1.2-3.4) K/uL [place] # (Auto) 0.36 (0.11-0.59) K/uL Eos # (Auto) 0.04 (0-0.50) K/uL Baso # (Auto) 0.02 (0-0.2) K/uL Immature Gran # (Auto) 0.04 (0.01-0.20) K/uL PT 11.3 (9.0-12.0) Seconds INR 1.1 (0.9-1.1) Sodium 139 (136-145) mmol/L Potassium 4.3 (3.5-5.1) mmol/L Chloride 101 (98-107) mmol/L Carbon Dioxide 22 (21-32) mmol/L Anion Gap 16 H (3-11) BUN 21 (6-23) mg/dl Creatinine 0.99 (0.6-1.4) mg/dl Est Cr Clr Drug Dosing 52.2 ml/min Est GFR ( Amer) 85.4 ml/min Est GFR (Non-Af Amer) 73.7 ml/min BUN/Creatinine Ratio 21.2 H (10-20) Glucose 136 H (70-99(Fasting)) mg/dl Calcium 10.7 H (8.6-10.3) mg/dl Total Bilirubin 0.7 (0.2-1.0) mg/dl AST 20 (13-39) U/L ALT 21 (7-52) U/L Alkaline Phosphatase 137 H (34-104) U/L Total Protein 8.2 (6.0-8.3) gm/dl Albumin 4.9 (3.4-5.0) gm/dl Globulin 3.3 (2.5-4.0) gm/dl Albumin/Globulin Ratio 1.5 (0.9-2) Lipase 14 (11-82) U/L SARS-CoV-2, RNA, NAAT (NEGATIVE) Blood Type Antibody Screen 01/04/23 01/04/23 Range/Units 01:30 01:55 WBC (4.8-10.8) K/ul RBC (4.70-6.10) M/uL Hgb (14.0-18.0) g/dl Hct (42.0-52.0) % MCV (80.0-100.0) fL MCH (25.0-34.0) pg MCHC (32.0-36.0) g/dL RDW Std Deviation (36.4-46.3) fL RDW Coeff of Boogie (11.5-14.5) % Plt Count (130-400) K/uL MPV (9.4-12.4) fL Immature Gran % (Auto) % Neut % (Auto) % Lymph % (Auto) % [place] % (Auto) % Eos % (Auto) % Baso % (Auto) % Neut # (Auto) (1.40-6.50) K/uL Lymph # (Auto) (1.2-3.4) K/uL [place] # (Auto) (0.11-0.59) K/uL Eos # (Auto) (0-0.50) K/uL Baso # (Auto) (0-0.2) K/uL Immature Gran # (Auto) (0.01-0.20) K/uL PT (9.0-12.0) Seconds INR (0.9-1.1) Sodium (136-145) mmol/L Potassium (3.5-5.1) mmol/L Chloride (98-107) mmol/L Carbon Dioxide (21-32) mmol/L Anion Gap (3-11) BUN (6-23) mg/dl Creatinine (0.6-1.4) mg/dl Est Cr Clr Drug Dosing ml/min Est GFR ( Amer) ml/min Est GFR (Non-Af Amer) ml/min BUN/Creatinine Ratio (10-20) Glucose (70-99(Fasting)) mg/dl Calcium (8.6-10.3) mg/dl Total Bilirubin (0.2-1.0) mg/dl AST (13-39) U/L ALT (7-52) U/L Alkaline Phosphatase (34-104) U/L Total Protein (6.0-8.3) gm/dl Albumin (3.4-5.0) gm/dl Globulin (2.5-4.0) gm/dl Albumin/Globulin Ratio (0.9-2) Lipase (11-82) U/L SARS-CoV-2, RNA, NAAT NEGATIVE (NEGATIVE) Blood Type B Positive Antibody Screen NEGATIVE ECG Data Attestation: I personally reviewed and interpreted this ECG as follows: Additional Comments: EKG interpreted by me sinus tachycardia at [address] abnormality no obvious ST segment elevation depression normal intervals normal axis Telemetry was ordered by me, interpreted as this rhythm rate of 90 MDM Narrative Medical decision making differential diagnosis includes upper GI bleed, ulcer, lower GI bleed, dehydration, pancreatitis, anemia Plan is to check labs, give IV fluids, IV Protonix External medical records and GI consult were reviewed by me EMS medical report was reviewed by me Impression & Plan Hematemesis Discharge Plan Visit Data Chief Complaint: Vomiting ED Provider: Joe Dejesus Discharge Problem: Hematemesis Patient Disposition: Admitted As Inpatient Forms Stand Alone Forms: [facility] Prescriptions Prescriptions: No Action diazepam 5 mg tablet 5 mg PO HS PRN (Reason: Anxiety) 30 Days Qty: 15 0RF sumatriptan succinate 100 mg tablet 100 mg PO DIRECTED PRN (Reason: Migraine Headache) 30 Days Qty: 9 5RF atorvastatin 80 mg tablet 80 mg PO QAM rabeprazole 20 mg Tablet,Delayed Release (Dr/Ec) 20 mg PO DAILY PRN (Reason: Acid Reflux) sertraline [Zoloft] 100 mg tablet 150 mg PO QAM Rx Instructions: PER EXT MED HX. hydroxyzine HCl 50 mg tablet 50 mg PO BID PRN (Reason: Itching) erbaevtmfg-oxelxzlfopkkg-ungx 50-325-40 mg Tablet 1 tab PO DAILY PRN (Reason: Migraine Headache) dicyclomine 20 mg tablet 10 mg PO QID PRN (Reason: abd pain) baclofen 10 mg Tablet 10 mg PO UD PRN (Reason: muscle spasms) amlodipine [Norvasc] 10 mg tablet 10 mg PO QPM flurandrenolide 0.05 % lotion 1 applic TOPICAL BID PRN (Reason: Itching) lisinopril 40 mg tablet 40 mg PO QAM ondansetron 4 mg tablet,disintegrating 4 mg translingual Q12 PRN (Reason: Nausea) Linzess 290 mcg capsule 290 mcg PO HS tamsulosin [Flomax] 0.4 mg Capsule 0.4 mg PO HS dextroamphetamine-amphetamine [Adderall] 30 mg Tablet 30 mg PO BID ferrous sulfate 325 mg (65 mg iron) Tablet,Delayed Release (Dr/Ec) 325 mg PO TIDM Qty: 30 0RF pantoprazole 40 mg Tablet,Delayed Release (Dr/Ec) 40 mg PO BID Qty: 60 0RF Probiotic 3 billion cell capsule 3,000 mmu cells PO DAILY Qty: 10 0RF Rx Instructions: administer with a meal metoprolol tartrate 100 mg tablet 100 mg PO BID acetaminophen-codeine 300-30 mg tablet 1 tab PO BID PRN (Reason: Pain) betamethasone valerate 0.1 % cream 1 applic TOPICAL BID PRN (Reason: Skin Irritation) polyethylene glycol 3350 [Miralax] 17 gram/dose Powder 17 g PO DAILY PRN (Reason: Constipation) cyclobenzaprine 10 mg tablet 10 mg PO DAILY PRN (Reason: muscle spasms) methocarbamol 750 mg tablet 750 mg PO BID PRN (Reason: NEEDED PER [facility]) Rx Instructions: 750 mg PO TWICE DAILY NEEDED; Referrals Referrals: Buddy Begum DO [Primary Care Provider] -
[2023-01-04 01:41] LABS: Basophils # (auto) 0.02 K/uL (0-0.2); Basophils % (auto) 0.2 %; Eosinophils # (auto) 0.04 K/uL (0-0.50); Eosinophils % (auto) 0.4 %; Hematocrit (blood only) 46.1 % (42.0-52.0); Hemoglobin 17.2 g/dl (14.0-18.0); Immature Granulocytes # (auto) 0.04 K/uL (0.01-0.20); Immature Granulocytes % (auto) 0.4 %; Lymphocytes # (auto) 1.28 K/uL (1.2-3.4); Lymphocytes % (auto) 12.3 %; Mean Corpuscular Hemoglobin 31.4 pg (25.0-34.0); Mean Corpuscular Hgb Conc 37.3 g/dL (32.0-36.0); Mean Corpuscular Volume 84.3 fL (80.0-100.0); Mean Platelet Volume 8.2 fL (9.4-12.4); Monocytes # (auto) 0.36 K/uL (0.11-0.59); Monocytes % (auto) 3.4 %; Neutrophils % (auto) 83.3 %; Platelet Count 278 K/uL (130-400); RDW Coefficient of Variation 11.7 % (11.5-14.5); RDW Standard Deviation 35.5 fL (36.4-46.3); Red Blood Count 5.47 M/uL (4.70-6.10); White Blood Count 10.44 K/ul (4.8-10.8)
[2023-01-04 01:51] LABS: INR 1.1 (0.9-1.1); Prothrombin Time 11.3 Seconds (9.0-12.0)
[2023-01-04 02:03] LABS: Albumin Globulin Ratio 1.5 (0.9-2); Albumin Level 4.9 gm/dl (3.4-5.0); BUN Creatinine Ratio 21.2 (10-20); Bilirubin,Total 0.7 mg/dl (0.2-1.0); Calcium 10.7 mg/dl (8.6-10.3); Creatinine Clr Calc Pharmacy 52.2 ml/min; Est GFR (African American) 85.4 ml/min; Est GFR (Non-African American) 73.7 ml/min; Globulin 3.3 gm/dl (2.5-4.0); Potassium 4.3 mmol/L (3.5-5.1); Total Protein 8.2 gm/dl (6.0-8.3)
[2023-01-04] MEDS ORDERED: METOPROLOL TARTRATE 1 MG/ML VIAL IV STA (02:45)
--- NOTE | 2023-01-04 02:49 | History & Physical Report ---
Date of Service January 04, 2023 Assessment & Plan (1) UGIB (upper gastrointestinal bleed): Plan: Gastritis/esophagitis on CT History of PUD status post surgery Currently hemodynamically stable Pancolitis on CT Past history of pancolitis Patient nontoxic Bladder wall thickening on CT rule out UTI hx BPH on Flomax Patient not septic. Hypertensive crisis secondary to illness, discomfort, missed BP medications Hypercalcemia secondary to clinical dehydration rule out primary hyperparathyroidism given hypophosphatemia hyperlipidemia, on statin Rx hx CVA, vascular dementia as per records, patient mentating well mood disorder, at baseline ADD on Adderall hx migraine, at baseline, patient follows with [facility] neurologist Hyperglycemia rule out DM PCU given hypertensive crisis IV Lopressor 1 dose now Analgesia IV PPI GI consult re: UGIB, pancolitis on CT Follow H&H, transfuse PRBC if hemoglobin less than 8 and or for symptomatic anemia Check UA Check intact PTH Check hemoglobin A1c DVT prophylaxis. SCDs are in GI bleed Full code Text document was generated using [employer] voice recognition software. It may contain grammatical or spelling errors. Kindly contact undersigned for clarification of any documentation item in question. History of Present Illness Chief Complaint: Coffee-ground emesis, melena Primary Care Provider: Buddy Begum, History obtained from the patient and records. Medical history significant for hypertension, hyperlipidemia, CVA, vascular dementia, mood disorder, PUD sp surgery, attention deficit as per records, migraine, history of constipation predominant IBS, BPH. Last confinement December 2021 for pancolitis status post antibiotic Rx. Patient noted burning epigastric discomfort the last 2 days followed by coffee- ground emesis and melena. Denies OTC NSAID intake. Unable to take home medications the last few days due to illness. Patient denies headache, chest pain, SOB. Usual back pain complaints. S BP 199 at the ER. IV Protonix administered at the ER. MEDICAL HISTORY: As above. 2020 EGD showed hiatal hernia, unremarkable Billroth I anastomosis 2020 colonoscopy showed hemorrhoids SURGERIES: He has had partial gastrectomy, tonsillectomy, back surgery FAMILY HISTORY: No family history of IBD. 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 Allergies Allergy/AdvReac Type Severity Reaction Status Date / Time lactose AdvReac Severe Intolerant-SEVERE Verified 01/04/23 01:45 ABDOMINAL CRAMPS buspirone AdvReac Intermediate Jittery, Verified 01/04/23 01:45 "crawling out of my skin" lorazepam AdvReac Intermediate Jittery, Verified 01/04/23 01:45 "crawling out of my skin" oxycodone AdvReac Mild nausea Verified 01/04/23 01:45 Home Medications Medication Instructions Recorded Confirmed Type amlodipine 10 mg tablet (Norvasc) 10 mg PO QPM 12/07/20 01/04/23 History atorvastatin 80 mg tablet 80 mg PO QAM 12/07/20 01/04/23 History baclofen 10 mg tablet 10 mg PO UD PRN muscle spasms 12/07/20 01/04/23 History [id number] 1 tab PO DAILY PRN Migraine 12/07/20 01/04/23 History 50 mg-325 mg-40 mg tablet Headache dicyclomine 20 mg tablet 10 mg PO QID PRN abd pain 12/07/20 01/04/23 History flurandrenolide 0.05 % lotion 1 applic topical BID PRN Itching 12/07/20 01/04/23 History hydroxyzine HCl 50 mg tablet 50 mg PO BID PRN Itching 12/07/20 01/04/23 History linaclotide 290 mcg capsule 290 mcg PO HS 12/07/20 01/04/23 History (Linzess) lisinopril 40 mg tablet 40 mg PO QAM 12/07/20 01/04/23 History ondansetron 4 mg disintegrating 4 mg translingual Q12 PRN Nausea 12/07/20 01/04/23 History tablet rabeprazole 20 mg tablet,delayed 20 mg PO DAILY PRN Acid Reflux 12/07/20 01/04/23 History release sertraline 100 mg tablet (Zoloft) 150 mg PO QAM 12/07/20 01/04/23 History dextroamphetamine-amphetamine 30 30 mg PO BID 07/14/21 01/04/23 History mg tablet (Adderall) tamsulosin 0.4 mg capsule (Flomax) 0.4 mg PO HS 07/14/21 01/04/23 History ferrous sulfate 325 mg (65 mg 325 mg PO TIDM #30 tabs 12/17/21 01/04/23 Rx iron) tablet,delayed release lactobacillus combination no.4 3 3,000 mmu cells PO DAILY #10 caps 12/17/21 01/04/23 Rx billion cell capsule (Probiotic) pantoprazole 40 mg tablet,delayed 40 mg PO BID #60 tabs 12/17/21 01/04/23 Rx release sumatriptan succinate 100 mg tablet 100 mg PO DIRECTED PRN Migraine 11/17/22 01/04/23 Rx Headache 30 days #9 tabs diazepam 5 mg tablet 5 mg PO HS PRN Anxiety 30 days #15 12/28/22 01/04/23 Rx tabs acetaminophen 300 mg-codeine 30 mg 1 tab PO BID PRN Pain 01/04/23 01/04/23 History tablet betamethasone valerate 0.1 % 1 applic topical BID PRN Skin 01/04/23 01/04/23 History topical cream Irritation cyclobenzaprine 10 mg tablet 10 mg PO DAILY PRN muscle spasms 01/04/23 01/04/23 History methocarbamol 750 mg tablet 750 mg PO BID PRN NEEDED PER [facility] 01/04/23 01/04/23 History metoprolol tartrate 100 mg tablet 100 mg PO BID 01/04/23 01/04/23 History polyethylene glycol 3350 17 17 g PO DAILY PRN Constipation 01/04/23 01/04/23 History gram/dose oral powder (Miralax) Past Med/Surg History Medical History Anemia iron deficiency, h/o multiple infusions with last occurring > 1 month ago Anxiety Arthralgia of multiple sites Arthritis 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 hyperactivity Bilateral edema of lower extremity resolved on carvedilol per pt Chronic radicular low back pain CVA (cerebral vascular accident) Incidental "old" infarct noted on 2018 imaging during workup for polypharmacy reaction Degenerative disc disease Depression with h/o depressive psychosis Duodenal ulcer resolved per pt and s/p release from subsequent adhesion development Dyslipidemia GERD (gastroesophageal reflux disease) pyloric stenosis s/p partial gastrectomy Glaucoma History of long-term treatment with high-risk medication Hypertension controlled, stable per pt Hyponatremia stable per pt IBS (irritable bowel syndrome) C Migraine without status migrainosus, not intractable Mild cognitive impairment Mild concentric left ventricular hypertrophy (LVH) Pain in foot left PFO (patent foramen ovale) [facility] cardio 07/2021: "small and non clinically significant...no additional cardiac studies or treatment are indicated..." Rebound headache to be starting prednisone course by neurology per note Spinal stenosis Urinary frequency Surgical History Fusion of spine Lumbar History of colonoscopy History of esophagogastroduodenoscopy (EGD) History of myringotomy History of partial gastrectomy r/t pyloric sphincter scarring 2004 (x2) History of surgery Right side (ribs removed) History of tonsillectomy History of tooth extraction Family History Other No family history of adverse response to anesthesia No known health problems Social History Smoking Status: Never smoker Second Hand Exposure: No; Hx Alcohol Use: No Hx Substance Use: No Preferred Language: Italian Communication Ability: Effective 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 Feeder Required: No Beliefs That Will Affect Care: None marital status: Current Living Situation: Spouse current occupational status: retired How many Children do You have: 2 Feels Safe at Home: Yes Assistive Devices: None Review of Systems Review of Systems: As per HPI, all other systems reviewed and negative Physical Exam Physical Exam: GENERAL: uncomfortable, pleasant, underweight, no respiratory distress SKIN: Normal color, warm HEENT: [place] palpebral conjunctivae, no ptosis, dry buccal mucosa NECK : Supple, no tenderness CHEST : CTA, no tenderness HEART : Tachycardic, no obvious murmurs ABDOMEN: no distention, epigastric tenderness EXTREMITIES : No LE swelling/tenderness, no other conspicuous deformities noted NEUROLOGIC : Coherent, no facial asymmetry, no other gross focality Results & Data Results & Data Vital Signs (Past 12 Hours) Vital Signs Temp Pulse Pulse Resp BP Pulse Ox O2 Del Method 01/04/23 02:11 74 18 97 Room Air 01/04/23 01:32 66 100 Room Air 01/04/23 01:17 126 H 01/04/23 01:24 36.9 C 18 98 01/04/23 01:15 36.9 C 135 H 18 199/111 H 95 Room Air Laboratory Results Laboratory Results WBC 10.44 K/ul (4.8-10.8) 01/04/23 01:27 RBC 5.47 M/uL (4.70-6.10) 01/04/23 01: Hgb 17.2 g/dl (14.0-18.0) 01/04/23: Hct 46.1 % (42.0-52.0) 01/04/23: MCV 84.3 fL (80.0-100.0) 01/04/23 01: MCH 31.4 pg (25.0-34.0) 01/04/23 01: MCHC 37.3 g/dL (32.0-36.0) H 01/04/23: RDW Std Deviation 35.5 fL (36.4-46.3) L 01/04/23: RDW Coeff of Boogie 11.7 % (11.5-14.5) 01/04/23 01: Plt Count 278 K/uL (130-400) 01/04/23 01: MPV 8.2 fL (9.4-12.4) L 01/04/23: Immature Gran % (Auto) 0.4 % 01/04/23 01: Neut % (Auto) 83.3 % 01/04/23 01: Lymph % (Auto) 12.3 % 01/04/23: [place] % (Auto) 3.4 % 01/04/23 01: Eos % (Auto) 0.4 % 01/04/23: Baso % (Auto) 0.2 % 01/04/23: Neut # (Auto) 8.70 K/uL (1.40-6.50) H 01/04/23 01: Lymph # (Auto) 1.28 K/uL (1.2-3.4) 01/04/23: [place] # (Auto) 0.36 K/uL (0.11-0.59) 01/04/23: Eos # (Auto) 0.04 K/uL (0-0.50) 01/04/23 01: Baso # (Auto) 0.02 K/uL (0-0.2) 01/04/23 01: Immature Gran # (Auto) 0.04 K/uL (0.01-0.20) 01/04/23: PT 11.3 Seconds (9.0-12.0) 01/04/23 01: INR 1.1 (0.9-1.1) 01/04/23 01:27 Sodium 139 mmol/L (136-145) 01/04/23 01:27 Potassium 4.3 mmol/L (3.5-5.1) 01/04/23 01:27 Chloride 101 mmol/L (98-107) 01/04/23 01:27 Carbon Dioxide 22 mmol/L (21-32) 01/04/23 01:27 Anion Gap 16 (3-11) H 01/04/23 01:27 BUN 21 mg/dl (6-23) 01/04/23 01:27 Creatinine 0.99 mg/dl (0.6-1.4) 01/04/23 01: Est Cr Clr Drug Dosing 52.2 ml/min 01/04/23 01:27 Est GFR ( Amer) 85.4 ml/min 01/04/23 01:27 Est GFR (Non-Af Amer) 73.7 ml/min 01/04/23 01:27 BUN/Creatinine Ratio 21.2 (10-20) H 01/04/23 01:27 Glucose 136 mg/dl (70-99(Fasting)) H 01/04/23 01:27 Calcium 10.7 mg/dl (8.6-10.3) H 01/04/23 01:27 Total Bilirubin 0.7 mg/dl (0.2-1.0) 01/04/23 01: AST 20 U/L (13-39) 01/04/23 01:27 ALT 21 U/L (7-52) 01/04/23 01:27 Alkaline Phosphatase 137 U/L (34-104) H 01/04/23 01:27 Total Protein 8.2 gm/dl (6.0-8.3) 01/04/23 01:27 Albumin 4.9 gm/dl (3.4-5.0) 01/04/23 01:27 Globulin 3.3 gm/dl (2.5-4.0) 01/04/23 01:27 Albumin/Globulin Ratio 1.5 (0.9-2) 01/04/23 01:27 Lipase 14 U/L (11-82) 01/04/23 01:27 SARS-CoV-2, RNA, NAAT NEGATIVE (NEGATIVE) 01/04/23 01:55 Blood Type B Positive 01/04/23 01:30 Antibody Screen NEGATIVE 01/04/23 01:[address] abdomen pelvis: Findings concerning for pancolitis, which may be of infectious, inflammatory or ischemic etiologies. Findings concerning for distal esophagitis and gastritis. Thickening of the urinary bladder wall, which can be seen with cystitis. Recommend correlation with UA. Hepatic steatosis. EKG as per my interpretation : Rate 125, sinus tachycardia, normal axis, T wave abnormalities lateral leads, PVCs
[2023-01-04] MEDS ORDERED: LACTATED RINGER'S 1,000 ML IV ONE (02:52)
[2023-01-04 03:14] LABS: Magnesium 1.9 mg/dl (1.7-2.4); Phosphorus 1.9 mg/dl (2.5-4.9)
[2023-01-04] MEDS ORDERED: ACETAMINOPHEN 1,000 MG/100 ML VIAL IV STA (03:38)
[2023-01-04] MEDS ORDERED: PROMETHAZINE HCL 6.25 MG in SODIUM CHLORIDE 0.9% 50 ML IV PRN (03:40)
[2023-01-04] MEDS ORDERED: MAGNESIUM SULFATE / D5W 1 GM/100 ML BAG IV ONE (04:00)
[2023-01-04] MEDS ORDERED: OPTIRAY 350 100ml IV ONE (04:12)
[2023-01-04] MEDS ORDERED: POTASSIUM PHOS 3 MMOL/1 ML INFUSION IV STA (04:44)
[2023-01-04] MEDS ORDERED: POTASSIUM PHOSPHATE 21 MMOL in SODIUM CHLORIDE 0.9% 500 ML IV ONE (05:00)
[2023-01-04] MEDS ORDERED: SODIUM CHLORIDE 0.9% 1000ML 1,000 ML IV ONE ×2 (05:08→21:13)
--- NOTE | 2023-01-04 05:15 | CT Scan Report ---
Exam(s): CT ABDOMEN + PELVIS With Contrast IV Amt: 78 ml optiray 350 EXAM: CT Abdomen and Pelvis With Intravenous Contrast CLINICAL HISTORY: Reason for exam: abd oain, ugib, hx surg. TECHNIQUE: Axial computed tomography images of the abdomen and pelvis with intravenous contrast. Automated exposure control was utilized for the study. A dose lowering technique was utilized adhering to the principles of ALARA. CONTRAST: Patient received 78 ml optiray 350 of IV contrast COMPARISON: Comparison made to prior CT scan of abdomen pelvis from December 12, 2021. FINDINGS: Lung bases: Unremarkable. No mass. No consolidation. ABDOMEN: Liver: Hepatic steatosis. No mass. Gallbladder and bile ducts: Decompressed. No calcified stones. No ductal dilation. Pancreas: Unremarkable. No mass. No ductal dilation. Spleen: Unremarkable. No splenomegaly. Adrenals: Unremarkable. No mass. Kidneys and ureters: Left renal cyst. No solid mass. No hydronephrosis. Stomach and bowel: There is thickening and edema of the large bowel wall and rectal wall with mild inflammation of the surrounding fat. Status post gastric stapling with surgical staple line in place. There is thickening and edema of the distal esophageal wall and gastric wall. PELVIS: Appendix: No findings to suggest acute appendicitis. Bladder: There is thickening of the urinary bladder wall. No mass. Reproductive: Mild prostatomegaly with mild mass-effect on the urinary trigone. ABDOMEN and PELVIS: Intraperitoneal space: Unremarkable. No free air. No significant fluid collection. Bones/joints: Status post fusion of L2-S1 with posterior decompression at L4 and L5. Interbody fusion of L4-5 and L5-S1. No acute fracture. No dislocation. Soft tissues: Generalized cachexia. Vasculature: Unremarkable. No abdominal aortic aneurysm. Lymph nodes: Unremarkable. No enlarged lymph nodes. IMPRESSION: Findings concerning for pancolitis, which may be of infectious, inflammatory or ischemic etiologies. Findings concerning for distal esophagitis and gastritis. Thickening of the urinary bladder wall, which can be seen with cystitis. Recommend correlation with UA. Hepatic steatosis. Electronically signed by: Kelsi Kapoor MD 01/04/23 05:14 AM
[2023-01-04] MEDS ORDERED: traMADol HCL 50 MG TABLET PO PRN (05:32)
[2023-01-04] MEDS ORDERED: MoRPHine SULFATE 2 MG/ML CARP IV PRN (05:32)
[2023-01-04] MEDS ORDERED: LORazepam 2 MG/1 ML VIAL IV PRN (05:32)
[2023-01-04] MEDS ORDERED: LABETALOL HCL IV 5 MG/ML 20ML IV STA (06:18)
[2023-01-04 07:05] LABS: Hematocrit (blood only) 40.4 % (42.0-52.0); Hemoglobin 15.1 g/dl (14.0-18.0)
[2023-01-04] MEDS: SODIUM CHLORIDE 0.9% 1000ML 1,000 ML IV SCH ×2 (07:32→20:43)
[2023-01-04] MEDS ORDERED: PANTOprazole 40 MG in DEXTROSE 5% 100 ML IV SCH (07:45)
[2023-01-04] MEDS ORDERED: ACETAMINOPHEN 325 MG TAB PO PRN (08:18)
[2023-01-04] MEDS ORDERED: hydrOXYzine HCl 25 MG TAB PO PRN (08:18)
[2023-01-04] MEDS ORDERED: PANTOprazole 40 MG in SYRINGE 0 ML IV SCH ×2 (09:00→21:00)
[2023-01-04 09:34] LABS: Appearance Urine Clear (Clear); Bacteria Urine Automated Negative (Negative); Bilirubin Urine Negative (Negative); Blood Urine 3+ (Negative); Color Urine Yellow; Glucose Urine UA Negative (Negative); Ketones Urine 1+ (Negative); Leukocyte Esterase Urine Negative (Negative); Nitrite Urine Negative (Negative); Protein Urine 2+ (Negative); RBC Urine Automated >30 /hpf (0-4); Specific Gravity Urine > 1.045 (1.000-1.030); Urobilinogen Urine Negative (Negative); pH Urine 6.5 (4.5-7.5)
[2023-01-04] MEDS: METOPROLOL TARTRATE 100 MG TAB PO SCH ×2 (10:18→20:30)
[2023-01-04] MEDS: lisinopril 40 MG TAB PO SCH (10:18)
[2023-01-04] MEDS: ADVANCED PROBIOTIC 1250 MG CAPSULE PO SCH (10:23)
[2023-01-04] MEDS: ATORVASTATIN 40 MG TAB PO SCH (10:23)
[2023-01-04] MEDS: SERTRALINE HCL 50 MG TABLET PO SCH (10:23)
[2023-01-04] MEDS: AMPHETAMINE ASP/SULF/DEXTRAMPH 20 MG TAB PO SCH ×2 (10:23→20:43)
[2023-01-04 10:49] LABS: Estimated Average Glucose 88 mg/dl; Hemoglobin A1C 4.7 % (4.5-5.6)
[2023-01-04 13:10] LABS: Hemoglobin 14.1 g/dl (14.0-18.0)
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
[2023-01-04 14:40] LABS: Albumin Level 4.1 gm/dl (3.4-5.0); Calcium 9.6 mg/dl (8.6-10.3); Creatinine Clr Calc Pharmacy 53.8 ml/min; Est GFR (African American) 88.6 ml/min; Est GFR (Non-African American) 76.5 ml/min; Phosphorus 3.4 mg/dl (2.5-4.9); Potassium 3.8 mmol/L (3.5-5.1)
--- NOTE | 2023-01-04 15:04 | Electrocardiogram Report ---
Test Reason : Blood Pressure : / mmHG Vent. Rate : 123 BPM Atrial Rate : 123 BPM P-R Int : 154 ms QRS Dur : 096 ms QT Int : 314 ms P-R-T Axes : 069 074 072 degrees QTc Int : 449 ms Sinus tachycardia with Premature ventricular complexes Biatrial enlargement Nonspecific ST abnormality Abnormal ECG When compared with ECG of 12-DEC-2021 12:55, ST now depressed in Inferior leads ST now depressed in Anterolateral leads Confirmed by Td Banks ([id number]) on 01/04/2023 3:03:56 PM Referred By: REFERRED SELF Confirmed By:Td Banks
--- NOTE | 2023-01-04 15:08 | Hospitalist Progress Note ---
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 He denies any [id number] NSAID intake/alcohol abuse/tobacco abuse/spicy foods intake/weight loss/early satiety. He is being managed for the following: Coffee-ground emesis Likely upper GI bleed History of PUD status post surgery Patient presents with epigastric discomfort and hematemesis and melena. See above. Admitting hemoglobin of 17.2 [could be contribution from hemoconcentration as well secondary to vomiting] Admitting CTAP concerning for pancolitis which might be infectious versus inflammatory versus ischemic. Also concerning for distal esophagitis and gastritis. Also concerning for cystitis. Admitting UA not suggestive of UTI, patient does not have belly pain with p.o. poor intake, patient does not look toxic at presentation and denies any fever lately. Patient is hemodynamically stable. Patient with history of BPH on Flomax. Of note, patient has past history of pancolitis. Trend hemoglobin daily or as needed. Antiemetics, PPI, IVF. GI on board, appreciate recommendation. On clears today. Transfuse PRBC if hemoglobin less than 8 and/or for symptomatic anemia Hypertensive crisis: Secondary to acute illness and missed medications at presentation. Continue with home medication, use as needed medication. Hypercalcemia: Likely secondary to dehydration, resolved. PTH WNL. Other chronic medical conditions: HLD, CVA, vascular dementia, mood disorder, ADD on Adderall, migraine --- continue with home meds as able. DVT prophylaxis: SCDs Full code Admission and Anticipated Discharge Date Admission Date: January 04, 2023 Subjective Patient seen and examined at bedside as a follow-up of coffee-ground emesis/likely UGI bleed. Patient was lying in bed, on room air, NAD, denies any new acute events overnight, patient denies any headache or dizziness or chest pain or sore throat or recent viral/flulike illness. Patient reports that he started vomiting about 3 days ago ORTHOTIC ASSISTANT and had dark bowel movement 1 day ago ORTHOTIC ASSISTANT. After couple of vomitings, he started having brownish-black vomitus. He also reports upper belly burning sensation. He states that he had reflux symptoms without heartburn in the last 2-week. Physical Exam Physical Exam: GENERAL: Alert and oriented x3. NAD, on RA. Underweight. HEENT: No pallor, no icterus. Pupils equal, round and reactive to light. Oral mucosa moist. NECK: No JVD, no neck masses. HEART: S1 and S2 heard. Regular rate and rhythm. No murmur, no gallop. RESPIRATORY SYSTEM: Normal AP diameter. No accessory muscle use. No wheezing, no crackles. ABDOMEN: Soft, bowel sounds present, mild epigastric tenderness, no distention. CENTRAL NERVOUS SYSTEM: No facial droop. Speech is clear. Obeys simple commands. Moves extremities. EXTREMITIES: No edema, no erythema seen. Results & Data Results & Data Vital Signs (Past 12 Hours) Vital Signs Temp Pulse Pulse Resp BP BP Pulse Ox 01/04/23 12:01 77 18 153/87 H 01/04/23 10:00 77 01/04/23 10:00 01/04/23 09:55 01/04/23 11:15 36.8 C 71 18 173/82 H 98 01/04/23 10:22 36.8 C 78 18 181/83 H 95 01/04/23 09:30 74 23 97 01/04/23 09:30 145/70 H 01/04/23 09:15 63 18 99 01/04/23 09:15 162/68 H 01/04/23 09:00 80 21 97 01/04/23 09:00 147/73 H 01/04/23 08:45 146/76 H 01/04/23 08:45 76 21 97 01/04/23 08:30 79 14 97 01/04/23 08:30 139/79 01/04/23 08:15 86 21 98 01/04/23 08:15 151/96 H 01/04/23 08:00 75 0 L 98 01/04/23 08:00 167/87 H 01/04/23 07:45 83 3 L 99 01/04/23 07:45 156/86 H 01/04/23 07:30 86 21 97 01/04/23 07:30 150/91 H 01/04/23 07:15 71 0 L 97 01/04/23 07:15 159/86 H 01/04/23 07:00 79 6 L 96 01/04/23 07:00 136/85 01/04/23 06:45 102 H 18 97 01/04/23 06:45 160/89 H 01/04/23 06:30 86 18 98 01/04/23 06:30 164/91 H 01/04/23 06:15 72 8 L 99 01/04/23 06:15 181/90 H 01/04/23 06:00 69 11 L 100 01/04/23 06:00 193/90 H 01/04/23 05:45 72 8 L 99 01/04/23 05:45 202/96 H 01/04/23 05:30 71 2 L 98 01/04/23 05:30 205/94 H 01/04/23 05:15 70 5 L 98 01/04/23 05:15 189/88 H 01/04/23 05:00 72 12 100 01/04/23 05:00 171/87 H 01/04/23 04:45 81 19 100 01/04/23 04:45 149/84 H 01/04/23 04:30 77 10 L 100 01/04/23 04:30 159/80 H 01/04/23 04:18 145/79 H 01/04/23 04:18 99 H 27 H 01/04/23 04:17 89 11 L 01/04/23 03:45 66 14 100 01/04/23 03:45 186/92 H 01/04/23 03:30 71 20 100 01/04/23 03:30 178/98 H 01/04/23 03:19 152/91 H 01/04/23 08:31 86 01/04/23 05:50 74 18 202/96 H 98 01/04/23 05:30 74 01/04/23 04:46 78 18 149/84 H 99 01/04/23 03:15 127 H 196/97 H O2 Del Method 01/04/23 12:01 01/04/23 10:00 01/04/23 10:00 Room Air 01/04/23 09:55 Room Air 01/04/23 11:15 Room Air 01/04/23 10:22 Room Air 01/04/23 09:30 01/04/23 09:30 01/04/23 09:15 01/04/23 09:15 01/04/23 09:00 01/04/23 09:00 01/04/23 08:45 01/04/23 08:45 01/04/23 08:30 01/04/23 08:30 01/04/23 08:15 01/04/23 08:15 01/04/23 08:00 01/04/23 08:00 01/04/23 07:45 01/04/23 07:45 01/04/23 07:30 01/04/23 07:30 01/04/23 07:15 01/04/23 07:15 01/04/23 07:00 01/04/23 07:00 01/04/23 06:45 01/04/23 06:45 01/04/23 06:30 01/04/23 06:30 01/04/23 06:15 01/04/23 06:15 01/04/23 06:00 01/04/23 06:00 01/04/23 05:45 01/04/23 05:45 01/04/23 05:30 01/04/23 05:30 01/04/23 05:15 01/04/23 05:15 01/04/23 05:00 01/04/23 05:00 01/04/23 04:45 01/04/23 04:45 01/04/23 04:30 01/04/23 04:30 01/04/23 04:18 01/04/23 04:18 01/04/23 04:17 01/04/23 03:45 01/04/23 03:45 01/04/23 03:30 01/04/23 03:30 01/04/23 03:19 01/04/23 08:31 01/04/23 05:50 Room Air 01/04/23 05:30 01/04/23 04:46 Room Air 01/04/23 03:15
[2023-01-04 18:27] LABS: Hematocrit (blood only) 35.6 % (42.0-52.0)
[2023-01-04] MEDS: amLODIPine BESYLATE 5 MG TAB PO SCH (20:30)
[2023-01-04] MEDS: TAMSULOSIN HCL 0.4 MG CAP PO SCH (20:31)
[2023-01-04] MEDS ORDERED: hydrALAZINE HCL 20 MG/ML VIAL IV STA (21:15)
--- NOTE | 2023-01-04 22:31 | CT Scan Report ---
Exam(s): CT HEAD Without Contrast EXAM: CT Head Without Intravenous Contrast CLINICAL HISTORY: Reason for exam: lewis. TECHNIQUE: Axial computed tomography images of the head/brain without intravenous contrast. CTDI is 35.72 mGy and DLP is 614.27 mGy-cm. Automated exposure control was utilized for the study. A dose lowering technique was utilized adhering to the principles of ALARA. COMPARISON: No relevant prior studies available. FINDINGS: No acute intracranial hemorrhage. No midline shift or mass effect. The [place]-white matter differentiation is maintained throughout. Age-related cerebral volume loss. Periventricular and subcortical white matter hypoattenuation, consistent with chronic microangiopathy. The visualized orbits appear grossly unremarkable. The calvarium is intact. The visualized paranasal sinuses and mastoid air cells are grossly clear. IMPRESSION: No acute intracranial hemorrhage, midline shift, or mass effect. Electronically signed by: Jaziel Cheng MD 01/04/23 22:30 PM
--- NOTE | 2023-01-04 22:40 | Communication Note ---
Date of Service: January 04, 2023 Uncontrolled blood pressure since last night SBP 180s to 190s despite additional IV medications. Patient with headache and persistent stomach burning. No melena noted as per RN. CT head No acute intracranial hemorrhage, midline shift, or mass effect. Last hemoglobin was 13 from 14.1 AP Hypertensive crisis secondary to uncontrolled GERD, hemoglobin drop Analgesia Change Lopressor to Coreg IV PPI infusion N.p.o. until patient seen by GI on follow-up evaluation in a.m. for possible endoscopy given uncontrolled GERD symptoms and hemoglobin drop Will relay to AM provider.
[2023-01-04] MEDS ORDERED: HYDROmorphone INJ 0.5 MG/0.5 ML SYR IV STA (23:12)
[2023-01-04] MEDS: PANTOprazole 40 MG in DEXTROSE 5% 100 ML IV SCH (23:56)
[2023-01-05 00:02] LABS: Hematocrit (blood only) 41.1 % (42.0-52.0); Hemoglobin 15.1 g/dl (14.0-18.0)
[2023-01-05] MEDS ORDERED: LABETALOL HCL IV 5 MG/ML 20ML IV STA (00:29)
[2023-01-05 00:35] LABS: Adenovirus F 40/41 PCR Not Detected (NotDetected); Astrovirus PCR Not Detected (NotDetected); Campylobacter PCR Not Detected (NotDetected); Cryptosporidium PCR Not Detected (NotDetected); Cyclospora cayetanensis PCR Not Detected (NotDetected); Entamoeba histolytica PCR Not Detected (NotDetected); Enteroaggregative E.coli(EAEC) Not Detected (NotDetected); Enteropathogenic E.coli (EPEC) Not Detected (NotDetected); Enterotoxigenic E.coli (ETEC) Not Detected (NotDetected); Giardia lamblia PCR Not Detected (NotDetected); Norovirus GI/GII PCR Not Detected (NotDetected); Plesiomonas shigelloides PCR Not Detected (NotDetected); Rotavirus A PCR Not Detected (NotDetected); Salmonella PCR Not Detected (NotDetected); Sapovirus PCR Not Detected (NotDetected); Shiga-like Toxin E.coli (STEC) Not Detected (NotDetected); Shigella/Enteroinvasive E.coli Not Detected (NotDetected); Vibrio cholerae PCR Not Detected (NotDetected); Vibrio species PCR Not Detected (NotDetected); Yersinia enterocolitica PCR Not Detected (NotDetected)
[2023-01-05] MEDS: carvediloL 3.125 MG TAB PO SCH ×3 (02:09→20:11)
[2023-01-05] MEDS: PANTOprazole 40 MG in DEXTROSE 5% 100 ML IV SCH ×4 (04:12→20:12)
[2023-01-05 08:04] LABS: Basophils # (auto) 0.03 K/uL (0-0.2); Basophils % (auto) 0.4 %; Eosinophils % (auto) 1.2 %; Hemoglobin 13.4 g/dl (14.0-18.0); Immature Granulocytes # (auto) 0.04 K/uL (0.01-0.20); Immature Granulocytes % (auto) 0.5 %; Lymphocytes % (auto) 26.1 %; Mean Corpuscular Hemoglobin 31.8 pg (25.0-34.0); Mean Corpuscular Hgb Conc 37.2 g/dL (32.0-36.0); Mean Corpuscular Volume 85.5 fL (80.0-100.0); Mean Platelet Volume 8.1 fL (9.4-12.4); Monocytes # (auto) 0.65 K/uL (0.11-0.59); Monocytes % (auto) 8.1 %; Neutrophils # (auto) 5.13 K/uL (1.40-6.50); Neutrophils % (auto) 63.7 %; Platelet Count 224 K/uL (130-400); RDW Coefficient of Variation 11.6 % (11.5-14.5); RDW Standard Deviation 35.6 fL (36.4-46.3); Red Blood Count 4.21 M/uL (4.70-6.10); White Blood Count 8.05 K/ul (4.8-10.8)
[2023-01-05] MEDS: ATORVASTATIN 40 MG TAB PO SCH (08:11)
[2023-01-05] MEDS: ADVANCED PROBIOTIC 1250 MG CAPSULE PO SCH (08:11)
[2023-01-05] MEDS: lisinopril 40 MG TAB PO SCH (08:11)
[2023-01-05] MEDS: SERTRALINE HCL 50 MG TABLET PO SCH (08:12)
[2023-01-05] MEDS: AMPHETAMINE ASP/SULF/DEXTRAMPH 20 MG TAB PO SCH ×2 (08:29→20:12)
[2023-01-05 08:39] LABS: BUN Creatinine Ratio 27.5 (10-20); Calcium 9.2 mg/dl (8.6-10.3); Creatinine Clr Calc Pharmacy 63.7 ml/min; Est GFR (African American) 100.6 ml/min; Est GFR (Non-African American) 86.8 ml/min; Phosphorus 3.5 mg/dl (2.5-4.9); Potassium 3.6 mmol/L (3.5-5.1)
[2023-01-05] MEDS ORDERED: CYCLOBENZAPRINE HCL 10 MG TAB PO PRN (12:08)
[2023-01-05] MEDS ORDERED: BUTALBITAL/ACETAMIN/CAFFEINE TAB PO PRN (12:08)
--- NOTE | 2023-01-05 16:56 | Hospitalist Progress Note ---
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 He denies any [id number] NSAID intake/alcohol abuse/tobacco abuse/spicy foods intake/weight loss/early satiety. He is being managed for the following: Coffee-ground emesis Likely upper GI bleed History of PUD status post surgery Patient presents with epigastric discomfort and hematemesis and melena. See above. Admitting hemoglobin of 17.2 [could be contribution from hemoconcentration as well secondary to vomiting] Admitting CTAP concerning for pancolitis which might be infectious versus inflammatory versus ischemic. Also concerning for distal esophagitis and gastritis. Also concerning for cystitis. Admitting UA not suggestive of UTI, patient does not have belly pain with p.o. poor intake, patient does not look toxic at presentation and denies any fever lately. Patient is hemodynamically stable. Patient with history of BPH on Flomax. Of note, patient has past history of pancolitis. Trend hemoglobin daily or as needed. Antiemetics, PPI, IVF. GI on board, appreciate recommendation. d/w GI, clears and ADv as vera; no plan for scope Transfuse PRBC if hemoglobin less than 8 and/or for symptomatic anemia Hypertensive crisis: Secondary to acute illness and missed medications at presentation. Continue with home medication, use as needed medication. Home metoprolol changed to coreg. Uptitrate BP meds as needed. Hypercalcemia: Likely secondary to dehydration, resolved. PTH WNL. Other chronic medical conditions: HLD, CVA, vascular dementia, mood disorder, ADD on Adderall, migraine --- continue with home meds as able. DVT prophylaxis: SCDs Full code pt/ot cm to assist, after GI clearance. Admission and Anticipated Discharge Date Admission Date: January 04, 2023 Subjective Patient seen and examined at bedside as a follow-up of coffee-ground emesis/likely UGI bleed. Patient was lying in bed, on room air, NAD, had HTN crises and persistent epigastric burning last night - reports epigastric burning improved after PPI drip started, Pt reports some headache in AM/will resume home fioricet and Flexeril. Pt denies dizziness or chest pain or sore throat or recent viral/flulike illness. Physical Exam Physical Exam: GENERAL: Alert and oriented x3. NAD, on RA. Underweight. HEENT: No pallor, no icterus. Pupils equal, round and reactive to light. Oral mucosa moist. NECK: No JVD, no neck masses. HEART: S1 and S2 heard. Regular rate and rhythm. No murmur, no gallop. RESPIRATORY SYSTEM: Normal AP diameter. No accessory muscle use. No wheezing, no crackles. ABDOMEN: Soft, bowel sounds present, mild epigastric tenderness, no distention. CENTRAL NERVOUS SYSTEM: No facial droop. Speech is clear. Obeys simple commands. Moves extremities. EXTREMITIES: No edema, no erythema seen. Results & Data Results & Data Vital Signs (Past 12 Hours) Vital Signs Temp Pulse Pulse Resp BP Pulse Ox O2 Del Method 01/05/23 15:44 36.7 C 91 H 18 142/78 H 100 Room Air 01/05/23 11:30 36.5 C 96 H 18 138/77 100 Room Air 01/05/23 08:00 71 01/05/23 08:00 Room Air 01/05/23 08:04 36.7 C 87 17 135/73 98 Room Air
[2023-01-05] MEDS: amLODIPine BESYLATE 5 MG TAB PO SCH (20:12)
[2023-01-05] MEDS: TAMSULOSIN HCL 0.4 MG CAP PO SCH (20:12)
[2023-01-05] MEDS ORDERED: MELATONIN 3 MG TAB PO PRN (22:58)
[2023-01-06] MEDS ORDERED: MELATONIN 3 MG TAB PO STA (00:55)
[2023-01-06] MEDS ORDERED: MELATONIN 3 MG TAB PO PRN (00:55)
[2023-01-06] MEDS: PANTOprazole 40 MG in DEXTROSE 5% 100 ML IV SCH ×2 (01:17→05:54)
[2023-01-06] MEDS: lisinopril 40 MG TAB PO SCH (07:50)
[2023-01-06] MEDS: ADVANCED PROBIOTIC 1250 MG CAPSULE PO SCH (07:51)
[2023-01-06] MEDS: ATORVASTATIN 40 MG TAB PO SCH (07:52)
[2023-01-06] MEDS: SERTRALINE HCL 50 MG TABLET PO SCH (07:53)
[2023-01-06] MEDS: carvediloL 3.125 MG TAB PO SCH ×2 (07:54→19:57)
[2023-01-06] MEDS: AMPHETAMINE ASP/SULF/DEXTRAMPH 20 MG TAB PO SCH ×2 (07:59→19:53)
[2023-01-06 08:26] LABS: Hematocrit (blood only) 31.5 % (42.0-52.0); Mean Corpuscular Hemoglobin 31.6 pg (25.0-34.0); Mean Corpuscular Hgb Conc 38.1 g/dL (32.0-36.0); Mean Corpuscular Volume 82.9 fL (80.0-100.0); Mean Platelet Volume 8.2 fL (9.4-12.4); Platelet Count 230 K/uL (130-400); RDW Coefficient of Variation 11.1 % (11.5-14.5); RDW Standard Deviation 33.4 fL (36.4-46.3)
[2023-01-06 09:06] LABS: Potassium 3.2 mmol/L (3.5-5.1)
[2023-01-06 09:12] LABS: BUN Creatinine Ratio 24.7 (10-20); Creatinine Clr Calc Pharmacy 69.3 ml/min; Est GFR (African American) 104.4 ml/min; Est GFR (Non-African American) 90.1 ml/min
[2023-01-06] MEDS ORDERED: POTASSIUM CHLORIDE CRTAB 20 MEQ TABCR PO STA (09:23)
[2023-01-06] MEDS: PANTOprazole 40 MG in SYRINGE 0 ML IV SCH ×2 (10:13→19:57)
--- NOTE | 2023-01-06 13:20 | Hospitalist Progress Note ---
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 He denies any gcwz-ilq-asqrqme NSAID intake/alcohol abuse/tobacco abuse/spicy foods intake/weight loss/early satiety. He is being managed for the following: Coffee-ground emesis Likely upper GI bleed History of PUD status post surgery Patient presents with epigastric discomfort and hematemesis and melena. See above. Admitting hemoglobin of 17.2 [could be contribution from hemoconcentration as well secondary to vomiting] Admitting CTAP concerning for pancolitis which might be infectious versus inflammatory versus ischemic. Also concerning for distal esophagitis and gastritis. Also concerning for cystitis. Admitting UA not suggestive of UTI Hemoglobin currently stable around 12. No further episode of hematemesis or melena. GI recommends outpatient follow-up for endoscopy. Will advance diet as tolerated. Monitor CBC daily. Continue Protonix twice daily. Hypertensive crisis: Secondary to acute illness and missed medications at presentation. Continue with home medication, use as needed medication. Home metoprolol changed to coreg. Uptitrate BP meds as needed. Hypercalcemia: Likely secondary to dehydration, resolved. PTH WNL. Other chronic medical conditions: HLD, CVA, vascular dementia, mood disorder, ADD on Adderall, migraine --- continue with home meds as able. DVT prophylaxis: SCDs Full code Disposition- From Home. will advance diet today and see he tolerates. Possible DC in am if Hb stable Admission and Anticipated Discharge Date Admission Date: January 04, 2023 Subjective Patient seen and examined at bedside. He is sitting up on the bed; not in any distress. He denies any episode of nausea, vomiting or hematemesis. Review of Systems Review of Systems: All systems reviewed & are unremarkable except as noted in Subjective Physical Exam Physical Exam: GENERAL: Alert and oriented x3. NAD, on RA. Underweight. HEENT: No pallor, no icterus. Pupils equal, round and reactive to light. Oral mucosa moist. NECK: No JVD, no neck masses. HEART: S1 and S2 heard. Regular rate and rhythm. No murmur, no gallop. RESPIRATORY SYSTEM: Normal AP diameter. No accessory muscle use. No wheezing, no crackles. ABDOMEN: Soft, bowel sounds present, mild epigastric tenderness, no distention. CENTRAL NERVOUS SYSTEM: No facial droop. Speech is clear. Obeys simple commands. Moves extremities. EXTREMITIES: No edema, no erythema seen. Results & Data Results & Data Vital Signs (Past 12 Hours) Vital Signs Temp Pulse Pulse Resp BP Pulse Ox O2 Del Method 01/06/23 11:59 36.4 C L 99 H 18 135/75 100 Room Air 01/06/23 11:31 81 01/06/23 08:00 36.8 C 94 H 18 134/71 99 Room Air 01/06/23 08:15 Room Air 01/06/23 02:36 36.8 C 86 18 144/68 H 99 Room Air Laboratory Results Laboratory Results WBC 6.30 K/ul (4.8-10.8) 01/06/23 07:07 RBC 3.80 M/uL (4.70-6.10) L 01/06/23 07:07 Hgb 12.0 g/dl (14.0-18.0) L 01/06/23 07:07 Hct 31.5 % (42.0-52.0) L 01/06/23 07:07 MCV 82.9 fL (80.0-100.0) 01/06/23 07:07 MCH 31.6 pg (25.0-34.0) 01/06/23 07:07 MCHC 38.1 g/dL (32.0-36.0) H 01/06/23 07:07 RDW Std Deviation 33.4 fL (36.4-46.3) L 01/06/23 07:07 RDW Coeff of Boogie 11.1 % (11.5-14.5) L 01/06/23 07:07 Plt Count 230 K/uL (130-400) 01/06/23 07:07 MPV 8.2 fL (9.4-12.4) L 01/06/23 07:07 Immature Gran % (Auto) 0.5 % 01/05/23 07: Neut % (Auto) 63.7 % 01/05/23 07: Lymph % (Auto) 26.1 % 01/05/23 07:23 [place] % (Auto) 8.1 % 01/05/23 07:23 Eos % (Auto) 1.2 % 01/05/23 07: Baso % (Auto) 0.4 % 01/05/23 07:23 Neut # (Auto) 5.13 K/uL (1.40-6.50) 01/05/23 07: Lymph # (Auto) 2.10 K/uL (1.2-3.4) 01/05/23 07: [place] # (Auto) 0.65 K/uL (0.11-0.59) H 01/05/23 07: Eos # (Auto) 0.10 K/uL (0-0.50) 01/05/23 07: Baso # (Auto) 0.03 K/uL (0-0.2) 01/05/23 07: Immature Gran # (Auto) 0.04 K/uL (0.01-0.20) 01/05/23 07:23 PT 11.3 Seconds (9.0-12.0) 01/04/23 01:27 INR 1.1 (0.9-1.1) 01/04/23 01:27 Sodium 132 mmol/L (136-145) L 01/06/23 07:07 Potassium 3.2 mmol/L (3.5-5.1) L 01/06/23 07:07 Chloride 98 mmol/L (98-107) 01/06/23 07:07 Carbon Dioxide 25 mmol/L (21-32) 01/06/23 07:07 Anion Gap 9 (3-11) 01/06/23 07:07 BUN 18 mg/dl (6-23) 01/06/23 07:07 Creatinine 0.73 mg/dl (0.6-1.4) 01/06/23 07:07 Est Cr Clr Drug Dosing 69.3 ml/min 01/06/23 07:07 Est GFR ( Amer) 104.4 ml/min 01/06/23 07:07 Est GFR (Non-Af Amer) 90.1 ml/min 01/06/23 07:07 BUN/Creatinine Ratio 24.7 (10-20) H 01/06/23 07:07 Glucose 106 mg/dl (70-99(Fasting)) H 01/06/23 07:07 Estimat Average Glucose 88 mg/dl 01/04/23 01:27 Hemoglobin A1c 4.7 % (4.5-5.6) 01/04/23 01:27 Lactate 1.3 mmol/L (0.4-2.0) 01/04/23 06:41 Calcium 9.0 mg/dl (8.6-10.3) 01/06/23 07:07 Phosphorus 3.5 mg/dl (2.5-4.9) 01/05/23 07:23 Magnesium 1.9 mg/dl (1.7-2.4) 01/04/23 01:27 Total Bilirubin 0.7 mg/dl (0.2-1.0) 01/04/23 01:27 AST 20 U/L (13-39) 01/04/23 01:27 ALT 21 U/L (7-52) 01/04/23 01:27 Alkaline Phosphatase 137 U/L (34-104) H 01/04/23 01:27 Total Protein 8.2 gm/dl (6.0-8.3) 01/04/23 01:27 Albumin 4.1 gm/dl (3.4-5.0) 01/04/23 12:46 Globulin 3.3 gm/dl (2.5-4.0) 01/04/23 01:27 Albumin/Globulin Ratio 1.5 (0.9-2) 01/04/23 01:27 Lipase 14 U/L (11-82) 01/04/23 01:27 PTH Intact 75.2 pg/ml (12.0-88.0) 01/04/23 06:36 Urine Color Yellow 01/04/23 08:18 Urine Appearance Clear (Clear) 01/04/23 08:18 Urine pH 6.5 (4.5-7.5) 01/04/23 08:18 Ur Specific [place] > 1.045 (1.000-1.030) H 01/04/23 08:18 Urine Protein 2+ (Negative) H 01/04/23 08:18 Urine Glucose (UA) Negative (Negative) 01/04/23 08:18 Urine Ketones 1+ (Negative) H 01/04/23 08:18 Urine Blood 3+ (Negative) H 01/04/23 08:18 Urine Nitrite Negative (Negative) 01/04/23 08:18 Urine Bilirubin Negative (Negative) 01/04/23 08:18 Urine Urobilinogen Negative (Negative) 01/04/23 08:18 Ur Leukocyte Esterase Negative (Negative) 01/04/23 08:18 Urine WBC (Auto) 1-5 /hpf (0-5) 01/04/23 08:18 Urine RBC (Auto) >30 /hpf (0-4) H 01/04/23 08:18 U Hyaline Cast (Auto) 1-5 /lpf (0-5) 01/04/23 08:18 U Epithel Cells (Auto) 10-20 /lpf (0-5) H 01/04/23 08:18 Urine Bacteria (Auto) Negative (Negative) 01/04/23 08:18 Stl C. cayetanensis PCR Not Detected (NotDetected) 01/04/23 22:30 Stool Rotavirus A PCR Not Detected (NotDetected) 01/04/23 22:30 Stl Adenov F 40/41 PCR Not Detected (NotDetected) 01/04/23 22:30 Stool Astrovirus (PCR) Not Detected (NotDetected) 01/04/23 22:30 Stool Campylobacter PCR Not Detected (NotDetected) 01/04/23 22:30 Stl C. diff Tox B Gene Not Reportable 01/04/23 22:30 Stool Cryptosporidium PCR Not Detected (NotDetected) 01/04/23 22:30 Stl E.coli Shiga Tox PCR Not Detected (NotDetected) 01/04/23 22:30 Stl Enterotoxigenic E PCR Not Detected (NotDetected) 01/04/23 22:30 Stool EPEC (PCR) Not Detected (NotDetected) 01/04/23 22:30 Stool EAEC (PCR) Not Detected (NotDetected) 01/04/23 22:30 Stl E. histolytica PCR Not Detected (NotDetected) 01/04/23 22:30 Stool Giardia Lamblia PCR Not Detected (NotDetected) 01/04/23 22:30 Stool Salmonella PCR Not Detected (NotDetected) 01/04/23 22:30 Stool Sapovirus (PCR) Not Detected (NotDetected) 01/04/23 22:30 Stl P. shigelloides PCR Not Detected (NotDetected) 01/04/23 22:30 Stl Shigella/EIEC PCR Not Detected (NotDetected) 01/04/23 22:30 St Y.enterocolitica PCR Not Detected (NotDetected) 01/04/23 22:30 Stool Vibrio (PCR) Not Detected (NotDetected) 01/04/23 22:30 Stl Vibrio cholerae PCR Not Detected (NotDetected) 01/04/23 22:30 Stl Norovirus GI/GII PCR Not Detected (NotDetected) 01/04/23 22:30 SARS-CoV-2, RNA, NAAT NEGATIVE (NEGATIVE) 01/04/23 01:55 Blood Type B Positive 01/04/23 01:30 Antibody Screen NEGATIVE 01/04/23 01:30 Impressions Abdomen/Pelvis CT 01/04/23 03:38 Exam(s): CT ABDOMEN + PELVIS With Contrast IV Amt: 78 ml optiray 350 EXAM: CT Abdomen and Pelvis With Intravenous Contrast CLINICAL HISTORY: Reason for exam: abd oain, ugib, hx surg. TECHNIQUE: Axial computed tomography images of the abdomen and pelvis with intravenous contrast. Automated exposure control was utilized for the study. A dose lowering technique was utilized adhering to the principles of ALARA. CONTRAST: Patient received 78 ml optiray 350 of IV contrast COMPARISON: Comparison made to prior CT scan of abdomen pelvis from December 12, 2021. FINDINGS: Lung bases: Unremarkable. No mass. No consolidation. ABDOMEN: Liver: Hepatic steatosis. No mass. Gallbladder and bile ducts: Decompressed. No calcified stones. No ductal dilation. Pancreas: Unremarkable. No mass. No ductal dilation. Spleen: Unremarkable. No splenomegaly. Adrenals: Unremarkable. No mass. Kidneys and ureters: Left renal cyst. No solid mass. No hydronephrosis. Stomach and bowel: There is thickening and edema of the large bowel wall and rectal wall with mild inflammation of the surrounding fat. Status post gastric stapling with surgical staple line in place. There is thickening and edema of the distal esophageal wall and gastric wall. PELVIS: Appendix: No findings to suggest acute appendicitis. Bladder: There is thickening of the urinary bladder wall. No mass. Reproductive: Mild prostatomegaly with mild mass-effect on the urinary trigone. ABDOMEN and PELVIS: Intraperitoneal space: Unremarkable. No free air. No significant fluid collection. Bones/joints: Status post fusion of L2-S1 with posterior decompression at L4 and L5. Interbody fusion of L4-5 and L5-S1. No acute fracture. No dislocation. Soft tissues: Generalized cachexia. Vasculature: Unremarkable. No abdominal aortic aneurysm. Lymph nodes: Unremarkable. No enlarged lymph nodes. IMPRESSION: Findings concerning for pancolitis, which may be of infectious, inflammatory or ischemic etiologies. Findings concerning for distal esophagitis and gastritis. Thickening of the urinary bladder wall, which can be seen with cystitis. Recommend correlation with UA. Hepatic steatosis. Electronically signed by: Kelsi aKpoor MD 01/04/23 05:[address] 01/04/23 21:14 Exam(s): CT HEAD Without Contrast EXAM: CT Head Without Intravenous Contrast CLINICAL HISTORY: Reason for exam: lewis. TECHNIQUE: Axial computed tomography images of the head/brain without intravenous contrast. CTDI is 35.72 mGy and DLP is 614.27 mGy-cm. Automated exposure control was utilized for the study. A dose lowering technique was utilized adhering to the principles of ALARA. COMPARISON: No relevant prior studies available. FINDINGS: No acute intracranial hemorrhage. No midline shift or mass effect. The [place]-white matter differentiation is maintained throughout. Age-related cerebral volume loss. Periventricular and subcortical white matter hypoattenuation, consistent with chronic microangiopathy. The visualized orbits appear grossly unremarkable. The calvarium is intact. The visualized paranasal sinuses and mastoid air cells are grossly clear. IMPRESSION: No acute intracranial hemorrhage, midline shift, or mass effect. Electronically signed by: Jaziel Cheng MD 01/04/23 22:30 PM
[2023-01-06] MEDS: amLODIPine BESYLATE 5 MG TAB PO SCH (19:56)
[2023-01-06] MEDS: TAMSULOSIN HCL 0.4 MG CAP PO SCH (19:56)
[2023-01-06] MEDS ORDERED: ZOLPIDEM TARTRATE 5 MG TAB PO STA (23:15)
[2023-01-07 08:21] LABS: Hematocrit (blood only) 31.6 % (42.0-52.0); Hemoglobin 12.1 g/dl (14.0-18.0); Mean Corpuscular Hemoglobin 31.8 pg (25.0-34.0); Mean Corpuscular Hgb Conc 38.3 g/dL (32.0-36.0); Mean Corpuscular Volume 82.9 fL (80.0-100.0); Platelet Count 206 K/uL (130-400); RDW Coefficient of Variation 11.4 % (11.5-14.5); Red Blood Count 3.81 M/uL (4.70-6.10); White Blood Count 5.49 K/ul (4.8-10.8)
[2023-01-07 08:29] LABS: Basophils # (auto) 0.03 K/uL (0-0.2); Basophils % (auto) 0.5 %; Eosinophils # (auto) 0.19 K/uL (0-0.50); Eosinophils % (auto) 3.5 %; Immature Granulocytes # (auto) 0.05 K/uL (0.01-0.20); Immature Granulocytes % (auto) 0.9 %; Lymphocytes # (auto) 1.58 K/uL (1.2-3.4); Lymphocytes % (auto) 28.8 %; Monocytes # (auto) 0.47 K/uL (0.11-0.59); Monocytes % (auto) 8.6 %; Neutrophils # (auto) 3.17 K/uL (1.40-6.50); Neutrophils % (auto) 57.7 %
[2023-01-07] MEDS: carvediloL 3.125 MG TAB PO SCH (09:22)
[2023-01-07] MEDS: ATORVASTATIN 40 MG TAB PO SCH (09:22)
[2023-01-07] MEDS: ADVANCED PROBIOTIC 1250 MG CAPSULE PO SCH (09:22)
[2023-01-07] MEDS: SERTRALINE HCL 50 MG TABLET PO SCH (09:23)
[2023-01-07] MEDS: lisinopril 40 MG TAB PO SCH (09:23)
[2023-01-07] MEDS: PANTOprazole 40 MG in SYRINGE 0 ML IV SCH (09:23)
[2023-01-07] MEDS: AMPHETAMINE ASP/SULF/DEXTRAMPH 20 MG TAB PO SCH (09:44)
[2023-01-07 10:10] LABS: Albumin Globulin Ratio 1.7 (0.9-2); Albumin Level 3.5 gm/dl (3.4-5.0); BUN Creatinine Ratio 19.7 (10-20); Bilirubin,Total 0.6 mg/dl (0.2-1.0); Calcium 8.8 mg/dl (8.6-10.3); Creatinine Clr Calc Pharmacy 62.8 ml/min; Est GFR (African American) 102.7 ml/min; Est GFR (Non-African American) 88.6 ml/min; Globulin 2.1 gm/dl (2.5-4.0); Potassium 3.6 mmol/L (3.5-5.1); Total Protein 5.6 gm/dl (6.0-8.3)
--- NOTE | 2023-01-07 13:34 | Discharge Summary ---
Date of Service January 07, 2023 Admission HPI Per Admitting Provider History obtained from the patient and records. Medical history significant for hypertension, hyperlipidemia, CVA, vascular dementia, mood disorder, PUD sp surgery, attention deficit as per records, migraine, history of constipation predominant IBS, BPH. Last confinement December 2021 for pancolitis status post antibiotic Rx. Patient noted burning epigastric discomfort the last 2 days followed by coffee- ground emesis and melena. Denies OTC NSAID intake. Unable to take home medications the last few days due to illness. Patient denies headache, chest pain, SOB. Usual back pain complaints. S BP 199 at the ER. IV Protonix administered at the ER. MEDICAL HISTORY: As above. 2020 EGD showed hiatal hernia, unremarkable Billroth I anastomosis 2020 colonoscopy showed hemorrhoids SURGERIES: He has had partial gastrectomy, tonsillectomy, back surgery FAMILY HISTORY: No family history of IBD. 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 Principal Diagnosis Upper GI bleed Hypertensive crisis Discharge Exam GENERAL: Alert and oriented x3. NAD, on RA. Underweight. HEENT: No pallor, no icterus. Pupils equal, round and reactive to light. Oral mucosa moist. NECK: No JVD, no neck masses. HEART: S1 and S2 heard. Regular rate and rhythm. No murmur, no gallop. RESPIRATORY SYSTEM: Normal AP diameter. No accessory muscle use. No wheezing, no crackles. ABDOMEN: Soft, bowel sounds present, mild epigastric tenderness, no distention. CENTRAL NERVOUS SYSTEM: No facial droop. Speech is clear. Obeys simple commands. Moves extremities. EXTREMITIES: No edema, no erythema seen. Discharge Data Allergies Allergy/AdvReac Type Severity Reaction Status Date / Time lactose AdvReac Severe Intolerant-SEVERE Verified 01/04/23 01:45 ABDOMINAL CRAMPS buspirone AdvReac Intermediate Jittery, Verified 01/04/23 01:45 "crawling out of my skin" lorazepam AdvReac Intermediate Jittery, Verified 01/04/23 01:45 "crawling out of my skin" oxycodone AdvReac Mild nausea Verified 01/04/23 01:45 Consultations 01/04/23 02:45 ED Decision to Admit Stat 01/04/23 08:18 Consult Gastroenterology Routine Ordered Studies 01/04/23 03:38 CT Abd and Pelvis [CT abd pelvis IV con only] Stat 01/04/23 21:14 CT head/brain wo con Stat Hospital Course (1) Coffee ground emesis: Plan 77-year-old male with PMH of HTN, HLD, CVA, vascular dementia, mood disorder, PUD status post surgery, attention deficit, migraine, constipation predominant IBS, BPH presented to the ED 01/04 with complaint of coffee-ground emesis and 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 He denies any pwrc-xmb-wtiuhwy NSAID intake/alcohol abuse/tobacco abuse/spicy foods intake/weight loss/early satiety. Admitting hemoglobin was 17.2. CT abdomen and pelvis concerning for pancolitis. Gastroenterology was consulted. Patient was admitted to telemetry floor for closer monitoring. He was started on Protonix drip. GI recommended to advance diet and do endoscopy as outpatient. Over the course of the hospitalization, patient reported improvement in abdominal pain. He did not have any further episode of nausea or vomiting. His hemoglobin was 12 for last 2 days during the hospitalization. Patient was discharged home with prescription of Protonix 40 mg twice daily. He was instructed to follow-up with GI for endoscopy and possible colonoscopy. Iron tablets were kept on hold as it can contribute to dark stool. All other medication were continued as previously. Total Time Total Time Spent Total Time Spent (In Minutes): 35 Total Time Includes: Examination of the Patient, Discharge Planning, Medication Reconciliation, Communication With Other Providers and Other Discharge Plan Discharge Items Patient Disposition: Home - Self-Care Reason For Visit: HTN URG, UGIB Discharge Diagnosis: Upper GI bleed Hypertensive crisis Activity: Resume your previous activity Non-emergency contact: Primary Care Provider Call non-emergency contact if: you have any medication questions and your symptoms worsen Follow-up/Referrals: Buddy Begum, [Primary Care Provider] - (Date & Time 01/12/2023 11:00 AM Provider Arnold Mcmahon III, MD Department [facility] ) Diet: Regular Addtl Attending Provider Instructions: You were admitted to the hospital with dark color vomiting. Your evaluated by the GI doctor during the hospitalization who recommended outpatient endoscopy. Your hemoglobin at the time of the discharge was 12.1. You are prescribed Protonix 40 mg twice daily. Please take it till the endoscopy is done. For the time being, stop taking iron as it can also cause dark-colored stool. You can start taking it again after the endoscopy. A primary care follow-up is set up for you for next week. Pending Studies at Discharge: No Stand-Alone Forms: My [facility], Smoking Cessation Medications and DC Order Prescriptions: Continued diazepam 5 mg tablet 5 mg PO HS PRN (Reason: Anxiety) 30 Days Qty: 15 0RF sumatriptan succinate 100 mg tablet 100 mg PO DIRECTED PRN (Reason: Migraine Headache) 30 Days Qty: 9 5RF atorvastatin 80 mg tablet 80 mg PO QAM rabeprazole 20 mg Tablet,Delayed Release (Dr/Ec) 20 mg PO DAILY PRN (Reason: Acid Reflux) sertraline [Zoloft] 100 mg tablet 150 mg PO QAM Rx Instructions: PER EXT MED HX. hydroxyzine HCl 50 mg tablet 50 mg PO BID PRN (Reason: Itching) qkwiwlegrv-yhilqgoxirrrc-kkdx 50-325-40 mg Tablet 1 tab PO DAILY PRN (Reason: Migraine Headache) dicyclomine 20 mg tablet 10 mg PO QID PRN (Reason: abd pain) baclofen 10 mg Tablet 10 mg PO UD PRN (Reason: muscle spasms) amlodipine [Norvasc] 10 mg tablet 10 mg PO QPM flurandrenolide 0.05 % lotion 1 applic TOPICAL BID PRN (Reason: Itching) lisinopril 40 mg tablet 40 mg PO QAM ondansetron 4 mg tablet,disintegrating 4 mg translingual Q12 PRN (Reason: Nausea) Linzess 290 mcg capsule 290 mcg PO HS tamsulosin [Flomax] 0.4 mg Capsule 0.4 mg PO HS dextroamphetamine-amphetamine [Adderall] 30 mg Tablet 30 mg PO BID Probiotic 3 billion cell capsule 3,000 mmu cells PO DAILY Qty: 10 0RF Rx Instructions: administer with a meal metoprolol tartrate 100 mg tablet 100 mg PO BID acetaminophen-codeine 300-30 mg tablet 1 tab PO BID PRN (Reason: Pain) betamethasone valerate 0.1 % cream 1 applic TOPICAL BID PRN (Reason: Skin Irritation) polyethylene glycol 3350 [Miralax] 17 gram/dose Powder 17 g PO DAILY PRN (Reason: Constipation) cyclobenzaprine 10 mg tablet 10 mg PO DAILY PRN (Reason: muscle spasms) methocarbamol 750 mg tablet 750 mg PO BID PRN (Reason: NEEDED PER [facility]) Rx Instructions: 750 mg PO TWICE DAILY NEEDED; pantoprazole 40 mg Tablet,Delayed Release (Dr/Ec) 40 mg PO BID 30 Days Qty: 60 0RF Discontinued ferrous sulfate 325 mg (65 mg iron) Tablet,Delayed Release (Dr/Ec) 325 mg PO TIDM Qty: 30 0RF Discharge Orders: Discharge Order (Routine); Ordered 01/07/23 Ordered By: Mick Pollard Admission Data Admit Date/Time: 01/04/23 05:30 Attending Provider: Mick Pollard Admit Provider: Alexandro Bartholomew Primary Care Provider: Buddy Begum Other Providers: Alexandro Bartholomew ; Maged Dumont ; Dedrick Saenz ; Alisa Reyez ; Akua Marx ; Sophia Haile ; Lauren Judd ; Wilmar Castaneda ; Karan Banda ; Fazal Guadarrama ; Dali Camarena ; Kenneth Blackburn ; Tanya Molina ; Argenis Moreno ; Rebekah Neal ; Radha Kolb ; Bhavin Smith ; Bobby Barone ; Christiano Atkinson ; Luna Benitez ; Chencho Khan Other Interventions: Discharge Summary Assessment (RN) Last Done: 01/07/23 10:59
== END 2023-01-07 12:24 | disposition home or self-care (01) | DRG 378 ==
LOC: ED 01:10 → SUATTDRO 05:30 → EDINP 05:30 → 2S 10:13

== ENCOUNTER 2023-03-02 11:06 | Inpatient (IN) ==
[2023-03-02] MEDS ORDERED: PANTOPRAZOLE BOLUS/DRIP 1 EACH IV STA (11:34)
[2023-03-02] MEDS ORDERED: PANTOprazole 80 MG in DEXTROSE 5% 100 ML IV ONE (11:34)
[2023-03-02] MEDS ORDERED: METOCLOPRAMIDE HCL INJ 5 MG/ML 2 ML VIAL IV STA (11:34)
[2023-03-02] MEDS ORDERED: fentaNYL citrate PF 100 MCG/2 ML VIAL IV STA (11:36)
[2023-03-02] MEDS ORDERED: SODIUM CHLORIDE 0.9% 1000ML 1,000 ML IV ONE (11:37)
--- NOTE | 2023-03-02 11:43 | Emergency Department Note ---
Impression & Plan Nausea & vomiting, Abdominal pain, Hypertensive urgency ED Provider Note Provider: Pepito Betancourt MD DATE OF SERVICE: 03/02/2023 CHIEF COMPLAINT: Vomiting, abdominal pain HISTORY OF PRESENT ILLNESS: Patient is a 77-year-old gentleman history of migraine, peptic ulcer s/p surgery, IBS, GERD, GI bleed presenting here today reporting uncontrollable vomiting over the last approximately 3 days. Not able to keep down much as far as food and drink. Has been trying to take his medicines but that the last several days as they will not stay down. Reports diffuse abdominal pain. States he has a history of reflux issues. States he did have an EGD since his last admission in December that likely did not show an ulcer. States has had some brownish quality to his vomit. Denies significant diarrhea. No new falls or trauma reported by the patient. Reports some heartburn. Denies alcohol or significant NSAID usage. PAST MEDICAL HISTORY: As noted above MEDICATIONS: Reviewed home medications but not able to take the last several days. SOCIAL HISTORY: Non-smoker, denies alcohol use PHYSICAL EXAM: GENERAL: alert and oriented in no acute distress on stretcher holding an emesis bag fatigued in appearance Head: normocephalic and atraumatic EYES: No injection, discharge or icterus. NECK: Trachea midline. Supple. ENT: Mucous membranes pink and somewhat dry LUNGS: Airway patent. No retractions. Breath sounds clear with good air entry bilaterally. HEART: Regular rate and rhythm. No chest wall tenderness ABDOMEN: Soft with mild diffuse tenderness. SKIN: Acyanotic, warm, dry, without rashes EXTREMITIES: Without swelling, tenderness or deformity NEUROLOGICAL: No focal deficits. No aphasia. No facial droop or slurred speech. EK bpm sinus rhythm with PVC. LVH changes noted without acute ST segment elevation with QTc of 418. CONTINUOUS CARDIAC MONITORING: was ordered and showed a heart rate of 60s-70s bpm in normal sinus rhythm occasional PVCs Patient's laboratory studies and imaging reviewed. Differential includes Gastroenteritis, food borne illness, infections, appendicitis, diverticulitis, inflammatory bowel disease, obstruction, GI bleed, biliary pathology, volvulus, as well as other pathologies. IMPRESSION/MEDICAL DECISION MAKING: History of multiple GI issues in the past including ulcer. Denies any diarrhea or bloody stools. Denies clyde blood in vomit but some brownish quality. Question if this could represent coffee-ground emesis. Did have recent admission here in December and he states he had an EGD in the intervening time as well that was reassuring however. Not keeping down some medications including his PPI dose. We will give a dose of Protonix here as well as some IV fluid. Labs sent. We will complete a CT scan. EKG and troponin be completed but seems less likely be cardiac in nature. Not having significant respiratory complaints doubt pulmonary etiology. He is significantly hypertensive here but again has not been taking his home medications and is in some discomfort. Patient states Zofran and morphine do not work well for him or give a bit of a headache. We will try some Reglan and fentanyl initially. Blood work without significant leukocytosis. No anemia with a hemoglobin of 17.3. Normal platelet count. No lipase elevation or severe LFT abnormalities and doubt hepatitis or pancreatitis. Troponin within normal limits as well. Slight hypokalemia 3.4 but no significant hyponatremia. Magnesium within normal limits. Normal renal function. CT scan of the abdomen pelvis per radiology reports shows some nonspecific colitis findings of the distal colon seen on previous scans without evidence of obstruction or other perforation. Blood work and testing is reassuring without evidence of severe dehydration or anemia and I doubt a significant GI bleed. Patient's symptoms however on reevaluation patient will having improvement and quickly began to have recurrent nausea and vomiting. Given some Zofran. Given some labetalol given his significant hypertension. Discussed with him staying for further evaluation as he is not tolerating oral intake. DIAGNOSIS: Hypertensive urgency, nausea and vomiting DISPOSITION: Hospitalist will evaluate Patient was agreeable with this plan. Past Med/Surg History Medical History Anemia iron deficiency, h/o multiple infusions with last occurring > 1 month ago Anxiety Arthralgia of multiple sites Arthritis 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 hyperactivity Bilateral edema of lower extremity resolved on carvedilol per pt Chronic radicular low back pain CVA (cerebral vascular accident) Incidental "old" infarct noted on 2018 imaging during workup for polypharmacy reaction Degenerative disc disease Depression with h/o depressive psychosis Duodenal ulcer resolved per pt and s/p release from subsequent adhesion development Dyslipidemia GERD (gastroesophageal reflux disease) pyloric stenosis s/p partial gastrectomy Glaucoma History of long-term treatment with high-risk medication Hypertension controlled, stable per pt Hyponatremia stable per pt IBS (irritable bowel syndrome) C Migraine without status migrainosus, not intractable Mild cognitive impairment Mild concentric left ventricular hypertrophy (LVH) Pain in foot left PFO (patent foramen ovale) S cardio 07/2021: "small and non clinically significant...no additional cardiac studies or treatment are indicated..." Rebound headache to be starting prednisone course by neurology per note Spinal stenosis Urinary frequency Surgical History Fusion of spine Lumbar History of colonoscopy History of esophagogastroduodenoscopy (EGD) History of myringotomy History of partial gastrectomy r/t pyloric sphincter scarring 2004 (x2) History of surgery Right side (ribs removed) History of tonsillectomy History of tooth extraction Family History Other No family history of adverse response to anesthesia No known health problems Social History Smoking Status: Never smoker Second Hand Exposure: No; Do You Dip or Chew Tobacco: No; Hx Alcohol Use: No Hx Substance Use: No Preferred Language: Senegalese Communication Ability: Effective 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 Beliefs That Will Affect Care: Holiness Holiness Beliefs: Anabaptism marital status: Current Living Situation: Spouse current occupational status: retired How many Children do You have: 2 Feels Safe at Home: Yes Assistive Devices: Cane Allergies Allergies Allergy/AdvReac Type Severity Reaction Status Date / Time lactose AdvReac Severe Intolerant-SEVERE Verified 01/04/23 01:45 ABDOMINAL CRAMPS buspirone AdvReac Intermediate Jittery, Verified 01/04/23 01:45 "crawling out of my skin" lorazepam AdvReac Intermediate Jittery, Verified 01/04/23 01:45 "crawling out of my skin" oxycodone AdvReac Mild nausea Verified 01/04/23 01:45 Home Meds Home Medications Medication Instructions Recorded Confirmed amlodipine 10 mg tablet (Norvasc) 10 mg PO QPM 12/07/20 01/04/23 atorvastatin 80 mg tablet 80 mg PO QAM 12/07/20 01/04/23 baclofen 10 mg tablet 10 mg PO UD PRN muscle spasms 12/07/20 01/04/23 whjsteaptm-zxgaxqafdzadg-bvxgzccp 1 tab PO DAILY PRN Migraine 12/07/20 01/04/23 50 mg-325 mg-40 mg tablet Headache dicyclomine 20 mg tablet 10 mg PO QID PRN abd pain 12/07/20 01/04/23 flurandrenolide 0.05 % lotion 1 applic topical BID PRN Itching 12/07/20 01/04/23 hydroxyzine HCl 50 mg tablet 50 mg PO BID PRN Itching 12/07/20 01/04/23 linaclotide 290 mcg capsule 290 mcg PO HS 12/07/20 01/04/23 (Linzess) lisinopril 40 mg tablet 40 mg PO QAM 12/07/20 01/04/23 ondansetron 4 mg disintegrating 4 mg translingual Q12 PRN Nausea 12/07/20 01/04/23 tablet rabeprazole 20 mg tablet,delayed 20 mg PO DAILY PRN Acid Reflux 12/07/20 01/04/23 release sertraline 100 mg tablet (Zoloft) 150 mg PO QAM 12/07/20 01/04/23 dextroamphetamine-amphetamine 30 30 mg PO BID 07/14/21 01/04/23 mg tablet (Adderall) tamsulosin 0.4 mg capsule (Flomax) 0.4 mg PO HS 07/14/21 01/04/23 acetaminophen 300 mg-codeine 30 mg 1 tab PO BID PRN Pain 01/04/23 01/04/23 tablet betamethasone valerate 0.1 % 1 applic topical BID PRN Skin 01/04/23 01/04/23 topical cream Irritation cyclobenzaprine 10 mg tablet 10 mg PO DAILY PRN muscle spasms 01/04/23 01/04/23 methocarbamol 750 mg tablet 750 mg PO BID PRN NEEDED PER [facility] 01/04/23 01/04/23 metoprolol tartrate 100 mg tablet 100 mg PO BID 01/04/23 01/04/23 polyethylene glycol 3350 17 17 g PO DAILY PRN Constipation 01/04/23 01/04/23 gram/dose oral powder (Miralax) Previous Rx's Medication Instructions Recorded lactobacillus combination no.4 3 3,000 mmu cells PO DAILY #10 caps 12/17/21 billion cell capsule (Probiotic) sumatriptan succinate 100 mg tablet 100 mg PO DIRECTED PRN Migraine 11/17/22 Headache 30 days #9 tabs diazepam 5 mg tablet 5 mg PO HS PRN Anxiety 30 days #15 12/28/22 tabs pantoprazole 40 mg tablet,delayed 40 mg PO BID 30 days #60 tabs 01/07/23 release Results & Data (ED) Vital Signs Vital Signs - 24 hr 03/02/23 11:13 03/02/23 11:13 03/02/23 11:37 Temperature 37.0 C Temperature Source Oral Pulse Rate 71 Pulse Rate [Right Apical] 71 Respiratory Rate 20 20 Respiratory Effort / Characteristics Non-Labored Spontaneous Non-Labored Spontaneous Respiratory Depth Normal Normal Respiratory Pattern Regular Regular Blood Pressure 208/109 H Blood Pressure [Right Arm] 208/109 H Blood Pressure Mean 142 Blood Pressure Mean [Right Arm] 142 Pulse Oximetry 100 100 100 Oxygen Delivery Method Room Air Room Air Room Air Sepsis Recent Fever Within 48 Hours No Sepsis New/Unexplained Change in Mental Status No Sepsis Action Taken by Nursing No Action Required 03/02/23 12:12 03/02/23 12:29 03/02/23 14:00 Temperature Temperature Source Pulse Rate 89 Pulse Rate [Right Apical] 90 88 Respiratory Rate 20 23 Respiratory Effort / Characteristics Respiratory Depth Respiratory Pattern Blood Pressure Blood Pressure [Right Arm] 194/110 H 201/126 H Blood Pressure Mean Blood Pressure Mean [Right Arm] 138 151 Pulse Oximetry 99 96 Oxygen Delivery Method Room Air Room Air Sepsis Recent Fever Within 48 Hours Sepsis New/Unexplained Change in Mental Status Sepsis Action Taken by Nursing 03/02/23 14:10 03/02/23 14:15 Temperature Temperature Source Pulse Rate Pulse Rate [Right Apical] Respiratory Rate Respiratory Effort / Characteristics Respiratory Depth Respiratory Pattern Blood Pressure Blood Pressure [Right Arm] 185/95 H 218/103 H Blood Pressure Mean Blood Pressure Mean [Right Arm] 125 141 Pulse Oximetry Oxygen Delivery Method Sepsis Recent Fever Within 48 Hours Sepsis New/Unexplained Change in Mental Status Sepsis Action Taken by Nursing Laboratory Data 03/02/23 11:44 03/02/23 11:44 Lab Results 03/02/23 03/02/23 03/02/23 Range/Units 11:44 11:44 11:55 WBC 9.61 (4.8-10.8) K/ul RBC 5.57 (4.70-6.10) M/uL Hgb 17.3 (14.0-18.0) g/dl Hct 47.4 (42.0-52.0) % MCV 85.1 (80.0-100.0) fL MCH 31.1 (25.0-34.0) pg MCHC 36.5 H (32.0-36.0) g/dL RDW Std Deviation 36.2 L (36.4-46.3) fL RDW Coeff of Boogie 11.9 (11.5-14.5) % Plt Count 257 (130-400) K/uL MPV 8.3 L (9.4-12.4) fL Immature Gran % (Auto) 2.0 % Neut % (Auto) 81.7 % Lymph % (Auto) 12.6 % [place] % (Auto) 3.5 % Eos % (Auto) 0.1 % Baso % (Auto) 0.1 % Neut # (Auto) 7.85 H (1.40-6.50) K/uL Lymph # (Auto) 1.21 (1.2-3.4) K/uL [place] # (Auto) 0.34 (0.11-0.59) K/uL Eos # (Auto) 0.01 (0-0.50) K/uL Baso # (Auto) 0.01 (0-0.2) K/uL Immature Gran # (Auto) 0.19 (0.01-0.20) K/uL Sodium 138 (136-145) mmol/L Potassium 3.4 L (3.5-5.1) mmol/L Chloride 97 L (98-107) mmol/L Carbon Dioxide 28 (21-32) mmol/L Anion Gap 13 H (3-11) BUN 22 (6-23) mg/dl Creatinine 0.65 (0.6-1.4) mg/dl Est Cr Clr Drug Dosing 70.2 ml/min Est GFR ( Amer) 109.5 ml/min Est GFR (Non-Af Amer) 94.5 ml/min BUN/Creatinine Ratio 33.8 H (10-20) Glucose 129 H (70-99(Fasting)) mg/dl Calcium 10.3 (8.6-10.3) mg/dl Magnesium 1.9 (1.7-2.4) mg/dl Total Bilirubin 0.9 (0.2-1.0) mg/dl AST 15 (13-39) U/L ALT 16 (7-52) U/L Alkaline Phosphatase 143 H (34-104) U/L Troponin I High Sens 14.4 (0-20) pg/ml Total Protein 8.0 (6.0-8.3) gm/dl Albumin 5.0 (3.4-5.0) gm/dl Globulin 3.0 (2.5-4.0) gm/dl Albumin/Globulin Ratio 1.7 (0.9-2) Lipase 6 L (11-82) U/L Urine Color Urine Appearance (Clear) Urine pH (4.5-7.5) Ur Specific [place] (1.000-1.030) Urine Protein (Negative) Urine Glucose (UA) (Negative) Urine Ketones (Negative) Urine Blood (Negative) Urine Nitrite (Negative) Urine Bilirubin (Negative) Urine Urobilinogen (Negative) Ur Leukocyte Esterase (Negative) Urine WBC (Auto) (0-5) /hpf Urine RBC (Auto) (0-4) /hpf U Hyaline Cast (Auto) (0-5) /lpf U Epithel Cells (Auto) (0-5) /lpf Urine Bacteria (Auto) (Negative) SARS-CoV-2, RNA, NAAT NEGATIVE (NEGATIVE) Blood Type Antibody Screen 03/02/23 03/02/23 Range/Units 12:04 13:41 WBC (4.8-10.8) K/ul RBC (4.70-6.10) M/uL Hgb (14.0-18.0) g/dl Hct (42.0-52.0) % MCV (80.0-100.0) fL MCH (25.0-34.0) pg MCHC (32.0-36.0) g/dL RDW Std Deviation (36.4-46.3) fL RDW Coeff of Boogie (11.5-14.5) % Plt Count (130-400) K/uL MPV (9.4-12.4) fL Immature Gran % (Auto) % Neut % (Auto) % Lymph % (Auto) % [place] % (Auto) % Eos % (Auto) % Baso % (Auto) % Neut # (Auto) (1.40-6.50) K/uL Lymph # (Auto) (1.2-3.4) K/uL [place] # (Auto) (0.11-0.59) K/uL Eos # (Auto) (0-0.50) K/uL Baso # (Auto) (0-0.2) K/uL Immature Gran # (Auto) (0.01-0.20) K/uL Sodium (136-145) mmol/L Potassium (3.5-5.1) mmol/L Chloride (98-107) mmol/L Carbon Dioxide (21-32) mmol/L Anion Gap (3-11) BUN (6-23) mg/dl Creatinine (0.6-1.4) mg/dl Est Cr Clr Drug Dosing ml/min Est GFR ( Amer) ml/min Est GFR (Non-Af Amer) ml/min BUN/Creatinine Ratio (10-20) Glucose (70-99(Fasting)) mg/dl Calcium (8.6-10.3) mg/dl Magnesium (1.7-2.4) mg/dl Total Bilirubin (0.2-1.0) mg/dl AST (13-39) U/L ALT (7-52) U/L Alkaline Phosphatase (34-104) U/L Troponin I High Sens (0-20) pg/ml Total Protein (6.0-8.3) gm/dl Albumin (3.4-5.0) gm/dl Globulin (2.5-4.0) gm/dl Albumin/Globulin Ratio (0.9-2) Lipase (11-82) U/L Urine Color Yellow Urine Appearance Clear (Clear) Urine pH 6.5 (4.5-7.5) Ur Specific [place] 1.022 (1.000-1.030) Urine Protein 3+ H (Negative) Urine Glucose (UA) Negative (Negative) Urine Ketones Trace H (Negative) Urine Blood 2+ H (Negative) Urine Nitrite Negative (Negative) Urine Bilirubin Negative (Negative) Urine Urobilinogen Negative (Negative) Ur Leukocyte Esterase Negative (Negative) Urine WBC (Auto) 1-5 (0-5) /hpf Urine RBC (Auto) >30 H (0-4) /hpf U Hyaline Cast (Auto) 1-5 (0-5) /lpf U Epithel Cells (Auto) 10-20 H (0-5) /lpf Urine Bacteria (Auto) Negative (Negative) SARS-CoV-2, RNA, NAAT (NEGATIVE) Blood Type B Positive Antibody Screen NEGATIVE Administered Medications Pantoprazole Sodium 40 mg/ (Dextrose) 100 mls @ 20 mls/hr IV Q5H NENA Stop: 04/01/23 11:59 Last Admin: 03/02/23 12:23 Dose: 8 mg/hr, 20 mls/hr Documented By: RACHEL Discontinued Medications Fentanyl Citrate (Fentanyl Citrate Pf 100 Mcg/2 Ml Vial) 50 mcg IV NOW STA Stop: 03/02/23 11:37 Last Admin: 03/02/23 11:53 Dose: 50 mcg Documented By: RACHEL Pantoprazole Sodium (Protonix Bolus/Drip) 0 mls @ 1 mls/hr IV ONE STA Stop: 03/02/23 11:35 Last Admin: 03/02/23 12:54 Dose: Not Given Documented By: SEGUNDO Pantoprazole Sodium 80 mg/ (Dextrose) 120 mls @ 400 mls/hr IV NOW ONE Stop: 03/02/23 11:51 Last Infusion: 03/02/23 12:20 Dose: 0 mls/hr Documented By: Admin: 03/02/23 12:01 Dose: 400 mls/hr Documented By: RACHEL Sodium Chloride (Nss 1000ml) 1,000 mls @ 999 mls/hr IV .Q1H1M ONE Stop: 03/02/23 12:37 Last Infusion: 03/02/23 12:55 Dose: 0 mls/hr Documented By: Admin: 03/02/23 11:51 Dose: 999 mls/hr Documented By: RACHEL Ioversol (Optiray 320 100ml) 89 ml IV ONCE ONE Stop: 03/02/23 13:21 Last Admin: 03/02/23 13:16 Dose: 89 ml Documented By: ETHEL Labetalol HCl (Labetalol Hcl Iv 5 Mg/Ml 20ml) 10 mg IV NOW STA Stop: 03/02/23 13:52 Last Admin: 03/02/23 14:04 Dose: 10 mg Documented By: ML Co-signed By: DANAE Metoclopramide HCl (Metoclopramide Hcl Inj 5 Mg/Ml 2 Ml Vial) 10 mg IV NOW STA Stop: 03/02/23 11:35 Last Admin: 03/02/23 11:53 Dose: 10 mg Documented By: RACHEL Ondansetron HCl (Ondansetron Inj 2 Mg/Ml 2 Ml Vial) 4 mg IV NOW STA Stop: 03/02/23 13:52 Last Admin: 03/02/23 14:04 Dose: 4 mg Documented By: SEGUNDO Imaging Data Radiologist's Impression: Abdomen/Pelvis CT 03/02/23 11:38 CT abd pelvis IV con only CLINICAL HISTORY: vomiting, pain TECHNIQUE: Helical axial images of the abdomen and pelvis were obtained and displayed. Automated dose lowering techniques and/or adjustment according to patient size were utilized for this exam. This exam was performed with intravenous contrast. CT DOSE: 519.30 mGy.cm COMPARISON: Comparison is made to CT abdomen pelvis 01/04/2023 FINDINGS: Lower chest: No acute abnormality. Liver: Unremarkable. No focal lesions are seen. Gallbladder and biliary tree: No calcified gallstones. Normal caliber wall. No intra- or extrahepatic biliary ductal dilation. Pancreas: Unremarkable, no focal lesions. Spleen: Unremarkable. Adrenals: Unremarkable. Kidneys and ureters: A 3 cm cyst is in the left kidney superior pole. Bladder: Unremarkable. Reproductive organs: Prostatomegaly is seen. Diffuse colonic wall thickening is seen in the transverse and descending colon. Bowel: Unremarkable. Lymph nodes Retroperitoneal: Unremarkable. Pelvic: Unremarkable. Mesenteric: Unremarkable. Peritoneum: Normal. Vessels: Unremarkable. Abdominal wall: Unremarkable. Bones: Posterior fixation hardware spans L2-S1. Degenerative changes are seen. IMPRESSION: Thickening of the distal colon is compatible with nonspecific colitis, which was seen on prior exams as well. No evidence of bowel obstruction. ACT 112: Negative or not required by law. Electronically signed by: Jose Luis Saldivar M.D. 03/02/2023 1:35 PM Discharge Plan Visit Data Chief Complaint: Vomiting Stated Complaint: STOMACH PAIN, VOMITING ED Provider: Pepito Betancourt Discharge Problem: Nausea & vomiting, Abdominal pain, Hypertensive urgency Patient Disposition: Being Evaluated by Hospitalist Forms Stand Alone Forms: [facility] [place] [facility] Prescriptions Prescriptions: No Action diazepam 5 mg tablet 5 mg PO HS PRN (Reason: Anxiety) 30 Days Qty: 15 0RF sumatriptan succinate 100 mg tablet 100 mg PO DIRECTED PRN (Reason: Migraine Headache) 30 Days Qty: 9 5RF atorvastatin 80 mg tablet 80 mg PO QAM rabeprazole 20 mg Tablet,Delayed Release (Dr/Ec) 20 mg PO DAILY PRN (Reason: Acid Reflux) sertraline [Zoloft] 100 mg tablet 150 mg PO QAM Rx Instructions: PER EXT MED HX. hydroxyzine HCl 50 mg tablet 50 mg PO BID PRN (Reason: Itching) taxdxwvznv-ldgkdtuaqhakf-dcor 50-325-40 mg Tablet 1 tab PO DAILY PRN (Reason: Migraine Headache) dicyclomine 20 mg tablet 10 mg PO QID PRN (Reason: abd pain) baclofen 10 mg Tablet 10 mg PO UD PRN (Reason: muscle spasms) amlodipine [Norvasc] 10 mg tablet 10 mg PO QPM flurandrenolide 0.05 % lotion 1 applic TOPICAL BID PRN (Reason: Itching) lisinopril 40 mg tablet 40 mg PO QAM ondansetron 4 mg tablet,disintegrating 4 mg translingual Q12 PRN (Reason: Nausea) Linzess 290 mcg capsule 290 mcg PO HS tamsulosin [Flomax] 0.4 mg Capsule 0.4 mg PO HS dextroamphetamine-amphetamine [Adderall] 30 mg Tablet 30 mg PO BID Probiotic 3 billion cell capsule 3,000 mmu cells PO DAILY Qty: 10 0RF Rx Instructions: administer with a meal metoprolol tartrate 100 mg tablet 100 mg PO BID acetaminophen-codeine 300-30 mg tablet 1 tab PO BID PRN (Reason: Pain) betamethasone valerate 0.1 % cream 1 applic TOPICAL BID PRN (Reason: Skin Irritation) polyethylene glycol 3350 [Miralax] 17 gram/dose Powder 17 g PO DAILY PRN (Reason: Constipation) cyclobenzaprine 10 mg tablet 10 mg PO DAILY PRN (Reason: muscle spasms) methocarbamol 750 mg tablet 750 mg PO BID PRN (Reason: NEEDED PER [facility]) Rx Instructions: 750 mg PO TWICE DAILY NEEDED; pantoprazole 40 mg Tablet,Delayed Release (Dr/Ec) 40 mg PO BID 30 Days Qty: 60 0RF Referrals Referrals: Buddy Begum, [Primary Care Provider] -
--- NOTE | 2023-03-02 12:08 | Electrocardiogram Report ---
Test Reason : Blood Pressure : / mmHG Vent. Rate : 064 BPM Atrial Rate : 064 BPM P-R Int : 156 ms QRS Dur : 104 ms QT Int : 406 ms P-R-T Axes : 060 068 067 degrees QTc Int : 418 ms Sinus rhythm with occasional Premature ventricular complexes Possible Left atrial enlargement Left ventricular hypertrophy U-waves present; r/o electrolyte imbalance Abnormal ECG When compared with ECG of 04-JAN-2023 01:23, Vent. rate has decreased BY [address] less depressed in Inferior leads ST no longer depressed in Anterior leads T wave amplitude has increased in Lateral leads Confirmed by Td Banks ([id number]) on 03/02/2023 12:08:24 PM Referred By: REFERRED SELF Confirmed By:Td Banks
[2023-03-02] MEDS: PANTOprazole 40 MG in DEXTROSE 5% 100 ML IV SCH ×3 (12:23→22:48)
[2023-03-02 12:24] LABS: Basophils # (auto) 0.01 K/uL (0-0.2); Basophils % (auto) 0.1 %; Eosinophils # (auto) 0.01 K/uL (0-0.50); Eosinophils % (auto) 0.1 %; Hematocrit (blood only) 47.4 % (42.0-52.0); Hemoglobin 17.3 g/dl (14.0-18.0); Immature Granulocytes # (auto) 0.19 K/uL (0.01-0.20); Lymphocytes # (auto) 1.21 K/uL (1.2-3.4); Lymphocytes % (auto) 12.6 %; Mean Corpuscular Hemoglobin 31.1 pg (25.0-34.0); Mean Corpuscular Hgb Conc 36.5 g/dL (32.0-36.0); Mean Corpuscular Volume 85.1 fL (80.0-100.0); Mean Platelet Volume 8.3 fL (9.4-12.4); Monocytes # (auto) 0.34 K/uL (0.11-0.59); Monocytes % (auto) 3.5 %; Neutrophils # (auto) 7.85 K/uL (1.40-6.50); Neutrophils % (auto) 81.7 %; Platelet Count 257 K/uL (130-400); RDW Coefficient of Variation 11.9 % (11.5-14.5); RDW Standard Deviation 36.2 fL (36.4-46.3); Red Blood Count 5.57 M/uL (4.70-6.10); White Blood Count 9.61 K/ul (4.8-10.8)
[2023-03-02 12:46] LABS: Albumin Globulin Ratio 1.7 (0.9-2); BUN Creatinine Ratio 33.8 (10-20); Bilirubin,Total 0.9 mg/dl (0.2-1.0); Calcium 10.3 mg/dl (8.6-10.3); Creatinine Clr Calc Pharmacy 70.2 ml/min; Est GFR (African American) 109.5 ml/min; Est GFR (Non-African American) 94.5 ml/min; Magnesium 1.9 mg/dl (1.7-2.4); Potassium 3.4 mmol/L (3.5-5.1)
[2023-03-02 12:49] LABS: Troponin I High Sensitivity 14.4 pg/ml (0-20)
[2023-03-02] MEDS ORDERED: OPTIRAY 320 100ml IV ONE (13:20)
--- NOTE | 2023-03-02 13:37 | CT Scan Report ---
CT abd pelvis IV con only CLINICAL HISTORY: vomiting, pain TECHNIQUE: Helical axial images of the abdomen and pelvis were obtained and displayed. Automated dose lowering techniques and/or adjustment according to patient size were utilized for this exam. This e xam was performed with intravenous contrast. CT DOSE: 519.30 mGy.cm COMPARISON: Comparison is made to CT abdomen pelvis 01/04/2023 FINDINGS: Lower chest: No acute abnormality. Liver: Unremarkable. No focal lesions are seen. Gallbladder and biliary tree: No calcified gallstones. Normal caliber wall. No intra- or extrahepatic biliary ductal dilation. Pancreas: Unremarkable, no focal lesions. Spleen: Unremarkable. Adrenals: Unremarkable. Kidneys and ureters: A 3 cm cyst is in the left kidney superior pole. Bladder: Unremarkable. Reproductive organs: Prostatomegaly is seen. Diffuse colonic wall thickening is seen in the transvers e and descending colon. Bowel: Unremarkable. Lymph nodes Retroperitoneal: Unremarkable. Pelvic: Unremarkable. Mesenteric: Unremarkable. Peritoneum: Normal. Vessels: Unremarkable. Abdominal wall: Unremarkable. Bones: Posterior fixation hardware spans L2-S1. Degenerative changes are seen. IMPRESSION: Thickening of the distal colon is compatible with nonspecific colitis, which was seen on prior exams as well. No evidence of bowel obstruction. ACT 112: Negative or not required by law. Electronically signed by: Jose Luis Saldivar M.D. 03/02/2023 1:35 PM
[2023-03-02] MEDS ORDERED: LABETALOL HCL IV 5 MG/ML 20ML IV STA (13:51)
[2023-03-02] MEDS ORDERED: ONDANSETRON INJ 2 MG/ML 2 ML VIAL IV STA (13:51)
[2023-03-02 14:38] LABS: Appearance Urine Clear (Clear); Bacteria Urine Automated Negative (Negative); Bilirubin Urine Negative (Negative); Blood Urine 2+ (Negative); Color Urine Yellow; Glucose Urine UA Negative (Negative); Ketones Urine Trace (Negative); Leukocyte Esterase Urine Negative (Negative); Nitrite Urine Negative (Negative); Protein Urine 3+ (Negative); RBC Urine Automated >30 /hpf (0-4); Specific Gravity Urine 1.022 (1.000-1.030); Urobilinogen Urine Negative (Negative); pH Urine 6.5 (4.5-7.5)
[2023-03-02] MEDS ORDERED: ALUMINUM/MAGNESIUM SUSP 30 ML UDC PO PRN (14:42)
[2023-03-02] MEDS ORDERED: ACETAMINOPHEN 325 MG TAB PO PRN (14:42)
[2023-03-02] MEDS ORDERED: MAGNESIUM HYDROXIDE SUSP 30 ML UDC PO PRN (14:42)
[2023-03-02] MEDS ORDERED: ONDANSETRON INJ 2 MG/ML 2 ML VIAL IV PRN (14:42)
[2023-03-02] MEDS ORDERED: POLYETHYLENE (MIRALAX) 17 GM PACK PO PRN (14:42)
--- NOTE | 2023-03-02 15:03 | History & Physical Report ---
Date of Service March 02, 2023 Assessment & Plan (1) Nausea & vomiting: (2) History of partial gastrectomy: (3) Colitis: (4) GERD (gastroesophageal reflux disease): (5) Hypertensive urgency: (6) Dyslipidemia: (7) Hypertension: (8) ADHD: (9) Depression: Plan 77-year-old presents with intractable nausea and vomiting. Complex GI history with partial gastrectomy and colitis. Intractable nausea and vomiting: Colitis: History of partial gastrectomy: GERD: Symptoms x3 days. He has had numerous CT and EGD in the past. He has had 2 recent admissions 12/12 to 12/17 for colitis and 01/04 to 01/07 for GI bleed. 02/16/23 most recent EGD 02/16/2023; normal esophagus, Billroth I gastroduodenoscopy found with healthy- appearing mucosa, normal examined duodenum and no specimens were collected. Poor response with Zofran continue scheduled Reglan Continue Protonix drip NPO; IV fluids @ 80mL/hour Ammunition Specialist consult; suspect delayed gastric emptying Discussed possibility of PPN due to extreme weight loss until symptoms resolved. Pt open to discussion regarding enteral nutrition. Check PTH GI consult Hypertensive urgency: SBP > 190 in ED; likely secondary to uncontrolled GERD Labetalol 10 mg given in ED Patient did not take a.m. medications which include amlodipine and lisinopril; continue Hypokalemia: Suspect related to vomiting K+ 3.4; administer K+ rider x2. Recheck BMP in AM Dyslipidemia: Takes atorvastatin; continue ADHD: Takes Adderall; continue Depression: Takes Celebrex and Zoloft; continue Disposition: PCP: Dr. Begum CODE STATUS: DNR/DNI code VTE prophylaxis: Teds and SCDs for now I spent a total of 88 minutes coordinating, documenting, and providing care for this patient excluding time spent in the performance of separately billed services. All of the aforementioned completed while collaborating with the assigned attending physician for a full treatment plan. Please see their addendum for further details. History of Present Illness Chief Complaint: nausea and vomiting Primary Care Provider: Buddy Begum DO Mr. Sneed is a 77-year-old male that presented to the ED after experiencing vomiting for the past 3 days that just started abruptly. He reports poor appetite and is unable to keep anything down. He denies being woken from his sleep. He reports the sensation as primarily 'burning'. He reports it as intermittent and is usually positional. This patient does have a history of reflux issues that include peptic ulcer disease status post Billroth I procedure and esophagitis and gastritis. Abdominal and pelvis CT indicated no bowel obstruction; distal colon nonspecific colitis which appears unchanged from previous scans. He reports losing weight over the past month. He has trashcans everywhere in his home and expresses that his ADL's are difficult to do as it exacerbates his symptoms. He reports that he is very careful with his intake on good days. He was thinking that he was improving yesterday and he ate two cups of gel-mandarin oranges and he had 10/10 reflux symptoms; symptoms unrelieved with Pepto Bismol. Normal weight 130 pounds; today his weight is 112 lbs. Considerable conversation held regarding goals alongside feeding tube/PPN. He has had numerous CT and EGD in the past. He has had 2 recent admissions 12/12 to 12/17 for colitis and 01/04 to 01/07 for GI bleed. 02/16/23 most recent EGD 02/16/2023; normal esophagus, Billroth I gastroduodenoscopy found with healthy- appearing mucosa, normal examined duodenum and no specimens were collected. No leukocytosis WBC 9.61 alk phos 143. Protonix drip initiated in the ED. Patient without relief with Zofran; Reglan administered. Patient with hypertensive crisis SBP systolic greater than 190; likely secondary to uncontrolled GERD. Reports feeling feverish and having chills which he attributes to not taking his iron tablets. Additional PMH: GERD status post pyloric stenosis but status post partial gastrectomy, CVA(2017), anxiety and depression, PFO(small and follows with [facility] cardiology; 2020, no intervention), HTN, ADHD anemia, BPH, and DDD. Pt is now on [employer] in [place] and he reports having added stress traveling to see her. He has two adult children that are minimally involved, but do help. Patient is sitting in his hospital bed and appears uncomfortable. He is able to speak in complete sentences and reports an accurate ROS. He denies HARRIS, dizziness, SOB, CP, palpitations, urine or bowel changes, recent falls, visual or auditory changes, recent trauma. Patient will be admitted for further evaluation and management. Please see A/P for further details. Allergies Allergy/AdvReac Type Severity Reaction Status Date / Time lactose AdvReac Severe Intolerant-SEVERE Verified 01/04/23 01:45 ABDOMINAL CRAMPS buspirone AdvReac Intermediate Jittery, Verified 01/04/23 01:45 "crawling out of my skin" lorazepam AdvReac Intermediate Jittery, Verified 01/04/23 01:45 "crawling out of my skin" oxycodone AdvReac Mild nausea Verified 01/04/23 01:45 Home Medications Medication Instructions Recorded Confirmed Type amlodipine 10 mg tablet (Norvasc) 10 mg PO QPM 12/07/20 03/02/23 History atorvastatin 80 mg tablet 80 mg PO QAM 12/07/20 03/02/23 History baclofen 10 mg tablet 10 mg PO UD PRN muscle spasms 12/07/20 03/02/23 History rdtflknero-wiifdlcicwtwf-zypxzfmo 1 tab PO DAILY PRN Migraine 12/07/20 03/02/23 History 50 mg-325 mg-40 mg tablet Headache dicyclomine 20 mg tablet 10 mg PO QID PRN abd pain 12/07/20 03/02/23 History flurandrenolide 0.05 % lotion 1 applic topical BID PRN Itching 12/07/20 03/02/23 History hydroxyzine HCl 50 mg tablet 50 mg PO BID PRN Itching 12/07/20 03/02/23 History linaclotide 290 mcg capsule 290 mcg PO HS 12/07/20 03/02/23 History (Linzess) lisinopril 40 mg tablet 40 mg PO QAM 12/07/20 03/02/23 History ondansetron 4 mg disintegrating 4 mg translingual Q12 PRN Nausea 12/07/2002/09 History tablet rabeprazole 20 mg tablet,delayed 20 mg PO DAILY PRN Acid Reflux 12/07/20 03/02/23 History release sertraline 100 mg tablet (Zoloft) 150 mg PO QAM 12/07/20 03/02/23 History dextroamphetamine-amphetamine 30 30 mg PO BID 07/14/21 03/02/23 History mg tablet (Adderall) tamsulosin 0.4 mg capsule (Flomax) 0.4 mg PO HS 07/14/21 03/02/23 History lactobacillus combination no.4 3 3,000 mmu cells PO DAILY #10 caps 12/17/21 03/02/23 Rx billion cell capsule (Probiotic) sumatriptan succinate 100 mg tablet 100 mg PO DIRECTED PRN Migraine 11/17/22 03/02/23 Rx Headache 30 days #9 tabs diazepam 5 mg tablet 5 mg PO HS PRN Anxiety 30 days #15 12/28/22 03/02/23 Rx tabs acetaminophen 300 mg-codeine 30 mg 1 tab PO BID PRN Pain 01/04/23 03/02/23 History tablet betamethasone valerate 0.1 % 1 applic topical BID PRN Skin 01/04/23 03/02/23 History topical cream Irritation cyclobenzaprine 10 mg tablet 10 mg PO DAILY PRN muscle spasms 01/04/23 03/02/23 History methocarbamol 750 mg tablet 750 mg PO BID PRN NEEDED PER [facility] 01/04/23 03/02/23 History metoprolol tartrate 100 mg tablet 100 mg PO BID 01/04/23 03/02/23 History polyethylene glycol 3350 17 17 g PO DAILY PRN Constipation 01/04/23 03/02/23 History gram/dose oral powder (Miralax) pantoprazole 40 mg tablet,delayed 40 mg PO BID 30 days #60 tabs 01/07/23 3 Rx release Past Med/Surg History Medical History (Updated 03/02/23 @ 14:55 by LEONEL Hickman) Anemia iron deficiency, h/o multiple infusions with last occurring > 1 month ago Anxiety Arthralgia of multiple sites Arthritis 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 hyperactivity Bilateral edema of lower extremity resolved on carvedilol per pt Chronic radicular low back pain Coffee ground emesis CVA (cerebral vascular accident) Incidental "old" infarct noted on 2018 imaging during workup for polypharmacy reaction Degenerative disc disease Depression with h/o depressive psychosis Duodenal ulcer resolved per pt and s/p release from subsequent adhesion development Dyslipidemia GERD (gastroesophageal reflux disease) pyloric stenosis s/p partial gastrectomy Glaucoma History of long-term treatment with high-risk medication Hypertension controlled, stable per pt Hyponatremia stable per pt IBS (irritable bowel syndrome) C Migraine without status migrainosus, not intractable Mild cognitive impairment Mild concentric left ventricular hypertrophy (LVH) Pain in foot left PFO (patent foramen ovale) [facility] cardio 07/2021: "small and non clinically significant...no additional cardiac studies or treatment are indicated..." Rebound headache to be starting prednisone course by neurology per note Spinal stenosis Urinary frequency Surgical History Fusion of spine Lumbar History of colonoscopy History of esophagogastroduodenoscopy (EGD) History of myringotomy History of partial gastrectomy r/t pyloric sphincter scarring 2004 (x2) History of surgery Right side (ribs removed) History of tonsillectomy History of tooth extraction Family History Other No family history of adverse response to anesthesia No known health problems Social History Smoking Status: Never smoker Second Hand Exposure: No; Do You Dip or Chew Tobacco: No; Tobacco Cessation Education Requested by Patient: No Hx Alcohol Use: No Hx Substance Use: No Preferred Language: Moroccan Communication Ability: Effective Excelsior Cutter Required: No Beliefs That Will Affect Care: Jehovah'S Witness Jehovah'S Witness Beliefs: Jeff marital status: Current Living Situation: Alone current occupational status: retired How many Children do You have: 2 Other Information That Helps Us Care for You: No Feels Safe at Home: Yes and No Is there a partner from a previous relationship who is making you feel unsafe now?: No Any Concerns about Your Family Situation: No Would You Like to Speak to Someone About Your Situation: No Safety Concerns: Feels Safe At This Time Assistive Devices: Cane Review of Systems Review of Systems: Neuro: (-) Falls, trauma, slurred speech HEENT: (-) HARRIS, dizziness, dysphagia, visual or auditory changes CV: (-) CP, palpitations, swelling Resp: (-) SOB GI: (-) appetite changes, N/V/D, bowel changes : (-) urinary changes Skin: (-) rashes Psych: (-) anxiety, depression Physical Exam Physical Exam: Neuro: AAOx4, PERRLA, no aphagia, memory changes, CNII-XII grossly intact HEENT: head normocephalic, moist mucus membranes CV: S1/S2, (-) M/G/R, (-) edema, cap refill < 3 seconds Resp: Lungs CTA in all hdez. On RA GI: Abdomen S/NT/ND, Ax4 bowel sounds, (-) CVA tenderness Musculoskeletal: 5/5 B/L UE strength, 5/5 B/L LE strength. No gait disturbance Skin: (-) rashes , (-) erythema. Psych: euthymic mood Results & Data Results & Data Vital Signs (Past 12 Hours) Vital Signs Temp Pulse Pulse Resp BP BP Pulse Ox 03/02/23 14:43 86 20 182/100 H 98 03/02/23 14:15 218/103 H 03/02/23 14:10 185/95 H 03/02/23 14:00 88 23 201/126 H 96 03/02/23 12:29 89 03/02/23 12:12 90 20 194/110 H 99 03/02/23 11:37 100 03/02/23 11:13 71 20 208/109 H 100 03/02/23 11:13 37.0 C 71 20 208/109 H 100 O2 Del Method 03/02/23 14:43 Room Air 03/02/23 14:15 03/02/23 14:10 03/02/23 14:00 Room Air 03/02/23 12:29 03/02/23 12:12 Room Air 03/02/23 11:37 Room Air 03/02/23 11:13 Room Air 03/02/23 11:13 Room Air Laboratory Results Short CBC 03/02/23 Range/Units 11:44 WBC 9.61 (4.8-10.8) K/ul Hgb 17.3 (14.0-18.0) g/dl Hct 47.4 (42.0-52.0) % Plt Count 257 (130-400) K/uL BMP 03/02/23 11:44 Sodium 138 Potassium 3.4 L Chloride 97 L Carbon Dioxide 28 BUN 22 Creatinine 0.65 Glucose 129 H Calcium 10.3 Liver Function 03/02/23 Range/Units 11:44 Total Bilirubin 0.9 (0.2-1.0) mg/dl AST 15 (13-39) U/L ALT 16 (7-52) U/L Alkaline Phosphatase 143 H (34-104) U/L Albumin 5.0 (3.4-5.0) gm/dl Urine 05/23/23 Range/Units 13:41 Urine Color Yellow Urine Appearance Clear (Clear) Urine pH 6.5 (4.5-7.5) Ur Specific [place] 1.022 (1.000-1.030) Urine Protein 3+ H (Negative) Urine Glucose (UA) Negative (Negative) Diagnostic Findings Abdomen/Pelvis CT 03/02/23 11:38 CT abd pelvis IV con only CLINICAL HISTORY: vomiting, pain TECHNIQUE: Helical axial images of the abdomen and pelvis were obtained and displayed. Automated dose lowering techniques and/or adjustment according to patient size were utilized for this exam. This exam was performed with intravenous contrast. CT DOSE: 519.30 mGy.cm COMPARISON: Comparison is made to CT abdomen pelvis 01/04/2023 FINDINGS: Lower chest: No acute abnormality. Liver: Unremarkable. No focal lesions are seen. Gallbladder and biliary tree: No calcified gallstones. Normal caliber wall. No intra- or extrahepatic biliary ductal dilation. Pancreas: Unremarkable, no focal lesions. Spleen: Unremarkable. Adrenals: Unremarkable. Kidneys and ureters: A 3 cm cyst is in the left kidney superior pole. Bladder: Unremarkable. Reproductive organs: Prostatomegaly is seen. Diffuse colonic wall thickening is seen in the transverse and descending colon. Bowel: Unremarkable. Lymph nodes Retroperitoneal: Unremarkable. Pelvic: Unremarkable. Mesenteric: Unremarkable. Peritoneum: Normal. Vessels: Unremarkable. Abdominal wall: Unremarkable. Bones: Posterior fixation hardware spans L2-S1. Degenerative changes are seen. IMPRESSION: Thickening of the distal colon is compatible with nonspecific colitis, which was seen on prior exams as well. No evidence of bowel obstruction. ACT 112: Negative or not required by law. Electronically signed by: Jose Luis Saldivar M.D. 03/02/2023 1:35 PM Code Status & VTE Plan Code Status Full code in the event of cardiac or respiratory arrest VTE Prophylaxis Plan VTE Prophylaxis will be ordered: Yes Supervising Physician Co-Signing Physician Notes Patient seen and examined independently. Chart reviewed. Case discussed with WINSOME. Continue protonix IV, IV fluids, Scheduled reglan (1) Nausea & vomiting Vomiting type: unspecified Qualified Code(s): R11.2 - Nausea with vomiting, unspecified
[2023-03-02] MEDS ORDERED: SODIUM CHLORIDE 0.9% 1000ML 500 ML IV ONE (15:49)
[2023-03-02] MEDS ORDERED: METOCLOPRAMIDE HCL INJ 5 MG/ML 2 ML VIAL IV PRN (15:50)
[2023-03-02] MEDS: SODIUM CHLORIDE 0.9% 1000ML 1,000 ML IV SCH (18:03)
[2023-03-02] MEDS: POTASSIUM CHLORIDE / WTR 10 MEQ/100 ML PLCT IV SCH ×2 (18:04→20:43)
[2023-03-02] MEDS: METOPROLOL TARTRATE 100 MG TAB PO SCH (20:51)
[2023-03-02] MEDS: TAMSULOSIN HCL 0.4 MG CAP PO SCH (20:51)
[2023-03-02] MEDS: amLODIPine BESYLATE 5 MG TAB PO SCH (20:51)
[2023-03-02] MEDS: AMPHETAMINE ASP/SULF/DEXTRAMPH 20 MG TAB PO SCH (20:52)
[2023-03-02] MEDS: METOCLOPRAMIDE HCL INJ 5 MG/ML 2 ML VIAL IV SCH (22:48)
[2023-03-03] MEDS: PANTOprazole 40 MG in DEXTROSE 5% 100 ML IV SCH ×4 (03:10→19:13)
[2023-03-03] MEDS: METOCLOPRAMIDE HCL INJ 5 MG/ML 2 ML VIAL IV SCH ×3 (05:55→20:29)
[2023-03-03] MEDS: SODIUM CHLORIDE 0.9% 1000ML 1,000 ML IV SCH (06:30)
[2023-03-03 07:11] LABS: Hematocrit (blood only) 37.7 % (42.0-52.0); Hemoglobin 14.6 g/dl (14.0-18.0); Mean Corpuscular Hemoglobin 32.1 pg (25.0-34.0); Mean Corpuscular Hgb Conc 38.7 g/dL (32.0-36.0); Mean Corpuscular Volume 82.9 fL (80.0-100.0); Mean Platelet Volume 8.4 fL (9.4-12.4); Platelet Count 208 K/uL (130-400); RDW Coefficient of Variation 11.8 % (11.5-14.5); RDW Standard Deviation 35.6 fL (36.4-46.3); Red Blood Count 4.55 M/uL (4.70-6.10); White Blood Count 8.87 K/ul (4.8-10.8)
[2023-03-03 07:29] LABS: Albumin Globulin Ratio 1.8 (0.9-2); Albumin Level 3.9 gm/dl (3.4-5.0); BUN Creatinine Ratio 31.3 (10-20); Bilirubin,Total 0.9 mg/dl (0.2-1.0); Calcium 9.3 mg/dl (8.6-10.3); Creatinine Clr Calc Pharmacy 71.9 ml/min; Est GFR (African American) 110.2 ml/min; Est GFR (Non-African American) 95.1 ml/min; Globulin 2.2 gm/dl (2.5-4.0); Magnesium 1.7 mg/dl (1.7-2.4); Potassium 3.4 mmol/L (3.5-5.1); Total Protein 6.1 gm/dl (6.0-8.3)
--- NOTE | 2023-03-03 07:29 | Gastrointestinal Consultation ---
Date of Consultation March 03, 2023 Assessment & Plan (1) Nausea & vomiting: (2) Abdominal pain: (3) Abnormal CT of the abdomen: Plan 1. Will add metoclopramide 5mg BID to OP regime. (recent EGD w retained food in stomach - evidence of gastroparesis). 2. Will plan for op colonoscopy to address question of colitis on CT (though this was also seen in 2020 and f/u colonoscopy w/o abnormalities. Supervising Physician Co-Signing Physician Notes I performed a history and physical examination of the patient today, including specifically on physical exam - soft abdomen. I have discussed the patient's management with the advanced practitioner. Please refer to the nurse practitioner's note for the documented findings and plan of care. Improved with Reglan. Follow up as OP in GI office. Recall if needed. History of Present Illness Reason for Consultation: Weight loss, GERD Requesting Physician: Dr. Wynn Attending Physician: Dc Wynn MD History of Present Illness Mr. Dalton Leslie is a 77 yr old male pt of Dr. Buddy Begum w a hx of partial gastrectomy for ulcer, IBS who presented to the ED yesterday. He had experienced N/V for 2-3 days, and passed about 4 dark/loose Bms/day, describing them as very dark brown. He had diffuse upper abdomen pain. Since arrival here, receiving IV fluids and bowel rest as well as reglan, he has had resolution of all symptoms. CT on arrival w thickening of the distal colon is compatible with nonspecific colitis, though note was made that this has been seen previously. Review of OP records shows that CT suggested this prior to 2020 colonoscopy which suggested on ly minimal granularity in the rectum w/o abnormalities in the distal colon (See below). Most recent EGD 02/16/[address] Blackburn: Normal esophagus. - A medium amount of food (residue) in the stomach. - Billroth I gastroduodenostomy was found, characterized by healthy appearing mucosa. - Normal examined duodenum. - No specimens collected. Most recent Colonoscopy 02/06/21 Dr. Camarena: Hemorrhoids were found on perianal exam. Hemorrhoids on retroflexion. There was mild granularity in the rectum, adjacent to the anal verge, consistent with prolapse of hemorrhoids/solitary rectal ulcer.. The remainder of the colon was normal. There was no evidence of left sided colitis. Allergies Allergy/AdvReac Type Severity Reaction Status Date / Time lactose AdvReac Severe Intolerant-SEVERE Verified 01/04/23 01:45 ABDOMINAL CRAMPS buspirone AdvReac Intermediate Jittery, Verified 01/04/23 01:45 "crawling out of my skin" lorazepam AdvReac Intermediate Jittery, Verified 01/04/23 01:45 "crawling out of my skin" oxycodone AdvReac Mild nausea Verified 01/04/23 01:45 Home Medications Medication Instructions Recorded Confirmed Type amlodipine 10 mg tablet (Norvasc) 10 mg PO QPM 12/07/20 03/02/23 History atorvastatin 80 mg tablet 80 mg PO QAM 12/07/20 03/02/23 History baclofen 10 mg tablet 10 mg PO UD PRN muscle spasms 12/07/20 03/02/23 History xotzqyyomx-npjqhbkfwqsnn-jvfadqdi 1 tab PO DAILY PRN Migraine 12/07/20 03/02/23 History 50 mg-325 mg-40 mg tablet Headache dicyclomine 20 mg tablet 10 mg PO QID PRN abd pain 12/07/20 03/02/23 History flurandrenolide 0.05 % lotion 1 applic topical BID PRN Itching 12/07/20 03/02/23 History hydroxyzine HCl 50 mg tablet 50 mg PO BID PRN Itching 12/07/20 03/02/23 History linaclotide 290 mcg capsule 290 mcg PO HS 12/07/20 03/02/23 History (Linzess) lisinopril 40 mg tablet 40 mg PO QAM 12/07/20 03/02/23 History ondansetron 4 mg disintegrating 4 mg translingual Q12 PRN Nausea 12/07/20 03/02/23 History tablet rabeprazole 20 mg tablet,delayed 20 mg PO DAILY PRN Acid Reflux 12/07/20 03/02/23 History release sertraline 100 mg tablet (Zoloft) 150 mg PO QAM 12/07/20 03/02/23 History dextroamphetamine-amphetamine 30 30 mg PO BID 07/14/21 03/02/23 History mg tablet (Adderall) tamsulosin 0.4 mg capsule (Flomax) 0.4 mg PO HS 07/14/21 03/02/23 History lactobacillus combination no.4 3 3,000 mmu cells PO DAILY #10 caps 12/17/21 03/02/23 Rx billion cell capsule (Probiotic) sumatriptan succinate 100 mg tablet 100 mg PO DIRECTED PRN Migraine 11/17/22 03/02/23 Rx Headache 30 days #9 tabs diazepam 5 mg tablet 5 mg PO HS PRN Anxiety 30 days #15 12/28/22 03/02/23 Rx tabs acetaminophen 300 mg-codeine 30 mg 1 tab PO BID PRN Pain 01/04/23 03/02/23 History tablet betamethasone valerate 0.1 % 1 applic topical BID PRN Skin 01/04/23 03/02/23 History topical cream Irritation cyclobenzaprine 10 mg tablet 10 mg PO DAILY PRN muscle spasms 01/04/23 03/02/23 History methocarbamol 750 mg tablet 750 mg PO BID PRN NEEDED PER [facility] 01/04/23 03/02/23 History metoprolol tartrate 100 mg tablet 100 mg PO BID 01/04/23 03/02/23 History polyethylene glycol 3350 17 17 g PO DAILY PRN Constipation 01/04/23 03/02/23 History gram/dose oral powder (Miralax) pantoprazole 40 mg tablet,delayed 40 mg PO BID 30 days #60 tabs 01/07/23 03/02/23 Rx release Patient History Medical History (Updated 03/03/23 @ 12:09 by LEONEL Garcia) Anemia iron deficiency, h/o multiple infusions with last occurring > 1 month ago Anxiety Arthralgia of multiple sites Arthritis 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 hyperactivity Bilateral edema of lower extremity resolved on carvedilol per pt Chronic radicular low back pain Coffee ground emesis CVA (cerebral vascular accident) Incidental "old" infarct noted on 2018 imaging during workup for polypharmacy reaction Degenerative disc disease Depression with h/o depressive psychosis Duodenal ulcer resolved per pt and s/p release from subsequent adhesion development Dyslipidemia GERD (gastroesophageal reflux disease) pyloric stenosis s/p partial gastrectomy Glaucoma History of long-term treatment with high-risk medication Hypertension controlled, stable per pt Hyponatremia stable per pt IBS (irritable bowel syndrome) C Migraine without status migrainosus, not intractable Mild cognitive impairment Mild concentric left ventricular hypertrophy (LVH) Pain in foot left PFO (patent foramen ovale) [facility] cardio 07/2021: "small and non clinically significant...no additional cardiac studies or treatment are indicated..." Rebound headache to be starting prednisone course by neurology per note Spinal stenosis Urinary frequency Surgical History Fusion of spine Lumbar History of colonoscopy History of esophagogastroduodenoscopy (EGD) History of myringotomy History of partial gastrectomy r/t pyloric sphincter scarring 2004 (x2) History of surgery Right side (ribs removed) History of tonsillectomy History of tooth extraction Family History Other No family history of adverse response to anesthesia No known health problems Social History Smoking Status: Never smoker Second Hand Exposure: No; Do You Dip or Chew Tobacco: No; Tobacco Cessation Education Requested by Patient: No Hx Alcohol Use: No Hx Substance Use: No Preferred Language: Mexican Communication Ability: Effective Church Administrator Required: No Beliefs That Will Affect Care: Congregational Congregational Beliefs: Presybeterian marital status: Current Living Situation: Alone current occupational status: retired How many Children do You have: 2 Other Information That Helps Us Care for You: No Feels Safe at Home: Yes and No Is there a partner from a previous relationship who is making you feel unsafe now?: No Any Concerns about Your Family Situation: No Would You Like to Speak to Someone About Your Situation: No Safety Concerns: Feels Safe At This Time Assistive Devices: Cane Review of Systems Review of Systems: ROS: Gen: Denies weakness, fevers, + chronically underweight Eyes: No eye redness, or pain, no recent vision changes Resp: No SOB, no cough Cardio: No palpitations/irregular beats, no chest pain GI: As per HPI, otherwise (-) : Denies pain on urination Skin: No jaundice, itching or new rashes Physical Exam Constitutional: WD/WN, vitals as above + underweight Eyes: PERRL, conjunctivae normal, anicteric sclerae ENMT: external ear and nose normal, oropharynx normal Neck: trachea midline, no thyromegaly Respiratory: normal respiratory effort, lungs clear to auscultation Cardiovascular: RRR, no murmur, no edema Gastrointestinal (Abdomen): soft, non distended, normal BMs + upper abd mild tenderness otherwise non tender, no masses. Musculoskeletal: no cyanosis or clubbing, extremities motor strength 5/5 Skin: no rashes, warm and dry Neurologic: PERRL, EOMI, accommodation nl, no face palsy, no dysarthria Psychiatric: A+Ox3, euthymic affect Lymphatic: no cervical or axillary lymphadenopathy Results & Data Vital Signs (Past 12 Hours) Vital Signs Temp Pulse Pulse Resp BP Pulse Ox O2 Del Method 03/02/23 22:02 91 H 03/03/23 03:46 37.1 C 94 H 16 154/79 H 96 Room Air 03/02/23 23:00 37.5 C 98 H 18 200/96 H 98 Room Air 03/02/23 22:54 160/80 H 03/02/23 20:11 37.4 C 105 H 16 139/83 96 Room Air Diagnostic Findings CTAP 03/02/23 w IV contrast: Thickening of the distal colon is compatible with nonspecific colitis, which was seen on prior exams as well. No evidence of bowel obstruction. (1) Nausea & vomiting Vomiting type: unspecified Qualified Code(s): R11.2 - Nausea with vomiting, unspecified
[2023-03-03] MEDS: AMPHETAMINE ASP/SULF/DEXTRAMPH 20 MG TAB PO SCH ×3 (09:28→20:29)
[2023-03-03] MEDS: lisinopril 40 MG TAB PO SCH (09:28)
[2023-03-03] MEDS: POTASSIUM CHLORIDE / WTR 10 MEQ/100 ML PLCT IV SCH ×2 (09:28→10:42)
[2023-03-03] MEDS: ATORVASTATIN 40 MG TAB PO SCH (09:28)
[2023-03-03] MEDS: METOPROLOL TARTRATE 100 MG TAB PO SCH ×2 (09:29→20:30)
[2023-03-03] MEDS: SERTRALINE HCL 50 MG TABLET PO SCH (09:29)
--- NOTE | 2023-03-03 14:59 | Hospitalist Progress Note ---
Date of Service March 03, 2023 Assessment & Plan (1) Nausea & vomiting: (2) History of partial gastrectomy: (3) Colitis: (4) GERD (gastroesophageal reflux disease): (5) Hypertensive urgency: (6) Dyslipidemia: (7) Hypertension: (8) ADHD: (9) Depression: Plan 77-year-old presents with intractable nausea and vomiting. Complex GI history with partial gastrectomy and colitis. Intractable nausea and vomiting: Colitis: History of partial gastrectomy: GERD: Symptoms x3 days. He has had numerous CT and EGD in the past. He has had 2 recent admissions 12/12 to 12/17 for colitis and 01/04 to 01/07 for GI bleed. 02/16/23 most recent EGD 02/16/2023; normal esophagus, Billroth I gastroduodenoscopy found with healthy- appearing mucosa, normal examined duodenum and no specimens were collected. Poor response with Zofran continue scheduled Reglan Continue Protonix drip NPO; IV fluids @ 80mL/hour Stave Block Roller consult; suspect delayed gastric emptying Discussed possibility of PPN due to extreme weight loss until symptoms resolved. Pt open to discussion regarding enteral nutrition. Check PTH GI consult-appreciate GI input and recommendation for colonoscopy in the outpatient Reglan has been started and the patient has been feeling much better Advance diet as tolerated and likely discharge tomorrow if condition remains stable Abnormal CT scan of the abdomen and pelvis Has nonspecific thickening of the colonic wall No evidence of infection Discussed with the GI specialist He has a colonoscopy in 2020 Have an outpatient colonoscopy Hypertensive urgency: SBP > 190 in ED; likely secondary to uncontrolled GERD Labetalol 10 mg given in ED Patient did not take a.m. medications which include amlodipine and lisinopril; continue Blood pressure remains stable Hypokalemia: Suspect related to vomiting K+ 3.4; administer K+ rider x2. Recheck BMP in AM Potassium is 3.4 and will be replaced Dyslipidemia: Takes atorvastatin; continue ADHD: Takes Adderall; continue Depression: Takes Celebrex and Zoloft; continue Disposition: PCP: Dr. Begum CODE STATUS: DNR/DNI code VTE prophylaxis: Teds and SCDs for now Advance diet as tolerated Continue Reglan Likely discharge home tomorrow on oral Reglan Admission and Anticipated Discharge Date Admission Date: March 02, 2023 Subjective 03/03/2023 The patient was seen and examined in medical telemetry unit He has been feeling much better since admission His symptoms are controlled with use of Reglan GI evaluated him and plan for outpatient colonoscopy Review of Systems Review of Systems: All systems reviewed and are unremarkable except as noted below Physical Exam Physical Exam: Lying in bed comfortably Constitutional: + ill appearing and average body habitus Eyes: PERRL, conjunctivae normal, anicteric sclerae ENMT: external ear and nose normal, oropharynx normal Neck: trachea midline, no thyromegaly Respiratory: no respiratory distress Auscultation: lungs clear to auscultation bilaterally Cardiovascular: Rate/Rhythm: regular rate and regular rhythm; not tachycardic Heart Sounds: normal S1 and normal S2; no murmur Extremities: no edema Gastrointestinal (Abdomen): Inspection/Auscultation: normal bowel sounds; abdomen not distended Percussion/Palpation: abdomen soft; abdomen nontender Musculoskeletal: No acute arthritis involving any of the joint Neurologic: Alert, awake and oriented x3. No focal sensory or motor deficit appreciated Psychiatric: A+Ox3, euthymic affect Lymphatic: no cervical or axillary lymphadenopathy Results & Data Results & Data Vital Signs (Past 12 Hours) Vital Signs Temp Pulse Pulse Pulse Resp BP Pulse Ox 03/03/23 12:18 36.9 C 76 16 149/83 H 99 03/03/23 08:12 85 03/03/23 08:11 37.0 C 76 16 138/78 99 03/03/23 03:46 37.1 C 94 H 16 154/79 H 96 O2 Del Method 03/03/23 12:18 Room Air 03/03/23 08:12 03/03/23 08:11 Room Air 03/03/23 03:46 Room Air Laboratory Results Short CBC 03/03/23 Range/Units 05:42 WBC 8.87 (4.8-10.8) K/ul Hgb 14.6 (14.0-18.0) g/dl Hct 37.7 L (42.0-52.0) % Plt Count 208 (130-400) K/uL BMP 03/03/23 05:42 Sodium 136 Potassium 3.4 L Chloride 101 Carbon Dioxide 26 BUN 20 Creatinine 0.64 Glucose 117 H Calcium 9.3 Liver Function 03/03/23 Range/Units 05:42 Total Bilirubin 0.9 (0.2-1.0) mg/dl AST 12 L (13-39) U/L ALT 12 (7-52) U/L Alkaline Phosphatase 103 (34-104) U/L Albumin 3.9 (3.4-5.0) gm/dl Medications Administered Current Inpatient Medications Acetaminophen (Acetaminophen 325 Mg Tab) 650 mg PO Q4H PRN PRN Reason: Pain or Fever Stop: 04/01/23 14:41 Last Admin: 03/02/23 20:50 Dose: 650 mg Al Hydrox/Mg Hydrox/Simethicone (Aluminum/Magnesium Susp 30 Ml Udc) 15 ml PO Q4H PRN PRN Reason: Dyspepsia Stop: 04/01/23 14:41 Amlodipine Besylate (Amlodipine Besylate 5 Mg Tab) 10 mg PO QPM [facility] Stop: 04/01/23 20:59 Last Admin: 03/02/23 20:51 Dose: 10 mg Amphetamine/Dextroamphetamine (Amphetamine Asp/Sulf/Dextramph 20 Mg Tab) 20 mg PO TID [facility] Stop: 03/16/23 20:59 Last Admin: 03/03/23 13:33 Dose: 20 mg Atorvastatin Calcium (Atorvastatin 40 Mg Tab) 80 mg PO QAM [facility] Stop: 04/02/23 08:59 Last Admin: 03/03/23 09:28 Dose: 80 mg Pantoprazole Sodium 40 mg/ (Dextrose) 100 mls @ 20 mls/hr IV Q5H [facility] Stop: 04/01/23 11:59 Last Admin: 03/03/23 14:26 Dose: 8 mg/hr, 20 mls/hr Sodium Chloride (Nss 1000ml) 1,000 mls @ 80 mls/hr IV .[id number] [facility] Stop: 03/03/23 16:29 Last Admin: 03/03/23 06:30 Dose: 80 mls/hr Lactobacillus Acidophilus (Advanced Probiotic 1250 Mg Capsule) 2 cap PO DAILY [facility] Stop: 04/03/23 08:59 Lisinopril (Lisinopril 40 Mg Tab) 40 mg PO QAM [facility] Stop: 04/02/23 08:59 Last Admin: 03/03/23 09:28 Dose: 40 mg Magnesium Hydroxide (Magnesium Hydroxide Susp 30 Ml Udc) 30 ml PO Q12H PRN PRN Reason: Constipation Stop: 04/01/23 14:41 Metoclopramide HCl (Metoclopramide Hcl Inj 5 Mg/Ml 2 Ml Vial) 10 mg IV Q8H [facility] Stop: 04/01/23 21:59 Last Admin: 03/03/23 13:32 Dose: 10 mg Metoprolol Tartrate (Metoprolol Tartrate 100 Mg Tab) 100 mg PO BID [facility] Stop: 04/01/23 20:59 Last Admin: 03/03/23 09:29 Dose: 100 mg Polyethylene Glycol (Polyethylene (Miralax) 17 Gm Pack) 17 gm PO DAILY PRN PRN Reason: Constipation Stop: 04/01/23 14:41 Sertraline HCl (Sertraline Hcl 50 Mg Tablet) 150 mg PO QAM [facility] Stop: 04/02/23 08:59 Last Admin: 03/03/23 09:29 Dose: 150 mg Tamsulosin HCl (Tamsulosin Hcl 0.4 Mg Cap) 0.4 mg PO HS [facility] Stop: 04/01/23 20:59 Last Admin: 03/02/23 20:51 Dose: 0.4 mg (1) Nausea & vomiting Vomiting type: unspecified Qualified Code(s): R11.2 - Nausea with vomiting, unspecified
[2023-03-03] MEDS: amLODIPine BESYLATE 5 MG TAB PO SCH (20:30)
[2023-03-03] MEDS: TAMSULOSIN HCL 0.4 MG CAP PO SCH (20:30)
[2023-03-04] MEDS: PANTOprazole 40 MG in DEXTROSE 5% 100 ML IV SCH ×6 (00:16→23:53)
[2023-03-04] MEDS: METOCLOPRAMIDE HCL INJ 5 MG/ML 2 ML VIAL IV SCH ×3 (05:04→20:03)
[2023-03-04 08:09] LABS: Basophils # (auto) 0.03 K/uL (0-0.2); Basophils % (auto) 0.5 %; Eosinophils % (auto) 1.8 %; Hematocrit (blood only) 32.4 % (42.0-52.0); Hemoglobin 12.3 g/dl (14.0-18.0); Immature Granulocytes # (auto) 0.03 K/uL (0.01-0.20); Immature Granulocytes % (auto) 0.5 %; Lymphocytes % (auto) 31.1 %; Mean Corpuscular Hemoglobin 31.5 pg (25.0-34.0); Mean Corpuscular Volume 82.9 fL (80.0-100.0); Mean Platelet Volume 8.1 fL (9.4-12.4); Monocytes # (auto) 0.43 K/uL (0.11-0.59); Monocytes % (auto) 7.9 %; Neutrophils # (auto) 3.18 K/uL (1.40-6.50); Neutrophils % (auto) 58.2 %; Platelet Count 159 K/uL (130-400); RDW Coefficient of Variation 11.4 % (11.5-14.5); Red Blood Count 3.91 M/uL (4.70-6.10); White Blood Count 5.47 K/ul (4.8-10.8)
[2023-03-04 08:30] LABS: Calcium 8.9 mg/dl (8.6-10.3)
[2023-03-04] MEDS: lisinopril 40 MG TAB PO SCH (08:43)
[2023-03-04] MEDS: METOPROLOL TARTRATE 100 MG TAB PO SCH ×2 (08:43→20:02)
[2023-03-04] MEDS: SERTRALINE HCL 50 MG TABLET PO SCH (08:43)
[2023-03-04] MEDS: ATORVASTATIN 40 MG TAB PO SCH (08:43)
[2023-03-04] MEDS: ADVANCED PROBIOTIC 1250 MG CAPSULE PO SCH (08:43)
[2023-03-04 08:46] LABS: BUN Creatinine Ratio 23.5 (10-20); Creatinine Clr Calc Pharmacy 68.4 ml/min; Est GFR (African American) 107.5 ml/min; Est GFR (Non-African American) 92.8 ml/min
[2023-03-04] MEDS: AMPHETAMINE ASP/SULF/DEXTRAMPH 20 MG TAB PO SCH ×3 (08:47→20:04)
[2023-03-04] MEDS ORDERED: CALCIUM CARBONATE 500 MG CHEWABLE TAB PO PRN (09:58)
[2023-03-04] MEDS ORDERED: KETOROLAC TROMETHAMINE 15 MG/ML VIAL IV PRN (13:10)
[2023-03-04] MEDS ORDERED: NSS + 20MEQ KCL 20 MEQ/1,000 ML BAG IV SCH (13:15)
--- NOTE | 2023-03-04 14:30 | Hospitalist Progress Note ---
Date of Service March 04, 2023 Assessment & Plan (1) Nausea & vomiting: (2) History of partial gastrectomy: (3) Colitis: (4) GERD (gastroesophageal reflux disease): (5) Hypertensive urgency: (6) Dyslipidemia: (7) Hypertension: (8) ADHD: (9) Depression: Plan 77-year-old presents with intractable nausea and vomiting. Complex GI history with partial gastrectomy and colitis. Intractable nausea and vomiting: Colitis: History of partial gastrectomy: GERD: Symptoms x3 days. He has had numerous CT and EGD in the past. He has had 2 recent admissions 12/12 to 12/17 for colitis and 01/04 to 01/07 for GI bleed. 02/16/23 most recent EGD 02/16/2023; normal esophagus, Billroth I gastroduodenoscopy found with healthy- appearing mucosa, normal examined duodenum and no specimens were collected. Poor response with Zofran continue scheduled Reglan Continue Protonix drip NPO; IV fluids @ 80mL/hour College Teacher consult; suspect delayed gastric emptying Discussed possibility of PPN due to extreme weight loss until symptoms resolved. Pt open to discussion regarding enteral nutrition. Check PTH GI consult-appreciate GI input and recommendation for colonoscopy in the outpatient Reglan has been started and the patient has been feeling much better Advance diet as tolerated and likely discharge tomorrow if condition remains stable Has had some stomach upset with particular brand of ice cream Required Tums and added sucralfate Advised to take care small amount of food at 1 time to have better tolerance Likely discharge tomorrow if remains well Abnormal CT scan of the abdomen and pelvis Has nonspecific thickening of the colonic wall No evidence of infection Discussed with the GI specialist He has a colonoscopy in 2020 Have an outpatient colonoscopy Hypertensive urgency: SBP > 190 in ED; likely secondary to uncontrolled GERD Labetalol 10 mg given in ED Patient did not take a.m. medications which include amlodipine and lisinopril; continue Blood pressure remains stable Hypokalemia: Suspect related to vomiting K+ 3.4; administer K+ rider x2. Recheck BMP in AM Potassium is 3.4 and will be replaced We will give her intravenous fluid with potassium and recheck tomorrow morning Dyslipidemia: Takes atorvastatin; continue ADHD: Takes Adderall; continue Depression: Takes Celebrex and Zoloft; continue Disposition: PCP: Dr. Newhouser CODE STATUS: DNR/DNI code VTE prophylaxis: Teds and SCDs for now Advance diet as tolerated Continue Reglan Likely discharge home tomorrow on oral Reglan Admission and Anticipated Discharge Date Admission Date: March 02, 2023 Subjective 03/03/2023 The patient was seen and examined in medical telemetry unit He has been feeling much better since admission His symptoms are controlled with use of Reglan GI evaluated him and plan for outpatient colonoscopy 03/04/2023 The patient was seen and examined in medical telemetry unit He could not tolerate the food this morning with stomach burning, nausea and vomiting likely secondary to some sort of ice cream that he could not tolerate He was given Tums, antiemetic and sucralfate was added He will not go home this afternoon Review of Systems Review of Systems: All systems reviewed and are unremarkable except as noted below Physical Exam Physical Exam: Lying in bed comfortably Constitutional: + ill appearing and average body habitus Eyes: PERRL, conjunctivae normal, anicteric sclerae ENMT: external ear and nose normal, oropharynx normal Neck: trachea midline, no thyromegaly Respiratory: no respiratory distress Auscultation: lungs clear to auscultation bilaterally Cardiovascular: Rate/Rhythm: regular rate and regular rhythm; not tachycardic Heart Sounds: normal S1 and normal S2; no murmur Extremities: no edema Gastrointestinal (Abdomen): Inspection/Auscultation: normal bowel sounds; abdomen not distended Percussion/Palpation: abdomen soft; abdomen nontender Musculoskeletal: No acute arthritis involving any of the joints Neurologic: Alert, awake and oriented x3. Generally very weak and lethargic. No focal neurodeficit Psychiatric: A+Ox3, euthymic affect Lymphatic: no cervical or axillary lymphadenopathy Results & Data Results & Data Vital Signs (Past 12 Hours) Vital Signs Temp Pulse Pulse Resp BP Pulse Ox O2 Del Method 03/04/23 11:40 36.6 C 71 18 198/81 H 99 Room Air 03/04/23 07:42 36.7 C 78 18 124/76 98 Room Air 03/04/23 07:28 72 03/04/23 04:14 37.1 C 75 18 140/54 L 99 Room Air Laboratory Results Short CBC 03/04/23 Range/Units 07:30 WBC 5.47 (4.8-10.8) K/ul Hgb 12.3 L (14.0-18.0) g/dl Hct 32.4 L (42.0-52.0) % Plt Count 159 (130-400) K/uL BMP 03/04/23 07:30 Sodium 132 L Potassium 3.0 L Chloride 99 Carbon Dioxide 27 BUN 16 Creatinine 0.68 Glucose 101 H Calcium 8.9 Medications Administered Current Inpatient Medications Acetaminophen (Acetaminophen 325 Mg Tab) 650 mg PO Q4H PRN PRN Reason: Pain or Fever Stop: 04/01/23 14:41 Last Admin: 03/02/23 20:50 Dose: 650 mg Al Hydrox/Mg Hydrox/Simethicone (Aluminum/Magnesium Susp 30 Ml Udc) 15 ml PO Q4H PRN PRN Reason: Dyspepsia Stop: 04/01/23 14:41 Amlodipine Besylate (Amlodipine Besylate 5 Mg Tab) 10 mg PO QPM COUNTS [facility] 234 BEDS AT [facility] Stop: 04/01/23 20:59 Last Admin: 03/03/23 20:30 Dose: 10 mg Amphetamine/Dextroamphetamine (Amphetamine Asp/Sulf/Dextramph 20 Mg Tab) 20 mg PO TID [facility]S INCLUDE 234 BEDS AT [facility] Stop: 03/16/23 20:59 Last Admin: 03/04/23 13:06 Dose: Not Given Atorvastatin Calcium (Atorvastatin 40 Mg Tab) 80 mg PO QAM COUNTS INCLUDE 234 BEDS AT [facility] Stop: 04/02/23 08:59 Last Admin: 03/04/23 08:43 Dose: 80 mg Calcium Carbonate (Calcium Carbonate 500 Mg Chewable Tab) 500 mg PO Q6H PRN PRN Reason: Indigestion Stop: 04/03/23 09:57 Last Admin: 03/04/23 10:16 Dose: 500 mg Pantoprazole Sodium 40 mg/ (Dextrose) 100 mls @ 20 mls/hr IV Q5H COUNTS INCLUDE 234 BEDS AT [facility] Stop: 04/01/23 11:59 Last Admin: 03/04/23 14:02 Dose: 8 mg/hr, 20 mls/hr Potassium Chloride/Sodium Chloride (Normal Saline W/20 Meq Kcl) 20 meq in 1,000 mls @ 80 mls/hr IV .[id number] COUNTS INCLUDE 234 BEDS AT THE [facility]; Protocol Stop: 03/05/23 01:44 Last Admin: 03/04/23 14:02 Dose: 80 mls/hr Ketorolac Tromethamine (Ketorolac Tromethamine 15 Mg/Ml Vial) 15 mg IV Q6H PRN PRN Reason: Pain Stop: 03/09/23 13:09 Lactobacillus Acidophilus (Advanced Probiotic 1250 Mg Capsule) 2 cap PO DAILY [facility] Stop: 04/03/23 08:59 Last Admin: 03/04/23 08:43 Dose: 2 cap Lisinopril (Lisinopril 40 Mg Tab) 40 mg PO QAM COUNTS INCLUDE 234 BEDS AT [facility] Stop: 04/02/23 08:59 Last Admin: 03/04/23 08:43 Dose: 40 mg Magnesium Hydroxide (Magnesium Hydroxide Susp 30 Ml Udc) 30 ml PO Q12H PRN PRN Reason: Constipation Stop: 04/01/23 14:41 Metoclopramide HCl (Metoclopramide Hcl Inj 5 Mg/Ml 2 Ml Vial) 10 mg IV Q8H [facility] Stop: 04/01/23 21:59 Last Admin: 03/04/23 13:03 Dose: 10 mg Metoprolol Tartrate (Metoprolol Tartrate 100 Mg Tab) 100 mg PO BID COUNTS INCLUDE 234 BEDS AT [facility] Stop: 04/01/23 20:59 Last Admin: 03/04/23 08:43 Dose: 100 mg Polyethylene Glycol (Polyethylene (Miralax) 17 Gm Pack) 17 gm PO DAILY PRN PRN Reason: Constipation Stop: 04/01/23 14:41 Sertraline HCl (Sertraline Hcl 50 Mg Tablet) 150 mg PO QAM COUNTS INCLUDE 234 BEDS AT [facility] Stop: 04/02/23 08:59 Last Admin: 03/04/23 08:43 Dose: 150 mg Sucralfate (Sucralfate 1 Gm/10 Ml Udc) 1 gm PO BID COUNTS INCLUDE 234 BEDS AT [facility] Stop: 04/03/23 20:59 Tamsulosin HCl (Tamsulosin Hcl 0.4 Mg Cap) 0.4 mg PO HS COUNTS INCLUDE 234 BEDS AT [facility] Stop: 04/01/23 20:59 Last Admin: 03/03/23 20:30 Dose: 0.4 mg (1) Nausea & vomiting Vomiting type: unspecified Qualified Code(s): R11.2 - Nausea with vomiting, unspecified
[2023-03-04] MEDS ORDERED: HYDROmorphone INJ 0.5 MG/0.5 ML SYR IV STA (16:02)
[2023-03-04] MEDS ORDERED: hydrALAZINE HCL 20 MG/ML VIAL IV PRN (17:02)
[2023-03-04] MEDS: SUCRALFATE 1 GM/10 ML UDC PO SCH (20:01)
[2023-03-04] MEDS: TAMSULOSIN HCL 0.4 MG CAP PO SCH (20:02)
[2023-03-04] MEDS: amLODIPine BESYLATE 5 MG TAB PO SCH (20:02)
[2023-03-05] MEDS: PANTOprazole 40 MG in DEXTROSE 5% 100 ML IV SCH ×2 (04:57→08:40)
[2023-03-05] MEDS: METOCLOPRAMIDE HCL INJ 5 MG/ML 2 ML VIAL IV SCH ×2 (05:07→12:59)
[2023-03-05 07:43] LABS: Basophils # (auto) 0.02 K/uL (0-0.2); Basophils % (auto) 0.2 %; Eosinophils # (auto) 0.04 K/uL (0-0.50); Eosinophils % (auto) 0.5 %; Hematocrit (blood only) 37.8 % (42.0-52.0); Hemoglobin 14.3 g/dl (14.0-18.0); Immature Granulocytes # (auto) 0.04 K/uL (0.01-0.20); Immature Granulocytes % (auto) 0.5 %; Lymphocytes # (auto) 1.72 K/uL (1.2-3.4); Lymphocytes % (auto) 21.3 %; Mean Corpuscular Hemoglobin 31.1 pg (25.0-34.0); Mean Corpuscular Hgb Conc 37.8 g/dL (32.0-36.0); Mean Corpuscular Volume 82.2 fL (80.0-100.0); Mean Platelet Volume 8.2 fL (9.4-12.4); Monocytes # (auto) 0.71 K/uL (0.11-0.59); Monocytes % (auto) 8.8 %; Neutrophils # (auto) 5.55 K/uL (1.40-6.50); Neutrophils % (auto) 68.7 %; Platelet Count 212 K/uL (130-400); RDW Coefficient of Variation 11.5 % (11.5-14.5); RDW Standard Deviation 33.8 fL (36.4-46.3); White Blood Count 8.08 K/ul (4.8-10.8)
[2023-03-05 08:08] LABS: BUN Creatinine Ratio 25.3 (10-20); Calcium 9.4 mg/dl (8.6-10.3); Est GFR (African American) 103.3 ml/min; Est GFR (Non-African American) 89.1 ml/min; Potassium 3.2 mmol/L (3.5-5.1)
[2023-03-05] MEDS: SUCRALFATE 1 GM/10 ML UDC PO SCH (08:40)
[2023-03-05] MEDS: ADVANCED PROBIOTIC 1250 MG CAPSULE PO SCH (08:41)
[2023-03-05] MEDS: SERTRALINE HCL 50 MG TABLET PO SCH (08:42)
[2023-03-05] MEDS: ATORVASTATIN 40 MG TAB PO SCH (08:42)
[2023-03-05] MEDS: AMPHETAMINE ASP/SULF/DEXTRAMPH 20 MG TAB PO SCH ×2 (08:43→12:59)
[2023-03-05] MEDS: lisinopril 40 MG TAB PO SCH (08:43)
[2023-03-05] MEDS: METOPROLOL TARTRATE 100 MG TAB PO SCH (08:43)
[2023-03-05] MEDS: POTASSIUM CHLORIDE / WTR 10 MEQ/100 ML PLCT IV SCH ×3 (10:04→12:59)
[2023-03-05] MEDS ORDERED: LACTASE 3000 UNIT TAB PO SCH ×2 (12:00)
--- NOTE | 2023-03-05 12:54 | Hospitalist Progress Note ---
Date of Service March 05, 2023 Assessment & Plan (1) Nausea & vomiting: (2) History of partial gastrectomy: (3) Colitis: (4) GERD (gastroesophageal reflux disease): (5) Hypertensive urgency: (6) Dyslipidemia: (7) Hypertension: (8) ADHD: (9) Depression: Plan 77-year-old presents with intractable nausea and vomiting. Complex GI history with partial gastrectomy and colitis. Intractable nausea and vomiting: Colitis: History of partial gastrectomy: GERD: Symptoms x3 days. He has had numerous CT and EGD in the past. He has had 2 recent admissions 12/12 to 12/17 for colitis and 01/04 to 01/07 for GI bleed. 02/16/23 most recent EGD 02/16/2023; normal esophagus, Billroth I gastroduodenoscopy found with healthy- appearing mucosa, normal examined duodenum and no specimens were collected. Poor response with Zofran continue scheduled Reglan Continue Protonix drip NPO; IV fluids @ 80mL/hour Gun Examiner consult; suspect delayed gastric emptying Discussed possibility of PPN due to extreme weight loss until symptoms resolved. Pt open to discussion regarding enteral nutrition. Check PTH GI consult-appreciate GI input and recommendation for colonoscopy in the outpatient Reglan has been started and the patient has been feeling much better Advance diet as tolerated and likely discharge tomorrow if condition remains stable Has had some stomach upset with particular brand of ice cream Required Tums and added sucralfate Advised to take care small amount of food at 1 time to have better tolerance No more nausea and or vomiting since last evening Has been tolerating his diet and denies any abdominal symptoms. No diarrhea as well He has been ambulating in the room without any difficulties Discharged home this afternoon Abnormal CT scan of the abdomen and pelvis Has nonspecific thickening of the colonic wall No evidence of infection Discussed with the GI specialist He has a colonoscopy in 2020 Have an outpatient colonoscopy Hypertensive urgency: SBP > 190 in ED; likely secondary to uncontrolled GERD Labetalol 10 mg given in ED Patient did not take a.m. medications which include amlodipine and lisinopril; continue Blood pressure remains stable though on the upper side Hypokalemia: Suspect related to vomiting K+ 3.4; administer K+ rider x2. Recheck BMP in AM Potassium is 3.4 and will be replaced We will give her intravenous fluid with potassium and recheck tomorrow morning He was given extra doses of intravenous-he has oral potassium as an outpatient Dyslipidemia: Takes atorvastatin; continue ADHD: Takes Adderall; continue Depression: Takes Celebrex and Zoloft; continue Disposition: PCP: Dr. Begum CODE STATUS: DNR/DNI code VTE prophylaxis: Teds and SCDs for now Advance diet as tolerated Continue Reglan Likely discharge home tomorrow on oral Reglan Admission and Anticipated Discharge Date Admission Date: March 02, 2023 Subjective 03/03/2023 The patient was seen and examined in medical telemetry unit He has been feeling much better since admission His symptoms are controlled with use of Reglan GI evaluated him and plan for outpatient colonoscopy 03/04/2023 The patient was seen and examined in medical telemetry unit He could not tolerate the food this morning with stomach burning, nausea and vomiting likely secondary to some sort of ice cream that he could not tolerate He was given Tums, antiemetic and sucralfate was added He will not go home this afternoon 03/05/2023 The patient was seen and examined in medical telemetry unit He has been feeling much better and tolerating diet No more abdominal discomfort, nausea and or vomiting His blood pressure seems to be stable though on the upper side He wants to go home this afternoon Review of Systems Review of Systems: All systems reviewed and are unremarkable except as noted below Physical Exam Physical Exam: Lying in bed comfortably Constitutional: + ill appearing and average body habitus Eyes: PERRL, conjunctivae normal, anicteric sclerae ENMT: external ear and nose normal, oropharynx normal Neck: trachea midline, no thyromegaly Respiratory: no respiratory distress Auscultation: lungs clear to auscultation bilaterally Cardiovascular: Rate/Rhythm: regular rate and regular rhythm; not tachycardic Heart Sounds: normal S1 and normal S2; no murmur Extremities: no edema Gastrointestinal (Abdomen): Inspection/Auscultation: normal bowel sounds; abdomen not distended Percussion/Palpation: abdomen soft; abdomen nontender Musculoskeletal: No acute arthritis involving any of the joint Neurologic: normal touch/pain/proprioception and moves all extremities; no focal motor deficits Psychiatric: A+Ox3, euthymic affect Lymphatic: no cervical or axillary lymphadenopathy Results & Data Results & Data Vital Signs (Past 12 Hours) Vital Signs Temp Pulse Pulse Resp BP Pulse Ox O2 Del Method 03/05/23 11:35 36.4 C L 74 18 163/83 H 100 Room Air 03/05/23 06:00 77 03/05/23 07:25 36.9 C 98 H 18 140/85 98 Room Air 03/05/23 02:59 36.5 C 85 18 134/73 97 Room Air Laboratory Results Short CBC 03/05/23 Range/Units 07:02 WBC 8.08 (4.8-10.8) K/ul Hgb 14.3 (14.0-18.0) g/dl Hct 37.8 L (42.0-52.0) % Plt Count 212 (130-400) K/uL BMP 03/05/23 07:02 Sodium 133 L Potassium 3.2 L Chloride 97 L Carbon Dioxide 26 BUN 19 Creatinine 0.75 Glucose 104 H Calcium 9.4 Medications Administered Current Inpatient Medications Acetaminophen (Acetaminophen 325 Mg Tab) 650 mg PO Q4H PRN PRN Reason: Pain or Fever Stop: 04/01/23 14:41 Last Admin: 03/02/23 20:50 Dose: 650 mg Al Hydrox/Mg Hydrox/Simethicone (Aluminum/Magnesium Susp 30 Ml Udc) 15 ml PO Q4H PRN PRN Reason: Dyspepsia Stop: 04/01/23 14:41 Amlodipine Besylate (Amlodipine Besylate 5 Mg Tab) 10 mg PO QPM [facility] Stop: 04/01/23 20:59 Last Admin: 03/04/23 20:02 Dose: 10 mg Amphetamine/Dextroamphetamine (Amphetamine Asp/Sulf/Dextramph 20 Mg Tab) 20 mg PO TID [facility] Stop: 03/16/23 20:59 Last Admin: 03/05/23 08:43 Dose: Not Given Atorvastatin Calcium (Atorvastatin 40 Mg Tab) 80 mg PO QAM [facility] Stop: 04/02/23 08:59 Last Admin: 03/05/23 08:42 Dose: Not Given Calcium Carbonate (Calcium Carbonate 500 Mg Chewable Tab) 500 mg PO Q6H PRN PRN Reason: Indigestion Stop: 04/03/23 09:57 Last Admin: 03/04/23 10:16 Dose: 500 mg Hydralazine HCl (Hydralazine Hcl 20 Mg/Ml Vial) 10 mg IV Q6H PRN PRN Reason: Blood Pressure - High Stop: 04/03/23 17:14 Last Admin: 03/04/23 17:20 Dose: 10 mg Pantoprazole Sodium 40 mg/ (Dextrose) 100 mls @ 20 mls/hr IV Q5H [facility] Stop: 04/01/23 11:59 Last Admin: 03/05/23 08:40 Dose: 8 mg/hr, 20 mls/hr Ketorolac Tromethamine (Ketorolac Tromethamine 15 Mg/Ml Vial) 15 mg IV Q6H PRN PRN Reason: Pain Stop: 03/09/23 13:09 Lactase (Lactase 3000 Unit Tab) 9,000 units PO TIDM [facility] Stop: 04/04/23 11:59 Last Admin: 03/05/23 12:16 Dose: Not Given Lactobacillus Acidophilus (Advanced Probiotic 1250 Mg Capsule) 2 cap PO DAILY [facility] Stop: 04/03/23 08:59 Last Admin: 03/05/23 08:41 Dose: Not Given Lisinopril (Lisinopril 40 Mg Tab) 40 mg PO QAM [facility] Stop: 04/02/23 08:59 Last Admin: 03/05/23 08:43 Dose: 40 mg Magnesium Hydroxide (Magnesium Hydroxide Susp 30 Ml Udc) 30 ml PO Q12H PRN PRN Reason: Constipation Stop: 04/01/23 14:41 Metoclopramide HCl (Metoclopramide Hcl Inj 5 Mg/Ml 2 Ml Vial) 10 mg IV Q8H [facility] Stop: 04/01/23 21:59 Last Admin: 03/05/23 05:07 Dose: 10 mg Metoprolol Tartrate (Metoprolol Tartrate 100 Mg Tab) 100 mg PO BID [facility] Stop: 04/01/23 20:59 Last Admin: 03/05/23 08:43 Dose: 100 mg Polyethylene Glycol (Polyethylene (Miralax) 17 Gm Pack) 17 gm PO DAILY PRN PRN Reason: Constipation Stop: 04/01/23 14:41 Sertraline HCl (Sertraline Hcl 50 Mg Tablet) 150 mg PO QAM [facility] Stop: 04/02/23 08:59 Last Admin: 03/05/23 08:42 Dose: Not Given Sucralfate (Sucralfate 1 Gm/10 Ml Udc) 1 gm PO BID [facility] Stop: 04/03/23 20:59 Last Admin: 03/05/23 08:40 Dose: 1 gm Tamsulosin HCl (Tamsulosin Hcl 0.4 Mg Cap) 0.4 mg PO HS [facility] Stop: 04/01/23 20:59 Last Admin: 03/04/23 20:02 Dose: 0.4 mg (1) Nausea & vomiting Vomiting type: unspecified Qualified Code(s): R11.2 - Nausea with vomiting, unspecified
--- NOTE | 2023-03-05 16:58 | Discharge Summary ---
Date of Service March 05, 2023 Admission HPI Per Admitting Provider Mr. Sneed is a 77-year-old male that presented to the ED after experiencing vomiting for the past 3 days that just started abruptly. He reports poor appetite and is unable to keep anything down. He denies being woken from his sleep. He reports the sensation as primarily 'burning'. He reports it as intermittent and is usually positional. This patient does have a history of reflux issues that include peptic ulcer disease status post Billroth I procedure and esophagitis and gastritis. Abdominal and pelvis CT indicated no bowel obstruction; distal colon nonspecific colitis which appears unchanged from p revious scans. He reports losing weight over the past month. He has trashcans everywhere in his home and expresses that his ADL's are difficult to do as it exacerbates his symptoms. He reports that he is very careful with his intake on good days. He was thinking that he was improving yesterday and he ate two cups of gel-mandarin oranges and he had 10/10 reflux symptoms; symptoms unrelieved with Pepto Bismol. Normal weight 130 pounds; today his weight is 112 lbs. Considerable conversation held regarding goals alongside feeding tube/PPN. He has had numerous CT and EGD in the past. He has had 2 recent admissions 12/12 to 12/17 for colitis and 01/04 to 01/07 for GI bleed. 02/16/23 most recent EGD 02/16/2023; normal esophagus, Billroth I gastroduodenoscopy found with healthy- appearing mucosa, normal examined duodenum and no specimens were collected. No leukocytosis WBC 9.61 alk phos 143. Protonix drip initiated in the ED. Patient without relief with Zofran; Reglan administered. Patient with hypertensive crisis SBP systolic greater than 190; likely secondary to uncontrolled GERD. Reports feeling feverish and having chills which he attributes to not taking his iron tablets. Additional PMH: GERD status post pyloric stenosis but status post partial gastrectomy, CVA(2017), anxiety and depression, PFO(small and follows with [facility] cardiology; 2020, no intervention), HTN, ADHD anemia, BPH, and DDD. Pt is now on [employer] in [place] and he reports having added stress traveling to see her. He has two adult children that are minimally involved, but do help. Patient is sitting in his hospital bed and appears uncomfortable. He is able to speak in complete sentences and reports an accurate ROS. He denies HARRIS, dizziness, SOB, CP, palpitations, urine or bowel changes, recent falls, visual or auditory changes, recent trauma. Patient will be admitted for further evaluation and management. Please see A/P for further details. Admission Exam Per Admitting Provider Physical Exam: Neuro: AAOx4, PERRLA, no aphagia, memory changes, CNII-XII grossly intact HEENT: head normocephalic, moist mucus membranes CV: S1/S2, (-) M/G/R, (-) edema, cap refill < 3 seconds Resp: Lungs CTA in all hdez. On RA GI: Abdomen S/NT/ND, Ax4 bowel sounds, (-) CVA tenderness Musculoskeletal: 5/5 B/L UE strength, 5/5 B/L LE strength. No gait disturbance Skin: (-) rashes , (-) erythema. Psych: euthymic mood Principal Diagnosis Intractable nausea vomiting, history of partial gastrectomy, GERD, hypertensive urgency, ADHD, depression, nonspecific colitis Discharge Exam Lying in bed comfortably Constitutional + ill appearing and average body habitus Eyes PERRL, conjunctivae normal, anicteric sclerae ENMT external ear and nose normal, oropharynx normal Neck trachea midline, no thyromegaly Respiratory no respiratory distress Auscultation: lungs clear to auscultation bilaterally Cardiovascular Rate/Rhythm: regular rate and regular rhythm; not tachycardic Heart Sounds: normal S1 and normal S2; no murmur Extremities: no edema Gastrointestinal (Abdomen) Inspection/Auscultation: normal bowel sounds; abdomen not distended Percussion/Palpation: abdomen soft; abdomen nontender Neurologic normal touch/pain/proprioception and moves all extremities; no focal motor deficits Psychiatric A+Ox3, euthymic affect Lymphatic no cervical or axillary lymphadenopathy Discharge Data Allergies Allergy/AdvReac Type Severity Reaction Status Date / Time lactose AdvReac Severe Intolerant-SEVERE Verified 01/04/23 01:45 ABDOMINAL CRAMPS buspirone AdvReac Intermediate Jittery, Verified 01/04/23 01:45 "crawling out of my skin" lorazepam AdvReac Intermediate Jittery, Verified 01/04/23 01:45 "crawling out of my skin" oxycodone AdvReac Mild nausea Verified 01/04/23 01:45 Consultations 03/02/23 14:31 ED Decision to Admit Stat 03/02/23 15:35 Consult Gastroenterology Routine Ordered Studies 03/02/23 11:38 CT abd pelvis IV con only Stat Hospital Course (1) Nausea & vomiting: (2) History of partial gastrectomy: (3) Colitis: (4) GERD (gastroesophageal reflux disease): (5) Hypertensive urgency: (6) Dyslipidemia: (7) Hypertension: (8) ADHD: (9) Depression: Plan 77-year-old presents with intractable nausea and vomiting. Complex GI history with partial gastrectomy and colitis. Intractable nausea and vomiting: Colitis: History of partial gastrectomy: GERD: Symptoms x3 days. He has had numerous CT and EGD in the past. He has had 2 recent admissions 12/12 to 12/17 for colitis and 01/04 to 01/07 for GI bleed. 02/16/23 most recent EGD 02/16/2023; normal esophagus, Billroth I gastroduodenoscopy found with healthy- appearing mucosa, normal examined duodenum and no specimens were collected. Poor response with Zofran continue scheduled Reglan Continue Protonix drip NPO; IV fluids @ 80mL/hour [employer] consult; suspect delayed gastric emptying Discussed possibility of PPN due to extreme weight loss until symptoms resolved. Pt open to discussion regarding enteral nutrition. Check PTH GI consult-appreciate GI input and recommendation for colonoscopy in the outpatient Reglan has been started and the patient has been feeling much better Advance diet as tolerated and likely discharge tomorrow if condition remains stable Has had some stomach upset with particular brand of ice cream Required Tums and added sucralfate Advised to take care small amount of food at 1 time to have better tolerance No more nausea and or vomiting since last evening Has been tolerating his diet and denies any abdominal symptoms. No diarrhea as well He has been ambulating in the room without any difficulties Discharged home this afternoon Abnormal CT scan of the abdomen and pelvis Has nonspecific thickening of the colonic wall No evidence of infection Discussed with the GI specialist He has a colonoscopy in 2020 Have an outpatient colonoscopy Hypertensive urgency: SBP > 190 in ED; likely secondary to uncontrolled GERD Labetalol 10 mg given in ED Patient did not take a.m. medications which include amlodipine and lisinopril; continue Blood pressure remains stable though on the upper side Hypokalemia: Suspect related to vomiting K+ 3.4; administer K+ rider x2. Recheck BMP in AM Potassium is 3.4 and will be replaced We will give her intravenous fluid with potassium and recheck tomorrow morning He was given extra doses of intravenous-he has oral potassium as an outpatient Dyslipidemia: Takes atorvastatin; continue ADHD: Takes Adderall; continue Depression: Takes Celebrex and Zoloft; continue Disposition: PCP: Dr. Begum CODE STATUS: DNR/DNI code VTE prophylaxis: Teds and SCDs for now Advance diet as tolerated Continue Reglan Likely discharge home tomorrow on oral Reglan Total Time Total Time Spent Total Time Spent (In Minutes): 35 minutes Discharge Plan Discharge Items Patient Disposition: Home - Self-Care Reason For Visit: NAUSEA AND VOMITING Discharge Diagnosis: Intractable nausea vomiting, history of partial gastrectomy, GERD, hypertensive urgency, ADHD, depression, nonspecific colitis Condition on Discharge: Fair Activity: Resume your previous activity Non-emergency contact: Primary Care Provider Call non-emergency contact if: you have any medication questions and your symptoms worsen Follow-up/Referrals: Maged Dumont CRNP [Nurse Practitioner] - (The GI office will call you with an appointment.) Buddy Begum, [Primary Care Provider] - 03/11/23 9:40 am (Date & Time 03/11/2023 9:40 AM Provider Bekah Waite PA-C [facility] ) Diet: Low Fiber Diet Comment: Minced and moist Addtl Attending Provider Instructions: Please take precautions to avoid falls Take your medications as advised Please give appointments with your healthcare provider Pending Studies at Discharge: No Stand-Alone Forms: My [employer], Smoking Cessation Medications and DC Order Prescriptions: New metoclopramide HCl [Reglan] 10 mg tablet 10 mg PO AC PRN (Reason: nausea and vomiting) Qty: 20 0RF Rx Instructions: administer 30 minutes before meals Continued diazepam 5 mg tablet 5 mg PO HS PRN (Reason: Anxiety) 30 Days Qty: 15 0RF sumatriptan succinate 100 mg tablet 100 mg PO DIRECTED PRN (Reason: Migraine Headache) 30 Days Qty: 9 5RF atorvastatin 80 mg tablet 80 mg PO QAM rabeprazole 20 mg Tablet,Delayed Release (Dr/Ec) 20 mg PO DAILY PRN (Reason: Acid Reflux) sertraline [Zoloft] 100 mg tablet 150 mg PO QAM Rx Instructions: PER EXT MED HX. hydroxyzine HCl 50 mg tablet 50 mg PO BID PRN (Reason: Itching) eawfzdjvtk-lpmzhitwcffel-njbq 50-325-40 mg Tablet 1 tab PO DAILY PRN (Reason: Migraine Headache) dicyclomine 20 mg tablet 10 mg PO QID PRN (Reason: abd pain) baclofen 10 mg Tablet 10 mg PO UD PRN (Reason: muscle spasms) amlodipine [Norvasc] 10 mg tablet 10 mg PO QPM flurandrenolide 0.05 % lotion 1 applic TOPICAL BID PRN (Reason: Itching) lisinopril 40 mg tablet 40 mg PO QAM ondansetron 4 mg tablet,disintegrating 4 mg translingual Q12 PRN (Reason: Nausea) Linzess 290 mcg capsule 290 mcg PO HS tamsulosin [Flomax] 0.4 mg Capsule 0.4 mg PO HS dextroamphetamine-amphetamine [Adderall] 30 mg Tablet 30 mg PO BID Probiotic 3 billion cell capsule 3,000 mmu cells PO DAILY Qty: 10 0RF Rx Instructions: administer with a meal metoprolol tartrate 100 mg tablet 100 mg PO BID acetaminophen-codeine 300-30 mg tablet 1 tab PO BID PRN (Reason: Pain) betamethasone valerate 0.1 % cream 1 applic TOPICAL BID PRN (Reason: Skin Irritation) polyethylene glycol 3350 [Miralax] 17 gram/dose Powder 17 g PO DAILY PRN (Reason: Constipation) cyclobenzaprine 10 mg tablet 10 mg PO DAILY PRN (Reason: muscle spasms) methocarbamol 750 mg tablet 750 mg PO BID PRN (Reason: NEEDED PER [facility]) Rx Instructions: 750 mg PO TWICE DAILY NEEDED; pantoprazole 40 mg Tablet,Delayed Release (Dr/Ec) 40 mg PO BID 30 Days Qty: 60 0RF Discharge Orders: Discharge Order (Routine); Ordered 03/05/23 Ordered By: Jacob Boyce/Other Patient Handouts: Gastroparesis, Understanding Colitis Admission Data Admit Date/Time: 03/02/23 14:42 Attending Provider: Jacob Coy Admit Provider: Dc Wynn Primary Care Provider: Buddy Begum Other Providers: Dc Wynn ; Bhavin Smith Other Interventions: Discharge Summary Assessment (RN) Last Done: 03/05/23 15:10
== END 2023-03-05 15:40 | disposition home or self-care (01) | DRG 392 ==
LOC: ED 11:06 → 2W 14:42 → SUATTDRO 14:42 → 2W 16:09

== ENCOUNTER 2023-03-08 14:20 | Observation (INO) ==
[2023-03-08] MEDS ORDERED: SODIUM CHLORIDE 0.9% 1000ML 1,000 ML IV ONE (14:47)
[2023-03-08] MEDS ORDERED: FAMOTIDINE 20MG IV PUSH 20 MG/5 ML SYR IV STA (14:47)
[2023-03-08] MEDS ORDERED: METOCLOPRAMIDE HCL INJ 5 MG/ML 2 ML VIAL IV STA (14:47)
[2023-03-08] MEDS ORDERED: diphenhydrAMINE 50 MG/ML VIAL IV STA (14:47)
[2023-03-08 15:03] LABS: Basophils # (auto) 0.05 K/uL (0-0.2); Basophils % (auto) 0.5 %; Eosinophils # (auto) 0.01 K/uL (0-0.50); Eosinophils % (auto) 0.1 %; Hematocrit (blood only) 39.7 % (42.0-52.0); Hemoglobin 15.1 g/dl (14.0-18.0); Immature Granulocytes # (auto) 0.07 K/uL (0.01-0.20); Immature Granulocytes % (auto) 0.7 %; Lymphocytes # (auto) 2.35 K/uL (1.2-3.4); Lymphocytes % (auto) 24.2 %; Mean Corpuscular Hemoglobin 31.2 pg (25.0-34.0); Mean Platelet Volume 8.6 fL (9.4-12.4); Monocytes % (auto) 7.2 %; Neutrophils # (auto) 6.52 K/uL (1.40-6.50); Neutrophils % (auto) 67.3 %; Platelet Count 382 K/uL (130-400); RDW Coefficient of Variation 11.5 % (11.5-14.5); RDW Standard Deviation 33.4 fL (36.4-46.3); Red Blood Count 4.84 M/uL (4.70-6.10)
[2023-03-08 15:19] LABS: Albumin Globulin Ratio 1.5 (0.9-2); Albumin Level 4.1 gm/dl (3.4-5.0); BUN Creatinine Ratio 36.6 (10-20); Bilirubin Direct 0.2 mg/dl (0-0.2); Calcium 9.8 mg/dl (8.6-10.3); Est GFR (African American) 83.4 ml/min; Est GFR (Non-African American) 71.9 ml/min; Globulin 2.7 gm/dl (2.5-4.0); Magnesium 1.9 mg/dl (1.7-2.4); Potassium 3.3 mmol/L (3.5-5.1); Total Protein 6.8 gm/dl (6.0-8.3)
[2023-03-08 15:26] LABS: Troponin I High Sensitivity 31.6 pg/ml (0-20)
--- NOTE | 2023-03-08 15:49 | XRay Report ---
XR chest 1V portable HISTORY: 77 years-old Male Chest pain, nonspecific COMPARISON: Chest radiograph 12/12/2021 TECHNIQUE: AP view of the chest FINDINGS: Cardiomediastinal and hilar silhouettes are within normal limits no pneumothorax, pleural effusion, a irspace consolidation or pulmonary edema. Bones of the chest appear grossly intact. Partially imaged lumbar spinal fusion hardware. Lucency surrounding the proximal screws may represent hardware looseni ng. IMPRESSION: No acute process of the chest. ACT 112: Negative or not required by law. The above report was generated using voice recognition software. It may contain grammatical, syntax o r spelling errors. Electronically signed by: Moreno Dimas M.D. 03/08/2023 3:47 PM
--- NOTE | 2023-03-08 16:02 | Emergency Department Note ---
Impression & Plan Adult failure to thrive, Generalized weakness, Gastroparesis, Hypokalemia, Low serum magnesium level ED Provider Note NAME: OSMAN SAGASTUME JR AGE: 77 SEX: M ARRIVES VIA: Ambulance INFORMANT: Patient ED PROVIDER(S): Nathan Donnelly MD CHIEF COMPLAINT: Abdominal pain, gastroparesis, weakness. PLAN: Disposition: Admit MEDICAL DECISION MAKING: The patient is a pleasant 77-year-old gentleman with a past medical history of IBS, GERD, history of partial gastrectomy in setting of history of remote pyloric stenosis per records, hypertension, migraines, lumbar stenosis with neurogenic claudication who presents to the emergency department via EMS for evaluation of generalized weakness with neighbors concern for inability to care for himself due to this in the setting of persistent of his ongoing abdominal pain and nausea in the setting of being admitted to this facility last week for similar symptoms but was having spontaneous vomiting at the time. He reports now he simply has had the abdominal pain and burning but induced vomiting intentionally to help alleviate his symptoms. He has been dealing with ongoing pattern of constipation for years and moves his bowels every 10 days or so. He last moved his bowels a couple of days ago following discharge from the hospital. He reports he has had fevers but describes his temperature of being 95 at baseline and so when he took his temperature and it was 96 he consider this a fever. Denies any chest pain or shortness of breath. On arrival to the emergency department the patient is chronically ill-appearing but in no acute distress, afebrile with vital signs stable. He appears cachectic and clinically dry. His abdomen is nontender and nondistended. EKG without overt acute ischemia. CXR negative for acute cardiopulmonary process. WBC, hemoglobin and platelets within normal limits. Chemistry without metabolic acidosis. BUN is elevated however at 37 with BUN/creatinine> 30 consistent the patient clinically dry appearance. Potassium 3.3 and electrolytes otherwise without significant abnormality. LFTs without significant abnormality. High- sensitivity troponin 31.6, nonspecific and marginally above normal. Lipase is not elevated. Total protein and albumin is within normal limits. COVID-19 RNA, LUDMILA test was negative. CT of the abdomen pelvis demonstrates possibility of nonspecific colitis though may be related to partial distention. Otherwise no acute findings. Upon evaluation patient did feel improvement following IV fluid hydration, famotidine and diphenhydramine and Reglan. However both he and his daughter acknowledge that he has been very weak due to inability to eat and do not feel he can function safely at home which is consistent with EMS report from the patient's neighbor. They agree with plan for admission for further management. 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 Case was discussed with [facility], who will evaluate the patient for admission. Triage Nursing notes reviewed and agree them. Prior/outside medical records reviewed Vital Signs: reviewed Differential diagnosis: Gastroenteritis, food borne illness, infections, appendicitis, diverticulitis, inflammatory bowel disease, obstruction, GI bleed, biliary pathology, volvulus, as well as other pathologies. ER treatment provided: See below. Diagnostics interpreted by me: ECG: Normal sinus rhythm, 72 bpm, no ectopy, no overt ST elevation or depression, QTc 462, QRS 94 Cardiac Monitoring: An order for continuous cardiac monitoring was placed and demonstrated Normal sinus rhythm, 72 bpm, no ectopy. Laboratory studies: See below Imaging studies: See below Consultation(s): Case was discussed with Dr. Wynn, [facility] hospitalist, who will evaluate the patient for admission. HPI: The patient is a pleasant 77-year-old gentleman with a past medical history of IBS, GERD, history of partial gastrectomy in setting of history of remote pyloric stenosis per records, hypertension, migraines, lumbar stenosis with neurogenic claudication who presents to the emergency department via EMS for evaluation of generalized weakness with neighbors concern for inability to care for himself due to this in the setting of persistent of his ongoing abdominal p ain and nausea in the setting of being admitted to this facility last week for similar symptoms but was having spontaneous vomiting at the time. He reports now he simply has had the abdominal pain and burning but induced vomiting intentionally to help alleviate his symptoms. He has been dealing with ongoing pattern of constipation for years and moves his bowels every 10 days or so. He last moved his bowels a couple of days ago following discharge from the hospital. He reports he has had fevers but describes his temperature of being 95 at baseline and so when he took his temperature and it was 96 he consider this a fever. Denies any chest pain or shortness of breath. ROS: See above HPI for pertinent positives & negatives. A total of 10 systems reviewed and were otherwise negative. VITALS:See Below PHYSICAL EXAMINATION: GENERAL: Awake, alert, chronically ill-appearing, cachectic, in no distress HENT: Normocephalic, atraumatic. Oropharynx with dry mucous membranes and otherwise unremarkable. EYES: Normal conjunctiva. Sclera non-icteric. NECK: Supple. No nuchal rigidity. FROM. No JVD. RESPIRATORY: Clear to auscultation. CARDIAC: Regular rate, normal rhythm. Extremities warm and well perfused. Pulses equal. ABDOMEN: Soft, non-distended. No tenderness to palpation. No rebound or guarding. No masses. RECTAL: Deferred. MUSCULOSKELETAL: Chest examination reveals no tenderness. The back is symmetrical on inspection without obvious abnormality. There is no CVA tenderness to palpation. No joint edema. LOWER EXTREMITIES: Calves are equal size bilaterally and non-tender. No edema. No discoloration. NEURO: Normal sensorium. No sensory or motor deficits noted. SKIN: No rash or jaundice noted. Nathan Donnelly MD Past Med/Surg History Medical History Anemia iron deficiency, h/o multiple infusions with last occurring > 1 month ago Anxiety Arthralgia of multiple sites Arthritis 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 hyperactivity Bilateral edema of lower extremity resolved on carvedilol per pt Chronic radicular low back pain Coffee ground emesis CVA (cerebral vascular accident) Incidental "old" infarct noted on 2018 imaging during workup for polypharmacy reaction Degenerative disc disease Depression with h/o depressive psychosis Duodenal ulcer resolved per pt and s/p release from subsequent adhesion development Dyslipidemia GERD (gastroesophageal reflux disease) pyloric stenosis s/p partial gastrectomy Glaucoma History of long-term treatment with high-risk medication Hypertension controlled, stable per pt Hyponatremia stable per pt IBS (irritable bowel syndrome) C Migraine without status migrainosus, not intractable Mild cognitive impairment Mild concentric left ventricular hypertrophy (LVH) Pain in foot left PFO (patent foramen ovale) S cardio 07/2021: "small and non clinically significant...no additional cardiac studies or treatment are indicated..." Rebound headache to be starting prednisone course by neurology per note Spinal stenosis Urinary frequency Surgical History Fusion of spine Lumbar History of colonoscopy History of esophagogastroduodenoscopy (EGD) History of myringotomy History of partial gastrectomy r/t pyloric sphincter scarring 2004 (x2) History of surgery Right side (ribs removed) History of tonsillectomy History of tooth extraction Family History Other No family history of adverse response to anesthesia No known health problems Social History Smoking Status: Never smoker Second Hand Exposure: No; Do You Dip or Chew Tobacco: No; Hx Alcohol Use: No Hx Substance Use: No Preferred Language: Liberian Communication Ability: Effective Health Education Teacher Required: No Beliefs That Will Affect Care: Taoist Taoist Beliefs: Jeff marital status: Current Living Situation: Alone current occupational status: retired How many Children do You have: 2 Feels Safe at Home: Yes Assistive Devices: Cane Allergies Allergies Allergy/AdvReac Type Severity Reaction Status Date / Time lactose AdvReac Severe Intolerant-SEVERE Verified 01/04/23 01:45 ABDOMINAL CRAMPS buspirone AdvReac Intermediate Jittery, Verified 01/04/23 01:45 "crawling out of my skin" lorazepam AdvReac Intermediate Jittery, Verified 01/04/23 01:45 "crawling out of my skin" oxycodone AdvReac Mild nausea Verified 01/04/23 01:45 Home Meds Home Medications Medication Instructions Recorded Confirmed amlodipine 10 mg tablet (Norvasc) 10 mg PO QPM 12/07/20 03/08/23 atorvastatin 80 mg tablet 80 mg PO QAM 12/07/20 03/08/23 baclofen 10 mg tablet 10 mg PO BID PRN muscle spasms 12/07/20 03/08/23 [id number] 1 tab PO DAILY PRN Migraine 12/07/20 03/08/23 50 mg-325 mg-40 mg tablet Headache dicyclomine 20 mg tablet 10 mg PO QID PRN abd pain 12/07/20 03/08/23 flurandrenolide 0.05 % lotion 1 applic topical BID PRN Itching 12/07/20 03/08/23 hydroxyzine HCl 50 mg tablet 50 mg PO DAILY PRN Itching 12/07/20 03/08/23 linaclotide 290 mcg capsule 290 mcg PO .DAILY WITH LUNCH 12/07/20 03/08/23 (Linzess) lisinopril 40 mg tablet 40 mg PO QAM 12/07/20 03/08/23 ondansetron 4 mg disintegrating 4 mg translingual Q12 PRN Nausea 12/07/20 03/08/23 tablet rabeprazole 20 mg tablet,delayed 20 mg PO DAILY PRN Acid Reflux 12/07/20 03/08/23 release sertraline 100 mg tablet (Zoloft) 150 mg PO QAM 12/07/20 03/08/23 tamsulosin 0.4 mg capsule (Flomax) 0.4 mg PO DAILY 07/14/21 03/08/23 acetaminophen 300 mg-codeine 30 mg 1 tab PO BID PRN Pain 01/04/23 03/08/23 tablet betamethasone valerate 0.1 % 1 applic topical BID PRN Skin 01/04/23 03/08/23 topical cream Irritation cyclobenzaprine 10 mg tablet 10 mg PO DAILY PRN muscle spasms 01/04/23 03/08/23 methocarbamol 750 mg tablet 750 mg PO BID PRN NEEDED PER [facility] 01/04/23 03/08/23 metoprolol tartrate 100 mg tablet 100 mg PO BID 01/04/23 03/08/23 polyethylene glycol 3350 17 17 g PO DAILY PRN Constipation 01/04/23 03/08/23 gram/dose oral powder (Miralax) azelastine 137 mcg (0.1 %) nasal 1 spray intranasal BID 03/08/23 03/08/23 spray aerosol chlorhexidine gluconate 0.12 % 1 ml buccal . NEEDED PRN sores 03/08/23 03/08/23 mouthwash dextroamphetamine-amphetamine 20 20 mg PO TID 03/08/23 03/08/23 mg tablet fluticasone propionate 50 2 spray intranasal DAILY 03/08/23 03/08/23 mcg/actuation nasal spray,suspension gabapentin 100 mg capsule 300 mg PO TID 03/08/23 03/08/23 pantoprazole 40 mg tablet,delayed 40 mg PO BIDM 03/08/23 03/08/23 release Previous Rx's Medication Instructions Recorded sumatriptan succinate 100 mg tablet 100 mg PO DIRECTED PRN Migraine 11/17/22 Headache 30 days #9 tabs diazepam 5 mg tablet 5 mg PO HS PRN Anxiety 30 days #15 12/28/22 tabs metoclopramide HCl 10 mg tablet 10 mg PO AC PRN nausea and 03/05/23 (Reglan) vomiting #20 tabs Results & Data (ED) Vital Signs Vital Signs - 24 hr 03/08/23 14:33 03/08/23 14:34 03/08/23 14:56 Temperature 36.6 C Temperature Source Oral Pulse Rate 87 86 Pulse Rate from SpO2 Sensor Respiratory Rate 14 Blood Pressure 139/108 H Blood Pressure Mean 118 Pulse Oximetry 96 Oxygen Delivery Method Room Air Room Air Sepsis New/Unexplained Change in Mental Status No Sepsis Action Taken by Nursing No Action Required 03/08/23 14:30 03/08/23 14:30 03/08/23 15:00 Temperature Temperature Source Pulse Rate 86 Pulse Rate from SpO2 Sensor 86 Respiratory Rate 22 Blood Pressure 112/77 124/71 Blood Pressure Mean 97 82 Pulse Oximetry 99 Oxygen Delivery Method Sepsis New/Unexplained Change in Mental Status Sepsis Action Taken by Nursing 03/08/23 15:00 03/08/23 15:30 03/08/23 15:31 Temperature Temperature Source Pulse Rate 68 78 Pulse Rate from SpO2 Sensor 68 78 Respiratory Rate 21 Blood Pressure 130/74 Blood Pressure Mean 98 Pulse Oximetry 99 98 Oxygen Delivery Method Sepsis New/Unexplained Change in Mental Status Sepsis Action Taken by Nursing 03/08/23 15:31 03/08/23 16:00 03/08/23 16:02 Temperature Temperature Source Pulse Rate 77 69 67 Pulse Rate from SpO2 Sensor 78 65 65 Respiratory Rate 12 19 13 Blood Pressure Blood Pressure Mean Pulse Oximetry 100 92 100 Oxygen Delivery Method Sepsis New/Unexplained Change in Mental Status Sepsis Action Taken by Nursing 03/08/23 16:02 03/08/23 16:30 03/08/23 16:30 Temperature Temperature Source Pulse Rate 68 Pulse Rate from SpO2 Sensor 68 Respiratory Rate 20 Blood Pressure 139/69 Blood Pressure Mean 62 97 Pulse Oximetry 100 Oxygen Delivery Method Room Air Sepsis New/Unexplained Change in Mental Status Sepsis Action Taken by Nursing 03/08/23 17:00 03/08/23 17:00 03/08/23 18:25 Temperature Temperature Source Pulse Rate Pulse Rate from SpO2 Sensor 73 Respiratory Rate Blood Pressure 128/69 134/87 Blood Pressure Mean 98 94 Pulse Oximetry Oxygen Delivery Method Sepsis New/Unexplained Change in Mental Status Sepsis Action Taken by Nursing 03/08/23 18:25 03/08/23 18:30 03/08/23 18:30 Temperature Temperature Source Pulse Rate Pulse Rate from SpO2 Sensor 84 83 Respiratory Rate Blood Pressure 132/88 Blood Pressure Mean 119 Pulse Oximetry 99 100 Oxygen Delivery Method Sepsis New/Unexplained Change in Mental Status Sepsis Action Taken by Nursing 03/08/23 19:00 03/08/23 19:00 03/08/23 19:30 Temperature Temperature Source Pulse Rate Pulse Rate from SpO2 Sensor 87 Respiratory Rate Blood Pressure 147/89 H 176/92 H Blood Pressure Mean 108 124 Pulse Oximetry 100 Oxygen Delivery Method Sepsis New/Unexplained Change in Mental Status Sepsis Action Taken by Nursing 03/08/23 19:30 03/08/23 20:00 03/08/23 20:17 Temperature Temperature Source Pulse Rate Pulse Rate from SpO2 Sensor 86 91 H Respiratory Rate Blood Pressure 170/92 H Blood Pressure Mean 111 Pulse Oximetry 99 100 Oxygen Delivery Method Sepsis New/Unexplained Change in Mental Status Sepsis Action Taken by Nursing 03/08/23 20:17 03/08/23 20:30 03/08/23 20:30 Temperature Temperature Source Pulse Rate 84 Pulse Rate from SpO2 Sensor 89 87 Respiratory Rate 22 Blood Pressure 163/92 H Blood Pressure Mean 130 Pulse Oximetry 100 100 Oxygen Delivery Method Room Air Sepsis New/Unexplained Change in Mental Status Sepsis Action Taken by Nursing 03/08/23 21:00 03/08/23 21:00 03/08/23 21:30 Temperature Temperature Source Pulse Rate 68 79 Pulse Rate from SpO2 Sensor 69 Respiratory Rate 13 21 Blood Pressure 150/93 H Blood Pressure Mean 106 Pulse Oximetry 100 Oxygen Delivery Method Sepsis New/Unexplained Change in Mental Status Sepsis Action Taken by Nursing 03/08/23 21:31 03/08/23 21:31 03/08/23 21:38 Temperature Temperature Source Pulse Rate 82 87 Pulse Rate from SpO2 Sensor Respiratory Rate 26 H 16 Blood Pressure 160/94 H Blood Pressure Mean 123 Pulse Oximetry Oxygen Delivery Method Sepsis New/Unexplained Change in Mental Status Sepsis Action Taken by Nursing 03/08/23 21:38 Temperature Temperature Source Pulse Rate Pulse Rate from SpO2 Sensor Respiratory Rate Blood Pressure 160/89 H Blood Pressure Mean 128 Pulse Oximetry Oxygen Delivery Method Sepsis New/Unexplained Change in Mental Status Sepsis Action Taken by Nursing Laboratory Data Attestation: I reviewed the patient's lab results. 03/08/23 14:24 05/29/23 14:24 Lab Results 03/08/23 03/08/23 03/08/23 Range/Units 14:24 14:24 15:10 WBC 9.70 (4.8-10.8) K/ul RBC 4.84 (4.70-6.10) M/uL Hgb 15.1 (14.0-18.0) g/dl Hct 39.7 L (42.0-52.0) % MCV 82.0 (80.0-100.0) fL MCH 31.2 (25.0-34.0) pg MCHC 38.0 H (32.0-36.0) g/dL RDW Std Deviation 33.4 L (36.4-46.3) fL RDW Coeff of Boogie 11.5 (11.5-14.5) % Plt Count 382 (130-400) K/uL MPV 8.6 L (9.4-12.4) fL Immature Gran % (Auto) 0.7 % Neut % (Auto) 67.3 % Lymph % (Auto) 24.2 % Phelps % (Auto) 7.2 % Eos % (Auto) 0.1 % Baso % (Auto) 0.5 % Neut # (Auto) 6.52 H (1.40-6.50) K/uL Lymph # (Auto) 2.35 (1.2-3.4) K/uL Phelps # (Auto) 0.70 H (0.11-0.59) K/uL Eos # (Auto) 0.01 (0-0.50) K/uL Baso # (Auto) 0.05 (0-0.2) K/uL Immature Gran # (Auto) 0.07 (0.01-0.20) K/uL Sodium 134 L (136-145) mmol/L Potassium 3.3 L (3.5-5.1) mmol/L Chloride 96 L (98-107) mmol/L Carbon Dioxide 25 (21-32) mmol/L Anion Gap 13 H (3-11) BUN 37 H (6-23) mg/dl Creatinine 1.01 (0.6-1.4) mg/dl Est Cr Clr Drug Dosing 46.0 ml/min Est GFR ( Amer) 83.4 ml/min Est GFR (Non-Af Amer) 71.9 ml/min BUN/Creatinine Ratio 36.6 H (10-20) Glucose 115 H (70-99(Fasting)) mg/dl Calcium 9.8 (8.6-10.3) mg/dl Magnesium 1.9 (1.7-2.4) mg/dl Total Bilirubin 1.0 (0.2-1.0) mg/dl Direct Bilirubin 0.2 (0-0.2) mg/dl AST 14 (13-39) U/L ALT 12 (7-52) U/L Alkaline Phosphatase 104 (34-104) U/L Troponin I High Sens 31.6 H (0-20) pg/ml Total Protein 6.8 (6.0-8.3) gm/dl Albumin 4.1 (3.4-5.0) gm/dl Globulin 2.7 (2.5-4.0) gm/dl Albumin/Globulin Ratio 1.5 (0.9-2) Lipase 12 (11-82) U/L SARS-CoV-2, RNA, NAAT NEGATIVE (NEGATIVE) Administered Medications Sodium Chloride (Nss 1000ml) 1,000 mls @ 125 mls/hr IV .Q8H NENA Stop: 04/07/23 18:29 Last Admin: 03/08/23 19:08 Dose: 125 mls/hr Documented By: HARLEEN Discontinued Medications Diphenhydramine HCl (Diphenhydramine 50 Mg/Ml Vial) 12.5 mg IV NOW STA Stop: 03/08/23 14:48 Last Admin: 03/08/23 15:16 Dose: 12.5 mg Documented By: HARLEEN Sodium Chloride (Nss 1000ml) 1,000 mls @ 999 mls/hr IV .Q1H1M ONE Stop: 03/08/23 15:47 Last Infusion: 03/08/23 18:01 Dose: 0 mls/hr Documented By: Admin: 03/08/23 15:12 Dose: 999 mls/hr Documented By: HARLEEN Famotidine (Pepcid 20mg Iv Push) 20 mg in 5 mls @ 2.5 mls/min IV NOW STA Stop: 03/08/23 14:48 Last Admin: 03/08/23 15:13 Dose: 2.5 mls/min Documented By: HARLEEN Magnesium Sulfate/Dextrose (Magnesium Sulfate / D5w) 1 gm in 100 mls @ 100 mls/hr IV NOW STA Stop: 03/08/23 19:24 Last Infusion: 03/08/23 20:21 Dose: 0 mls/hr Documented By: Admin: 03/08/23 19:09 Dose: 100 mls/hr Documented By: HARLEEN Potassium Chloride (K John / Wtr) 10 meq in 100 mls @ 100 mls/hr IV Q1H NENA Stop: 03/08/23 20:29 Last Admin: 03/08/23 21:41 Dose: 100 mls/hr Documented By: Infusion: 03/08/23 21:15 Dose: 100 mls/hr Documented By: Admin: 03/08/23 20:15 Dose: 100 mls/hr Documented By: HARLEEN Ioversol (Optiray 320 100ml) 83 ml IV ONCE ONE Stop: 03/08/23 16:41 Last Admin: 03/08/23 16:41 Dose: 83 ml Documented By: PRADEEP Metoclopramide HCl (Metoclopramide Hcl Inj 5 Mg/Ml 2 Ml Vial) 5 mg IV NOW STA Stop: 03/08/23 14:48 Last Admin: 03/08/23 15:15 Dose: 5 mg Documented By: HARLEEN Sucralfate (Sucralfate 1 Gm/10 Ml Udc) 1 gm PO NOW STA Stop: 03/08/23 18:14 Last Admin: 03/08/23 18:24 Dose: 1 gm Documented By: HARLEEN Imaging Data Radiologist's Impression: Chest X-Ray 03/08/23 14:47 XR chest 1V portable HISTORY: 77 years-old Male Chest pain, nonspecific COMPARISON: Chest radiograph 12/12/2021 TECHNIQUE: AP view of the chest FINDINGS: Cardiomediastinal and hilar silhouettes are within normal limits no pneumothorax, pleural effusion, airspace consolidation or pulmonary edema. Bones of the chest appear grossly intact. Partially imaged lumbar spinal fusion hardware. Lucency surrounding the proximal screws may represent hardware loosening. IMPRESSION: No acute process of the chest. ACT 112: Negative or not required by law. The above report was generated using voice recognition software. It may contain grammatical, syntax or spelling errors. Electronically signed by: Moreno Dimas M.D. 03/08/2023 3:47 PM Abdomen/Pelvis CT 03/08/23 15:[address] WITH IV CONTRAST CT DOSE: 299.25 mGy.cm HISTORY: Acute abdominal pain with nausea and vomiting abdominal pain, n/v, gastroparesis TECHNIQUE: Multiaxial CT images of the abdomen and pelvis were performed followi ng the IV administration of 83 cc of Optiray, A dose lowering technique was utilized adhering to the principles of ALARA. COMPARISON STUDY: 03/02/2023 FINDINGS: No acute process of the imaged lower chest. There is no pneumatosis or pneumoperitoneum. Unremarkable spleen, atrophic pancreas, mildly distended gallbladder, adrenal glands and liver. There is patency of the hepatic and portal veins. 3 cm cyst of the superior pole left kidney. No hydronephrosis. Urinary bladder wall thickening. Prostatomegaly. Atherosclerosis of the aorta without aneurysm. No lymphadenopathy. Mild nonspecific distal esophageal wall thickening. Postoperative changes of the stomach. No small bowel obstruction. There is mild circumferential wall thickening of the stomach with areas of partial distention, notably involving the transverse and descending segments. Appendix is not definitively seen. Unremarkable soft tissues. No acute fracture. Posterior interbody rods and screw fusion hardware at L2-S1. Lucency surrounding the right L2 screw fissures for loosening. L4-L5 and L5-S1 discectomy. Dextroscoliosis. Severe disc space narrowing with endplate irregularity noted at L3-L4. IMPRESSION: 1. No bowel obstruction or pneumoperitoneum. 2. Areas of mild wall thickening within the colon may be secondary to partial distention versus a mild nonspecific colitis. 3. Prostatomegaly with findings suggestive of chronic bladder outlet obstruction. 4. Additional findings as above. ACT 112: Negative or not required by law. The above report was generated using voice recognition software. It may contain grammatical, syntax or spelling errors. Electronically signed by: Moreno Dimas M.D. 03/08/2023 5:12 PM Discharge Plan Visit Data Chief Complaint: Illness Stated Complaint: ILLNESS ED Provider: Nathan Donnelly Discharge Problem: Adult failure to thrive, Generalized weakness, Gastroparesis, Hypokalemia, Low serum magnesium level Patient Disposition: Admitted As Inpatient Discharge Instructions Interventions: ED Discharge Assessment Last Done: 03/08/23 21:54 Forms Stand Alone Forms: My [facility] Prescriptions Prescriptions: No Action diazepam 5 mg tablet 5 mg PO HS PRN (Reason: Anxiety) 30 Days Qty: 15 0RF sumatriptan succinate 100 mg tablet 100 mg PO DIRECTED MDD 2 doses in 24 hours PRN (Reason: Migraine Headache) 30 Days Qty: 9 5RF Rx Instructions: take 1 pill by mouth and repeat in 2 hours as needed for migraine atorvastatin 80 mg tablet 80 mg PO QAM Rx Instructions: pt holding rabeprazole 20 mg Tablet,Delayed Release (Dr/Ec) 20 mg PO DAILY PRN (Reason: Acid Reflux) Rx Instructions: pt holding sertraline [Zoloft] 100 mg tablet 150 mg PO QAM Rx Instructions: pt holding hydroxyzine HCl 50 mg tablet 50 mg PO DAILY PRN (Reason: Itching) [id number]-oambuwfonorxg-wxst 50-325-40 mg Tablet 1 tab PO DAILY PRN (Reason: Migraine Headache) dicyclomine 20 mg tablet 10 mg PO QID PRN (Reason: abd pain) baclofen 10 mg Tablet 10 mg PO BID PRN (Reason: muscle spasms) amlodipine [Norvasc] 10 mg tablet 10 mg PO QPM Rx Instructions: takes with supper flurandrenolide 0.05 % lotion 1 applic TOPICAL BID PRN (Reason: Itching) lisinopril 40 mg tablet 40 mg PO QAM ondansetron 4 mg tablet,disintegrating 4 mg translingual Q12 PRN (Reason: Nausea) Linzess 290 mcg capsule 290 mcg PO .DAILY WITH LUNCH tamsulosin [Flomax] 0.4 mg Capsule 0.4 mg PO DAILY Rx Instructions: pt holding metoclopramide HCl [Reglan] 10 mg tablet 10 mg PO AC PRN (Reason: nausea and vomiting) Qty: 20 0RF Rx Instructions: administer 30 minutes before meals metoprolol tartrate 100 mg tablet 100 mg PO BID acetaminophen-codeine 300-30 mg tablet 1 tab PO BID PRN (Reason: Pain) betamethasone valerate 0.1 % cream 1 applic TOPICAL BID PRN (Reason: Skin Irritation) polyethylene glycol 3350 [Miralax] 17 gram/dose Powder 17 g PO DAILY PRN (Reason: Constipation) cyclobenzaprine 10 mg tablet 10 mg PO DAILY PRN (Reason: muscle spasms) methocarbamol 750 mg tablet 750 mg PO BID PRN (Reason: NEEDED PER [facility]) Rx Instructions: pt holding dextroamphetamine-amphetamine 20 mg tablet 20 mg PO TID Rx Instructions: takes in morning,noon and mid afternoon pantoprazole 40 mg tablet,delayed release (DR/EC) 40 mg PO BIDM gabapentin 100 mg Capsule 300 mg PO TID Rx Instructions: pt holding chlorhexidine gluconate 0.12 % Mouthwash 1 ml BUCCAL . NEEDED PRN (Reason: sores) Rx Instructions: in side cheek azelastine 137 mcg (0.1 %) Aerosol,[place] 1 spray INTRANASAL BID Rx Instructions: administer into each nostril....pt is holding fluticasone propionate [Flonase] 50 mcg/actuation [place],Suspension 2 spray INTRANASAL DAILY Rx Instructions: administer into each nostril....pt is holding Referrals Referrals: Buddy Begum DO [Primary Care Provider] -
[2023-03-08] MEDS ORDERED: OPTIRAY 320 100ml IV ONE (16:40)
--- NOTE | 2023-03-08 17:14 | CT Scan Report ---
ABDOMEN AND PELVIS CT WITH IV CONTRAST CT DOSE: 299.25 mGy.cm HISTORY: Acute abdominal pain with nausea and vomiting abdominal pain, n/v, gastroparesis TECHNIQUE: Multiaxial CT images of the abdomen and pelvis were performed following the IV administrat ion of 83 cc of Optiray, A dose lowering technique was utilized adhering to the principles of ALARA. COMPARISON STUDY: 03/02/2023 FINDINGS: No acute process of the imaged lower chest. There is no pneumatosis or pneumoperitoneum. Un remarkable spleen, atrophic pancreas, mildly distended gallbladder, adrenal glands and liver. There i s patency of the hepatic and portal veins. 3 cm cyst of the superior pole left kidney. No hydronephro sis. Urinary bladder wall thickening. Prostatomegaly. Atherosclerosis of the aorta without aneurysm. No lymphadenopathy. Mild nonspecific distal esophageal wall thickening. Postoperative changes of the stomach. No small kizzy wel obstruction. There is mild circumferential wall thickening of the stomach with areas of partial d istention, notably involving the transverse and descending segments. Appendix is not definitively see n. Unremarkable soft tissues. No acute fracture. Posterior interbody rods and screw fusion hardware a t L2-S1. Lucency surrounding the right L2 screw fissures for loosening. L4-L5 and L5-S1 discectomy. D extroscoliosis. Severe disc space narrowing with endplate irregularity noted at L3-L4. IMPRESSION: 1. No bowel obstruction or pneumoperitoneum. 2. Areas of mild wall thickening within the colon may be secondary to partial distention versus a mil d nonspecific colitis. 3. Prostatomegaly with findings suggestive of chronic bladder outlet obstruction. 4. Additional findings as above. ACT 112: Negative or not required by law. The above report was generated using voice recognition software. It may contain grammatical, syntax o r spelling errors. Electronically signed by: Moreno Dimas M.D. 03/08/2023 5:12 PM
[2023-03-08] MEDS ORDERED: SUCRALFATE 1 GM/10 ML UDC PO STA (18:13)
[2023-03-08] MEDS ORDERED: MAGNESIUM SULFATE / D5W 1 GM/100 ML BAG IV STA (18:25)
[2023-03-08] MEDS: SODIUM CHLORIDE 0.9% 1000ML 1,000 ML IV SCH (19:08)
[2023-03-08] MEDS: POTASSIUM CHLORIDE / WTR 10 MEQ/100 ML PLCT IV SCH ×2 (20:15→21:41)
--- NOTE | 2023-03-08 20:46 | History & Physical Report ---
Date of Service March 08, 2023 Assessment & Plan (1) Dyspepsia: Plan: -symptoms most consistent with dyspepsia -last EGD 02/16 was unremarkable -Patient with ongoing symptoms, medications need to be optimized. It appears he is also not taking medications for proper indications (ex: taking reglan for abdominal pain rather than nausea). Trial of: -Protonix 40mg IV BID -Sucralfate QID -zofran PRN for nausea (although he denies nausea, his vomiting episodes are self induced to relieve pain) -will consult GI, his last EGD was on 02/16 did show moderate food content raising question of underlying gastroparesis. -Pain has already improved with medications given in ER. (2) Adult failure to thrive: Plan: Severe malnutrition -Related to food avoidance due to abdominal pain -RD consulted -Diet liberalized. General diet. Lactase TID as needed for dairy products (3) Generalized weakness: Plan: PT evaluation (4) Hypokalemia: Plan: -replete (5) Low serum magnesium level: Plan: -replete Plan Chronic medical issues HLD- on atorvastatin 80mg daily, patient denies knowledge of HLD. Certainly with his weight loss in past 1 year and FTT, he likely no longer needs atorvastatin. Will d/c to reduce pill burden. Lipid panel in AM HTN-continue home medications with hold parameters ADHD- continue home medication OCD- patient declines sertraline. He self discontinued it for past several weeks. He was encouraged to discuss with his psychiatrist Chronic back/neck pain- continue tylenol/codeine, gabapentin. On multiple muscle relaxants--flexeril works best for him, continued here DVT ppx- SQ heparin Code status -conditional: No chest compression/defibrillation (DNR), intubation is OK Observation for now History of Present Illness Chief Complaint: epigastric burning and pain Primary Care Provider: Buddy Begum DO Mr Dalton Leslie is a 77 year old man with a history of ADHD, OCD, pyloric stenosis s/p [place] 1 about 10 years ago, spinal stenosis status post lumbar surgery 1 year ago, HTN, HLD (he is on atorvastatin but denies knowledge of having HLD), lactose intolerance, IBS presents today with ongoing epigastric bur suzy, pain, early satiety and poor oral intake since discharge 3 days ago. Patient was admitted for similar last week and at that time was started on reglan to help with his early satiety. He denies having nausea but instead reports having intermittent epigastric burning sensation which worsens with oral intake (pills, food and even water) making have become averse to eating. He has been taking his protonix three times a day and reglan in attempts to help relieve these symptoms. He has only been taking certain medications (protonix, reglan and antihypertensives) since he can not take too many pills all at once. Since his discharge from the hospital 3 days ago, he has only taken sips of water, some soda, and 3 oz of a protein shake. In terms of solid food, he has only eaten a small piece of a banana since returning home. His daughter went to visit him today and noticed he was very weak so she brought him to the hospital. In the ER, he received reglan, sucralfate, pepcid, NSS, and potassium 10mEQ, magnesium 1gm, benadryl. With the sucralfate, his epigastric burning has subsided. Allergies Allergy/AdvReac Type Severity Reaction Status Date / Time lactose AdvReac Severe Intolerant-SEVERE Verified 01/04/23 01:45 ABDOMINAL CRAMPS buspirone AdvReac Intermediate Jittery, Verified 01/04/23 01:45 "crawling out of my skin" lorazepam AdvReac Intermediate Jittery, Verified 01/04/23 01:45 "crawling out of my skin" oxycodone AdvReac Mild nausea Verified 01/04/23 01:45 Home Medications Medication Instructions Recorded Confirmed Type amlodipine 10 mg tablet (Norvasc) 10 mg PO QPM 12/07/20 03/08/23 History atorvastatin 80 mg tablet 80 mg PO QAM 12/07/20 03/08/23 History baclofen 10 mg tablet 10 mg PO BID PRN muscle spasms 12/07/20 03/08/23 History ygtnqeqdci-ndybfscermqzv-uyjctisr 1 tab PO DAILY PRN Migraine 12/07/20 03/08/23 History 50 mg-325 mg-40 mg tablet Headache dicyclomine 20 mg tablet 10 mg PO QID PRN abd pain 12/07/20 03/08/23 History flurandrenolide 0.05 % lotion 1 applic topical BID PRN Itching 12/07/20 03/08/23 History hydroxyzine HCl 50 mg tablet 50 mg PO DAILY PRN Itching 12/07/20 03/08/23 History linaclotide 290 mcg capsule 290 mcg PO .DAILY WITH LUNCH 12/07/20 03/08/23 History ([place]) lisinopril 40 mg tablet 40 mg PO QAM 12/07/20 03/08/23 History ondansetron 4 mg disintegrating 4 mg translingual Q12 PRN Nausea 12/07/20 03/08/23 History tablet rabeprazole 20 mg tablet,delayed 20 mg PO DAILY PRN Acid Reflux 12/07/20 03/08/23 History release sertraline 100 mg tablet (Zoloft) 150 mg PO QAM 12/07/20 03/08/23 History tamsulosin 0.4 mg capsule (Flomax) 0.4 mg PO DAILY 07/14/21 03/08/23 History sumatriptan succinate 100 mg tablet 100 mg PO DIRECTED PRN Migraine 11/17/22 03/08/23 Rx Headache 30 days #9 tabs diazepam 5 mg tablet 5 mg PO HS PRN Anxiety 30 days #15 12/28/22 03/08/23 Rx tabs acetaminophen 300 mg-codeine 30 mg 1 tab PO BID PRN Pain 01/04/23 03/08/23 History tablet betamethasone valerate 0.1 % 1 applic topical BID PRN Skin 01/04/23 03/08/23 History topical cream Irritation cyclobenzaprine 10 mg tablet 10 mg PO DAILY PRN muscle spasms 01/04/23 03/08/23 History methocarbamol 750 mg tablet 750 mg PO BID PRN NEEDED PER [facility] 01/04/23 03/08/23 History metoprolol tartrate 100 mg tablet 100 mg PO BID 01/04/23 03/08/23 History polyethylene glycol 3350 17 17 g PO DAILY PRN Constipation 01/04/23 03/08/23 History gram/dose oral powder (Miralax) metoclopramide HCl 10 mg tablet 10 mg PO AC PRN nausea and 03/05/23 03/08/23 Rx (Reglan) vomiting #20 tabs azelastine 137 mcg (0.1 %) nasal 1 spray intranasal BID 03/08/23 03/08/23 History spray aerosol chlorhexidine gluconate 0.12 % 1 ml buccal . NEEDED PRN sores 03/08/23 03/08/23 History mouthwash dextroamphetamine-amphetamine 20 20 mg PO TID 03/08/23 03/08/23 History mg tablet fluticasone propionate 50 2 spray intranasal DAILY 03/08/23 03/08/23 History mcg/actuation nasal spray,suspension gabapentin 100 mg capsule 300 mg PO TID 03/08/23 03/08/23 History pantoprazole 40 mg tablet,delayed 40 mg PO BIDM 03/08/23 03/08/23 History release Past Med/Surg History Medical History Anemia iron deficiency, h/o multiple infusions with last occurring > 1 month ago Anxiety Arthralgia of multiple sites Arthritis 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 hyperactivity Bilateral edema of lower extremity resolved on carvedilol per pt Chronic radicular low back pain Coffee ground emesis CVA (cerebral vascular accident) Incidental "old" infarct noted on 2018 imaging during workup for polypharmacy reaction Degenerative disc disease Depression with h/o depressive psychosis Duodenal ulcer resolved per pt and s/p release from subsequent adhesion development Dyslipidemia GERD (gastroesophageal reflux disease) pyloric stenosis s/p partial gastrectomy Glaucoma History of long-term treatment with high-risk medication Hypertension controlled, stable per pt Hyponatremia stable per pt IBS (irritable bowel syndrome) C Migraine without status migrainosus, not intractable Mild cognitive impairment Mild concentric left ventricular hypertrophy (LVH) Pain in foot left PFO (patent foramen ovale) S cardio 07/2021: "small and non clinically significant...no additional cardiac studies or treatment are indicated..." Rebound headache to be starting prednisone course by neurology per note Spinal stenosis Urinary frequency Surgical History Fusion of spine Lumbar History of colonoscopy History of esophagogastroduodenoscopy (EGD) History of myringotomy History of partial gastrectomy r/t pyloric sphincter scarring 2004 (x2) History of surgery Right side (ribs removed) History of tonsillectomy History of tooth extraction Family History Other No family history of adverse response to anesthesia No known health problems Social History Smoking Status: Never smoker Second Hand Exposure: No; Do You Dip or Chew Tobacco: No; Hx Alcohol Use: No Hx Substance Use: No Preferred Language: Marshallese Communication Ability: Effective Design Engineering Intern Required: No Beliefs That Will Affect Care: Scientologist Scientologist Beliefs: Sikh marital status: Current Living Situation: Alone current occupational status: retired How many Children do You have: 2 Feels Safe at Home: Yes Assistive Devices: Cane Review of Systems Review of Systems: as above, remaining ROS otherwise negative Physical Exam Physical Exam: Thin, cachetic, frail ENMT: temporal muscle wasting, mucous membrane dry, poor dentition Respiratory: breathing comfortably on room air, no wheezing/rhonchi/rales Cardiovascular: regular rate and rhythm, no murmurs/rubs/gallops Gastrointestinal (Abdomen): thin, soft, non distended Musculoskeletal: peripheral muscle wasting, no edema, no cyanosis Skin: no rash, no redness, no ulcer noted on exposed skin Neurologic: awake, alert, spontaneously moving extremities Psychiatric: affect normal, speech linear, non pressured, reliable historian, maintains eye contact Results & Data Results & Data Vital Signs (Past 12 Hours) Vital Signs Temp Pulse Resp BP Pulse Ox O2 Del Method 03/08/23 20:30 84 22 100 Room Air 03/08/23 20:30 163/92 H 03/08/23 20:17 100 03/08/23 20:17 170/92 H 03/08/23 20:00 100 03/08/23 19:30 99 03/08/23 19:30 176/92 H 03/08/23 19:00 100 03/08/23 19:00 147/89 H 03/08/23 18:30 100 03/08/23 18:30 132/88 03/08/23 18:25 99 03/08/23 18:25 134/87 03/08/23 17:00 128/69 03/08/23 16:30 68 20 100 Room Air 03/08/23 16:30 139/69 03/08/23 16:02 67 13 100 03/08/23 16:00 69 19 92 03/08/23 15:31 77 12 100 03/08/23 15:31 130/74 03/08/23 15:30 78 21 98 05/29/23 15:00 68 99 03/08/23 15:00 124/71 03/08/23 14:30 86 22 99 03/08/23 14:30 112/77 03/08/23 14:56 Room Air 03/08/23 14:34 36.6 C 86 14 139/108 H 96 Room Air 03/08/23 14:33 87 Code Status & VTE Plan VTE Prophylaxis Plan VTE Prophylaxis will be ordered: Yes
[2023-03-08] MEDS ORDERED: SUMAtriptan succinate 100 MG TAB PO PRN (23:44)
[2023-03-08] MEDS ORDERED: LACTASE 3000 UNIT TAB PO PRN (23:44)
[2023-03-08] MEDS ORDERED: DICYCLOMINE HCL 20 MG TAB PO PRN (23:44)
[2023-03-08] MEDS ORDERED: ONDANSETRON INJ 2 MG/ML 2 ML VIAL IV PRN (23:44)
[2023-03-08] MEDS ORDERED: POLYETHYLENE (MIRALAX) 17 GM PACK PO PRN (23:44)
[2023-03-08] MEDS ORDERED: ACETAMINOPHEN W/CODEINE #3 1 TAB PO PRN (23:44)
[2023-03-08] MEDS ORDERED: METOCLOPRAMIDE HCL INJ 5 MG/ML 2 ML VIAL IV PRN (23:44)
[2023-03-08] MEDS ORDERED: CYCLOBENZAPRINE HCL 10 MG TAB PO PRN (23:44)
[2023-03-08] MEDS ORDERED: BUTALBITAL/ACETAMIN/CAFFEINE TAB PO PRN (23:44)
[2023-03-09] MEDS: HEPARIN SOD 5,000 UNIT/0.5 ML VIAL SQ SCH ×5 (00:39→21:36)
[2023-03-09] MEDS: METOPROLOL TARTRATE 100 MG TAB PO SCH ×3 (00:40→21:34)
[2023-03-09] MEDS: amLODIPine BESYLATE 5 MG TAB PO SCH ×2 (00:41→21:35)
[2023-03-09] MEDS: PANTOprazole 40 MG in SYRINGE 0 ML IV SCH ×3 (00:42→21:33)
[2023-03-09] MEDS: SUCRALFATE 1 GM/10 ML UDC PO SCH ×5 (00:42→21:36)
[2023-03-09] MEDS: GABAPENTIN 300 MG CAP PO SCH ×4 (00:43→21:34)
[2023-03-09] MEDS: AZELASTINE HCL 0.1% NASAL 200 SPRAYS/27,400 MCG BTL SCH ×3 (00:43→21:33)
[2023-03-09] MEDS: diazePAM 5 MG TABLET PO PRN ×2 (01:18→21:33)
[2023-03-09] MEDS: SODIUM CHLORIDE 0.9% 1000ML 1,000 ML IV SCH ×3 (01:59→17:43)
[2023-03-09] MEDS: FLUTICASONE PROPIONATE NA SPR 16 GM BTL SCH (07:57)
[2023-03-09] MEDS: AMPHETAMINE ASP/SULF/DEXTRAMPH 20 MG TAB PO SCH ×3 (07:57→14:54)
[2023-03-09] MEDS: lisinopril 40 MG TAB PO SCH (07:58)
[2023-03-09] MEDS: TAMSULOSIN HCL 0.4 MG CAP PO SCH (07:58)
--- NOTE | 2023-03-09 08:39 | Hospitalist Progress Note ---
Date of Service March 09, 2023 Assessment & Plan (1) Dyspepsia: Plan: -symptoms most consistent with dyspepsia -last EGD 02/16 was unremarkable -Patient with ongoing symptoms, medications need to be optimized. It appears he is also not taking medications for proper indications (ex: taking reglan for abdominal pain rather than nausea). Trial of: -Protonix 40mg IV BID -Sucralfate QID -zofran PRN for nausea (although he denies nausea, his vomiting episodes are self induced to relieve pain) -Pain has already improved with medications given in ER. And again pt denies any abd. pain this AM. -GI consulted, his last EGD was on 02/16 did show moderate food content raising question of underlying gastroparesis. -recommend to continue sucralfate - Add Lubiprostone 8 mcg bid -OP colonoscopy to be scheduled -clinic f/u in 6 to 8 weeks (2) Adult failure to thrive: Plan: Severe malnutrition -Related to food avoidance due to abdominal pain -RD consulted -Diet liberalized. General diet. Lactase TID as needed for dairy products (3) Generalized weakness: Plan: PT evaluation , pt interested in rehab, CM aware (4) Hypokalemia: Plan: -replete (5) Low serum magnesium level: Plan: -replete Plan Chronic medical issues HLD- on atorvastatin 80mg daily, patient denies knowledge of HLD. Certainly with his weight loss in past 1 year and FTT, he likely no longer needs atorvastatin. Will d/c to reduce pill burden. Lipid panel in AM HTN-continue home medications with hold parameters ADHD- continue home medication OCD- patient declines sertraline. He self discontinued it for past several weeks. He was encouraged to discuss with his psychiatrist Chronic back/neck pain- continue tylenol/codeine, gabapentin. On multiple muscle relaxants--flexeril works best for him, continued here DVT ppx- SQ heparin Code status -conditional: No chest compression/defibrillation (DNR), intubation is OK Admission and Anticipated Discharge Date Admission Date: March 08, 2023 Subjective Pt seen in follow-up of abd. pain, recently admitted for same Currently feeling well, denies any more abd. pain. Also discussed w/ GI. Difficulty with posture (d/t past spinal surgeries). PT consulted. Pt is interested in rehab. No fever, chills, chest pain, shortness of breath. Review of Systems Review of Systems: All systems reviewed & are unremarkable except as noted in Subjective Physical Exam Physical Exam: Physical Exam: General: Thin, cachetic, frail M in NAD ENMT:temporal muscle wasting Respiratory:breathing comfortably on room air, no wheezing/rhonchi/rales Cardiovascular:regular rate and rhythm, no murmurs/rubs/gallops Gastrointestinal (Abdomen):thin, soft, non distended Musculoskeletal:peripheral muscle wasting, no edema Skin:warm, dry Neurologic:awake, alert, speech fluent, spontaneously moving extremities Results & Data Results & Data Vital Signs (Past 12 Hours) Vital Signs Temp Pulse Pulse Resp BP BP BP 03/09/23 07:34 36.7 C 78 18 121/65 03/09/23 08:07 83 22 114/65 03/09/23 07:16 79 03/08/23 22:50 78 03/08/23 22:41 36.7 C 93 H 18 148/66 H 03/09/23 03:00 36.8 C 70 18 94/51 L 03/08/23 21:38 160/89 H 03/08/23 21:38 87 16 03/08/23 21:31 160/94 H 03/08/23 21:31 82 26 H 03/08/23 21:30 79 21 03/08/23 21:00 68 13 03/08/23 21:00 150/93 H Pulse Ox O2 Del Method 03/09/23 07:34 99 Room Air 03/09/23 08:07 99 Room Air 03/09/23 07:16 03/08/23 22:50 03/08/23 22:41 93 Room Air 03/09/23 03:00 99 Room Air 03/08/23 21:38 03/08/23 21:38 03/08/23 21:31 03/08/23 21:31 03/08/23 21:30 03/08/23 21:00 100 03/08/23 21:00 Laboratory Results 03/09/23 03/08/23 03/08/23 Range/Units 08:20 15:10 14:24 WBC (4.8-10.8) K/ul RBC (4.70-6.10) M/uL Hgb (14.0-18.0) g/dl Hct (42.0-52.0) % MCV (80.0-100.0) fL MCH (25.0-34.0) pg MCHC (32.0-36.0) g/dL RDW Std Deviation (36.4-46.3) fL RDW Coeff of Boogie (11.5-14.5) % Plt Count (130-400) K/uL MPV (9.4-12.4) fL Immature Gran % (Auto) % Neut % (Auto) % Lymph % (Auto) % Cassia % (Auto) % Eos % (Auto) % Baso % (Auto) % Neut # (Auto) (1.40-6.50) K/uL Lymph # (Auto) (1.2-3.4) K/uL Cassia # (Auto) (0.11-0.59) K/uL Eos # (Auto) (0-0.50) K/uL Baso # (Auto) (0-0.2) K/uL Immature Gran # (Auto) (0.01-0.20) K/uL Sodium Pending 134 L (136-145) mmol/L Potassium Pending 3.3 L (3.5-5.1) mmol/L Chloride Pending 96 L (98-107) mmol/L Carbon Dioxide Pending 25 (21-32) mmol/L Anion Gap Pending 13 H (3-11) BUN Pending 37 H (6-23) mg/dl Creatinine Pending 1.01 (0.6-1.4) mg/dl Est Cr Clr Drug Dosing Pending 46.0 ml/min Est GFR ( Amer) Pending 83.4 ml/min Est GFR (Non-Af Amer) Pending 71.9 ml/min BUN/Creatinine Ratio Pending 36.6 H (10-20) Glucose Pending 115 H (70-99(Fasting)) mg/dl Calcium Pending 9.8 (8.6-10.3) mg/dl Phosphorus Pending Magnesium Pending 1.9 (1.7-2.4) mg/dl Total Bilirubin 1.0 (0.2-1.0) mg/dl Direct Bilirubin 0.2 (0-0.2) mg/dl AST 14 (13-39) U/L ALT 12 (7-52) U/L Alkaline Phosphatase 104 (34-104) U/L Troponin I High Sens 31.6 H (0-20) pg/ml Total Protein 6.8 (6.0-8.3) gm/dl Albumin 4.1 (3.4-5.0) gm/dl Globulin 2.7 (2.5-4.0) gm/dl Albumin/Globulin Ratio 1.5 (0.9-2) Lipase 12 (11-82) U/L SARS-CoV-2, RNA, NAAT NEGATIVE (NEGATIVE) 03/08/23 Range/Units 14:24 WBC 9.70 (4.8-10.8) K/ul RBC 4.84 (4.70-6.10) M/uL Hgb 15.1 (14.0-18.0) g/dl Hct 39.7 L (42.0-52.0) % MCV 82.0 (80.0-100.0) fL MCH 31.2 (25.0-34.0) pg MCHC 38.0 H (32.0-36.0) g/dL RDW Std Deviation 33.4 L (36.4-46.3) fL RDW Coeff of Boogie 11.5 (11.5-14.5) % Plt Count 382 (130-400) K/uL MPV 8.6 L (9.4-12.4) fL Immature Gran % (Auto) 0.7 % Neut % (Auto) 67.3 % Lymph % (Auto) 24.2 % Cassia % (Auto) 7.2 % Eos % (Auto) 0.1 % Baso % (Auto) 0.5 % Neut # (Auto) 6.52 H (1.40-6.50) K/uL Lymph # (Auto) 2.35 (1.2-3.4) K/uL Cassia # (Auto) 0.70 H (0.11-0.59) K/uL Eos # (Auto) 0.01 (0-0.50) K/uL Baso # (Auto) 0.05 (0-0.2) K/uL Immature Gran # (Auto) 0.07 (0.01-0.20) K/uL Sodium (136-145) mmol/L Potassium (3.5-5.1) mmol/L Chloride (98-107) mmol/L Carbon Dioxide (21-32) mmol/L Anion Gap (3-11) BUN (6-23) mg/dl Creatinine (0.6-1.4) mg/dl Est Cr Clr Drug Dosing ml/min Est GFR ( Amer) ml/min Est GFR (Non-Af Amer) ml/min BUN/Creatinine Ratio (10-20) Glucose (70-99(Fasting)) mg/dl Calcium (8.6-10.3) mg/dl Phosphorus Magnesium (1.7-2.4) mg/dl Total Bilirubin (0.2-1.0) mg/dl Direct Bilirubin (0-0.2) mg/dl AST (13-39) U/L ALT (7-52) U/L Alkaline Phosphatase (34-104) U/L Troponin I High Sens (0-20) pg/ml Total Protein (6.0-8.3) gm/dl Albumin (3.4-5.0) gm/dl Globulin (2.5-4.0) gm/dl Albumin/Globulin Ratio (0.9-2) Lipase (11-82) U/L SARS-CoV-2, RNA, NAAT (NEGATIVE) Medications Administered Current Inpatient Medications Acetaminophen/Butalbital/Caffeine (Butalbital/Acetamin/Caffeine Tab) 1 tab PO DAILY PRN PRN Reason: Migraine Headache Stop: 04/07/23 23:43 Acetaminophen/Codeine Phosphate (Acetaminophen W/Codeine #3 1 Tab) 1 tab PO BID PRN PRN Reason: Pain Stop: 04/07/23 23:43 Amlodipine Besylate (Amlodipine Besylate 5 Mg Tab) 10 mg PO QPM NENA Stop: 04/07/23 23:43 Last Admin: 03/09/23 00:41 Dose: 10 mg Amphetamine/Dextroamphetamine (Amphetamine Asp/Sulf/Dextramph 20 Mg Tab) 20 mg PO 0700,1200,1500 NENA Stop: 03/23/23 06:59 Last Admin: 03/09/23 07:57 Dose: 20 mg Azelastine HCl (Azelastine Hcl 0.1% Nasal 200 Sprays/27,400 Mcg Btl) 1 sprays NA BID NENA Stop: 04/07/23 23:43 Last Admin: 03/09/23 07:57 Dose: 1 sprays Cyclobenzaprine HCl (Cyclobenzaprine Hcl 10 Mg Tab) 10 mg PO DAILY PRN PRN Reason: muscle spasms Stop: 04/07/23 23:43 Diazepam (Diazepam 5 Mg Tablet) 5 mg PO HS PRN PRN Reason: Anxiety Stop: 04/07/23 23:43 Last Admin: 03/09/23 01:18 Dose: 5 mg Dicyclomine HCl (Dicyclomine Hcl 20 Mg Tab) 10 mg PO QID PRN PRN Reason: abd pain Stop: 04/07/23 23:43 Fluticasone Propionate (Fluticasone Propionate Na Spr 16 Gm Btl) 2 sprays NA DAILY REPLACED BY [facility] Stop: 04/08/23 08:59 Last Admin: 03/09/23 07:57 Dose: 2 sprays Gabapentin (Gabapentin 300 Mg Cap) 300 mg PO TID NENA Stop: 04/07/23 23:43 Last Admin: 03/09/23 07:58 Dose: 300 mg Heparin Sodium (Porcine) (Heparin Sod 5,000 Unit/0.5 Ml Vial) 5,000 units SQ Q8 NENA Stop: 04/07/23 23:43 Last Admin: 03/09/23 04:55 Dose: Not Given Sodium Chloride (Nss 1000ml) 1,000 mls @ 125 mls/hr IV .Q8H REPLACED BY [facility] Stop: 04/07/23 18:29 Last Admin: 03/09/23 01:59 Dose: 125 mls/hr Pantoprazole Sodium 40 mg/ (Syringe) 10 mls @ 5 mls/min IV BID REPLACED BY [facility] Stop: 04/07/23 23:43 Last Admin: 03/09/23 07:57 Dose: 5 mls/min Lactase (Lactase 3000 Unit Tab) 3,000 units PO TID PRN PRN Reason: dairy Stop: 04/07/23 23:43 Linaclotide (Linaclotide 145 Mcg Capsule) 290 mcg PO 1200 REPLACED BY [facility] Stop: 04/08/23 11:59 Lisinopril (Lisinopril 40 Mg Tab) 40 mg PO QAM REPLACED BY [facility] Stop: 04/08/23 08:59 Last Admin: 03/09/23 07:58 Dose: 40 mg Metoclopramide HCl (Metoclopramide Hcl Inj 5 Mg/Ml 2 Ml Vial) 10 mg IV Q6H PRN PRN Reason: Nausea Stop: 04/07/23 23:43 Metoprolol Tartrate (Metoprolol Tartrate 100 Mg Tab) 100 mg PO BID REPLACED BY [facility] Stop: 04/07/23 23:43 Last Admin: 03/09/23 08:06 Dose: 100 mg Ondansetron HCl (Ondansetron Inj 2 Mg/Ml 2 Ml Vial) 4 mg IV Q6H PRN PRN Reason: Nausea And Vomiting Stop: 04/07/23 23:43 Polyethylene Glycol (Polyethylene (Miralax) 17 Gm Pack) 17 gm PO DAILY PRN PRN Reason: Constipation Stop: 04/07/23 23:43 Sucralfate (Sucralfate 1 Gm/10 Ml Udc) 1 gm PO ACHS REPLACED BY [facility] Stop: 04/07/23 23:43 Last Admin: 03/09/23 07:58 Dose: 1 gm Sumatriptan Succinate (Sumatriptan Succinate 100 Mg Tab) 100 mg PO UD PRN PRN Reason: Migraine Headache Stop: 04/07/23 23:43 Tamsulosin HCl (Tamsulosin Hcl 0.4 Mg Cap) 0.4 mg PO DAILY REPLACED BY [facility] Stop: 04/08/23 08:59 Last Admin: 03/09/23 07:58 Dose: 0.4 mg
--- NOTE | 2023-03-09 08:41 | Electrocardiogram Report ---
Test Reason : Blood Pressure : / mmHG Vent. Rate : 072 BPM Atrial Rate : 072 BPM P-R Int : 154 ms QRS Dur : 094 ms QT Int : 422 ms P-R-T Axes : 061 062 063 degrees QTc Int : 462 ms Normal sinus rhythm Prominent U waves(consider hypokalemia,drug effect, etc.) Abnormal ECG When compared with ECG of 02-MAR-2023 11:42, Premature ventricular complexes are no longer Present Confirmed by Blaise Mark ([id number] on 03/09/2023 8:40:48 AM Referred By: REFERRED SELF Confirmed By:Blaise Mark
--- NOTE | 2023-03-09 08:43 | Gastrointestinal Consultation ---
Date of Consultation March 09, 2023 Assessment & Plan (1) Dyspepsia: (2) Abdominal pain: Plan 77 y/o male w/ h/o partial gastrectomy for ulcer, IBS, constipation, and others admitted w/ abd pain, worsened by eating, poor PO intake. He feels much improved today with some medications including Carafate. His abd pain may be multifactorial given his history of constipation as well as his surgical history - he may have some irritation from bile reflux. On exam, abd soft, nontender. - Would continue Carafate BID (can use suspension) - PPI daily - Would add Amitiza 8 mcg BID to his regimen of Linzess to help with bowel motility and constipation - Stop Miralax - Can arrange OP colonoscopy to f/u on his imaging suggestive of colitis and also his abd pain Thank you for allowing us to participate in the care of this patient. Please call with any acute changes, questions or concerns. Please see addendum below with additional recommendation from my supervising physician. Supervising Physician Co-Signing Physician Notes I saw and evaluated the patient. We were asked to see the patient with regard to ongoing issues with constipation. His CT does indicate a large amout of stool in the left colon. PE: NAD Thin male No abdominal tenderness Impression: patient with a history of consitipation refractory to Linzess 290 mcg and PRN Miralax. Will have the pateint add Lubiprostone 8 mcg bid and continue with the plan of an OP colonoscopy. Recomendation: Add Lubiprostone 8 mcg bid OP colonoscopy to be scheduled clinic f/u in 6 to 8 weeks Please call with [employer]ions, GI to sign off. History of Present Illness Reason for Consultation: dyspepsia, abdominal pain Requesting Physician: Dr. Wynn Attending Physician: Silas Thacker MD History of Present Illness This is a 77 y/o male with PMHx hx of partial gastrectomy for ulcer, IBS, HTN, OCD, ADHD, chronic back pain, and others, admitted after presenting with epigastric burning, that worsens with eating, weakness, poor p.o. intake. CTAP w/ mild nonspecific colitis (seen on multiple exams previously). He was given medications including Carafate. He states this morning he already feels much better. Tolerated a turkey sandwich overnight. Has had no nausea vomiting, currently no abdominal pain he does have a history of constipation, and moves his bowels infrequently (every 8- 10 days or so) despite tx with Linzess and Miralax a few times a week. Labs reviewed - no leukocytosis, normal LFTs and renal function. He had a similar admission 03/02/2023. At that time was having nausea vomiting, and CT suggestive of nonspecific colitis. Outpatient colonoscopy was to be planned. During that admission, Reglan was added to his regimen. Most recent EGD 02/16/[address] Blackburn: Normal esophagus. - A medium amount of food (residue) in the stomach. - Billroth I gastroduodenostomy was found, characterized by healthy appearing mucosa. - Normal examined duodenum. - No specimens collected. Most recent Colonoscopy 02/06/21 Dr. Camarena: Hemorrhoids were found on perianal exam. Hemorrhoids on retroflexion. There was mild granularity in the rectum, adjacent to the anal verge, consistent with prolapse of hemorrhoids/solitary rectal ulcer.. The remainder of the colon was normal. There was no evidence of left sided colitis. Allergies Allergy/AdvReac Type Severity Reaction Status Date / Time lactose AdvReac Severe Intolerant-SEVERE Verified 01/04/23 01:45 ABDOMINAL CRAMPS buspirone AdvReac Intermediate Jittery, Verified 01/04/23 01:45 "crawling out of my skin" lorazepam AdvReac Intermediate Jittery, Verified 01/04/23 01:45 "crawling out of my skin" oxycodone AdvReac Mild nausea Verified 01/04/23 01:45 Home Medications Medication Instructions Recorded Confirmed Type amlodipine 10 mg tablet (Norvasc) 10 mg PO QPM 12/07/20 03/08/23 History atorvastatin 80 mg tablet 80 mg PO QAM 12/07/20 03/08/23 History baclofen 10 mg tablet 10 mg PO BID PRN muscle spasms 12/07/20 03/08/23 History fdyhvcotue-vvsdgvrmqndjb-vhuwtttk 1 tab PO DAILY PRN Migraine 12/07/20 03/08/23 History 50 mg-325 mg-40 mg tablet Headache dicyclomine 20 mg tablet 10 mg PO QID PRN abd pain 12/07/20 03/08/23 History flurandrenolide 0.05 % lotion 1 applic topical BID PRN Itching 12/07/20 03/08/23 History hydroxyzine HCl 50 mg tablet 50 mg PO DAILY PRN Itching 12/07/20 03/08/23 History linaclotide 290 mcg capsule 290 mcg PO .DAILY WITH LUNCH 12/07/20 03/08/23 His tory (Brigette) lisinopril 40 mg tablet 40 mg PO QAM 12/07/20 03/08/23 History ondansetron 4 mg disintegrating 4 mg translingual Q12 PRN Nausea 12/07/20 03/08/23 History tablet rabeprazole 20 mg tablet,delayed 20 mg PO DAILY PRN Acid Reflux 12/07/20 03/08/23 History release sertraline 100 mg tablet (Zoloft) 150 mg PO QAM 12/07/20 03/08/23 History tamsulosin 0.4 mg capsule (Flomax) 0.4 mg PO DAILY 07/14/21 03/08/23 History sumatriptan succinate 100 mg tablet 100 mg PO DIRECTED PRN Migraine 11/17/22 03/08/23 Rx Headache 30 days #9 tabs diazepam 5 mg tablet 5 mg PO HS PRN Anxiety 30 days #15 12/28/22 03/08/23 Rx tabs acetaminophen 300 mg-codeine 30 mg 1 tab PO BID PRN Pain 01/04/23 03/08/23 History tablet betamethasone valerate 0.1 % 1 applic topical BID PRN Skin 01/04/23 03/08/23 History topical cream Irritation cyclobenzaprine 10 mg tablet 10 mg PO DAILY PRN muscle spasms 01/04/23 03/08/23 History methocarbamol 750 mg tablet 750 mg PO BID PRN NEEDED PER [facility] 01/04/23 03/08/23 History metoprolol tartrate 100 mg tablet 100 mg PO BID 01/04/23 03/08/23 History polyethylene glycol 3350 17 17 g PO DAILY PRN Constipation 01/04/23 03/08/23 History gram/dose oral powder (Miralax) metoclopramide HCl 10 mg tablet 10 mg PO AC PRN nausea and 03/05/23 03/08/23 Rx (Reglan) vomiting #20 tabs azelastine 137 mcg (0.1 %) nasal 1 spray intranasal BID 03/08/23 03/08/23 History spray aerosol chlorhexidine gluconate 0.12 % 1 ml buccal . NEEDED PRN sores 03/08/23 03/08/23 History mouthwash dextroamphetamine-amphetamine 20 20 mg PO TID 03/08/23 03/08/23 History mg tablet fluticasone propionate 50 2 spray intranasal DAILY 03/08/23 03/08/23 History mcg/actuation nasal spray,suspension gabapentin 100 mg capsule 300 mg PO TID 03/08/23 03/08/23 History pantoprazole 40 mg tablet,delayed 40 mg PO BIDM 03/08/23 03/08/23 History release Patient History Medical History Anemia iron deficiency, h/o multiple infusions with last occurring > 1 month ago Anxiety Arthralgia of multiple sites Arthritis 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 hyperactivity Bilateral edema of lower extremity resolved on carvedilol per pt Chronic radicular low back pain Coffee ground emesis CVA (cerebral vascular accident) Incidental "old" infarct noted on 2018 imaging during workup for polypharmacy reaction Degenerative disc disease Depression with h/o depressive psychosis Duodenal ulcer resolved per pt and s/p release from subsequent adhesion development Dyslipidemia GERD (gastroesophageal reflux disease) pyloric stenosis s/p partial gastrectomy Glaucoma History of long-term treatment with high-risk medication Hypertension controlled, stable per pt Hyponatremia stable per pt IBS (irritable bowel syndrome) C Migraine without status migrainosus, not intractable Mild cognitive impairment Mild concentric left ventricular hypertrophy (LVH) Pain in foot left PFO (patent foramen ovale) S cardio 07/2021: "small and non clinically significant...no additional cardiac studies or treatment are indicated..." Rebound headache to be starting prednisone course by neurology per note Spinal stenosis Urinary frequency Surgical History Fusion of spine Lumbar History of colonoscopy History of esophagogastroduodenoscopy (EGD) History of myringotomy History of partial gastrectomy r/t pyloric sphincter scarring 2004 (x2) History of surgery Right side (ribs removed) History of tonsillectomy History of tooth extraction Family History Other No family history of adverse response to anesthesia No known health problems Social History Smoking Status: Never smoker Second Hand Exposure: No; Do You Dip or Chew Tobacco: No; Hx Alcohol Use: No Hx Substance Use: No Preferred Language: Croatian Communication Ability: Effective [employer] Scientist Required: No Beliefs That Will Affect Care: None marital status: Current Living Situation: Alone Current Living Situation Comment: lives home alone, daughter and close friend live across the street from pt current occupational status: retired How many Children do You have: 2 Feels Safe at Home: Yes Safety Concerns: Feels Safe At This Time Assistive Devices: Cane Review of Systems Review of Systems: All systems reviewed & are unremarkable except as noted in HPI & below Physical Exam Constitutional: well developed, comfortable and + underweight; no acute distress Eyes: Sclera anicteric, no conjunctival injection ENMT: moist mucous membranes, no pallor Neck: trachea midline supple Respiratory: normal respiratory effort, lungs clear to auscultation Cardiovascular: RRR Gastrointestinal (Abdomen): normal bowel sounds, soft, nontender, no hepatosplenomegaly Inspection/Auscultation: abdomen not distended (healed surgical scar in the midline) Skin: no rashes, warm and dry Neurologic: alert and oriented x 3, no obvious focal neuro deficit Psychiatric: normal mood and affect Results & Data Vital Signs (Past 12 Hours) Vital Signs Temp Pulse Pulse Resp BP BP BP 03/09/23 07:34 36.7 C 78 18 121/65 03/09/23 08:07 83 22 114/65 03/09/23 07:16 79 03/08/23 22:50 78 03/08/23 22:41 36.7 C 93 H 18 148/66 H 03/09/23 03:00 36.8 C 70 18 94/51 L 03/08/23 21:38 160/89 H 03/08/23 21:38 87 16 03/08/23 21:31 160/94 H 03/08/23 21:31 82 26 H 03/08/23 21:30 79 21 03/08/23 21:00 68 13 03/08/23 21:00 150/93 H Pulse Ox O2 Del Method 03/09/23 07:34 99 Room Air 03/09/23 08:07 99 Room Air 03/09/23 07:16 03/08/23 22:50 05/29/23 22:41 93 Room Air 03/09/23 03:00 99 Room Air 03/08/23 21:38 03/08/23 21:38 03/08/23 21:31 03/08/23 21:31 03/08/23 21:30 03/08/23 21:00 100 03/08/23 21:00 Laboratory Results 03/09/23 03/08/23 03/08/23 Range/Units 08:20 15:10 14:24 WBC (4.8-10.8) K/ul RBC (4.70-6.10) M/uL Hgb (14.0-18.0) g/dl Hct (42.0-52.0) % MCV (80.0-100.0) fL MCH (25.0-34.0) pg MCHC (32.0-36.0) g/dL RDW Std Deviation (36.4-46.3) fL RDW Coeff of Boogie (11.5-14.5) % Plt Count (130-400) K/uL MPV (9.4-12.4) fL Immature Gran % (Auto) % Neut % (Auto) % Lymph % (Auto) % [place] % (Auto) % Eos % (Auto) % Baso % (Auto) % Neut # (Auto) (1.40-6.50) K/uL Lymph # (Auto) (1.2-3.4) K/uL [place] # (Auto) (0.11-0.59) K/uL Eos # (Auto) (0-0.50) K/uL Baso # (Auto) (0-0.2) K/uL Immature Gran # (Auto) (0.01-0.20) K/uL Sodium 137 134 L (136-145) mmol/L Potassium 3.1 L 3.3 L (3.5-5.1) mmol/L Chloride 104 96 L (98-107) mmol/L Carbon Dioxide 25 25 (21-32) mmol/L Anion Gap 8 13 H (3-11) BUN 24 H 37 H (6-23) mg/dl Creatinine 0.72 1.01 (0.6-1.4) mg/dl Est Cr Clr Drug Dosing 58.1 46.0 ml/min Est GFR ( Amer) 105.0 83.4 ml/min Est GFR (Non-Af Amer) 90.6 71.9 ml/min BUN/Creatinine Ratio 33.3 H 36.6 H (10-20) Glucose 76 115 H (70-99(Fasting)) mg/dl Calcium 8.8 9.8 (8.6-10.3) mg/dl Phosphorus 2.2 L (2.5-4.9) mg/dl Magnesium 1.8 1.9 (1.7-2.4) mg/dl Total Bilirubin 1.0 (0.2-1.0) mg/dl Direct Bilirubin 0.2 (0-0.2) mg/dl AST 14 (13-39) U/L ALT 12 (7-52) U/L Alkaline Phosphatase 104 (34-104) U/L Troponin I High Sens 31.6 H (0-20) pg/ml Total Protein 6.8 (6.0-8.3) gm/dl Albumin 4.1 (3.4-5.0) gm/dl Globulin 2.7 (2.5-4.0) gm/dl Albumin/Globulin Ratio 1.5 (0.9-2) Lipase 12 (11-82) U/L SARS-CoV-2, RNA, NAAT NEGATIVE (NEGATIVE) 03/08/23 Range/Units 14:24 WBC 9.70 (4.8-10.8) K/ul RBC 4.84 (4.70-6.10) M/uL Hgb 15.1 (14.0-18.0) g/dl Hct 39.7 L (42.0-52.0) % MCV 82.0 (80.0-100.0) fL MCH 31.2 (25.0-34.0) pg MCHC 38.0 H (32.0-36.0) g/dL RDW Std Deviation 33.4 L (36.4-46.3) fL RDW Coeff of Boogie 11.5 (11.5-14.5) % Plt Count 382 (130-400) K/uL MPV 8.6 L (9.4-12.4) fL Immature Gran % (Auto) 0.7 % Neut % (Auto) 67.3 % Lymph % (Auto) 24.2 % [place] % (Auto) 7.2 % Eos % (Auto) 0.1 % Baso % (Auto) 0.5 % Neut # (Auto) 6.52 H (1.40-6.50) K/uL Lymph # (Auto) 2.35 (1.2-3.4) K/uL [place] # (Auto) 0.70 H (0.11-0.59) K/uL Eos # (Auto) 0.01 (0-0.50) K/uL Baso # (Auto) 0.05 (0-0.2) K/uL Immature Gran # (Auto) 0.07 (0.01-0.20) K/uL Sodium (136-145) mmol/L Potassium (3.5-5.1) mmol/L Chloride (98-107) mmol/L Carbon Dioxide (21-32) mmol/L Anion Gap (3-11) BUN (6-23) mg/dl Creatinine (0.6-1.4) mg/dl Est Cr Clr Drug Dosing ml/min Est GFR ( Amer) ml/min Est GFR (Non-Af Amer) ml/min BUN/Creatinine Ratio (10-20) Glucose (70-99(Fasting)) mg/dl Calcium (8.6-10.3) mg/dl Phosphorus (2.5-4.9) mg/dl Magnesium (1.7-2.4) mg/dl Total Bilirubin (0.2-1.0) mg/dl Direct Bilirubin (0-0.2) mg/dl AST (13-39) U/L ALT (7-52) U/L Alkaline Phosphatase (34-104) U/L Troponin I High Sens (0-20) pg/ml Total Protein (6.0-8.3) gm/dl Albumin (3.4-5.0) gm/dl Globulin (2.5-4.0) gm/dl Albumin/Globulin Ratio (0.9-2) Lipase (11-82) U/L SARS-CoV-2, RNA, NAAT (NEGATIVE) Diagnostic Findings CTAP: FINDINGS: No acute process of the imaged lower chest. There is no pneumatosis or pneumoperitoneum. Unremarkable spleen, atrophic pancreas, mildly distended gallbladder, adrenal glands and liver. There is patency of the hepatic and portal veins. 3 cm cyst of the superior pole left kidney. No hydronephrosis. Urinary bladder wall thickening. Prostatomegaly. Atherosclerosis of the aorta without aneurysm. No lymphadenopathy. Mild nonspecific distal esophageal wall thickening. Postoperative changes of the stomach. No small bowel obstruction. There is mild circumferential wall thickening of the stomach with areas of partial distention, notably involving the transverse and descending segments. Appendix is not definitively seen. Unremarkable soft tissues. No acute fracture. Posterior interbody rods and screw fusion hardware at L2-S1. Lucency surrounding the right L2 screw fissures for loosening. L4-L5 and L5-S1 discectomy. Dextroscoliosis. Severe disc space narrowing with endplate irregularity noted at L3-L4. IMPRESSION: 1. No bowel obstruction or pneumoperitoneum. 2. Areas of mild wall thickening within the colon may be secondary to partial distention versus a mild nonspecific colitis. 3. Prostatomegaly with findings suggestive of chronic bladder outlet obstruction. 4. Additional findings as above.
[2023-03-09 08:56] LABS: BUN Creatinine Ratio 33.3 (10-20); Calcium 8.8 mg/dl (8.6-10.3); Creatinine Clr Calc Pharmacy 58.1 ml/min; Est GFR (Non-African American) 90.6 ml/min; Magnesium 1.8 mg/dl (1.7-2.4); Phosphorus 2.2 mg/dl (2.5-4.9); Potassium 3.1 mmol/L (3.5-5.1)
[2023-03-09] MEDS: LINACLOTIDE 145 MCG CAPSULE PO SCH (11:40)
[2023-03-09] MEDS: LUBIPROSTONE 8 MCG CAP PO SCH ×2 (11:40→21:35)
[2023-03-09] MEDS ORDERED: POTASSIUM CHLORIDE CRTAB 20 MEQ TABCR PO STA (13:47)
[2023-03-10] MEDS: SODIUM CHLORIDE 0.9% 1000ML 1,000 ML IV SCH ×2 (01:49→10:15)
[2023-03-10] MEDS: HEPARIN SOD 5,000 UNIT/0.5 ML VIAL SQ SCH ×2 (04:35→12:40)
[2023-03-10] MEDS: AZELASTINE HCL 0.1% NASAL 200 SPRAYS/27,400 MCG BTL SCH (08:10)
[2023-03-10] MEDS: FLUTICASONE PROPIONATE NA SPR 16 GM BTL SCH (08:10)
[2023-03-10] MEDS: PANTOprazole 40 MG in SYRINGE 0 ML IV SCH (08:10)
[2023-03-10] MEDS: METOPROLOL TARTRATE 100 MG TAB PO SCH (08:10)
[2023-03-10] MEDS: LUBIPROSTONE 8 MCG CAP PO SCH (08:10)
[2023-03-10] MEDS: TAMSULOSIN HCL 0.4 MG CAP PO SCH (08:10)
[2023-03-10] MEDS: SUCRALFATE 1 GM/10 ML UDC PO SCH ×2 (08:10→11:41)
[2023-03-10] MEDS: AMPHETAMINE ASP/SULF/DEXTRAMPH 20 MG TAB PO SCH ×2 (08:11→11:41)
[2023-03-10] MEDS: GABAPENTIN 300 MG CAP PO SCH ×2 (08:11→12:39)
[2023-03-10] MEDS: lisinopril 40 MG TAB PO SCH (08:11)
[2023-03-10 10:49] LABS: BUN Creatinine Ratio 18.9 (10-20); Calcium 8.6 mg/dl (8.6-10.3); Creatinine Clr Calc Pharmacy 56.5 ml/min; Est GFR (African American) 103.8 ml/min; Est GFR (Non-African American) 89.6 ml/min; Magnesium 1.4 mg/dl (1.7-2.4); Phosphorus 2.2 mg/dl (2.5-4.9); Potassium 3.4 mmol/L (3.5-5.1)
[2023-03-10] MEDS: LINACLOTIDE 145 MCG CAPSULE PO SCH (11:41)
--- NOTE | 2023-03-10 22:26 | Discharge Summary ---
Date of Service March 10, 2023 Admission HPI Per Admitting Provider Mr Dalton Leslie is a 77 year old man with a history of ADHD, OCD, pyloric stenosis s/p Billroth 1 about 10 years ago, spinal stenosis status post lumbar surgery 1 year ago, HTN, HLD (he is on atorvastatin but denies knowledge of having HLD), lactose intolerance, IBS presents today with ongoing epigastric burning, pain, early satiety and poor oral intake since discharge 3 days ago. Patient was admitted for similar last week and at that time was started on reglan to help with his early satiety. He denies having nausea but instead reports having intermittent epigastric burning sensation which worsens with oral intake (pills, food and even water) making have become averse to eating. He has been taking his protonix three times a day and reglan in attempts to help relieve these symptoms. He has only been taking certain medications (protonix, reglan and antihypertensives) since he can not take too many pills all at once. Since his discharge from the hospital 3 days ago, he has only taken sips of water, some soda, and 3 oz of a protein shake. In terms of solid food, he has only eaten a small piece of a banana since returning home. His daughter went to visit him today and noticed he was very weak so she brought him to the hospital. In the ER, he received reglan, sucralfate, pepcid, NSS, and potassium 10mEQ, magnesium 1gm, benadryl. With the sucralfate, his epigastric burning has subsided. Admission Exam Per Admitting Provider Physical Exam: Thin, cachetic, frail ENMT: temporal muscle wasting, mucous membrane dry, poor dentition Respiratory: breathing comfortably on room air, no wheezing/rhonchi/rales Cardiovascular: regular rate and rhythm, no murmurs/rubs/gallops Gastrointestinal (Abdomen): thin, soft, non distended Musculoskeletal: peripheral muscle wasting, no edema, no cyanosis Skin: no rash, no redness, no ulcer noted on exposed skin Neurologic: awake, alert, spontaneously moving extremities Psychiatric: affect normal, speech linear, non pressured, reliable historian, maintains eye contact Principal Diagnosis Dyspepsia, failure to drive, severe malnutrition Discharge Exam General: Severely malnourished, Sitting comfortably in bed, not in distress HEENT: EOMI, [place], MMM Chest: Clear breath sounds bilaterally, no wheezes or crackles CVS: Regular rate and rhythm, normal heart sounds, no murmur Abdomen: Soft, non tender, not distended, normal bowel sounds Neuro: Awake, alert, oriented, conversing well, non focal Extremities: No cyanosis, clubbing or edema Discharge Data Allergies Allergy/AdvReac Type Severity Reaction Status Date / Time lactose AdvReac Severe Intolerant-SEVERE Verified 01/04/23 01:45 ABDOMINAL CRAMPS buspirone AdvReac Intermediate Jittery, Verified 01/04/23 01:45 "crawling out of my skin" lorazepam AdvReac Intermediate Jittery, Verified 01/04/23 01:45 "crawling out of my skin" oxycodone AdvReac Mild nausea Verified 01/04/23 01:45 Consultations 03/08/23 18:26 ED Decision to Admit Stat 03/08/23 21:06 Consult Gastroenterology Routine Ordered Studies 03/08/23 15:47 CT abd pelvis IV con only Stat Laboratory Results WBC 9.70 K/ul (4.8-10.8) 03/08/23 14:24 RBC 4.84 M/uL (4.70-6.10) 03/08/23 14:24 Hgb 15.1 g/dl (14.0-18.0) 03/08/23 14:24 Hct 39.7 % (42.0-52.0) L 03/08/23 14:24 MCV 82.0 fL (80.0-100.0) 03/08/23 14:24 MCH 31.2 pg (25.0-34.0) 03/08/23 14:24 MCHC 38.0 g/dL (32.0-36.0) H 03/08/23 14:24 RDW Std Deviation 33.4 fL (36.4-46.3) L 03/08/23 14:24 RDW Coeff of Boogie 11.5 % (11.5-14.5) 03/08/23 14:24 Plt Count 382 K/uL (130-400) 03/08/23 14:24 MPV 8.6 fL (9.4-12.4) L 03/08/23 14:24 Immature Gran % (Auto) 0.7 % 03/08/23 14:24 Neut % (Auto) 67.3 % 03/08/23 14:24 Lymph % (Auto) 24.2 % 03/08/23 14:24 [place] % (Auto) 7.2 % 03/08/23 14:24 Eos % (Auto) 0.1 % 03/08/23 14:24 Baso % (Auto) 0.5 % 03/08/23 14:24 Neut # (Auto) 6.52 K/uL (1.40-6.50) H 03/08/23 14:24 Lymph # (Auto) 2.35 K/uL (1.2-3.4) 03/08/23 14:24 [place] # (Auto) 0.70 K/uL (0.11-0.59) H 03/08/23 14:24 Eos # (Auto) 0.01 K/uL (0-0.50) 03/08/23 14:24 Baso # (Auto) 0.05 K/uL (0-0.2) 03/08/23 14:24 Immature Gran # (Auto) 0.07 K/uL (0.01-0.20) 03/08/23 14:24 Sodium 136 mmol/L (136-145) 03/10/23 09:25 Potassium 3.4 mmol/L (3.5-5.1) L 03/10/23 09:25 Chloride 105 mmol/L (98-107) 03/10/23 09:25 Carbon Dioxide 23 mmol/L (21-32) 03/10/23 09:25 Anion Gap 8 (3-11) 03/10/23 09:25 BUN 14 mg/dl (6-23) 03/10/23 09:25 Creatinine 0.74 mg/dl (0.6-1.4) 03/10/23 09:25 Est Cr Clr Drug Dosing 56.5 ml/min 03/10/23 09:25 Est GFR ( Amer) 103.8 ml/min 03/10/23 09:25 Est GFR (Non-Af Amer) 89.6 ml/min 03/10/23 09:25 BUN/Creatinine Ratio 18.9 (10-20) 03/10/23 09:25 Glucose 130 mg/dl (70-99(Fasting)) H 03/10/23 09:25 Calcium 8.6 mg/dl (8.6-10.3) 03/10/23 09:25 Phosphorus 2.2 mg/dl (2.5-4.9) L 03/10/23 09:25 Magnesium 1.4 mg/dl (1.7-2.4) L 03/10/23 09:25 Total Bilirubin 1.0 mg/dl (0.2-1.0) 03/08/23 14:24 Direct Bilirubin 0.2 mg/dl (0-0.2) 03/08/23 14:24 AST 14 U/L (13-39) 03/08/23 14:24 ALT 12 U/L (7-52) 03/08/23 14:24 Alkaline Phosphatase 104 U/L (34-104) 03/08/23 14:24 Troponin I High Sens 31.6 pg/ml (0-20) H 03/08/23 14:24 Total Protein 6.8 gm/dl (6.0-8.3) 03/08/23 14:24 Albumin 4.1 gm/dl (3.4-5.0) 03/08/23 14:24 Globulin 2.7 gm/dl (2.5-4.0) 03/08/23 14:24 Albumin/Globulin Ratio 1.5 (0.9-2) 03/08/23 14:24 Lipase 12 U/L (11-82) 03/08/23 14:24 SARS-CoV-2, RNA, NAAT NEGATIVE (NEGATIVE) 03/08/23 15:10 Impressions Chest X-Ray 03/08/23 14:47 XR chest 1V portable HISTORY: 77 years-old Male Chest pain, nonspecific COMPARISON: Chest radiograph 12/12/2021 TECHNIQUE: AP view of the chest FINDINGS: Cardiomediastinal and hilar silhouettes are within normal limits no pneumothorax, pleural effusion, airspace consolidation or pulmonary edema. Bones of the chest appear grossly intact. Partially imaged lumbar spinal fusion hardware. Lucency surrounding the proximal screws may represent hardware loosening. IMPRESSION: No acute process of the chest. ACT 112: Negative or not required by law. The above report was generated using voice recognition software. It may contain grammatical, syntax or spelling errors. Electronically signed by: Moreno Dimas M.D. 03/08/2023 3:47 PM Abdomen/Pelvis CT 03/08/23 15:[address] WITH IV CONTRAST CT DOSE: 299.25 mGy.cm HISTORY: Acute abdominal pain with nausea and vomiting abdominal pain, n/v, g astroparesis TECHNIQUE: Multiaxial CT images of the abdomen and pelvis were performed following the IV administration of 83 cc of Optiray, A dose lowering technique was utilized adhering to the principles of ALARA. COMPARISON STUDY: 03/02/2023 FINDINGS: No acute process of the imaged lower chest. There is no pneumatosis or pneumoperitoneum. Unremarkable spleen, atrophic pancreas, mildly distended gallbladder, adrenal glands and liver. There is patency of the hepatic and portal veins. 3 cm cyst of the superior pole left kidney. No hydronephrosis. Urinary bladder wall thickening. Prostatomegaly. Atherosclerosis of the aorta without aneurysm. No lymphadenopathy. Mild nonspecific distal esophageal wall thickening. Postoperative changes of the stomach. No small bowel obstruction. There is mild circumferential wall thickening of the stomach with areas of partial distention, notably involving the transverse and descending segments. Appendix is not definitively seen. Unremarkable soft tissues. No acute fracture. Posterior interbody rods and screw fusion hardware at L2-S1. Lucency surrounding the right L2 screw fissures for loosening. L4-L5 and L5-S1 discectomy. Dextroscoliosis. Severe disc space narrowing with endplate irregularity noted at L3-L4. IMPRESSION: 1. No bowel obstruction or pneumoperitoneum. 2. Areas of mild wall thickening within the colon may be secondary to partial distention versus a mild nonspecific colitis. 3. Prostatomegaly with findings suggestive of chronic bladder outlet obstruction. 4. Additional findings as above. ACT 112: Negative or not required by law. The above report was generated using voice recognition software. It may contain grammatical, syntax or spelling errors. Electronically signed by: Moreno Dimas M.D. 03/08/2023 5:12 PM Hospital Course (1) Dyspepsia: -symptoms most consistent with dyspepsia-completely resolved after initiation of Carafate. last EGD 02/16 was unremarkable -Seen by GI, recommendations noted-continue Carafate, Protonix, Amitiza -Follow-up with GI as outpatient for outpatient colonoscopy in 6 to 8 weeks with (2) Adult failure to thrive: Severe malnutrition due to food avoidance due to abdominal pain, BMI 14.9 Appetite improving. Seen by RD, recommendations noted. Liberalize diet (3) Generalized weakness: Seen by PT OT. Outpatient therapy evaluation (4) Hypokalemia: (5) Hypomagnesemia: Plan Dyselectrolytemia- Hypokalemia/Hypomagnesemia/Hypophosphatemia-supplementation provided at discharge, recommend repeat electrolyte levels in a week and follow- up with PCP HLD- on atorvastatin HTN-continue lisinopril, Lopressor ADHD/OCD- continue home medication Chronic back/neck pain- continue tylenol/codeine, gabapentin, muscle relaxant Total Time Total Time Spent Total Time Spent (In Minutes): 40 Discharge Plan Discharge Items Patient Disposition: Home - Self-Care Reason For Visit: FAILURE TO THRIVE Discharge Diagnosis: Dyspepsia, Failure to thrive/severe malnutrition, Dyselectrolytemia Activity: Resume your previous activity Non-emergency contact: Primary Care Provider and Senior Radiation Therapist Call non-emergency contact if: you have any medication questions, your symptoms worsen and your pain is concerning for you Follow-up/Referrals: Fazal Guadarrama DO [Physician] - (The GI office will call you with an appointment for follow up) Buddy Begum DO [Primary Care Provider] - (Date & Time 03/17/2023 1:40 PM Provider Buddy Begum DO Department [facility] ) Diet: Regular Addtl Attending Provider Instructions: Continue carafate twice daily Continue lubiprostone for your constipation Follow up with GI for colonoscopy in 6-8 weeks Your electrolytes were low and you are on supplementation. Recommend repeat blood work for potassium, magnesium, phosphorus in a week as your levels were low here. Follow up with your family doctor. Continue nutritional supplements Continue physical therapy Pending Studies at Discharge: No Stand-Alone Forms: My [employer], Smoking Cessation Medications and DC Order Prescriptions: New sucralfate 100 mg/mL Suspension 1 g PO BID Qty: 300 0RF lubiprostone [Amitiza] 8 mcg Capsule 8 mcg PO BID Qty: 60 0RF Y-Czuq-Dzgreug 250 mg tablet 1 tab PO TID Qty: 10 0RF magnesium oxide 400 mg (241.3 mg magnesium) tablet 400 mg PO DAILY Qty: 10 0RF potassium chloride 10 mEq tablet extended release 10 meq PO DAILY Qty: 10 0RF Continued diazepam 5 mg tablet 5 mg PO HS PRN (Reason: Anxiety) 30 Days Qty: 15 0RF sumatriptan succinate 100 mg tablet 100 mg PO DIRECTED MDD 2 doses in 24 hours PRN (Reason: Migraine Headache) 30 Days Qty: 9 5RF Rx Instructions: take 1 pill by mouth and repeat in 2 hours as needed for migraine atorvastatin 80 mg tablet 80 mg PO QAM Rx Instructions: pt holding rabeprazole 20 mg Tablet,Delayed Release (Dr/Ec) 20 mg PO DAILY PRN (Reason: Acid Reflux) Rx Instructions: pt holding sertraline [Zoloft] 100 mg tablet 150 mg PO QAM Rx Instructions: pt holding hydroxyzine HCl 50 mg tablet 50 mg PO DAILY PRN (Reason: Itching) cdwhvjprsu-[id number] 50-325-40 mg Tablet 1 tab PO DAILY PRN (Reason: Migraine Headache) dicyclomine 20 mg tablet 10 mg PO QID PRN (Reason: abd pain) baclofen 10 mg Tablet 10 mg PO BID PRN (Reason: muscle spasms) amlodipine [Norvasc] 10 mg tablet 10 mg PO QPM Rx Instructions: takes with supper flurandrenolide 0.05 % lotion 1 applic TOPICAL BID PRN (Reason: Itching) lisinopril 40 mg tablet 40 mg PO QAM ondansetron 4 mg tablet,disintegrating 4 mg translingual Q12 PRN (Reason: Nausea) Linzess 290 mcg capsule 290 mcg PO .DAILY WITH LUNCH tamsulosin [Flomax] 0.4 mg Capsule 0.4 mg PO DAILY Rx Instructions: pt holding metoclopramide HCl [Reglan] 10 mg tablet 10 mg PO AC PRN (Reason: nausea and vomiting) Qty: 20 0RF Rx Instructions: administer 30 minutes before meals metoprolol tartrate 100 mg tablet 100 mg PO BID acetaminophen-codeine 300-30 mg tablet 1 tab PO BID PRN (Reason: Pain) betamethasone valerate 0.1 % cream 1 applic TOPICAL BID PRN (Reason: Skin Irritation) cyclobenzaprine 10 mg tablet 10 mg PO DAILY PRN (Reason: muscle spasms) methocarbamol 750 mg tablet 750 mg PO BID PRN (Reason: NEEDED PER [facility]) Rx Instructions: pt holding dextroamphetamine-amphetamine 20 mg tablet 20 mg PO TID Rx Instructions: takes in morning,noon and mid afternoon pantoprazole 40 mg tablet,delayed release (DR/EC) 40 mg PO BIDM gabapentin 100 mg Capsule 300 mg PO TID Rx Instructions: pt holding chlorhexidine gluconate 0.12 % Mouthwash 1 ml BUCCAL . NEEDED PRN (Reason: sores) Rx Instructions: in side cheek azelastine 137 mcg (0.1 %) Aerosol,[place] 1 spray INTRANASAL BID Rx Instructions: administer into each nostril....pt is holding fluticasone propionate 50 mcg/actuation [place],Suspension 2 spray INTRANASAL DAILY Rx Instructions: administer into each nostril....pt is holding Discontinued polyethylene glycol 3350 [Miralax] 17 gram/dose Powder 17 g PO DAILY PRN (Reason: Constipation) Discharge Orders: Discharge Order (Routine); Ordered 03/10/23 Ordered By: Ruiz Arce Admission Data Admit Date/Time: 03/08/23 20:38 Attending Provider: Ruiz Arce Admit Provider: Dc Wynn Primary Care Provider: Buddy Begum Other Providers: Dc Wynn ; Fazal Guadarrama Other Interventions: Discharge Summary Assessment (RN) Last Done: 03/10/23 14:10
== END 2023-03-10 15:00 | disposition home or self-care (01) ==
LOC: 2N 14:20 → ED 14:20 → SUATTDRO 20:38 → 2N 21:54